=== PATIENT | female | born 1940 | race Caucasian/White ===

== ENCOUNTER 2017-07-01 14:18 | Inpatient (IN) | payer OTHER ==
--- OUTSIDE RECORDS SUMMARY | 2017-07-01 14:20 | XMS REPORT | Clinical Summary ---
:1940 Author Organization [facility] Address [address] [place] [address] Care Team Providers Name Role Phone Asked, No Pcp Primary Care Provider Unavailable Allergies Active Allergy Reactions Severity Noted Date Comments No Known Drug Allergies 09/16/2015 Current Medications Prescription Sig. Disp. Refills Start Date End Date Status levothyroxine TK 1 T PO QD 3 12/29/2016 Active (SYNTHROID, LEVOXYL) 125 mcg tablet amLODIPine (NORVASC) 5 Take 5 mg by Active mg tablet mouth daily. clopidogrel (PLAVIX) 75 Take 75 mg by Active mg tablet mouth daily. cholecalciferol, Take 1,000 Active vitamin D3, (VITAMIN Units by D3) 1,000 unit tablet mouth daily. hydroxychloroquine Take by mouth Active (PLAQUENIL) 200 mg daily. tablet escitalopram (LEXAPRO) Take 10 mg by Active 10 MG tablet mouth daily. tolterodine LA (DETROL Take 4 mg by Active LA) 4 MG 24 hr capsule mouth daily. atorvastatin (LIPITOR) Take 40 mg by Active 40 MG tablet mouth daily. aspirin (ECOTRIN) 81 MG Take 81 mg by Active enteric coated tablet mouth daily. pregabalin (LYRICA) 50 Take 50 mg by Active MG capsule mouth 3 (three) times a day. fluticasone (FLONASE) 2 sprays (100 15.8 mL 0 01/25/2017 Active 50 mcg/actuation nasal mcg total) by spray Each Nare route daily. fexofenadine-pseudoepHE Take 1 tablet 30 tablet 1 01/25/2017 01/26/20 Active Drine (JEREMY-D 24 by mouth 18 HOUR) 180-240 mg per 24 daily. hr tablet budesonide-formoterol Inhale 2 1 Inhaler 2 02/19/2017 Active (SYMBICORT) 160-4.5 puffs 2 (two) mcg/actuation inhaler times a day. levoFLOXacin (LEVAQUIN) Take 500 mg Active 500 MG tablet by mouth daily. budesonide-formoterol Inhale 2 02/20/20 Discontinued (SYMBICORT) 160-4.5 puffs 2 (two) 17 mcg/actuation inhaler times a day. budesonide-formoterol Inhale 2 1 Inhaler 3 02/12/2017 03/14/20 (SYMBICORT) 160-4.5 puffs 2 (two) 17 mcg/actuation inhaler times a day for 30 days. albuterol (PROAIR Inhale 2 18 g 2 05/28/2017 06/28/19 HFA,PROVENTIL puffs every 6 18 HFA,VENTOLIN HFA) 90 (six) hours mcg/actuation inhaler as needed for wheezing for up to 30 days. Active Problems Problem Noted Date Uncomplicated asthma 02/12/2017 Exacerbation of intermittent asthma 02/12/2017 Reactive airway disease that is not asthma 01/10/2017 Cough with congestion of paranasal sinus 01/10/2017 Allergic rhinitis due to pollen 01/10/2017 Post-nasal drip 01/10/2017 Mild intermittent asthma without complication 01/10/2017 Encounters Date Type Specialty Care Team Description 05/28/2017 Office Visit Pulmonology Angel Clark, Reactive airway disease that is not asthma (Primary Dx); Cough with congestion of paranasal sinus; Allergic rhinitis due to pollen, unspecified chronicity, unspecified seasonality; Intermittent asthma without complication, unspecified asthma severity 02/19/2017 Orders Only Pulmonology Frances Solo MA 02/12/2017 Clinical Support Pulmonology Isaias Azul Asthma, unspecified asthma severity, unspecified whether complicated, unspecified whether persistent ; Reactive airway disease that is not asthma 02/12/2017 Office Visit Pulmonology Angel Clark, Uncomplicated asthma , unspecified asthma severity, unspecified whether persistent (Primary Dx); Exacerbation of intermittent asthma, unspecified asthma severity; Allergic rhinitis due to pollen, unspecified chronicity, unspecified seasonality; Cough with congestion of paranasal sinus 01/25/2017 Orders Only Pulmonology Frances Solo MA 01/10/2017 Office Visit Pulmonology Angel Clark, Reactive airway disease that is not asthma (Primary Dx); Cough with congestion of paranasal sinus; Allergic rhinitis due to pollen, unspecified rhinitis seasonality; Post-nasal drip; Mild intermittent asthma without complication after 06/30/2016 Social History Tobacco Use Types Packs/Day Years Used Date Never Smoker Smokeless Tobacco: Never Used Sex Assigned at Date Recorded Not on file Last Filed Vital Signs Vital Sign Reading Time Taken Blood Pressure 140/70 05/28/2017 9:33 AM [employer] Pulse 49 05/28/2017 9:33 AM [employer] Temperature 36.7 C (98.1 F) 05/28/2017 9:33 AM [employer] Respiratory Rate 14 05/28/2017 9:33 AM [employer] Oxygen Saturation 98% 05/28/2017 9:33 AM [employer] Inhaled Oxygen Concentration - - Weight 85.3 kg (188 lb) 05/28/2017 9:33 AM [employer] Height 152.4 cm (5') 02/12/2017 9:45 AM CDT Body Mass Index 36.72 05/28/2017 9:33 AM [employer] Plan of Treatment Date Type Specialty Care Team Description 08/27/2017 Office Visit Pulmonology Angel Clark MD [address] [address] Health Maintenance Due Date Last Done Comments ZOSTER VACCINE 1999 PNEUMOCOCCAL POLYSACCHARIDE VACCINE AGE 65 AND OVER 06/23/2004 PNEUMOCOCCAL-13 06/23/2004 INFLUENZA VACCINE 11/14/2016 Results Not on fileafter 06/30/2016 Insurance Payer Benefit Plan / Group Subscriber ID Type Phone Address AETNA MEDICARE AETNA MEDICARE HMO/PPO [facility] xxxxxxxx HMO Home: [address] [place] [phone] [place], [place] [id number]
[2017-07-01 15:18] LABS: Absolute Lymphocytes (CBC) 2.3 K/uL (0.7-4.9); Absolute Monocytes 0.6 K/uL (0.1-1.3); Absolute Neutrophil 5.3 K/uL (1.8-8.0); Basophils % 0.7 % (0-1.3); Eosinophils % 3.4 % (0-4.4); Hematocrit 40.5 % (36.0-45.0); Lymphocytes % 27.2 % (15.3-44.8); MCH 28.6 pg (27.0-35.0); MCV 87.3 fL (80-100); MPV 9.8 fL (7.6-11.3); Monocytes % 6.7 % (3.3-12.3); RBC Red Blood Cell Count 4.65 M/uL (3.86-4.86)
[2017-07-01 15:20] LABS: Protime INR 0.91
[2017-07-01 15:25] LABS: Bicarbonate 26 mEq/L (21-31); Glucose Level 210 mg/dL (65-120); Potassium 3.8 mEq/L (3.6-5.0); Sodium Level 140 mEq/L (135-145)
[2017-07-01 15:31] LABS: ALT/SGPT 16 IU/L (10-60); AST/SGOT 21 IU/L (10-42); Albumin 3.6 g/dL (3.2-5.5); Alkaline Phosphatase 59 IU/L (42-121); BUN Blood Urea Nitrogen 15 mg/dL (6-20); Bilirubin Direct < 0.1 mg/dL (0-0.2); Bilirubin Total 0.5 mg/dL (0.3-1.2); Creatine Phosphokinase 103 IU/L (22-269); Glomerular Filtration Rate 85 mL/min (=/>90); Magnesium 1.9 mg/dL (1.8-2.5); Protein, Total 6.9 g/dL (6.0-8.3)
[2017-07-01 15:34] LABS: CKMB Creatine Kinase MB 5.9 ng/ml (0.3-4.0)
--- NOTE | 2017-07-01 15:41 | RAD REPORT ---
EXAM DESCRIPTION: RAD - Chest Single View - 07/01/2017 3:26 pm CLINICAL HISTORY: Chest pain. COMPARISON: None. FINDINGS: Portable technique limits examination quality. The lungs are grossly clear. The heart is normal in size. No displaced fractures. IMPRESSION: No acute intrathoracic process suspected.
--- NOTE | 2017-07-01 15:55 | EDPHYS ---
Physician Documentation [facility] Name: Ashley Goins Age: 77 yrs Sex: Female : 1940 Arrival Date: 07/01/2017 Time: 14:35 Bed 17 Private MD: ED Physician Samir Barroso HPI: 07/01 15:05 This 77 yrs old Female presents to ER via EMS with complaints of chest pain. snw 15:05 The patient or guardian reports chest pain that is located primarily in the substernal snw area. Onset: suddenly. The pain does not radiate. Associated signs and symptoms: Pertinent positives: diaphoresis, lightheadedness, palpitations. The chest pain is described as "crushing". Duration: The patient or guardian reports a single episode, that is now resolved. Modifying factors: The symptoms are alleviated by ASA, X4. NTG, X2. application of supplemental oxygen. EMS care prior to arrival includes: aspirin, nitroglycerin, saline lock, supplemental oxygen. The patient has not experienced similar symptoms in the past. Saw Dr. Zapata in Apr 01. Gets meds filled at [facility]. Historical: - Allergies: 17:03 Sulfa (Sulfonamide Antibiotics); aj1 17:03 Codeine; aj1 17:03 Latex, Natural Rubber; aj1 17:03 PENICILLINS; aj1 - Home Meds: 14:44 zolpidem 5 mg Oral tab 1 tab once daily [Active]; Lyrica 50 mg Oral 2 times per day aj1 [Active]; levothyroxine oral 15 mcg once daily [Active]; Januvia 100 mg oral tab 1 tab once daily [Active]; aspirin 81 mg Oral chew 1 tab once daily [Active]; montelukast 10 mg oral tab 1 tab once daily [Active]; nabumetone 500 mg oral tab 1 tab 2 times per day [Active]; hydroxychloroquine 200 mg oral tab 1 tab once daily [Active]; Detrol LA 4 mg Oral cp24 1 cap once daily [Active]; clopidogrel 75 mg oral tab 1 tab once daily [Active]; Lantus 100 unit/mL Sub-Q soln [Active]; Advair Diskus 100-50 mcg/dose Inhl dsdv 1 puff 2 times per day [Active]; Lexapro 10 mg Oral tab 1 tab once daily [Active]; veramest 29.5 mg [Active]; palanose 66.5 mg [Active]; - PMHx: 14:44 carotid stenosis; Hypertension; Hypothyroidism; Diabetes - NIDDM; Rheumatoid Arthritis; aj1 Asthma; - Immunization history:: Adult Immunizations up to date. - Social history:: Smoking status: Patient/guardian denies using tobacco. ROS: 15:02 Constitutional: Negative for fever, chills, and weight loss, Eyes: Negative for injury, snw pain, redness, and discharge, ENT: Negative for injury, pain, and discharge, Neck: Negative for injury, pain, and swelling. 15:02 Abdomen/GI: Negative for abdominal pain, nausea, vomiting, diarrhea, and constipation, Back: Negative for injury and pain, : Negative for injury, bleeding, discharge, and swelling, MS/Extremity: Negative for injury and deformity. 15:02 Cardiovascular: Positive for chest pain. 15:02 Respiratory: Positive for shortness of breath. 15:02 Skin: Positive for diaphoresis. 15:02 Neuro: Positive for dizziness. Exam: 15:02 Constitutional: This is a well developed, well nourished patient who is awake, alert, snw and in no acute distress. Head/Face: Normocephalic, atraumatic. Eyes: Pupils equal round and reactive to light, extra-ocular motions intact. Lids and lashes normal. Conjunctiva and sclera are non-icteric and not injected. Cornea within normal limits. Periorbital areas with no swelling, redness, or edema. ENT: Nares patent. No nasal discharge, no septal abnormalities noted. Tympanic membranes are normal and external auditory canals are clear. Oropharynx with no redness, swelling, or masses, exudates, or evidence of obstruction, uvula midline. Mucous membranes moist. Neck: Trachea midline, no thyromegaly or masses palpated, and no cervical lymphadenopathy. Supple, full range of motion without nuchal rigidity, or vertebral point tenderness. No Meningismus. Chest/axilla: Normal chest wall appearance and motion. Nontender with no deformity. No lesions are appreciated. Respiratory: Lungs have equal breath sounds bilaterally, clear to auscultation and percussion. No rales, rhonchi or wheezes noted. No increased work of breathing, no retractions or nasal flaring. Abdomen/GI: Soft, non-tender, with normal bowel sounds. No distension or tympany. No guarding or rebound. No evidence of tenderness throughout. Back: No spinal tenderness. No costovertebral tenderness. Full range of motion. Skin: Warm, dry with normal turgor. Normal color with no rashes, no lesions, and no evidence of cellulitis. MS/ Extremity: Pulses equal, no cyanosis. Neurovascular intact. Full, normal range of motion. Neuro: Awake and alert, GCS 15, oriented to person, place, time, and situation. Cranial nerves II-XII grossly intact. Motor strength 5/5 in all extremities. Sensory grossly intact. Cerebellar exam normal. Normal gait. Psych: Awake, alert, with orientation to person, place and time. Behavior, mood, and affect are within normal limits. 15:02 Cardiovascular: Rate: normal, Rhythm: irregular, Pulses: no pulse deficits are appreciated, Heart sounds: normal, Edema: is not appreciated. Vital Signs: 14:45 BP 205 / 79; Pulse 92; Resp 18; Temp 98.2; Pulse Ox 97% ; Weight 84.37 kg; Height 5 ft. aj1 0 in. (152.40 cm); Pain 0/10; 15:35 BP 179 / 79; Pulse 84; Resp 20; Pulse Ox 98% on R/A; mh5 16:01 Weight 84.91 kg; mh5 16:39 BP 184 / 50; Pulse 56; Resp 20; Pulse Ox 97% on R/A; aj1 17:20 BP 182 / 53; Pulse 58; Resp 18; Pulse Ox 99% ; aj1 16:01 Body Mass Index 36.56 (84.91 kg, 152.40 cm) [facility] MDM: 14:48 Patient medically screened. snw 15:13 Data reviewed: vital signs, nurses notes. Data interpreted: Pulse oximetry: on 2L(s) snw per nasal canula, is 97 %. Interpretation: acceptable. Counseling: I had a detailed discussion with the patient and/or guardian regarding: the historical points, exam findings, and any diagnostic results supporting the discharge/admit diagnosis, the presence of at least one elevated blood pressure reading (>120/80) during this emergency department visit, lab results, radiology results, the need for further work-up and treatment in the hospital. Physician consultation: Raghav Leonardo DO was called at 15:13, was contacted at 15:13, regarding admission, to the ICU. 16:19 Physician consultation: would like consultation with Dr. Dr. Hernandez contacted for snw consult in ICU. 07/01 14:45 Order name: Basic Metabolic Panel w 07/01 14:45 Order name: BNP [facility] 07/01 14:45 Order name: CBC with Diff w 07/01 14:45 Order name: Ckmb [facility] 07/01 14:45 Order name: CPK [facility] 07/01 14:45 Order name: LFT's [facility] 07/01 14:45 Order name: Magnesium [facility] 07/01 14:45 Order name: PT-INR [facility] 07/01 14:45 Order name: Ptt, Activated [facility] 07/01 14:45 Order name: Troponin (emerg Dept Use Only) [facility] 07/01 15:24 Order name: CBC with Automated Diff; Complete Time: 15:25 EDMS 07/01 15:26 Order name: Basic Metabolic Panel; Complete Time: 15:40 EDMS 07/01 15:27 Order name: Protime (+INR); Complete Time: 15:28 EDMS 07/01 15:27 Order name: PTT, Activated Partial Thromb; Complete Time: 15:28 EDMS 07/01 14:45 Order name: XRAY Chest (1 view) [facility] 07/01 14:45 Order name: EKG; Complete Time: 14:46 snw 07/01 14:45 Order name: Cardiac monitoring; Complete Time: 14:50 w 07/01 14:45 Order name: EKG - Nurse/Tech; Complete Time: 15:26 snw 07/01 14:45 Order name: IV Saline Lock; Complete Time: 14:50 snw 07/01 15:32 Order name: Liver (Hepatic) Function; Complete Time: 15:40 EDMS 07/01 15:32 Order name: Creatine Phosphokinase; Complete Time: 15:40 EDMS 07/01 15:32 Order name: Magnesium; Complete Time: 15:40 EDMS 07/01 15:32 Order name: Troponin (Emerg Dept Use Only); Complete Time: 15:40 EDMS 07/01 15:35 Order name: CKMB Creatine Kinase MB; Complete Time: 15:40 EDMS 07/01 15:35 Order name: BNP B-Type Natriuretic Peptide; Complete Time: 15:40 EDMS 07/01 15:43 Order name: RAD; Complete Time: 15:44 EDMS 07/01 15:56 Order name: Urine Dipstick--Ancillary (enter results) ag 07/01 17:14 Order name: Urine Dipstick-Ancillary; Complete Time: 17:20 EDMS 07/01 14:45 Order name: Labs collected and sent; Complete Time: 14:50 snw 07/01 14:45 Order name: O2 Per Protocol; Complete Time: 14:50 snw 07/01 14:45 Order name: O2 Sat Monitoring; Complete Time: 14:50 snw Administered Medications: 16:27 Drug: Heparin (SD Drip) 12 units/kg/hr - (HEParin 70743 units, D5W 500 ml) aj1 {Co-Signature: papito (Aileen Pritchard RN).} {Note: Started at 1000 units/ hours.} Route: IV; Rate: calculated rate; Site: left hand; 18:06 Follow up: IV Status: Infusion continued upon admission aj1 16:36 Drug: PlaVIX 300 mg Route: PO; aj1 17:20 Follow up: Response: No adverse reaction aj1 Disposition: 07/02 10:49 Co-signature as Attending Physician, Samir Barroso MD I agree with the assessment and nicola plan of care. Disposition: 07/01/17 15:54 Hospitalization ordered by Raghav Leonardo for Inpatient Admission. Preliminary diagnosis is Acute coronary syndrome. - Bed requested for Intensive Care Unit. - Status is Inpatient Admission. mh5 - Condition is Stable. - Problem is an acute exacerbation. - Symptoms have worsened. UTI on Admission? No Signatures: Dispatcher [employer] [facility] Kimber Cardona, RN RN aj1 Kristy Pereyra, RN Samir Malagon MD MD cha Therrien, Shelly, FNP-C ARCHEOLOGIST-Shirley Forde [facility] Aileen [email or web address] Corrections: (The following items were deleted from the chart) 07/01 15:41 15:13 Physician consultation: Raghav Jorden LOWE was called at 15:13, was contacted at snw 15:13, regarding admission, to the telemetry unit. snw 17:03 14:44 Allergies: No Known Allergies; aj1 aj1
--- NOTE | 2017-07-01 15:55 | ER ---
Nurse's Notes [facility] Name: Ashley Goins Age: 77 yrs Sex: Female : 1940 Arrival Date: 07/01/2017 Time: 14:35 Bed 17 Private MD: Diagnosis: Acute coronary syndrome Presentation: 07/01 14:36 Presenting complaint: EMS states: She was walking to her car when she suddenly started aj1 sweating, having severe substernal chest pain, shortness of breath. Patient states her pain was 10/10, but after EMS administering Nitro x2 she no longer has chest pain. Patient also reports dizziness and palpitations that have now subsided. Transition of care: patient was not received from another setting of care. Onset of symptoms was July 01, 2017. Care prior to arrival: Medication(s) given: ASA, 81 mg, x 4, Nitroglycerin, x 2. 14:36 Method Of Arrival: EMS: [facility] aj1 14:36 Acuity: AUBRIE 3 aj1 Triage Assessment: 14:44 General: Appears in no apparent distress. comfortable, Behavior is calm, cooperative. aj1 Pain: Pain currently is 0 out of 10 on a pain scale. at worst was 10 out of 10 on a pain scale. Historical: - Allergies: 17:03 Sulfa (Sulfonamide Antibiotics); aj1 17:03 Codeine; aj1 17:03 Latex, Natural Rubber; aj1 17:03 PENICILLINS; aj1 - Home Meds: 14:44 zolpidem 5 mg Oral tab 1 tab once daily [Active]; Lyrica 50 mg Oral 2 times per day aj1 [Active]; levothyroxine oral 15 mcg once daily [Active]; Januvia 100 mg oral tab 1 tab once daily [Active]; aspirin 81 mg Oral chew 1 tab once daily [Active]; montelukast 10 mg oral tab 1 tab once daily [Active]; nabumetone 500 mg oral tab 1 tab 2 times per day [Active]; hydroxychloroquine 200 mg oral tab 1 tab once daily [Active]; Detrol LA 4 mg Oral cp24 1 cap once daily [Active]; clopidogrel 75 mg oral tab 1 tab once daily [Active]; Lantus 100 unit/mL Sub-Q soln [Active]; Advair Diskus 100-50 mcg/dose Inhl dsdv 1 puff 2 times per day [Active]; Lexapro 10 mg Oral tab 1 tab once daily [Active]; veramest 29.5 mg [Active]; palanose 66.5 mg [Active]; - PMHx: 14:44 carotid stenosis; Hypertension; Hypothyroidism; Diabetes - NIDDM; Rheumatoid Arthritis; aj1 Asthma; - Immunization history:: Adult Immunizations up to date. - Social history:: Smoking status: Patient/guardian denies using tobacco. Screenin:46 Abuse screen: Denies threats or abuse. Denies injuries from another. Nutritional aj1 screening: No deficits noted. Tuberculosis screening: No symptoms or risk factors identified. 17:20 Fall Risk No fall in past 12 months (0 pts). No secondary diagnosis (0 pts). IV access aj1 (20 points). Ambulatory Aid- None/Bed Rest/Nurse Assist (0 pts). Gait- Normal/Bed Rest/Wheelchair (0 pts) Mental Status- Oriented to own ability (0 pts). Total Rodríguez Fall Scale indicates No Risk (0-24 pts). Assessment: 14:46 General: Appears in no apparent distress. comfortable, Behavior is calm, cooperative, aj1 appropriate for age. Pain: Complains of pain in mid-sternal area Pain does not radiate. Pain currently is 0 out of 10 on a pain scale. at worst was 10 out of 10 on a pain scale. Quality of pain is described as pressure. Neuro: Level of Consciousness is awake, alert, obeys commands, Oriented to person, place, time, situation, Speech is normal, Facial symmetry appears normal. Cardiovascular: Reports chest pain, palpitations, shortness of breath, Denies nausea, syncope, vomiting, Heart tones S1 S2 present Patient's skin is warm and dry. Rhythm is regular Chest pain is described as Pain is 0 out of 10 on a pain scale. quality is pressure, is located in substernal area Patient had chest pain that was relieved by Nitro administration LAUNDRY AID. Respiratory: Reports shortness of breath that has now resolved Airway is patent Respiratory effort is even, unlabored, Respiratory pattern is regular, symmetrical, Breath sounds are clear bilaterally. GI: No signs and/or symptoms were reported involving the gastrointestinal system. : No signs and/or symptoms were reported regarding the genitourinary system. EENT: No signs and/or symptoms were reported regarding the EENT system. Derm: No signs and/or symptoms reported regarding the dermatologic system. Skin is pink, warm \T\ dry. normal. Musculoskeletal: No signs and/or symptoms reported regarding the musculoskeletal system. Circulation, motion, and sensation intact. 15:45 Reassessment: Patient appears in no apparent distress at this time. No changes from aj1 previously documented assessment. Patient and/or family updated on plan of care and expected duration. Pain level reassessed. Patient is alert, oriented x 3, equal unlabored respirations, skin warm/dry/pink. 16:40 Reassessment: Patient and/or family updated on plan of care and expected duration. Pain aj1 level reassessed. General: Appears in no apparent distress. comfortable, Behavior is calm, cooperative, appropriate for age. Pain: Denies pain. Neuro: Level of Consciousness is awake, alert, obeys commands, Oriented to person, place, time, situation, Speech is normal, Facial symmetry appears normal. Cardiovascular: Heart tones S1 S2 present Patient's skin is warm and dry. Pulses are all present. Rhythm is regular Chest pain is denied. Respiratory: Airway is patent Respiratory effort is even, unlabored, Respiratory pattern is regular, symmetrical. GI: No signs and/or symptoms were reported involving the gastrointestinal system. : No signs and/or symptoms were reported regarding the genitourinary system. EENT: No signs and/or symptoms were reported regarding the EENT system. Derm: No signs and/or symptoms reported regarding the dermatologic system. Skin is pink, warm \T\ dry. normal. Musculoskeletal: No signs and/or symptoms reported regarding the musculoskeletal system. Circulation, motion, and sensation intact. 17:20 Reassessment: Patient appears in no apparent distress at this time. No changes from aj1 previously documented assessment. Patient and/or family updated on plan of care and expected duration. Pain level reassessed. Patient is alert, oriented x 3, equal unlabored respirations, skin warm/dry/pink. Vital Signs: 14:45 BP 205 / 79; Pulse 92; Resp 18; Temp 98.2; Pulse Ox 97% ; Weight 84.37 kg; Height 5 ft. aj1 0 in. (152.40 cm); Pain 0/10; 15:35 BP 179 / 79; Pulse 84; Resp 20; Pulse Ox 98% on R/A; mh5 16:01 Weight 84.91 kg; 5 16:39 BP 184 / 50; Pulse 56; Resp 20; Pulse Ox 97% on R/A; aj1 17:20 BP 182 / 53; Pulse 58; Resp 18; Pulse Ox 99% ; aj1 16:01 Body Mass Index 36.56 (84.91 kg, 152.40 cm) [facility] ED Course: 14:35 Patient arrived in ED. jl7 14:36 Kimber Cardona RN is Primary Nurse. aj1 14:38 Triage completed. aj1 14:43 Aurora Marie FNP-C is PHCP. snw 14:43 Samir Barroso MD is Attending Physician. snw 14:45 Arm band placed on. aj1 14:46 Patient has correct armband on for positive identification. Placed in gown. Bed in low aj1 position. Call light in reach. quality assurance monitor chassis on. Pulse ox on. NIBP on. 14:46 No provider procedures requiring assistance completed. Maintain EMS IV. Dressing aj1 intact. Good blood return noted. Site clean \T\ dry. Gauge \T\ site: 22 left AC. 15:53 Raghav Leonardo DO is Hospitalizing Provider. snw 16:03 Urine Dipstick--Ancillary (enter results) Sent. [facility] 16:15 Inserted saline lock: 22 gauge in left hand, using aseptic technique. aj1 17:20 Report given to TREY Saldaña in ICU. aj1 17:20 Patient admitted, IV remains in place. aj1 Administered Medications: 16:27 Drug: Heparin ([place] Drip) 12 units/kg/hr - (HEParin 38441 units, D5W 500 ml) aj1 {Co-Signature: papito (Aileen Pritchard RN).} {Note: Started at 1000 units/ hours.} Route: IV; Rate: calculated rate; Site: left hand; 18:06 Follow up: IV Status: Infusion continued upon admission aj1 16:36 Drug: PlaVIX 300 mg Route: PO; aj1 17:20 Follow up: Response: No adverse reaction aj1 Outcome: 15:54 Decision to Hospitalize by Provider. snw 18:04 Admitted to ICU accompanied by nurse, via stretcher, room ICU-1, on monitor, with chart.aj1 18:04 Condition: unchanged 18:04 Discharge instructions given to patient, family, Instructed on the need for admit, Demonstrated understanding of instructions. 18:05 Patient left the ED. [facility] Signatures: Kimber Cardona RN RN aj1 Aurora Marie, FORK LIFT TRUCK OPERATOR-C FORK LIFT TRUCK OPERATOR-Lizethw Shirley Plasencia [facility] Aileen Pritchard RN RN jl7 Aileen Pritchard RN jl7 Corrections: (The following items were deleted from the chart) 16:42 14:46 Respiratory: Reports shortness of breath that has now resolved Airway is patent aj1 Respiratory effort is even, unlabored, Respiratory pattern is regular, agonal Breath sounds are clear bilaterally. aj1 17:03 14:44 Allergies: No Known Allergies; aj1 aj1
[2017-07-01] MEDS ORDERED: CLOPIDOGREL 75 MG TABLET ONE (16:00)
[2017-07-01] MEDS ORDERED: HEPARIN/D5W 25,000 UNIT/500 ML BAG IV ONE (16:01)
--- NOTE | 2017-07-01 16:25 | P.HP ---
Certification for Inpatient Patient admitted to: Inpatient With expected LOS: >2 Midnights Patient will require the following post-hospital care: None Practitioner: I am a practitioner with admitting privileges, knowledge of patient current condition, hospital course, and medical plan of care. Services: Services provided to patient in accordance with Admission requirements found in Title 42 Section 412.3 of the Code of Federal Regulations Patient History Date of Service: 07/01/17 Primary Care Provider: Dr. Reynoso; Cardiology-Dr. Zapata; Endocrinology Reason for admission: Chest pain History of Present Illness: 77-year-old female presented emergency room with chest pain. The patient reports that she start have chest pain about 2:00 p.m. this afternoon. She was getting items from her car after going to the grocery store. She start to have pain to the center of her chest. She rates the pain about a 10/10. It was a crushing like sensation. The patient also reported some diaphoresis with this. She has not had this type of chest pain before. She immediately came to the emergency room for further evaluation. In the ER the patient was evaluated. CBC unremarkable. Blood pressures were elevated. She was given medication for this. Blood pressure improved. Chest pain resolved. Sodium 140, potassium 3.8. CK MB was elevated at 5.9 along with troponin at 0.15. Chest x-ray unremarkable. EKG showed some ST changes indicating ischemia. The patient was started on a heparin drip in the emergency room. She was also given aspirin, loading dose of Plavix. The patient has remained stable. Due to the nature of her findings the patient was admitted for further evaluation and treatment. I was asked to admit the patient. When I saw the patient the ER, she was without any significant chest pain. She did not appear in any distress. Patient with history of diabetes, hypertension , hypothyroidism, rheumatoid arthritis, coronary artery disease with previous stents, carotid arterial disease, hyperlipidemia, GERD, asthma and diabetic neuropathy. It is been over 3 years since her last heart catheterization. She has recently been evaluated by cardiology for her carotid disease. Allergies latex Allergy (Intermediate, Verified 03/25/15 14:07) Hives Penicillins Allergy (Verified 03/25/15 14:07) Rash Sulfa (Sulfonamide Antibiotics) Allergy (Verified 03/25/15 14:07) Rash codeine Adverse Reaction (Unverified 03/25/15 14:07) Itching Home Medications: Aspirin [Adult Low Dose Aspirin EC] 81 mg PO DAILY 03/25/15 Beclomethasone Dipropionate [Beconase Aq] 66 mg NS PRN PRN 03/25/15 Clopidogrel Bisulfate [Plavix] 75 mg PO DAILY 03/25/15 Escitalopram [Lexapro] 10 mg PO DAILY 03/25/15 Fluticasone Furoate [Veramyst] 10 gm NS PRN PRN 03/25/15 Fluticasone/Salmeterol [Advair 250/50 Diskus] 1 puff IH BID PRN 03/25/15 Hydroxychloroquine [Plaquenil] 200 mg PO DAILY 03/25/15 Insulin Detemir [Levemir] 115 unit SQ BEDTIME 03/25/15 Levothyroxine Sodium 150 mcg PO DAILY 03/25/15 Montelukast [Singulair] 10 mg PO DAILY 03/25/15 Nabumetone [Relafen] 500 mg PO BID 03/25/15 Pregabalin [Lyrica] 50 mg PO BID PRN 03/25/15 Sitagliptin Phosphate [Januvia] 100 mg PO DAILY 03/25/15 Tiotropium [Spiriva Handihaler] 18 mcg IH PRN PRN 03/25/15 Tolterodine Tartrate [Detrol LA] 4 mg PO DAILY 03/25/15 Zolpidem Tartrate 5 mg PO BEDTIME 03/25/15 - Past Medical/Surgical History Diabetic: Yes -: Diabetes mellitus type 2 -: Hypertension -: CAD, previous stents -: Hyperlipidemia -: Rheumatoid arthritis -: Asthma -: Diabetic neuropathy -: Carotid arterial disease -: Obesity -: Allergic rhinitis -: Insomnia -: Stents x2 -: Hysterectomy -: Cholecystectomy -: Bladder suspension -: Shoulder manipulation Psychosocial/ Personal History: The patient is a . She lives by herself. She has 3 children. - Family History Mother -: Cancer - Social History Smoking Status: Never smoker Alcohol use: No CD- Drugs: No Caffeine use: Yes Place of Residence: Home Review of Systems General: Weakness, As per HPI Eyes: Unremarkable ENT: Unremarkable Respiratory: Shortness of Breath, As per HPI Cardiovascular: Chest Pain, Light Headedness, As per HPI Gastrointestinal: Nausea, As per HPI Genitourinary: Unremarkable Musculoskeletal: Unremarkable Integumentary: Unremarkable Neurological: Unremarkable Lymphatics: Unremarkable Physical Examination - Physical Exam General: Alert, In no apparent distress, Oriented x3, Cooperative HEENT: Atraumatic, Normocephalic, PERRLA, Mucous membr. moist/pink Neck: Supple, No Thyromegaly Respiratory: Clear to auscultation bilaterally, Normal air movement Cardiovascular: Normal pulses, Regular rate/rhythm Gastrointestinal: Normal bowel sounds, Soft and benign, Non-distended, No ascites, No tenderness, No masses, No rebound, No guarding Musculoskeletal: No erythema, No tenderness, No warmth Integumentary: No tenderness/swelling, No erythema, No warmth, No cyanosis Neurological: Normal speech, Normal strength at 5/5 x4 extr, Normal tone, Normal affect Lymphatics: No axilla or inguinal lymphadenopathy - Studies Laboratory Data (last 24 hrs) 07/01/17 14:50: PT 10.7, INR 0.91, APTT 24.3 07/01/17 14:50: WBC 8.5, Hgb 13.3, Hct 40.5, Plt Count 251 07/01/17 14:50: B-Natriuretic Peptide 68 07/01/17 14:50: Sodium 140, Potassium 3.8, BUN 15, Creatinine 0.67, Glucose 210 H, Magnesium 1.9, Total Bilirubin 0.5, AST 21, ALT 16, Alkaline Phosphatase 59 Assessment and Plan - Problems (Diagnosis) (1) Chest pain Current Visit: Yes Status: Acute Plan: Patient has been started on aspirin, Plavix and heparin drip. Will continue with this. Will continue monitor cardiac enzymes. Cardiology has been informed. Patient will go to ICU. Patient with history of CAD with previous stent, diabetes, hypertension, hyperlipidemia, rheumatoid arthritis and and hypothyroidism. Patient will likely need cardiac intervention to further assess. Await further recommendations from cardiology. Will keep the patient NPO after midnight. Qualifiers: Chest pain type: chest pain due to myocardial ischemia Ischemic chest pain type: stable angina pectoris Qualified Code(s): I20.8 - Other forms of angina pectoris (2) Acute coronary syndrome Current Visit: Yes Status: Acute Plan: Continue with above plan of care. Patient will go to ICU. Heparin drip to be started. Cardiology has been consulted. (3) Hypertension Current Visit: Yes Status: Chronic Plan: Blood pressure elevated. Will continue with her medications including Norvasc and lisinopril. Will add metoprolol. Qualifiers: Hypertension type: essential hypertension Qualified Code(s): I10 - Essential (primary) hypertension (4) Diabetes mellitus Current Visit: Yes Status: Chronic Plan: Will check A1c. Will continue with sliding scale. Qualifiers: Diabetes mellitus type: type 2 Diabetes mellitus mcc insulin use: with mcc use Diabetes mellitus complication status: with other specified complication Qualified Code(s): E11.69 - Type 2 diabetes mellitus with other specified complication; Z79.4 - intermediate card tender (current) use of insulin; Z79.4 - intermediate card tender (current) use of insulin; Z79.4 - intermediate card tender (current) use of insulin; Z79.4 - intermediate card tender (current) use of insulin (5) Carotid arterial disease Current Visit: Yes Status: Chronic Plan: Patient with left-sided carotid arterial disease. This has been evaluated by Cardiology Qualifiers: Laterality: left Qualified Code(s): I77.9 - Disorder of arteries and arterioles, unspecified (6) Hypothyroidism Current Visit: Yes Status: Chronic Plan: Will continue with her medication. Will check TSH. Qualifiers: Hypothyroidism type: unspecified Qualified Code(s): E03.9 - Hypothyroidism , unspecified (7) Rheumatoid arthritis Current Visit: Yes Status: Chronic Plan: Will continue with medication. Qualifiers: Rheumatoid arthritis location: multiple sites Rheumatoid factor presence: unspecified presence Qualified Code(s): M06.9 - Rheumatoid arthritis, unspecified (8) Hyperlipidemia Current Visit: Yes Status: Chronic Plan: Will add statin medication. Will check fasting lipid panel. Qualifiers: Hyperlipidemia type: unspecified Qualified Code(s): E78.5 - Hyperlipidemia , unspecified (9) Obesity Current Visit: Yes Status: Chronic Plan: Will check BMI. Will address lifestyle modification education. Discharge Plan: Home Plan to discharge in: Greater than 2 days - Advance Directives Does patient have a Living Will: No Does patient have a Durable POA for Healthcare: No - Code Status/Comfort Care Code Status Assessed: Yes Time Spent Managing Pts Care (In Minutes): 55
[2017-07-01 17:13] LABS: Urine Blood 1+ (NEG); Urine Glucose TRACE (NEG); Urine Protein 2+ (NEG)
[2017-07-01] MEDS ORDERED: NITROGLYCERIN 0.4 MG/TAB SL PRN (17:47)
[2017-07-01] MEDS ORDERED: HEPARIN/D5W 25,000 UNIT/500 ML BAG IV SCH (17:47)
[2017-07-01] MEDS ORDERED: ACETAMINOPHEN 500 MG TAB PO PRN (17:47)
[2017-07-01] MEDS: INSULIN -REGULAR HUMAN 50 UNIT/0.5 ML ML SQ SCH ×2 (17:47→21:00)
[2017-07-01] MEDS ORDERED: ONDANSETRON 4 MG/2 ML VIAL IV PRN (17:47)
[2017-07-01] MEDS: AMLODIPINE 5 MG TAB PO SCH (18:07)
[2017-07-01] MEDS: LISINOPRIL 20 MG TAB PO SCH (18:08)
[2017-07-01 20:12] LABS: CKMB Creatine Kinase MB 11.8 ng/ml (0.3-4.0)
--- NOTE | 2017-07-01 20:27 | CON ---
Chief Complaint: Chest pain. History Of Present Illness: Ms. Goins has a history of coronary cerebral vascular peripheral arteria l disease. She has had aortic and iliac stents, a coronary stent. She has a carotid stenosis, but h as never required intervention. She has underlying diabetes, hypertension, dyslipidemia, obesity. S he takes medicines for all of those and normally sees Dr. Zapata as an outpatient. She has been candelario e of chest pain for the last several years. Her last intracoronary stent was in about 2011. When anay xie started to have chest pain today, it was while she was walking. It got better with nitroglycerin a nd rest. She is free of chest pain now. The total amount of time she had pain was somewhere in the vicinity of half an hour. Her troponin is elevated at 0.15. Her EKG shows nonspecific repolarizatio n abnormality, sinus bradycardia. Allergies: THE PATIENT IS ALLERGIC TO LATEX, PENICILLIN, SULFA, AND CODEINE. SHE IS NOT ALLERGIC TO X-RAY CONTRAST MATERIAL. Social History: She uses no tobacco. Rare alcohol. No illegal drugs. Physical Examination: General: She is obese, short in stature. Alert, oriented, pleasant, not in distress. Lungs: Clear. Heart: S4 gallop, otherwise normal. No significant murmur. Abdomen: Soft. Extremities: Reveal normal distal pulses. No cyanosis, clubbing, or edema. Laboratory Data: Her creatinine is 0.67, blood sugar 210, white blood cell count 8.5. Hemoglobin 13 .5, platelet count 251,000. Impression: The patient has non-ST elevation myocardial infarction. Unstable angina. She did under go a cardiac cath. We can attempt a radial approach on her and try and do it tomorrow since the gato ent is stable. I have a strong suspicion she will end up having severe 3 vessel disease, in which ca se, if she needs bypass surgery, we will have to wait for Plavix to wear off. She was given half a l oading dose of Plavix in the emergency room and her home medications include Plavix, so if she needs a bypass surgery it will be quite a long waiting time. Outpatient Medications: Veramyst, Lexapro, Spiriva, Advair, insulin, Plavix, Detrol LA, Plaquenil, n abumetone, Singulair, sitagliptin, aspirin, levothyroxine, zolpidem, pregabalin, and Beconase nasal s pray. We are suspicious that this list is incomplete or inaccurate in other ways as well. We are waiting f or a well-confirmed list. It is surprising to me, she is not on a statin drug. She does not list st atins as a medicine she is intolerant to. We are giving her atorvastatin now. ANAY/LEN Voice ID: [id number] Report ID: [id number]
[2017-07-01] MEDS: ATORVASTATIN 20 MG TAB PO SCH (20:42)
[2017-07-01] MEDS: METOPROLOL TAR 25 MG TAB PO SCH (20:42)
[2017-07-01] MEDS: PREGABALIN 50 MG CAP PO SCH (20:43)
[2017-07-01] MEDS: HYDROXYCHLOROQUINE 200MG TAB PO SCH (20:43)
[2017-07-01] MEDS: FLUTICASONE 50MCG NASAL SPRAY NAS SCH (20:43)
[2017-07-01] MEDS ORDERED: AMLODIPINE 5 MG TAB PO ONE (21:47)
[2017-07-01] MEDS: ZOLPIDEM TARTRATE 5 MG TABLET PO SCH (23:52)
[2017-07-02] MEDS ORDERED: ZOLPIDEM TARTRATE 5 MG TABLET ONE (00:10)
[2017-07-02 02:02] LABS: CKMB Creatine Kinase MB 12.4 ng/ml (0.3-4.0)
[2017-07-02 03:38] LABS: Absolute Lymphocytes (CBC) 3.6 K/uL (0.7-4.9); Absolute Monocytes 0.9 K/uL (0.1-1.3); Basophils % 0.6 % (0-1.3); Eosinophils % 2.8 % (0-4.4); Hematocrit 41.2 % (36.0-45.0); Lymphocytes % 27.6 % (15.3-44.8); MCH 28.7 pg (27.0-35.0); MCV 86.9 fL (80-100); MPV 9.7 fL (7.6-11.3); Monocytes % 7.1 % (3.3-12.3); RBC Red Blood Cell Count 4.74 M/uL (3.86-4.86)
[2017-07-02 03:51] LABS: Bicarbonate 26 mEq/L (21-31); Potassium 3.7 mEq/L (3.6-5.0); Sodium Level 140 mEq/L (135-145)
[2017-07-02 03:53] LABS: BUN Blood Urea Nitrogen 12 mg/dL (6-20); Glomerular Filtration Rate > 90 mL/min (=/>90); Glucose Level 187 mg/dL (65-120); HDL Cholesterol 47 mg/dL (29-89); LDL Cholesterol, Calculated 126 (<130); Magnesium 1.9 mg/dL (1.8-2.5)
[2017-07-02] MEDS ORDERED: KCL 20 MEQ/100 mL IVPB 20 MEQ/100 ML BAG IV SCH (05:00)
[2017-07-02] MEDS ORDERED: NA CHLORIDE 0.9% 1,000 ML IV SCH (05:00)
[2017-07-02] MEDS: ASPIRIN EC 81 MG TAB PO SCH (05:34)
[2017-07-02] MEDS: AMLODIPINE 5 MG TAB PO SCH (05:34)
[2017-07-02] MEDS: LEVOTHYROXINE SOD 0.125 MG TAB PO SCH (05:34)
[2017-07-02] MEDS: METOPROLOL TAR 25 MG TAB PO SCH ×2 (05:34→21:01)
[2017-07-02] MEDS: LISINOPRIL 20 MG TAB PO SCH (05:35)
[2017-07-02] MEDS: PANTOPRAZOLE 40MG TABLET PO SCH (05:35)
[2017-07-02] MEDS ORDERED: HEPA 1000U/500MLS 2,000 UNIT/1,000 ML BAG IV ONE (07:12)
[2017-07-02] MEDS ORDERED: LIDOCAINE 1% 20 ML MDV ONE ×2 (07:12→08:16)
[2017-07-02] MEDS ORDERED: NITROGLYCERIN/D5W 25 MG/250 ML BTL IV ONE (07:13)
[2017-07-02] MEDS ORDERED: NICARDIPINE HCL 25 MG/10 ML IV ONE (07:13)
[2017-07-02] MEDS ORDERED: HEPARIN 5000 UNIT/ML 1 ML VIAL ONE (07:13)
[2017-07-02] MEDS: INSULIN -REGULAR HUMAN 50 UNIT/0.5 ML ML SQ SCH ×5 (07:30→22:34)
[2017-07-02] MEDS ORDERED: MIDAZOLAM HCL 2 MG/2 ML INJ ONE (07:55)
[2017-07-02] MEDS ORDERED: FENTANYL CITR 100 MCG/2 ML ONE (07:55)
[2017-07-02] MEDS ORDERED: NA CHLORIDE 0.9% 0 ML ONE (07:56)
[2017-07-02] MEDS ORDERED: ATROPINE SULF 1 MG/10 ML SYR IV ONE (07:56)
[2017-07-02] MEDS: AMLODIPINE 10 MG TAB PO SCH (09:00)
[2017-07-02] MEDS ORDERED: CLOPIDOGREL 75 MG TABLET PO SCH (09:00)
[2017-07-02 09:23] LABS: A1c Component 0.79 mg/dL; Hemoglobin A1c 7.5 % (4-6.0)
[2017-07-02] MEDS: PREGABALIN 50 MG CAP PO SCH ×2 (09:32→21:01)
[2017-07-02] MEDS: HYDROXYCHLOROQUINE 200MG TAB PO SCH ×2 (09:32→21:04)
[2017-07-02] MEDS: FLUTICASONE 50MCG NASAL SPRAY NAS SCH ×2 (09:32→21:00)
--- NOTE | 2017-07-02 10:05 | EKG ---
Test Date: 2017-07-01 Test Time: 15:13:06 Email Production Consultant: BONNY MEASUREMENT RESULTS: Intervals: Rate: 49 IN: 152 QRSD: 76 QT: 414 QTc: 373 [place]: P: 38 IN: 152 QRS: -21 T: 227 INTERPRETIVE STATEMENTS: Sinus bradycardia Left ventricular hypertrophy with repolarization abnormality Abnormal ECG Compared to ECG 05/14/2000 10:01:00 Left ventricular hypertrophy now present Early repolarization now present Electronically Signed On 07-02-17 10:04:17 CDT by Yandel Hernandez
--- NOTE | 2017-07-02 10:26 | P.PN ---
Subjective Date of Service: 07/02/17 Primary Care Provider: Dr. Reynoso; Cardiology-Dr. Zapata; Endocrinology Chief Complaint: Chest pain Subjective: Doing well Physical Examination - Vital Signs Temperature: 98.3 F Blood Pressure: 129/47 Pulse: 50 Respirations: 11 Pulse Ox (%): 97 - Physical Exam General: Alert, In no apparent distress, Oriented x3, Cooperative HEENT: Atraumatic, Mucous membr. moist/pink Neck: Supple Respiratory: Clear to auscultation bilaterally, Normal air movement Cardiovascular: Normal pulses, Regular rate/rhythm Gastrointestinal: Normal bowel sounds, Soft and benign, Non-distended Musculoskeletal: No erythema, No tenderness, No warmth Integumentary: No tenderness/swelling, No erythema, No warmth, No cyanosis Neurological: Normal speech, Normal strength at 5/5 x4 extr, Normal tone, Normal affect - Studies Laboratory Data (last 24 hrs) 07/01/17 14:50: PT 10.7, INR 0.91, APTT 24.3 07/01/17 14:50: WBC 8.5, Hgb 13.3, Hct 40.5, Plt Count 251 07/01/17 14:50: B-Natriuretic Peptide 68 07/01/17 14:50: Sodium 140, Potassium 3.8, BUN 15, Creatinine 0.67, Glucose 210 H, Magnesium 1.9, Total Bilirubin 0.5, AST 21, ALT 16, Alkaline Phosphatase 59 Medications List Reviewed: Yes Assessment & Plan - Problems (Diagnosis) (1) Chest pain Current Visit: Yes Status: Acute Plan: Case discussed at length with cardiology. Patient had heart catheterization showing multi-vessel disease. Cardiology recommends transfer to cardiovascular surgery for CABG. Arrangements will be made. Patient understands this and agrees with the plan of care. Qualifiers: Chest pain type: chest pain due to myocardial ischemia Ischemic chest pain type: stable angina pectoris Qualified Code(s): I20.8 - Other forms of angina pectoris (2) Acute coronary syndrome Current Visit: Yes Status: Acute Plan: Continue with above plan of care. Patient be transferred to cardiovascular surgeon for CABG. (3) Hypertension Current Visit: Yes Status: Chronic Plan: Blood pressure improved. Will continue with medication. Qualifiers: Hypertension type: essential hypertension Qualified Code(s): I10 - Essential (primary) hypertension (4) Diabetes mellitus Current Visit: Yes Status: Chronic Plan: Will continue with sliding scale. Qualifiers: Diabetes mellitus type: type 2 Diabetes mellitus residential insulin use: with residential use Diabetes mellitus complication status: with other specified complication Qualified Code(s): E11.69 - Type 2 diabetes mellitus with other specified complication; Z79.4 - supervisor intermediates (current) use of insulin; Z79.4 - penitentiary (current) use of insulin; Z79.4 - supervisor intermediates (current) use of insulin; Z79.4 - penitentiary (current) use of insulin (5) Carotid arterial disease Current Visit: Yes Status: Chronic Plan: Patient with left-sided carotid arterial disease. This has been evaluated by Cardiology Qualifiers: Laterality: left Qualified Code(s): I77.9 - Disorder of arteries and arterioles, unspecified (6) Hypothyroidism Current Visit: Yes Status: Chronic Plan: Will continue with her medication. Qualifiers: Hypothyroidism type: unspecified Qualified Code(s): E03.9 - Hypothyroidism , unspecified (7) Rheumatoid arthritis Current Visit: Yes Status: Chronic Plan: Will continue with medication. Qualifiers: Rheumatoid arthritis location: multiple sites Rheumatoid factor presence: unspecified presence Qualified Code(s): M06.9 - Rheumatoid arthritis, unspecified (8) Hyperlipidemia Current Visit: Yes Status: Chronic Plan: Statin medication added. Qualifiers: Hyperlipidemia type: unspecified Qualified Code(s): E78.5 - Hyperlipidemia , unspecified (9) Obesity Current Visit: Yes Status: Chronic Plan: Will address lifestyle modification education. Qualifiers: Obesity type: due to excess calories Obesity classification: adult class 2 (BMI 35 - 39.9) Serious obesity comorbidity presence: with serious comorbidity Body mass index: BMI 36.0-36.9 Qualified Code(s): E66.01 - Morbid (severe) obesity due to excess calories; Z68.36 - Body mass index (BMI) 36.0-36.9, adult; Z68.36 - Body mass index (BMI) 36.0-36.9, adult Discharge Plan: Transfer Plan to discharge in: 24 Hours Time Spent Managing Pts Care (In Minutes): 55
--- NOTE | 2017-07-02 10:43 | OP ---
Surgeon: Yandel Hernandez MD Procedures: Left heart catheterization, coronary, and left ventricular angiography. Findings: The patient's ejection fraction is normal. Left ventricular end-diastolic pressure is 13, within normal limits. Her coronary arteries are diffusely diseased. There are stents in her obtuse marginal. There is a 50% lesion after that. There is a stent in the LAD. Following the LAD, there was a long 50% stenosis in a branch and then a 99% stenosis after an acute angle. In the right minal nary, the proximal 1/2 of the artery has a diffuse long lesion with sequential lesions up to 99%. Th e distal vessels are about 2.5-3 mm in diameter. There was LIZZ-3 flow through all of the stenosis a nd the recommendation is for her to go through bypass surgery. The left main also has a 40-50% long narrowing. Procedure In Detail: The patient had unstable angina abnormal enzymes. 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 Right radial approach was used. The skin over the right radial artery was anesthetiz ed with 1% lidocaine. The artery was entered using a 21-gauge needle. We used a [employer] radial sheat h. A 0.021 inch diameter wire Seldinger technique. We successfully placed a radial sheath, flushed it, and gave the radial cocktail consisting of heparin, nicardipine, and nitroglycerin. A TIG cathet er was advanced to the ascending aorta using fluoroscopic guidance and a Glidewire with a short radiu s J-tip. We used the same catheter to angiogram right coronary, left ventricle, left coronary. No c omplications from the procedure. As soon as we decided on a course of action that would not involve intervention, all catheters and wires were removed. Sheath was flushed and removed and the arterioto my closed with a TR band. Estimated Blood Loss: 5 cc. Complications: None. Printer Maintainer: Mare Bear. EUGENIA/LEN Voice ID: [id number] Report ID: [id number]
[2017-07-02 10:51] LABS: CKMB Creatine Kinase MB 9.6 ng/ml (0.3-4.0)
[2017-07-02] MEDS: CETIRIZINE HCL 5 MG TABLET PO SCH (17:47)
[2017-07-02] MEDS: ZOLPIDEM TARTRATE 5 MG TABLET PO SCH (21:00)
[2017-07-02] MEDS: ATORVASTATIN 20 MG TAB PO SCH (21:01)
[2017-07-03 04:37] LABS: Absolute Lymphocytes (CBC) 3.1 K/uL (0.7-4.9); Absolute Monocytes 0.9 K/uL (0.1-1.3); Absolute Neutrophil 5.7 K/uL (1.8-8.0); Basophils % 0.7 % (0-1.3); Eosinophils % 4.1 % (0-4.4); Hematocrit 37.7 % (36.0-45.0); MCV 87.7 fL (80-100); MPV 9.7 fL (7.6-11.3); Monocytes % 8.4 % (3.3-12.3)
[2017-07-03 04:43] LABS: Potassium 3.6 mEq/L (3.6-5.0)
[2017-07-03 04:56] LABS: Magnesium 1.8 mg/dL (1.8-2.5)
[2017-07-03] MEDS: LEVOTHYROXINE SOD 0.125 MG TAB PO SCH (05:53)
[2017-07-03] MEDS: PANTOPRAZOLE 40MG TABLET PO SCH (05:54)
[2017-07-03] MEDS ORDERED: MAGNESIUM SULFATE 1 gm IVPB 1 GM/100 ML BAG IV ONE (07:00)
[2017-07-03] MEDS ORDERED: POTASSIUM CL SA 10 MEQ TAB PO ONE (07:00)
[2017-07-03] MEDS ORDERED: FLUTICASONE IH PRN (07:06)
[2017-07-03] MEDS ORDERED: SALMETEROL IH PRN (07:06)
[2017-07-03] MEDS ORDERED: TIOTROPIUM 5 SPRAYS/INHALER IH PRN (07:06)
[2017-07-03] MEDS: METOPROLOL TAR 25 MG TAB PO SCH ×2 (08:35→21:09)
[2017-07-03] MEDS: LISINOPRIL 20 MG TAB PO SCH (08:36)
[2017-07-03] MEDS: AMLODIPINE 10 MG TAB PO SCH (08:36)
[2017-07-03] MEDS: INSULIN -REGULAR HUMAN 50 UNIT/0.5 ML ML SQ SCH ×4 (08:38→21:00)
[2017-07-03] MEDS: VITAMIN D 1000 UNIT TAB PO SCH (08:39)
[2017-07-03] MEDS: ASPIRIN EC 81 MG TAB PO SCH (08:39)
[2017-07-03] MEDS: CETIRIZINE HCL 5 MG TABLET PO SCH (08:39)
[2017-07-03] MEDS: PREGABALIN 50 MG CAP PO SCH ×2 (08:39→21:09)
[2017-07-03] MEDS: FLUTICASONE 50MCG NASAL SPRAY NAS SCH ×2 (08:40→21:10)
[2017-07-03] MEDS: ENOXAPARIN 80 MG/0.8 ML SQ SCH ×2 (09:00→21:00)
[2017-07-03] MEDS: TOLTERODINE LA 4 MG CAP PO SCH (10:06)
[2017-07-03] MEDS: MONTELUKAST 10 MG TAB PO SCH (10:06)
[2017-07-03] MEDS: HYDROXYCHLOROQUINE 200MG TAB PO SCH ×2 (10:44→21:09)
--- NOTE | 2017-07-03 16:35 | P.PN ---
Subjective Date of Service: 07/03/17 Primary Care Provider: Dr. Reynoso; Cardiology-Dr. Zapata; Endocrinology Chief Complaint: Chest pain Subjective: Doing well Physical Examination - Vital Signs Temperature: 97 F Blood Pressure: 119/57 Pulse: 65 Respirations: 18 Pulse Ox (%): 95 - Physical Exam General: Alert, In no apparent distress, Cooperative HEENT: Atraumatic, Mucous membr. moist/pink Neck: Supple Respiratory: Clear to auscultation bilaterally, Normal air movement Cardiovascular: Normal pulses, Regular rate/rhythm Gastrointestinal: Normal bowel sounds, Soft and benign, Non-distended, No tenderness, No masses, No rebound, No guarding Musculoskeletal: No erythema, No tenderness, No warmth Integumentary: No tenderness/swelling, No erythema, No warmth, No cyanosis Neurological: Normal speech, Normal strength at 5/5 x4 extr, Normal tone, Normal affect - Studies Medications List Reviewed: Yes Assessment & Plan - Problems (Diagnosis) (1) Chest pain Onset Date: 07/02/17 Current Visit: Yes Status: Acute Plan: Case discussed at length with cardiology. Patient had heart catheterization showing multi-vessel disease. Cardiology recommends transfer to cardiovascular surgery for CABG. Arrangements will be made. Plan to transferred to [facility] tomorrow or the next day. Cardiology plans to confirm transfer Qualifiers: Chest pain type: chest pain due to myocardial ischemia Ischemic chest pain type: stable angina pectoris Qualified Code(s): I20.8 - Other forms of angina pectoris (2) Acute coronary syndrome Onset Date: 07/02/17 Current Visit: Yes Status: Acute Plan: Continue with above plan of care. Patient be transferred to cardiovascular surgeon for CABG. (3) Hypertension Onset Date: 07/02/17 Current Visit: Yes Status: Chronic Plan: Blood pressure improved. Will continue with medication. Qualifiers: Hypertension type: essential hypertension Qualified Code(s): I10 - Essential (primary) hypertension (4) Diabetes mellitus Onset Date: 07/02/17 Current Visit: Yes Status: Chronic Plan: Will continue with sliding scale. 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 This has been evaluated by Cardiology Qualifiers: Laterality: left Qualified Code(s): I77.9 - Disorder of arteries and arterioles, unspecified (6) Hypothyroidism Onset Date: 07/02/17 Current Visit: Yes Status: Chronic Plan: Will continue with her medication. Qualifiers: Hypothyroidism type: unspecified Qualified Code(s): E03.9 - Hypothyroidism , unspecified (7) Rheumatoid arthritis Onset Date: 07/02/17 Current Visit: Yes Status: Chronic Plan: Will continue with medication. Qualifiers: Rheumatoid arthritis location: multiple sites Rheumatoid factor presence: unspecified presence Qualified Code(s): M06.9 - Rheumatoid arthritis, unspecified (8) Hyperlipidemia Onset Date: 07/02/17 Current Visit: Yes Status: Chronic Plan: Statin medication added. Qualifiers: Hyperlipidemia type: unspecified Qualified Code(s): E78.5 - Hyperlipidemia , unspecified (9) Obesity Onset Date: 07/02/17 Current Visit: Yes Status: Chronic Plan: Will continue to address lifestyle modification education. Qualifiers: Obesity type: due to excess calories Obesity classification: adult class 2 (BMI 35 - 39.9) Serious obesity comorbidity presence: with serious comorbidity Body mass index: BMI 36.0-36.9 Qualified Code(s): E66.01 - Morbid (severe) obesity due to excess calories; Z68.36 - Body mass index (BMI) 36.0-36.9, adult; Z68.36 - Body mass index (BMI) 36.0-36.9, adult Discharge Plan: Transfer Time Spent Managing Pts Care (In Minutes): 55
[2017-07-03] MEDS: ATORVASTATIN 20 MG TAB PO SCH (21:08)
[2017-07-03] MEDS: ZOLPIDEM TARTRATE 5 MG TABLET PO SCH (21:09)
--- NOTE | 2017-07-03 22:17 | PN ---
The patient was admitted to Dr. Leonardo, was seen and actually had a heart catheterization by Dr. Ganga mancuso yesterday. She is requiring a coronary artery bypass surgery. She is awaiting transfer to [facility] to Dr. Chava Hernandez's Service for a coronary artery bypass surgery. She has received Plav ix at this time. She pain free. Her right wrist is intact where the access for the scott terization was obtained. She has a normal rhythm. We will continue to follow her. LAURE/LEN Voice ID: [id number] Report ID: [id number]
[2017-07-04 04:18] LABS: Absolute Monocytes 0.9 K/uL (0.1-1.3); Absolute Neutrophil 6.2 K/uL (1.8-8.0); Basophils % 0.6 % (0-1.3); Eosinophils % 3.8 % (0-4.4); Hematocrit 37.1 % (36.0-45.0); Lymphocytes % 28.4 % (15.3-44.8); MCH 29.4 pg (27.0-35.0); MCV 86.9 fL (80-100); MPV 9.4 fL (7.6-11.3); Monocytes % 8.3 % (3.3-12.3); RBC Red Blood Cell Count 4.27 M/uL (3.86-4.86)
[2017-07-04 04:23] LABS: Magnesium 1.9 mg/dL (1.8-2.5); Potassium 4.2 mEq/L (3.6-5.0)
[2017-07-04] MEDS: LEVOTHYROXINE SOD 0.125 MG TAB PO SCH (05:53)
[2017-07-04] MEDS: PANTOPRAZOLE 40MG TABLET PO SCH (05:53)
[2017-07-04] MEDS: INSULIN -REGULAR HUMAN 50 UNIT/0.5 ML ML SQ SCH (07:30)
--- NOTE | 2017-07-04 08:18 | PN ---
Ms. Goins is not having angina. Her cardiac cath site looks good. She is not on Plavix, so it is po ssible she can have heart surgery a couple of days from now. I believe it will be today or possibly tomorrow, depending on bed availability when she is transferred to [facility] in [place]. EUGENIA/LEN Voice ID: [id number] Report ID: [id number]
[2017-07-04] MEDS: ENOXAPARIN 80 MG/0.8 ML SQ SCH (09:00)
[2017-07-04] MEDS: VITAMIN D 1000 UNIT TAB PO SCH (09:35)
[2017-07-04] MEDS: TOLTERODINE LA 4 MG CAP PO SCH (09:35)
[2017-07-04] MEDS: ASPIRIN EC 81 MG TAB PO SCH (09:35)
[2017-07-04] MEDS: HYDROXYCHLOROQUINE 200MG TAB PO SCH (09:35)
[2017-07-04] MEDS: METOPROLOL TAR 25 MG TAB PO SCH (09:36)
[2017-07-04] MEDS: AMLODIPINE 10 MG TAB PO SCH (09:36)
[2017-07-04] MEDS: MONTELUKAST 10 MG TAB PO SCH (09:36)
[2017-07-04] MEDS: PREGABALIN 50 MG CAP PO SCH (09:37)
[2017-07-04] MEDS: LISINOPRIL 20 MG TAB PO SCH (09:37)
[2017-07-04] MEDS: CETIRIZINE HCL 5 MG TABLET PO SCH (09:37)
[2017-07-04] MEDS: FLUTICASONE 50MCG NASAL SPRAY NAS SCH (09:43)
[2017-07-04] MEDS ORDERED: LOPERAMIDE HCL 2 MG CAPSULE PO PRN (09:57)
--- NOTE | 2017-07-04 15:56 | P.DS ---
Admission Date: 07/01/17 Discharge Date: 07/04/17 Primary Care Provider: Dr. Reynoso; Cardiology-Dr. Zapata; Endocrinology Disposition: TRANSFER TO [facility] Discharge Condition: GOOD Reason for Admission: Chest pain Consultations: Cardiology: Dr. Hernandez/Benny Procedures: Heart Cath: Surgeon: Yandel Hernandez MD Procedures: Left heart catheterization, coronary, and left ventricular angiography. Findings: The patient's ejection fraction is normal. Her coronary arteries are diffusely diseased. There are stents in her obtuse marginal. There is a 50% lesion after that. There is a stent in the LAD. Following the LAD, there was a long 50% stenosis in a branch and then a 99% stenosis after an acute angle. In the right coronary, the proximal 1/2 of the artery has a diffuse long lesion with sequential lesions up to 99%. The distal vessels are about 2.5-3 mm in diameter. There was LIZZ-3 flow through all of the stenosis and the recommendation is for her to go through bypass surgery. The left main also has a 40-50% long narrowing. Estimated Blood Loss: 5 cc. Complications: None. - Problems (1) Chest pain Onset Date: 07/02/17 Status: Acute Qualifiers: Chest pain type: chest pain due to myocardial ischemia Ischemic chest pain type: unstable angina pectoris Qualified Code(s): I20.0 - Unstable angina (2) Acute coronary syndrome Onset Date: 07/02/17 Status: Acute (3) Hypertension Onset Date: 07/02/17 Status: Chronic Qualifiers: Hypertension type: essential hypertension Qualified Code(s): I10 - Essential (primary) hypertension (4) Diabetes mellitus Onset Date: 07/02/17 Status: Chronic Qualifiers: Diabetes mellitus type: type 2 Diabetes mellitus long term acute care registered nurse insulin use: with long term acute care registered nurse use Diabetes mellitus complication status: with other specified complication Qualified Code(s): E11.69 - Type 2 diabetes mellitus with other specified complication; Z79.4 - assisted (current) use of insulin; Z79.4 - long term care administrator (current) use of insulin; Z79.4 - long term care administrator (current) use of insulin; Z79.4 - long term care administrator (current) use of insulin (5) Carotid arterial disease Onset Date: 07/02/17 Status: Chronic Qualifiers: Laterality: left Qualified Code(s): I77.9 - Disorder of arteries and arterioles, unspecified (6) Hypothyroidism Onset Date: 07/02/17 Status: Chronic Qualifiers: Hypothyroidism type: unspecified Qualified Code(s): E03.9 - Hypothyroidism , unspecified (7) Rheumatoid arthritis Onset Date: 07/02/17 Status: Chronic Qualifiers: Rheumatoid arthritis location: multiple sites Rheumatoid factor presence: unspecified presence Qualified Code(s): M06.9 - Rheumatoid arthritis, unspecified (8) Hyperlipidemia Onset Date: 07/02/17 Status: Chronic Qualifiers: Hyperlipidemia type: unspecified Qualified Code(s): E78.5 - Hyperlipidemia , unspecified (9) Obesity Onset Date: 07/02/17 Status: Chronic Qualifiers: Obesity type: due to excess calories Obesity classification: adult class 2 (BMI 35 - 39.9) Serious obesity comorbidity presence: with serious comorbidity Body mass index: BMI 36.0-36.9 Qualified Code(s): E66.01 - Morbid (severe) obesity due to excess calories; Z68.36 - Body mass index (BMI) 36.0-36.9, adult; Z68.36 - Body mass index (BMI) 36.0-36.9, adult (10) Coronary artery disease Status: Chronic Qualifiers: Coronary Disease-Associated Artery/Lesion type: unspecified vessel or lesion type [place] vs. transplanted heart: unspecified whether [place] or transplanted heart Associated angina: with unstable angina Qualified Code(s) : I25.110 - Atherosclerotic heart disease of [place] coronary artery with unstable angina pectoris Brief History of Present Illness: 77-year-old female presented emergency room with chest pain. The patient reports that she start have chest pain about 2:00 p.m. this afternoon. She was getting items from her car after going to the grocery store. She start to have pain to the center of her chest. She rates the pain about a 10/10. It was a crushing like sensation. The patient also reported some diaphoresis with this. She has not had this type of chest pain before. She immediately came to the emergency room for further evaluation. In the ER the patient was evaluated. CBC unremarkable. Blood pressures were elevated. She was given medication for this. Blood pressure improved. Chest pain resolved. Sodium 140, potassium 3.8. CK MB was elevated at 5.9 along with troponin at 0.15. Chest x-ray unremarkable. EKG showed some ST changes indicating ischemia. The patient was started on a heparin drip in the emergency room. She was also given aspirin, loading dose of Plavix. The patient has remained stable. Due to the nature of her findings the patient was admitted for further evaluation and treatment. I was asked to admit the patient. When I saw the patient the ER, she was without any significant chest pain. She did not appear in any distress. Patient with history of diabetes, hypertension , hypothyroidism, rheumatoid arthritis, coronary artery disease with previous stents, carotid arterial disease, hyperlipidemia, GERD, asthma and diabetic neuropathy. It is been over 3 years since her last heart catheterization. She has recently been evaluated by cardiology for her carotid disease. Hospital Course: The patient was found to have acute coronary syndrome with unstable angina. Patient was seen and evaluated by Cardiology. Heart catheterization was recommended. Findings showed diffuse disease. There are stents in her obtuse marginal. There is about 50% stenosis after that. There is a stent in the LAD. Following the LAD there is a long 50% stenosis in a branch and in a 99% stenosis after no acute ankle. In the right coronaries the proximal half of the artery has a diffuse long lesion with subsequent lesion up to 99%. The distal vessels are about 2.5-3 mm in diameter. Left main was also about 40-50% stenosis with long narrowing. Cardiology recommended the patient be evaluated by cardiovascular surgery for CABG. This was arranged. Patient transferred to [facility] for CABG. Patient has other medical problems include hypertension, diabetes, hypothyroidism, rheumatoid arthritis, hyperlipidemia. She will continue with these medications. Medications have been adjusted. Further adjustment can be done by cardiovascular surgery after her CABG. Vital Signs/Physical Exam: Temp Pulse Resp BP Pulse Ox 97.3 F 60 20 160/83 H 97 07/04/17 04:00 07/04/17 09:37 07/04/17 04:00 07/04/17 09:37 07/04/17 04:00 General: Alert, In no apparent distress, Oriented x3, Cooperative HEENT: Atraumatic, Mucous membr. moist/pink Neck: Supple, No Thyromegaly Respiratory: Clear to auscultation bilaterally, Normal air movement Cardiovascular: Normal pulses, Regular rate/rhythm Gastrointestinal: Normal bowel sounds, Soft and benign, Non-distended, No tenderness, No masses, No rebound, No guarding Musculoskeletal: No erythema, No tenderness, No warmth Integumentary: No tenderness/swelling, No erythema, No warmth, No cyanosis Neurological: Normal speech, Normal strength at 5/5 x4 extr, Normal tone, Normal affect Lymphatics: No axilla or inguinal lymphadenopathy Laboratory Data at Discharge: WBC 10.6 K/uL (4.3-10.9) 07/04/17 03:36 Hgb 12.6 g/dL (12.0-15.0) 07/04/17 03:36 Hct 37.1 % (36.0-45.0) 07/04/17 03:36 Plt Count 230 K/uL (152-406) 07/04/17 03:36 PT 10.7 SECONDS (9.5-12.5) 07/01/17 14:50 INR 0.91 07/01/17 14:50 APTT 84.7 SECONDS (24.3-36.9) H 07/02/17 02:50 Sodium 138 mEq/L (135-145) 07/04/17 03:36 Potassium 4.2 mEq/L (3.6-5.0) 07/04/17 03:36 BUN 22 mg/dL (6-20) H 07/04/17 03:36 Creatinine 0.79 mg/dL (0.44-1.00) 07/04/17 03:36 Glucose 336 mg/dL (65-120) H 07/04/17 03:36 Magnesium 1.9 mg/dL (1.8-2.5) 07/04/17 03:36 Total Bilirubin 0.5 mg/dL (0.3-1.2) 07/01/17 14:50 AST 21 IU/L (10-42) 07/01/17 14:50 ALT 16 IU/L (10-60) 07/01/17 14:50 Alkaline Phosphatase 59 IU/L (42-121) 07/01/17 14:50 Troponin I 0.70 ng/mL (<0.03) H* 07/02/17 09:53 B-Natriuretic Peptide 68 pg/ml (<=100) 07/01/17 14:50 Triglycerides 193 mg/dL (35-160) H 07/02/17 02:50 Cholesterol 212 mg/dL (<200) H 07/02/17 02:50 HDL Cholesterol 47 mg/dL (29-89) 07/02/17 02:50 Cholesterol/HDL Ratio 4.51 07/02/17 02:50 Home Medications: Aspirin [Adult Low Dose Aspirin EC] 81 mg PO DAILY 03/25/15 Clopidogrel Bisulfate [Plavix*] 75 mg PO DAILY 03/25/15 Fluticasone Furoate [Veramyst] 10 gm NS PRN PRN 03/25/15 Fluticasone/Salmeterol [Advair 250/50 Diskus*] 1 puff IH BID PRN 03/25/15 Hydroxychloroquine [Plaquenil*] 200 mg PO DAILY 03/25/15 Levothyroxine Sodium 125 mcg PO DAILY 03/25/15 Montelukast [Singulair*] 10 mg PO DAILY 03/25/15 Pregabalin [Lyrica*] 50 mg PO BID PRN 03/25/15 Tiotropium [Spiriva Handihaler*] 18 mcg IH PRN PRN 03/25/15 Tolterodine Tartrate [Detrol LA*] 4 mg PO DAILY 03/25/15 Zolpidem Tartrate 5 mg PO BEDTIME 03/25/15 Canagliflozin [Invokana] 100 mg PO DAILY 07/01/17 Cholecalciferol (Vitamin D3) [Vitamin D3] 1,000 unit PO DAILY 07/01/17 Insulin Aspart [Novolog Flexpen] See Protocol SQ TID 07/01/17 Insulin Degludec [Tresiba Flextouch U-200] 80 unit SQ BEDTIME 07/01/17 Liraglutide [Victoza 2-Augie] 0.6 mg SQ DAILY 07/01/17 Amlodipine [Norvasc*] 10 mg PO DAILY #30 tab 07/04/17 Atorvastatin Calcium [Lipitor] 80 mg PO BEDTIME #30 tab 07/04/17 Lisinopril [Prinivil*] 20 mg PO DAILY #30 tab 07/04/17 Metoprolol Tartrate [Lopressor*] 12.5 mg PO BID #60 tab 07/04/17 Pantoprazole [Protonix Tab*] 40 mg PO DAILYAC #30 tab 07/04/17 New Medications: Amlodipine [Norvasc*] 10 mg PO DAILY #30 tab Atorvastatin Calcium [Lipitor] 80 mg PO BEDTIME #30 tab Lisinopril [Prinivil*] 20 mg PO DAILY #30 tab Metoprolol Tartrate [Lopressor*] 12.5 mg PO BID #60 tab Pantoprazole [Protonix Tab*] 40 mg PO DAILYAC #30 tab Patient Discharge Instructions: 1. Patient be transferred to [facility] Diet: AHA Activity: Fall precautions Time spent managing pt's care (in minutes): 55
== END 2017-07-04 11:27 | disposition short-term general hospital (02) | DRG 282 ==
LOC: ER 14:18 → ERHOLD 15:43 → 3RD-ICU 17:21 → 4TH 07-02 21:42
PROVIDERS: ADMIT Family Medicine; ATTEND Family Medicine
PROC: 4A023N7 Measurement of Cardiac Sampling and Pressure, Left Heart, Percutaneous Approach (ICD-10-PCS; principal; 2017-07-02)
PROC: B201YZZ Plain Radiography of Multiple Coronary Arteries using Other Contrast (ICD-10-PCS; 2017-07-02)
PROC: B205YZZ Plain Radiography of Left Heart using Other Contrast (ICD-10-PCS; 2017-07-02)
DX: I21.4 Non-ST elevation (NSTEMI) myocardial infarction (principal); R07.9 Chest pain, unspecified; E11.9 Type 2 diabetes mellitus without complications; I10 Essential (primary) hypertension; I25.10 Atherosclerotic heart disease of native coronary artery without angina pectoris; E78.5 Hyperlipidemia, unspecified; M06.9 Rheumatoid arthritis, unspecified; E66.9 Obesity, unspecified
CPT/HCPCS: 36415; 71045; 80048; 80061; 80076; 81003; 82550; 82553; 82962; 83036; 83735; 83880; 84484; 85025; 85610; 85730; 87493; 93005; 93458; 96365; 96366; 99285; C1893; J0583; J1644; J1650; J2250; J3010; J3475; J7030

== ENCOUNTER 2018-09-30 07:38 | Day surgery (SDC) | payer OTHER ==
--- OUTSIDE RECORDS SUMMARY | 2018-09-30 07:48 | XMS REPORT | Clinical Summary ---
:1940 Author Organization [facility] Address [address] [place] [address] Care Team Providers Name Role Phone Asked, No Pcp Primary Care Provider Unavailable Allergies Active Allergy Reactions Severity Noted Date Comments No Known Drug Allergies 09/16/2015 Medications Medication Sig Dispensed Refills Start Date End Date Status levothyroxine (SYNTHROID, TK 1 T PO QD 3 12/29/2016 Active LEVOXYL) 125 mcg tablet amLODIPine (NORVASC) 5 mg Take 5 mg by 0 Active tablet mouth daily. clopidogrel (PLAVIX) 75 Take 75 mg by 0 Active mg tablet mouth daily. cholecalciferol, vitamin Take 1,000 0 Active D3, (VITAMIN D3) 1,000 Units by unit tablet mouth daily. hydroxychloroquine Take by mouth 0 Active (PLAQUENIL) 200 mg tablet daily. escitalopram (LEXAPRO) 10 Take 10 mg by 0 Active MG tablet mouth daily. tolterodine LA (DETROL Take 4 mg by 0 Active LA) 4 MG 24 hr capsule mouth daily. atorvastatin (LIPITOR) 40 Take 40 mg by 0 Active MG tablet mouth daily. aspirin (ECOTRIN) 81 MG Take 81 mg by 0 Active enteric coated tablet mouth daily. pregabalin (LYRICA) 50 MG Take 50 mg by 0 Active capsule mouth 3 (three) times a day. fluticasone (FLONASE) 50 2 sprays (100 15.8 mL 0 01/25/2017 Active mcg/actuation nasal spray mcg total) by Each Nare route daily. budesonide-formoterol Inhale 2 1 Inhaler 2 02/19/2017 Active (SYMBICORT) 160-4.5 puffs 2 (two) mcg/actuation inhaler times a day. levoFLOXacin (LEVAQUIN) Take 500 mg 0 Active 500 MG tablet by mouth daily. fexofenadine-pseudoepHEDr Take 1 tablet 30 tablet 1 01/25/2017 01/25/2018 ine (JEREMY-D 24 HOUR) by mouth 180-240 mg per 24 hr daily. tablet Active Problems Problem Noted Date Uncomplicated asthma 02/12/2017 Exacerbation of intermittent asthma 02/12/2017 Reactive airway disease that is not asthma 01/10/2017 Cough with congestion of paranasal sinus 01/10/2017 Allergic rhinitis due to pollen 01/10/2017 Post-nasal drip 01/10/2017 Mild intermittent asthma without complication 01/10/2017 Social History Tobacco Use Types Packs/Day Years Used Date Never Smoker Smokeless Tobacco: Never Used Sex Assigned at Date Recorded Not on file Job Start Date Occupation Industry Not on file Not on file Not on file Travel History Travel Start Travel End No recent travel history available. Last Filed Vital Signs Not on file Plan of Treatment Health Maintenance Due Date Last Done Comments SHINGLES VACCINES (#1) 06/23/1989 65+ PNEUMOCOCCAL VACCINE (1 of 2 - PCV13) 06/23/2004 INFLUENZA VACCINE 11/14/2018 Results Not on fileafter 09/29/2017 Advance Directives Patient has advance care planning documents on file. For more information, please contact:Sergio Shen[address] [address]
--- OUTSIDE RECORDS SUMMARY | 2018-09-30 07:48 | XMS REPORT | Clinical Summary ---
:1940 Author Organization [facility] Address [address] [place] [address] Care Team Providers Name Role Phone Robles Faith Unavailable Pcp, No Primary Care Provider Unavailable Allergies Active Allergy Reactions Severity Noted Date Comments Codeine Other (See Comments) 07/04/2017 insomnia Latex 12/11/2017 Penicillins Hives 07/04/2017 Sulfa (Sulfonamide Hives, Other (See Comments) 07/04/2017 Antibiotics) Medications Medication Sig Dispensed Refills Start End Status Date Date aspirin 81 MG chewable Take 81 mg by 0 Active tablet mouth daily. fluticasone-salmeterol Inhale 1 puff by 0 Active (ADVAIR) 250-50 mouth via inhaler mcg/dose diskus 2 (two) times inhalerIndications: daily as needed. Maintenance Therapy for Asthma tolterodine (DETROL Take 4 mg by 0 Active LA) 4 MG 24 hr mouth daily. capsuleIndications: Urinary Urge Incontinence levothyroxine Take 125 mcg by 0 Active (SYNTHROID, mouth Every LEVOTHROID) 125 MCG morning on an tabletIndications: empty stomach. hypothyroidism atorvastatin (LIPITOR) Take 40 mg by 0 Active 40 MG mouth daily. tabletIndications: hypercholesterolemia, hyperlipidemia insulin aspart Inject 0 Active (NOVOLOG) 100 unit/mL subcutaneously as InPn needed . pregabalin (LYRICA) 50 Take 50 mg by 0 Active MG capsuleIndications: mouth 2 (two) Diabetic Peripheral times daily. Neuropathy hydroxychloroquine Take 200 mg by 0 Active (PLAQUENIL) 200 mg mouth daily. tabletIndications: rheumatoid arthritis tiotropium (SPIRIVA) Inhale 18 mcg by 0 Active 18 mcg inhalation mouth via inhaler capsuleIndications: 2 (two) times Maintenance Therapy daily as needed. for Asthma INSULIN DEGLUDEC Inject 80 Units 0 Active (TRESIBA FLEXTOUCH subcutaneously U-200 SUBQ) once at bedtime. fluticasone (VERAMYST) 2 sprays by Nasal 0 Active 27.5 mcg/actuation route as needed . nasal spray cholecalciferol, Take 1,000 Units 0 Active vitamin D3, 1,000 unit by mouth daily. capsuleIndications: osteoporosis zolpidem (AMBIEN) 5 MG Take 5 mg by 0 Active tablet mouth every night as needed for Insomnia. budesonide-formoterol Inhale 2 puffs by 0 02/20/20 Active (SYMBICORT) 160-4.5 mouth via inhaler 17 mcg/actuation inhaler as needed . cetirizine (ZYRTEC) 10 Take 10 mg by 0 Active MG tablet mouth daily. omeprazole (PRILOSEC) Take 20 mg by 0 Active 20 MG capsule mouth as needed . clopidogrel (PLAVIX) Take 75 mg by 0 Active 75 mg tablet mouth daily. canagliflozin Take 100 mg by 0 Discontinued (INVOKANA) 100 mg mouth daily. 018 tabletIndications: type 2 diabetes mellitus montelukast Take 10 mg by 0 Discontinued (SINGULAIR) 10 mg mouth nightly. 018 tabletIndications: Maintenance Therapy for Asthma valACYclovir (VALTREX) Take 1,000 mg by 0 Discontinued 1000 MG tablet mouth 2 (two) 018 times daily. liraglutide 0.6 mg/0.1 Inject 0.6 mg 0 Discontinued mL (18 mg/3 mL) PnIj subcutaneously 018 daily. amLODIPine (NORVASC) 5 Take 1 tablet (5 30 tablet 1 07/21/19 Discontinued MG tablet mg total) by 18 018 mouth daily. clindamycin (CLEOCIN) Take 300 mg by 0 Discontinued 300 MG capsule mouth 2 (two) 018 times daily. metoprolol (TOPROL-XL) Take 25 mg by 0 Discontinued 25 MG 24 hr tablet mouth daily. 018 Active Problems Problem Noted Date Carotid stenosis 11/14/2017 Bradycardia 07/18/2017 HTN (hypertension) 07/11/2017 HLD (hyperlipidemia) 07/11/2017 Type 2 diabetes mellitus 07/11/2017 Hypothyroidism 07/11/2017 Coronary artery disease 07/04/2017 Acute respiratory insufficiency Hyperglycemia Encounters Date Type Specialty Care Team Description 12/18/2017 Surgery Marcos Mcknight STENT / CAROTID MONICA Garcia MD - IP PROC ONLY 12/18/2017 - Hospital Encounter Cardiology Manpreet Merirtt 12/19/2017 MD Juan Luis Gabriel Neil Edward, MD 12/11/2017 Surgery Marcos Mcknight STENT / CAROTID MONICA Garcia MD - IP PROC ONLY 12/11/2017 Hospital Encounter Cardiology Marcos Mcknight MD 11/14/2017 Surgery Manpreet Merritt CAROTID ANGIOGRAMS PMD Saranya 11/14/2017 Hospital Encounter Manpreet Merritt MD after 09/29/2017 Social History Tobacco Use Types Packs/Day Years Used Date Never Smoker Smokeless Tobacco: Never Used Alcohol Use Drinks/Week oz/Week Comments No Sex Assigned at Date Recorded Not on file Job Start Date Occupation Industry Not on file Not on file Not on file Travel History Travel Start Travel End No recent travel history available. Last Filed Vital Signs Vital Sign Reading Time Taken Blood Pressure 132/59 12/19/2017 7:18 AM CDT Pulse 53 12/19/2017 7:18 AM CDT Temperature 36.5 C (97.7 F) 12/19/2017 7:18 AM CDT Respiratory Rate 18 12/19/2017 7:18 AM CDT Oxygen Saturation 99% 12/19/2017 7:18 AM CDT Inhaled Oxygen Concentration 21% 12/11/2017 12:32 PM CDT Weight 81.7 kg (180 lb 3.2 oz) 12/19/2017 7:18 AM CDT Height 149.9 cm (4' 11") 12/18/2017 5:22 AM CDT Body Mass Index 36.4 12/19/2017 7:18 AM CDT Plan of Treatment Not on file Implants Implanted Type Area Principal Research Economist Device Shelf Model / Identifier Expiration Serial / Date Lot Closure Sys Perclose Progl 6fr 90319-82 - [id number] Cardiovascular Groin HALEY [id number] 07/15/2019 [id number] / Implanted: Qty: 1 on 11/14/2017 by Manpreet Merritt MD [facility] DEV / [id number] Carotid Wallstent Cardiovascular Left: [place] 03/13/2021 [id number] / Implanted: Qty: 1 on 12/18/2017 by Marcos Mcknight MD Carotid SCIENTIFIC / Artery [id number] Mynxgrip Cardiovascular Left: CARDINAL [id number] 11/14/2019 [id number] / Implanted: Qty: 1 on 12/18/2017 by [facility] ZEE [id number] Procedures Procedure Name Priority Date/Time Associated Diagnosis Comments VASCULAR DIAGRAM 07/26/2018 5:00 AM -SCAN CDT RHYTHM STRIP - SCAN 07/18/2018 6:00 AM CDT RHYTHM STRIP - SCAN 12/21/2017 2:50 PM CDT REPORT OF PROCEDURE 12/20/2017 1:50 PM - ENDOSCOPY SCAN CDT CARDIAC CATH REPORT 12/20/2017 1:50 PM - SCAN CDT VASCULAR DIAGRAM 12/20/2017 1:50 PM -SCAN CDT RHYTHM STRIP - SCAN 12/20/2017 1:50 PM CDT POCT-GLUCOSE METER Routine 12/19/2017 7:06 AM Results for this CDT procedure are in the results section. CBC (HEMOGRAM ONLY) Routine 12/19/2017 3:27 AM Results for this CDT procedure are in the results section. BASIC METABOLIC Routine 12/19/2017 3:27 AM Results for this PANEL (7) CDT procedure are in the results section. POCT-GLUCOSE METER Routine 12/18/2017 9:16 PM Results for this CDT procedure are in the results section. POCT-GLUCOSE METER Routine 12/18/2017 10:27 AM Results for this CDT procedure are in the results section. POCT-ACT Routine 12/18/2017 7:59 AM Results for this CDT procedure are in the results section. STENT / CAROTID 12/18/2017 7:30 AM Stenosis of left MCR - IP PROC CDT carotid artery ONLY Case Notes (1) CASE POP6 none. 458mGy TRANSFUSION SERVICE 12/12/2017 6:02 PM REPORT - SCAN CDT CARDIAC CATH REPORT - 12/12/2017 11:50 AM SCAN CDT CBC (HEMOGRAM ONLY) Routine 12/11/2017 2:07 PM Results for this CDT procedure are in the results section. POCT-GLUCOSE METER Routine 12/11/2017 1:47 PM Results for this CDT procedure are in the results section. POCT-GLUCOSE METER Routine 12/11/2017 10:16 AM Results for this CDT procedure are in the results section. TYPE AND SCREEN, Routine 12/11/2017 9:26 AM Results for this AUTOMATED CDT procedure are in the results section. STENT / CAROTID MCR 12/11/2017 7:30 AM Stenosis of left - IP PROC ONLY CDT carotid artery Case Notes (1) Case, 6T OP, auth [id number] jemma LIPID PANEL STAT 12/11/2017 5:48 AM Results for this CDT procedure are in the results section. PLATELET STAT 12/11/2017 5:48 AM Results for this AGGREGATION: CDT procedure are in FUNCTION SCREEN the results section. REPORT OF PROCEDURE 11/15/2017 12:21 PM - ENDOSCOPY SCAN CDT CARDIAC CATH REPORT 11/15/2017 12:21 PM - SCAN CDT POCT-GLUCOSE METER Routine 11/14/2017 11:02 AM Results for this CDT procedure are in the results section. CAROTID ANGIOGRAMS 11/14/2017 9:19 AM Internal carotid CDT artery stenosis, left Case Notes (2) Case, 6T OP, CAROTID ANGIO NO POSS HEMOGLOBIN AND HEMATOCRIT Routine 11/14/2017 9:00 AM CDT after 09/29/2017 Results VASCULAR DIAGRAM -SCAN (07/26/2018 5:00 AM CDT)Only the most recent of2 resultswithin the time period is included. Narrative Performed At RHYTHM STRIP - SCAN (07/18/2018 6:00 AM CDT)Only the most recent of3 resultswithin the time period is included. Narrative Performed At EKG-SCANNED (12/20/2017 1:50 PM CDT)Only the most recent of2 resultswithin the time period is included. Narrative Performed At CARDIAC CATH REPORT - SCAN (12/20/2017 1:50 PM CDT) Narrative Performed At POC-Glucose meter (12/19/2017 7:06 AM CDT)Only the most recent of6 resultswithin the time period is included. POC-Glucose Meter 66 (L)Comment: TESTED AT 70 - 110 mg/dL [facility] [address] [facility] [id number] Specimen Blood Performing Organization Address City/[facility]/Zipcode Phone Number [address] [address] [place] CBC (Hemogram only) (12/19/2017 3:27 AM CDT)Only the most recent of2 resultswithin the time period is included. WBC 8.3 3.5 - 10.5 K/L [facility] RBC 3.50 (L) 3.93 - 5.22 M/L [facility] Hemoglobin 9.6 (L) 11.2 - 15.7 GM/DL [facility] Hematocrit 31.4 (L) 34.1 - 44.9 % [facility] MCV 89.7 79.4 - 94.8 fL [facility] MCH 27.4 25.6 - 32.2 pg [facility] MCHC 30.6 (L) 32.2 - 35.5 GM/DL [facility] RDW 15.3 (H) 11.7 - 14.4 % [facility] Platelets 187 150 - 450 K/CU MM [facility] MPV 11.5 9.4 - 12.3 fL [facility] nRBC 0 0 - 0 /100 WBC [facility] Specimen Blood Performing Organization Address City/State/Zipcode Phone Number [address] [address] [place] Basic Metabolic Panel (12/19/2017 3:27 AM CDT) Sodium 141 136 - 145 meq/L [facility] Potassium 3.9 3.5 - 5.1 meq/L [facility] Chloride 112 (H) 98 - 107 meq/L [facility] CO2 20 (L) 22 - 29 meq/L [facility] BUN 16 7 - 21 mg/dL [facility] Creatinine 0.69 0.57 - 1.25 mg/dL [facility] Glucose 90 70 - 105 mg/dL [facility] Calcium 9.2 8.4 - 10.2 mg/dL [facility] EGFR 82Comment: ESTIMATED GFR IS mL/min/1.73 sq m [facility] NOT ACCURATE CREATININE [facility] CLEARANCE IN PREDICTING GLOMERULAR FILTRATION RATE. ESTIMATED GFR IS NOT APPLICABLE FOR DIALYSIS PATIENTS. Specimen Blood Performing Organization Address City/[facility] Phone Number [address] [address] CENTER POC ACTIVATED CLOTTING TIME (12/18/2017 7:59 AM CDT) Activated Clotting Time 290Comment: TESTED AT sec [address] [address] Specimen Blood Performing Organization Address [facility] Phone Number [address] [address] [phone] [place] TRANSFUSION SERVICE REPORT - SCAN (12/12/2017 6:02 PM CDT) Narrative Performed At CARDIAC CATH REPORT - SCAN (12/12/2017 11:50 AM CDT) Narrative Performed At Type and screen, automated ([facility]) (12/11/2017 9:26 AM CDT) ABO/RH AUTOMATED (BEAKER) A POSITIVE [facility] Ab Scrn NEGATIVE [facility] Specimen Blood Performing Organization Address City/[facility] Phone Number [address] [address] [phone] Platelet aggregation: function screen (12/11/2017 5:48 AM CDT) Weak ADP 14 (L) 60 - 91 % [facility] Plt. Function Screen 0-39% indicates marked [facility] Interpretation platelet dysfunction [facility] Pathologist: Idania Donovan MD [facility] (electronic signature) [facility] Platelets 230 150 - 450 K/CU [facility] Specimen Blood Performing Organization Address City/[facility] Phone Number [address] [address] [phone] [place] Lipid panel (12/11/2017 5:48 AM CDT) Triglycerides 87 mg/dL [facility] Cholesterol 133 mg/dL [facility] HDL 47 mg/dL [facility] LDL Calculated 69 mg/dL [facility] Specimen Blood Narrative Performed At [facility] Triglyceride Reference Range: Low Risk <150 [id number] High Risk 200-499 Very High Risk>=500 Cholesterol Reference Range: Low Risk <200 [id number] High Risk>240 HDL Cholesterol Reference Range: Low Risk >=60 High Risk <40 LDL Cholesterol Reference Range: Optimal<100 Near [id number] Thmtlzondq032-951 Zkvx211-122 Very High >=190 Performing Organization Address [facility] Phone Number [address] [address] [place] CARDIAC CATH REPORT - SCAN (11/15/2017 12:21 PM CDT) Narrative Performed At Hemoglobin and hematocrit (11/14/2017 9:00 AM CDT) Hemoglobin 11.5 11.2 - 15.7 GM/DL [facility] Hematocrit 37.2 34.1 - 44.9 % [facility] Specimen Blood Performing Organization Address City/[facility] Phone Number [address] [address] CENTER after 09/29/2017 Insurance Payer Benefit Plan / Subscriber ID Type Phone Address Group [employer] - MEDICARE AETNA MEDICARE HMO xxxxxxxx [phone] [address] [employer] POS PPO ANNALEE WADDELL [id number] Advance Directives For more information, please contact:[facility] [place], [place] [phone] Code Status Date Activated Date Inactivated Comments Full Code 12/18/2017 5:39 AM 12/19/2017 11:04 AM This code status was determined by: Patient Full Code 12/11/2017 5:47 AM 12/11/2017 7:22 PM This code status was determined by: Patient Full Code 11/14/2017 6:32 AM 11/14/2017 3:11 PM This code status was determined by: Patient Full Code 07/09/2017 12:51 PM 07/19/2017 5:14 PM This code status was determined by: Patient Full Code 07/04/2017 7:21 PM 07/09/2017 12:51 PM This code status was determined by: Patient
--- OUTSIDE RECORDS SUMMARY | 2018-09-30 07:52 | XMS REPORT ---
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 Problem HTN (hypertension) I10 Active Problem Carotid artery occlusion I65.29 Active Problem Hypothyroidism E03.9 Active Problem Situational insomnia F51.09 Active Problem Rheumatoid arthritis M06.9 Active Problem Dysuria R30.0 Active Problem Obesity E66.9 Active Problem Hospital discharge follow-up Z09 Active Problem PAD (peripheral artery disease) I73.9 Active Problem Allergic rhinitis, seasonal J30.2 Active Problem Gastroesophageal reflux disease K21.9 Active without esophagitis Problem 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 Active Problem Asthma without acute exacerbation J45.909 Active Problem Acute cystitis without hematuria N30.00 Active Problem Boil L02.92 Active Problem Type 2 diabetes mellitus with E11.65 Active hyperglycemia Problem 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 Problem Diabetes mellitus type 2, E11.9 Active uncontrolled, without complications Problem 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 Problem Colon, diverticulosis K57.30 Active Problem Mixed hyperlipidemia E78.2 Active Problem Gastroesophageal reflux disease K21.9 Active Problem CAD (coronary artery disease) I25.10 Active Problem Shingles B02.9 Active Problem Urine incontinence R32 Active Medications Medication Code Code Instructions Start End Status Dosage System Date Date Synthroid [facility] 75114730122 125 MCG Active 1 EACH ONCE A DAY ORALLY Plavix [facility] 63627440010 75 MG Orally Active 1 tablet Once a day Detrol LA [facility] 43779873104 4 MG Orally Active 1 capsule Once a day Aspir-81 [facility] 00740105423 81 MG Orally Active 1 tablet Once a day Estrace [facility] 19160107939 0.1 MG/GM September Active as directed Vaginal twice 18, weekly 2017 NovoLog Flexpen ND 94698390075 100 UNIT/ML Active not defined Subcutaneous [facility] Omeprazole ND 32648379290 20 MG Orally May 14, Active 1 tablet Once a day 2017 Remeron ND 95870825245 15 MG Orally Active 1 tablet at Once a day bedtime Victoza [facility] 43809686188 18 MG/3ML Active inject 1.8 Subcutaneous once daily Plaquenil ND 76850258949 200 MG Orally Active 1 tablet with Once a day food or milk Tobramycin [facility] 49320158752 0.3 % Active 1 drop into Ophthalmic affected eye every 4 hrs Valtrex [facility] 96878908736 1 GM Orally Active 1 tablet Once a day Losartan ND 00680539359 50 MG Orally Active 1 tablet Potassium Once a day Lyrica ND 73952726192 50 MG Orally Active 1 capsule Twice a day Mupirocin [facility] 06946341099 2 % Externally Active 1 application Three times a to affected day area Nitrofurantoin [facility] 86808474398 100 MG Orally Active 1 capsule Macrocrystal twice a day with food or milk Norvasc [facility] 97113445184 5 MG Orally Active 1 tablet Once a day Singulair [facility] 49227724531 10 MG Orally Active 1 tablet in Once a day the evening ProAir HFA [facility] 73636693420 108 (90 Base) Active 2 puffs as MCG/ACT needed Inhalation every 6 hrs Levothyroxine [facility] 46430908698 125 MCG Orally Active 1 tablet on Sodium Once a day an empty stomach in the morning Methotrexate ND 40321005855 2.5 MG Orally Active not defined Lipitor [facility] 09517492776 40 MG Orally Active 1 tablet Once a day Vimovo [facility] 93783369596 500-20 MG Active 1 tablet Orally Twice a before meals day Flonase [facility] 77786324235 50 MCG/ACT Active 1 spray in Nasally Once a each nostril day Results Name Result Date Reference Range Unit Abnormality Flag URINALYSIS AUTO W/O SCOPE (90272) ----GONZALO neg 20171001 ----NIT neg 20171001 ----PROTEIN neg 20171001 ----pH 6.5 20171001 ----GLUCOSE neg 20171001 ----KETONES neg 20171001 ----SPECIFIC GRAVITY 1.020 20171001 ----BLO trace 20171001 PVR ----PVR 0 20171001 Summary Purpose [employer]ClinicalWorks Submission
--- OUTSIDE RECORDS SUMMARY | 2018-09-30 07:52 | XMS REPORT ---
:1940 [facility] Organization [facility] Address [address] [place], [place] [address]mira Staley [address] [place] [address] Care Team Providers Name Role Phone ANNETTE RECIO Unavailable Unavailable ADILSON CARRANZA Unavailable Unavailable JUAQUIN MCKEON Unavailable Unavailable Problems This patient has no known problems. Allergies, Adverse Reactions, Alerts This patient has no known allergies or adverse reactions. Medications This patient has no known medications. Results Test Description Test Time Test Comments Text Results Atomic Results Result Comments POCT-GLUCOSE METER 2017-12-19 10:02:00 Test Item Value Reference Range Comments POC-GLUCOSE METER (BEAKER) (test 66 mg/dL 70-[address] [facility] [address] [facility] rgyk=6720) [facility] [address] BASIC METABOLIC [id number] 04:00:00 Test Item Value Reference Range Comments SODIUM (BEAKER) (test 141 meq/L 136-145 oxas=263) POTASSIUM (BEAKER) (test 3.9 meq/L 3.5-5.1 jfve=191) CHLORIDE (BEAKER) (test 112 meq/L 98-107 ufpn=420) CO2 (BEAKER) (test 20 meq/L 22-29 bmwk=973) BLOOD UREA NITROGEN 16 mg/dL 7-21 (BEAKER) (test dobu=067) CREATININE (BEAKER) (test 0.69 mg/dL 0.57-1.25 rwbp=612) GLUCOSE RANDOM (BEAKER) 90 mg/dL 70-105 (test pikf=162) CALCIUM (BEAKER) (test 9.2 mg/dL 8.4-10.2 uhbv=341) EGFR (BEAKER) (test 82 mL/min/1.73 sq m ESTIMATED GFR IS NOT uhxl=1570) ACCURATE CREATININE CLEARANCE IN PREDICTING GLOMERULAR FILTRATION RATE. ESTIMATED GFR IS NOT APPLICABLE FOR DIALYSIS PATIENTS. CBC (HEMOGRAM ONLY)2017-12-19 03:43:00 Test Item Value Reference Range Comments WHITE BLOOD CELL COUNT (BEAKER) (test sjax=696) 8.3 K/ L 3.5-10.5 RED BLOOD CELL COUNT (BEAKER) (test vdhx=472) 3.50 M/ L 3.93-5.22 HEMOGLOBIN (BEAKER) (test remj=504) 9.6 GM/DL 11.2-15.7 HEMATOCRIT (BEAKER) (test lark=157) 31.4 % 34.1-44.9 MEAN CORPUSCULAR VOLUME (BEAKER) (test auml=595) 89.7 fL 79.4-94.8 MEAN CORPUSCULAR HEMOGLOBIN (BEAKER) (test 27.4 pg 25.6-32.2 yedv=083) MEAN CORPUSCULAR HEMOGLOBIN CONC (BEAKER) (test 30.6 GM/DL 32.2-35.5 azui=764) RED CELL DISTRIBUTION WIDTH (BEAKER) (test 15.3 % 11.7-14.4 tdwr=689) PLATELET COUNT (BEAKER) (test bnbb=907) 187 K/CU MM 150-450 MEAN PLATELET VOLUME (BEAKER) (test zrlp=948) 11.5 fL 9.4-12.3 NUCLEATED RED BLOOD CELLS (BEAKER) (test 0 /100 WBC 0-0 lugo=767) POCT-GLUCOSE [id number] 21:29:00 Test Item Value Reference Range Comments POC-GLUCOSE METER (BEAKER) 232 mg/dL 70-110 TESTED AT [address] (test dyhz=1137) [place] [id number] POCT-GLUCOSE [id number] 10:45:00 Test Item Value Reference Range Comments POC-GLUCOSE METER (BEAKER) 110 mg/dL 70-110 TESTED AT [address] (test zvve=4585) [facility] [address] [id number] 08:06:00 Test Item Value Reference Range Comments ACTIVATED CLOTTING TIME 290 sec TESTED AT [address] (BEAKER) (test kfpv=999) [facility] [address] CBC (HEMOGRAM ONLY)2017-12-11 14:17:00 Test Item Value Reference Range Comments WHITE BLOOD CELL COUNT (BEAKER) (test batu=271) 11.4 K/ L 3.5-10.5 RED BLOOD CELL COUNT (BEAKER) (test cxew=894) 3.93 M/ L 3.93-5.22 HEMOGLOBIN (BEAKER) (test esri=465) 10.9 GM/DL 11.2-15.7 HEMATOCRIT (BEAKER) (test pdtk=620) 34.8 % 34.1-44.9 MEAN CORPUSCULAR VOLUME (BEAKER) (test yunx=173) 88.5 fL 79.4-94.8 MEAN CORPUSCULAR HEMOGLOBIN (BEAKER) (test 27.7 pg 25.6-32.2 gyyq=069) MEAN CORPUSCULAR HEMOGLOBIN CONC (BEAKER) (test 31.3 GM/DL 32.2-35.5 bisf=713) RED CELL DISTRIBUTION WIDTH (BEAKER) (test 15.4 % 11.7-14.4 vfib=131) PLATELET COUNT (BEAKER) (test cqnv=960) 204 K/CU MM 150-450 MEAN PLATELET VOLUME (BEAKER) (test ucbh=943) 11.1 fL 9.4-12.3 NUCLEATED RED BLOOD CELLS (BEAKER) (test 0 /100 WBC 0-0 tubu=880) POCT-GLUCOSE [id number] 14:11:00 Test Item Value Reference Range Comments POC-GLUCOSE METER (BEAKER) 191 mg/dL 70-110 TESTED AT [address] (test yfrk=5728) [place] [address] PLATELET AGGREGATION: FUNCTION [id number] 11:37:00 Test Item Value Reference Range Comments WEAK ADP RESULT(BEAKER) (test 14 % 60-91 nqoh=0954) PLATELET FUNCTION SCREEN 0-39% indicates marked platelet INTERP (BEAKER) (test dysfunction mtob=3742) [id number] Idania Donovan MD (electronic (BEAKER) (test crtm=9348) signature) PLATELET COUNT AGG (BEAKER) 230 K/CU MM 150-450 (test sopy=8318) POCT-GLUCOSE [id number] 10:23:00 Test Item Value Reference Range Comments POC-GLUCOSE METER (BEAKER) 100 mg/dL 70-110 TESTED AT [address] (test vxck=9885) [place] [address] LIPID [id number] 06:28:00 Test Item Value Reference Range Comments TRIGLYCERIDES (BEAKER) (test xans=112) 87 mg/dL CHOLESTEROL (BEAKER) (test zlkr=158) 133 mg/dL HDL CHOLESTEROL (BEAKER) (test zkcg=414) 47 mg/dL LDL CHOLESTEROL CALCULATED (BEAKER) (test 69 mg/dL pcyl=293) Triglyceride Reference Range: Low Risk <150 Borderline 150- 199 High Risk 200-499 Very High Risk >=500Cholesterol Reference Range: Low Risk <200 Borderline 200-239 High Risk > 240HDL Cholesterol Reference Range: Low Risk >=60 High Risk <40LDL Cholesterol Reference Range: Optimal <100 Near Optimal 100-129 Borderline 130-159 High 160-189 Very High >=190POCT-GLUCOSE [id number] 11:03:00 Test Item Value Reference Range Comments POC-GLUCOSE METER (BEAKER) 103 mg/dL 70-[address] [facility] [address] [facility] (test qkxd=1196) [facility] [address] HEMOGLOBIN AND [id number] 10:07:00 Test Item Value Reference Range Comments HEMOGLOBIN (BEAKER) (test dagi=375) 11.5 GM/DL 11.2-15.7 HEMATOCRIT (BEAKER) (test bxyq=314) 37.2 % 34.1-44.9 FUNGUS CULTURE + [id number] 08:13:00 Test Item Value Reference Range Comments CULTURE (BEAKER) (test phgc=4797) 1+ Colleen albicans FUNGUS SMEAR (BEAKER) (test No fungi seen pwyp=2458) ANAEROBIC [id number] 05:42:00 Test Item Value Reference Range Comments CULTURE (BEAKER) (test sfab=4568) No anaerobes isolated WOUND CULTURE + GRAM [id number] 08:07:00 Test Item Value Reference Range Comments CULTURE (BEAKER) COAGULASE NEGATIVE 1+ Coagulase negative (test csis=8457) STAPHYLOCOCCUS Staphylococcus Minocycline (test Susceptible >=19 , code=35) Resistant <19 CULTURE (BEAKER) <1+ Colleen albicans (test lavw=3621) GRAM STAIN RESULT 1+ WBCs (BEAKER) (test zexj=9504) GRAM STAIN RESULT <1+ gram positive cocci (BEAKER) (test in pairs hfgu=235295) WOUND CULTURE + GRAM [id number] 20:05:00 Test Item Value Reference Range Comments CULTURE (BEAKER) COAGULASE NEGATIVE 3+ Coagulase negative (test qsde=4060) STAPHYLOCOCCUS Staphylococcus Minocycline (test Susceptible >=19 , code=35) Resistant <19 CULTURE (BEAKER) 1+ Colleen albicans (test rhct=6904) GRAM STAIN RESULT 1+ WBCs (BEAKER) (test vjpq=5515) GRAM STAIN RESULT No organisms seen (BEAKER) (test baby=659204) POCT-GLUCOSE [id number] 12:00:00 Test Item Value Reference Range Comments POC-GLUCOSE METER (BEAKER) 238 mg/dL 70-110 TESTED AT [address] (test iglq=6844) [facility] [address] POCT-GLUCOSE [id number] 08:03:00 Test Item Value Reference Range Comments POC-GLUCOSE METER (BEAKER) 308 mg/dL 70-110 Will Repeat Test/TESTED AT (test uvnw=0407) [place] [id number] [facility] [address] [id number] 04:31:00 Test Item Value Reference Range Comments MAGNESIUM (BEAKER) (test phxc=838) 1.9 mg/dL 1.6-2.6 BASIC METABOLIC [id number] 04:31:00 Test Item Value Reference Range Comments SODIUM (BEAKER) (test 134 meq/L 136-145 julk=467) POTASSIUM (BEAKER) (test 4.3 meq/L 3.5-5.1 vapq=076) CHLORIDE (BEAKER) (test 100 meq/L 98-107 ltju=384) CO2 (BEAKER) (test 24 meq/L 22-29 oczl=306) BLOOD UREA NITROGEN 12 mg/dL 7-21 (BEAKER) (test uylv=899) CREATININE (BEAKER) (test 0.77 mg/dL 0.57-1.25 wnpn=175) GLUCOSE RANDOM (BEAKER) 272 mg/dL 70-105 (test ebvq=595) CALCIUM (BEAKER) (test 8.6 mg/dL 8.4-10.2 nthd=860) EGFR (BEAKER) (test 72 mL/min/1.73 sq m ESTIMATED GFR IS NOT biup=6429) ACCURATE CREATININE CLEARANCE IN PREDICTING GLOMERULAR FILTRATION RATE. ESTIMATED GFR IS NOT APPLICABLE FOR DIALYSIS PATIENTS. POCT-GLUCOSE [id number] 21:16:00 Test Item Value Reference Range Comments POC-GLUCOSE METER (BEAKER) 207 mg/dL 70-[address] [facility] [address] [facility] (test dvpd=6761) [facility] [address] POCT-GLUCOSE [id number] 20:45:00 Test Item Value Reference Range Comments POC-GLUCOSE METER (BEAKER) 266 mg/dL 70-110 TESTED AT [address] (test kjgi=3630) [place] [address] [id number] 05:25:00 Test Item Value Reference Range Comments MAGNESIUM (BEAKER) (test hqil=073) 1.9 mg/dL 1.6-2.6 BASIC METABOLIC [id number] 05:25:00 Test Item Value Reference Range Comments SODIUM (BEAKER) (test 136 meq/L 136-145 roon=670) POTASSIUM (BEAKER) (test 3.7 meq/L 3.5-5.1 bmxs=637) CHLORIDE (BEAKER) (test 102 meq/L 98-107 eyft=918) CO2 (BEAKER) (test 24 meq/L 22-29 dttk=787) BLOOD UREA NITROGEN 14 mg/dL 7-21 (BEAKER) (test gvys=055) CREATININE (BEAKER) (test 0.73 mg/dL 0.57-1.25 lqmt=556) GLUCOSE RANDOM (BEAKER) 136 mg/dL 70-105 (test fxyp=358) CALCIUM (BEAKER) (test 8.8 mg/dL 8.4-10.2 dqpk=701) EGFR (BEAKER) (test 77 mL/min/1.73 sq m ESTIMATED GFR IS NOT ujhr=1728) ACCURATE CREATININE CLEARANCE IN PREDICTING GLOMERULAR FILTRATION RATE. ESTIMATED GFR IS NOT APPLICABLE FOR DIALYSIS PATIENTS. CBC (HEMOGRAM ONLY)2017-07-18 05:07:00 Test Item Value Reference Range Comments WHITE BLOOD CELL COUNT (BEAKER) (test qfut=737) 9.1 K/ L 3.5-10.5 RED BLOOD CELL COUNT (BEAKER) (test byhe=713) 2.92 M/ L 3.93-5.22 HEMOGLOBIN (BEAKER) (test eqeu=001) 8.3 GM/DL 11.2-15.7 HEMATOCRIT (BEAKER) (test fljz=626) 26.4 % 34.1-44.9 MEAN CORPUSCULAR VOLUME (BEAKER) (test zgkb=860) 90.4 fL 79.4-94.8 MEAN CORPUSCULAR HEMOGLOBIN (BEAKER) (test 28.4 pg 25.6-32.2 tmgo=933) MEAN CORPUSCULAR HEMOGLOBIN CONC (BEAKER) (test 31.4 GM/DL 32.2-35.5 pjlg=076) RED CELL DISTRIBUTION WIDTH (BEAKER) (test 14.1 % 11.7-14.4 pury=769) PLATELET COUNT (BEAKER) (test xyzn=024) 369 K/CU MM 150-450 MEAN PLATELET VOLUME (BEAKER) (test alhd=839) 10.7 fL 9.4-12.3 NUCLEATED RED BLOOD CELLS (BEAKER) (test 0 /100 WBC 0-0 gifs=269) POCT-GLUCOSE [id number] 21:22:00 Test Item Value Reference Range Comments POC-GLUCOSE METER (BEAKER) 241 mg/dL 70-110 TESTED AT [address] (test zjmp=8836) [place] [id number] POCT-GLUCOSE [id number] 15:18:00 Test Item Value Reference Range Comments POC-GLUCOSE METER (BEAKER) 123 mg/dL 70-110 TESTED AT [address] (test kgqv=2591) [place] [id number] URINE [id number] 09:25:00 Test Item Value Reference Range Comments CULTURE (AKER) (test CITROBACTER SPECIES >100,000 col/mL leww=6116) Citrobacter species Amikacin (test code=1) Aztreonam (test code=32) Cefepime (test code=51) Cefoxitin (test code=68) Ceftazidime (test code=27) Ceftriaxone (test code=52) Ertapenem (test code=38) Gentamicin (test code=18) Levofloxacin (test code=22) Meropenem (test code=34) Nitrofurantoin (test code=23) Piperacillin + Tazobactam (test code=29) Tetracycline (test code=2) Tobramycin (test code=25) Trimethoprim + Sulfamethoxazole (test code=47) POCT-GLUCOSE [id number] 08:17:00 Test Item Value Reference Range Comments POC-GLUCOSE METER (BEAKER) 94 mg/dL 70-[address] [facility] [address] [facility] (test tmso=5778) [facility] [address] [id number] 04:56:00 Test Item Value Reference Range Comments MAGNESIUM (BEAKER) (test lobk=949) 1.9 mg/dL 1.6-2.6 BASIC METABOLIC [id number] 04:56:00 Test Item Value Reference Range Comments SODIUM (BEAKER) (test 134 meq/L 136-145 wqxt=094) POTASSIUM (BEAKER) (test 4.0 meq/L 3.5-5.1 sknq=518) CHLORIDE (BEAKER) (test 99 meq/L 98-107 nvls=624) CO2 (BEAKER) (test 25 meq/L 22-29 fznq=081) BLOOD UREA NITROGEN 18 mg/dL 7-21 (BEAKER) (test wijx=550) CREATININE (BEAKER) (test 0.82 mg/dL 0.57-1.25 zaii=248) GLUCOSE RANDOM (BEAKER) 111 mg/dL 70-105 (test itut=948) CALCIUM (BEAKER) (test 8.5 mg/dL 8.4-10.2 bjfs=407) EGFR (BEAKER) (test 67 mL/min/1.73 sq m ESTIMATED GFR IS NOT hxez=0560) ACCURATE CREATININE CLEARANCE IN PREDICTING GLOMERULAR FILTRATION RATE. ESTIMATED GFR IS NOT APPLICABLE FOR DIALYSIS PATIENTS. CBC (HEMOGRAM ONLY)2017-07-17 04:34:00 Test Item Value Reference Range Comments WHITE BLOOD CELL COUNT (BEAKER) (test jwjr=703) 10.6 K/ L 3.5-10.5 RED BLOOD CELL COUNT (BEAKER) (test puwi=071) 2.88 M/ L 3.93-5.22 HEMOGLOBIN (BEAKER) (test amkq=672) 8.3 GM/DL 11.2-15.7 HEMATOCRIT (BEAKER) (test stsd=430) 26.0 % 34.1-44.9 MEAN CORPUSCULAR VOLUME (BEAKER) (test tzet=857) 90.3 fL 79.4-94.8 MEAN CORPUSCULAR HEMOGLOBIN (BEAKER) (test 28.8 pg 25.6-32.2 vdae=099) MEAN CORPUSCULAR HEMOGLOBIN CONC (BEAKER) (test 31.9 GM/DL 32.2-35.5 cvtr=153) RED CELL DISTRIBUTION WIDTH (BEAKER) (test 14.1 % 11.7-14.4 crjz=370) PLATELET COUNT (BEAKER) (test yabn=663) 335 K/CU MM 150-450 MEAN PLATELET VOLUME (BEAKER) (test hbsv=921) 10.5 fL 9.4-12.3 NUCLEATED RED BLOOD CELLS (BEAKER) (test 0 /100 WBC 0-0 zngq=977) POCT-GLUCOSE [id number] 20:24:00 Test Item Value Reference Range Comments POC-GLUCOSE METER (BEAKER) 205 mg/dL 70-110 TESTED AT [address] (test gjwr=8328) [place] [id number] POCT-GLUCOSE [id number] 17:11:00 Test Item Value Reference Range Comments POC-GLUCOSE METER (BEAKER) 162 mg/dL 70-110 TESTED AT [address] (test qhlt=1202) [place] [id number] POCT-GLUCOSE [id number] 12:21:00 Test Item Value Reference Range Comments POC-GLUCOSE METER (BEAKER) 188 mg/dL 70-110 TESTED AT [address] (test lwiq=5254) [place] [id number] POCT-GLUCOSE [id number] 08:23:00 Test Item Value Reference Range Comments POC-GLUCOSE METER (BEAKER) 97 mg/dL 70-110 TESTED AT [address] (test cbjy=2195) [place] [address] [id number] 05:54:00 Test Item Value Reference Range Comments MAGNESIUM (BEAKER) (test ljkg=835) 1.7 mg/dL 1.6-2.6 BASIC METABOLIC [id number] 05:54:00 Test Item Value Reference Range Comments SODIUM (BEAKER) (test 133 meq/L 136-145 vgwd=248) POTASSIUM (BEAKER) (test 3.4 meq/L 3.5-5.1 qzhq=815) CHLORIDE (BEAKER) (test 97 meq/L 98-107 eaun=915) CO2 (BEAKER) (test 26 meq/L 22-29 xdvr=427) BLOOD UREA NITROGEN 16 mg/dL 7-21 (BEAKER) (test wzbr=790) CREATININE (BEAKER) (test 0.72 mg/dL 0.57-1.25 nchp=674) GLUCOSE RANDOM (BEAKER) 97 mg/dL 70-105 (test cbfm=746) CALCIUM (BEAKER) (test 8.6 mg/dL 8.4-10.2 pphs=798) EGFR (BEAKER) (test 78 mL/min/1.73 sq m ESTIMATED GFR IS NOT ntfx=8023) ACCURATE CREATININE CLEARANCE IN PREDICTING GLOMERULAR FILTRATION RATE. ESTIMATED GFR IS NOT APPLICABLE FOR DIALYSIS PATIENTS. CBC (HEMOGRAM ONLY)2017-07-16 05:31:00 Test Item Value Reference Range Comments WHITE BLOOD CELL COUNT (BEAKER) (test wqry=559) 12.5 K/ L 3.5-10.5 RED BLOOD CELL COUNT (BEAKER) (test qhko=624) 3.14 M/ L 3.93-5.22 HEMOGLOBIN (BEAKER) (test ycqa=137) 8.9 GM/DL 11.2-15.7 HEMATOCRIT (BEAKER) (test rrct=468) 28.7 % 34.1-44.9 MEAN CORPUSCULAR VOLUME (BEAKER) (test kqjm=709) 91.4 fL 79.4-94.8 MEAN CORPUSCULAR HEMOGLOBIN (BEAKER) (test 28.3 pg 25.6-32.2 xtqp=377) MEAN CORPUSCULAR HEMOGLOBIN CONC (BEAKER) (test 31.0 GM/DL 32.2-35.5 mwmy=142) RED CELL DISTRIBUTION WIDTH (BEAKER) (test 14.2 % 11.7-14.4 firg=476) PLATELET COUNT (BEAKER) (test uqgc=577) 331 K/CU MM 150-450 MEAN PLATELET VOLUME (BEAKER) (test fbbn=619) 10.8 fL 9.4-12.3 NUCLEATED RED BLOOD CELLS (BEAKER) (test 0 /100 WBC 0-0 hhdg=498) POCT-GLUCOSE [id number] 21:04:00 Test Item Value Reference Range Comments POC-GLUCOSE METER (BEAKER) 198 mg/dL 70-[address] [facility] [address] [facility] (test nioo=3345) [facility] [address] POCT-GLUCOSE [id number] 17:40:00 Test Item Value Reference Range Comments POC-GLUCOSE METER (BEAKER) 189 mg/dL 70-110 TESTED AT [address] (test bziy=9687) [place] [address] URINALYSIS W/ [id number] 15:48:00 Test Item Value Reference Range Comments COLOR (BEAKER) (test upfe=265) Yellow CLARITY (BEAKER) (test xfum=482) Hazy SPECIFIC GRAVITY UA (BEAKER) (test 1.011 1.001-1.035 fhco=567) PH UA (BEAKER) (test noay=546) 5.5 5.0-8.0 PROTEIN UA (BEAKER) (test emak=860) Negative Negative GLUCOSE UA (BEAKER) (test gwfs=771) Negative Negative KETONES UA (BEAKER) (test rpjp=786) Negative Negative BILIRUBIN UA (BEAKER) (test nwsq=494) Negative Negative BLOOD UA (BEAKER) (test ydgb=342) Small Negative NITRITE UA (BEAKER) (test miyr=699) Negative Negative LEUKOCYTE ESTERASE UA (BEAKER) (test Large Negative oyew=084) UROBILINOGEN UA (BEAKER) (test bsvo=396) 0.2 mg/dL 0.2-1.0 RBC UA (BEAKER) (test teja=688) 11 /HPF WBC UA (BEAKER) (test gfwe=273) 219 /HPF BACTERIA (BEAKER) (test asjp=538) Many MUCUS (BEAKER) (test qiha=5764) Rare SQUAMOUS EPITHELIAL (BEAKER) (test 4 /HPF bjyr=879) HYALINE CASTS (BEAKER) (test eksr=705) 10 /LPF SOURCE(BEAKER) (test hxjj=5997) Urine, Clean Catch POCT-GLUCOSE [id number] 13:23:00 Test Item Value Reference Range Comments POC-GLUCOSE METER (BEAKER) 224 mg/dL 70-110 TESTED AT [address] (test vwyv=4555) [place] [address] RAD, CHEST, 1 VIEW, NON [id number] 12:49:00Reason for exam:->feverShould this be performed at the bedside?->YesFINAL REPORT Chest One view: Reason for exam: Fever Comparison Study: Chest x-ray, 07/11/2017 Discussion: Some subsegmental atelectasis is identified in the left lung base, improved. The right lung is clear. There is no pleural effusion or pneumothorax. The heart size and pulmonary vascularity are within normal limits. The bones are unremarkable. Sternal wires are present. Surgical clips are also identified in the left hilum. Impression: Left lung base atelectasis, improved Signed: Gary Snell MDReport Verified Date/Time: 07/15/2017 12:49: 51 [place] Location: [facility] B1 [id number] Ortho Consult Reading Room POCT- GLUCOSE [id number] 08:38:00 Test Item Value Reference Range Comments POC-GLUCOSE METER (BEAKER) 118 mg/dL 70-[address] [facility] [address] [facility] (test mvnu=8242) [facility] [address] [id number] 06:02:00 Test Item Value Reference Range Comments MAGNESIUM (BEAKER) (test vaih=512) 1.9 mg/dL 1.6-2.6 BASIC METABOLIC [id number] 06:02:00 Test Item Value Reference Range Comments SODIUM (BEAKER) (test 137 meq/L 136-145 yoir=070) POTASSIUM (BEAKER) (test 3.8 meq/L 3.5-5.1 tmiy=866) CHLORIDE (BEAKER) (test 102 meq/L 98-107 lsdu=818) CO2 (BEAKER) (test 24 meq/L 22-29 snfx=789) BLOOD UREA NITROGEN 14 mg/dL 7-21 (BEAKER) (test cogk=450) CREATININE (BEAKER) (test 0.69 mg/dL 0.57-1.25 ekge=414) GLUCOSE RANDOM (BEAKER) 114 mg/dL 70-105 (test vlwb=852) CALCIUM (BEAKER) (test 9.1 mg/dL 8.4-10.2 kubv=131) EGFR (BEAKER) (test 82 mL/min/1.73 sq m ESTIMATED GFR IS NOT oziw=5402) ACCURATE CREATININE CLEARANCE IN PREDICTING GLOMERULAR FILTRATION RATE. ESTIMATED GFR IS NOT APPLICABLE FOR DIALYSIS PATIENTS. CBC (HEMOGRAM ONLY)2017-07-15 05:40:00 Test Item Value Reference Range Comments WHITE BLOOD CELL COUNT (BEAKER) (test vmdh=233) 14.4 K/ L 3.5-10.5 RED BLOOD CELL COUNT (BEAKER) (test hwnm=480) 3.51 M/ L 3.93-5.22 HEMOGLOBIN (BEAKER) (test ospr=062) 10.2 GM/DL 11.2-15.7 HEMATOCRIT (BEAKER) (test cpbx=824) 31.3 % 34.1-44.9 MEAN CORPUSCULAR VOLUME (BEAKER) (test ykmk=920) 89.2 fL 79.4-94.8 MEAN CORPUSCULAR HEMOGLOBIN (BEAKER) (test 29.1 pg 25.6-32.2 rfqu=763) MEAN CORPUSCULAR HEMOGLOBIN CONC (BEAKER) (test 32.6 GM/DL 32.2-35.5 seqm=623) RED CELL DISTRIBUTION WIDTH (BEAKER) (test 13.8 % 11.7-14.4 blth=157) PLATELET COUNT (BEAKER) (test rhwb=394) 338 K/CU MM 150-450 MEAN PLATELET VOLUME (BEAKER) (test qyfa=473) 11.2 fL 9.4-12.3 NUCLEATED RED BLOOD CELLS (BEAKER) (test 0 /100 WBC 0-0 ulan=686) POCT-GLUCOSE [id number] 21:20:00 Test Item Value Reference Range Comments POC-GLUCOSE METER (BEAKER) 178 mg/dL 70-110 TESTED AT [address] (test mbnh=5100) [facility] [address] POCT-GLUCOSE [id number] 17:17:00 Test Item Value Reference Range Comments POC-GLUCOSE METER (BEAKER) 259 mg/dL 70-110 TESTED AT [address] (test pjoi=5918) [place] [id number] POCT-GLUCOSE [id number] 13:07:00 Test Item Value Reference Range Comments POC-GLUCOSE METER (BEAKER) 195 mg/dL 70-110 TESTED AT [address] (test gxfu=8243) [facility] [address] POCT-GLUCOSE [id number] 08:07:00 Test Item Value Reference Range Comments POC-GLUCOSE METER (BEAKER) 152 mg/dL 70-[address] [facility] [address] (test vsog=8820) [place] [address] [id number] 05:23:00 Test Item Value Reference Range Comments MAGNESIUM (BEAKER) (test xtvv=297) 1.9 mg/dL 1.6-2.6 BASIC METABOLIC [id number] 05:23:00 Test Item Value Reference Range Comments SODIUM (BEAKER) (test 135 meq/L 136-145 thjz=350) POTASSIUM (BEAKER) (test 3.8 meq/L 3.5-5.1 hjrh=891) CHLORIDE (BEAKER) (test 104 meq/L 98-107 dyqs=245) CO2 (BEAKER) (test 23 meq/L 22-29 jsbd=924) BLOOD UREA NITROGEN 17 mg/dL 7-21 (BEAKER) (test orgi=018) CREATININE (BEAKER) (test 0.68 mg/dL 0.57-1.25 ydzv=551) GLUCOSE RANDOM (BEAKER) 158 mg/dL 70-105 (test kxis=341) CALCIUM (BEAKER) (test 8.4 mg/dL 8.4-10.2 ucci=605) EGFR (BEAKER) (test 84 mL/min/1.73 sq m ESTIMATED GFR IS NOT dzcu=5243) ACCURATE CREATININE CLEARANCE IN PREDICTING GLOMERULAR FILTRATION RATE. ESTIMATED GFR IS NOT APPLICABLE FOR DIALYSIS PATIENTS. CBC (HEMOGRAM ONLY)2017-07-14 04:55:00 Test Item Value Reference Range Comments WHITE BLOOD CELL COUNT (BEAKER) (test lfdq=773) 11.1 K/ L 3.5-10.5 RED BLOOD CELL COUNT (BEAKER) (test eqpi=625) 2.77 M/ L 3.93-5.22 HEMOGLOBIN (BEAKER) (test soxs=860) 8.1 GM/DL 11.2-15.7 HEMATOCRIT (BEAKER) (test cdts=986) 25.3 % 34.1-44.9 MEAN CORPUSCULAR VOLUME (BEAKER) (test vkhv=373) 91.3 fL 79.4-94.8 MEAN CORPUSCULAR HEMOGLOBIN (BEAKER) (test 29.2 pg 25.6-32.2 tfwq=958) MEAN CORPUSCULAR HEMOGLOBIN CONC (BEAKER) (test 32.0 GM/DL 32.2-35.5 bdsd=477) RED CELL DISTRIBUTION WIDTH (BEAKER) (test 13.9 % 11.7-14.4 pcnb=637) PLATELET COUNT (BEAKER) (test wlal=610) 262 K/CU MM 150-450 MEAN PLATELET VOLUME (BEAKER) (test pivr=477) 11.1 fL 9.4-12.3 NUCLEATED RED BLOOD CELLS (BEAKER) (test 0 /100 WBC 0-0 stye=102) POCT-GLUCOSE [id number] 21:13:00 Test Item Value Reference Range Comments POC-GLUCOSE METER (BEAKER) 244 mg/dL 70-110 TESTED AT [address] (test utze=4134) [place] [id number] POCT-GLUCOSE [id number] 17:17:00 Test Item Value Reference Range Comments POC-GLUCOSE METER (BEAKER) 214 mg/dL 70-110 TESTED AT [address] (test ccdw=8796) [place] [id number] POCT-GLUCOSE [id number] 11:53:00 Test Item Value Reference Range Comments POC-GLUCOSE METER (BEAKER) 252 mg/dL 70-110 TESTED AT [address] (test tchk=1940) [place] [id number] POCT-GLUCOSE [id number] 08:27:00 Test Item Value Reference Range Comments POC-GLUCOSE METER (BEAKER) 241 mg/dL 70-110 TESTED AT [address] (test gesw=0409) [place] [id number] 06:49:00 Test Item Value Reference Range Comments MAGNESIUM (BEAKER) (test 2.0 mg/dL 1.6-2.6 Specimen slightly hemolyzed txnb=927) BASIC METABOLIC [id number] 06:49:00 Test Item Value Reference Range Comments SODIUM (BEAKER) (test 134 meq/L 136-145 uaus=237) POTASSIUM (BEAKER) (test 4.3 meq/L 3.5-5.1 Specimen slightly anyq=665) hemolyzed CHLORIDE (BEAKER) (test 106 meq/L 98-107 urpd=619) CO2 (BEAKER) (test 18 meq/L 22-29 wjtu=068) BLOOD UREA NITROGEN 15 mg/dL 7-21 (BEAKER) (test svmt=848) CREATININE (BEAKER) (test 0.68 mg/dL 0.57-1.25 Specimen slightly ionn=047) hemolyzed GLUCOSE RANDOM (BEAKER) 234 mg/dL 70-105 (test hghh=733) CALCIUM (BEAKER) (test 8.3 mg/dL 8.4-10.2 hrzo=429) EGFR (BEAKER) (test 84 mL/min/1.73 sq m ESTIMATED GFR IS NOT fkge=7291) ACCURATE CREATININE CLEARANCE IN PREDICTING GLOMERULAR FILTRATION RATE. ESTIMATED GFR IS NOT APPLICABLE FOR DIALYSIS PATIENTS. CBC (HEMOGRAM ONLY)2017-07-13 06:19:00 Test Item Value Reference Range Comments WHITE BLOOD CELL COUNT 10.4 K/ L 3.5-10.5 (BEAKER) (test qvhv=724) RED BLOOD CELL COUNT (BEAKER) 2.94 M/ L 3.93-5.22 (test evmf=505) HEMOGLOBIN (BEAKER) (test 8.6 GM/DL 11.2-15.7 qoac=335) HEMATOCRIT (BEAKER) (test 28.8 % 34.1-44.9 guvj=298) MEAN CORPUSCULAR VOLUME 98.0 fL 79.4-94.8 Discordant MCV results (BEAKER) (test vqne=652) compared to previous results; clinical correlation required. MEAN CORPUSCULAR HEMOGLOBIN 29.3 pg 25.6-32.2 (BEAKER) (test tsqv=494) MEAN CORPUSCULAR HEMOGLOBIN 29.9 GM/DL 32.2-35.5 CONC (BEAKER) (test hrjr=161) RED CELL DISTRIBUTION WIDTH 14.0 % 11.7-14.4 (BEAKER) (test cpyt=821) PLATELET COUNT (BEAKER) (test 202 K/CU MM 150-450 nrzc=302) MEAN PLATELET VOLUME (BEAKER) 11.8 fL 9.4-12.3 (test uxhl=846) NUCLEATED RED BLOOD CELLS 0 /100 WBC 0-0 (BEAKER) (test umyy=930) POCT-GLUCOSE [id number] 21:02:00 Test Item Value Reference Range Comments POC-GLUCOSE METER (BEAKER) 316 mg/dL 70-110 Will Repeat Test/TESTED AT (test hwkr=1837) [facility] [address] [facility] [address] POCT-GLUCOSE [id number] 17:36:00 Test Item Value Reference Range Comments POC-GLUCOSE METER (BEAKER) 227 mg/dL 70-110 TESTED AT [address] (test kbso=4483) [facility] [address] POCT-GLUCOSE [id number] 17:02:00 Test Item Value Reference Range Comments POC-GLUCOSE METER (BEAKER) 204 mg/dL 70-110 TESTED AT [address] (test rtoh=6286) [facility] [address] POCT-GLUCOSE [id number] 11:50:00 Test Item Value Reference Range Comments POC-GLUCOSE METER (BEAKER) 247 mg/dL 70-110 TESTED AT [address] (test jiir=2775) [facility] [address] POCT-GLUCOSE [id number] 10:36:00 Test Item Value Reference Range Comments POC-GLUCOSE METER (BEAKER) 277 mg/dL 70-110 TESTED AT [address] (test eonb=4048) [facility] [address] POCT-GLUCOSE [id number] 08:27:00 Test Item Value Reference Range Comments POC-GLUCOSE METER (BEAKER) 132 mg/dL 70-110 TESTED AT [address] (test qhdq=9054) [facility] [address] CBC W/PLT COUNT & AUTO [id number] 06:46:00 Test Item Value Reference Range Comments WHITE BLOOD CELL COUNT (BEAKER) (test kzfc=993) 12.5 K/ L 3.5-10.5 RED BLOOD CELL COUNT (BEAKER) (test koaa=389) 2.99 M/ L 3.93-5.22 HEMOGLOBIN (BEAKER) (test krwm=153) 8.6 GM/DL 11.2-15.7 HEMATOCRIT (BEAKER) (test xnpf=852) 27.2 % 34.1-44.9 MEAN CORPUSCULAR VOLUME (BEAKER) (test msli=872) 91.0 fL 79.4-94.8 MEAN CORPUSCULAR HEMOGLOBIN (BEAKER) (test 28.8 pg 25.6-32.2 hjmn=972) MEAN CORPUSCULAR HEMOGLOBIN CONC (BEAKER) (test 31.6 GM/DL 32.2-35.5 erme=849) RED CELL DISTRIBUTION WIDTH (BEAKER) (test 14.0 % 11.7-14.4 rnua=033) PLATELET COUNT (BEAKER) (test fzpy=981) 198 K/CU MM 150-450 MEAN PLATELET VOLUME (BEAKER) (test aadx=409) 12.0 fL 9.4-12.3 NUCLEATED RED BLOOD CELLS (BEAKER) (test 0 /100 WBC 0-0 ijvq=023) NEUTROPHILS RELATIVE PERCENT (BEAKER) (test 68 % tdnt=252) LYMPHOCYTES RELATIVE PERCENT (BEAKER) (test 21 % xkfw=081) MONOCYTES RELATIVE PERCENT (BEAKER) (test 7 % zrxu=146) EOSINOPHILS RELATIVE PERCENT (BEAKER) (test 4 % cpdo=014) BASOPHILS RELATIVE PERCENT (BEAKER) (test 1 % iagy=580) NEUTROPHILS ABSOLUTE COUNT (BEAKER) (test 8.49 K/ L 1.56-6.13 haoc=589) LYMPHOCYTES ABSOLUTE COUNT (BEAKER) (test 2.60 K/ L 1.18-3.74 fwqq=851) MONOCYTES ABSOLUTE COUNT (BEAKER) (test 0.88 K/ L 0.24-0.36 elrm=196) EOSINOPHILS ABSOLUTE COUNT (BEAKER) (test 0.45 K/ L 0.04-0.36 jozh=941) BASOPHILS ABSOLUTE COUNT (BEAKER) (test 0.07 K/ L 0.01-0.08 uyag=711) IMMATURE GRANULOCYTES-RELATIVE PERCENT (BEAKER) 0 % 0-1 (test ooxn=5398) [id number] 06:35:00 Test Item Value Reference Range Comments MAGNESIUM (BEAKER) (test aehj=616) 1.9 mg/dL 1.6-2.6 BASIC METABOLIC [id number] 06:35:00 Test Item Value Reference Range Comments SODIUM (BEAKER) (test 139 meq/L 136-145 fjbt=907) POTASSIUM (BEAKER) (test 3.5 meq/L 3.5-5.1 bbyu=110) CHLORIDE (BEAKER) (test 107 meq/L 98-107 uqaf=646) CO2 (BEAKER) (test 23 meq/L 22-29 lkfl=182) BLOOD UREA NITROGEN 10 mg/dL 7-21 (BEAKER) (test vkec=689) CREATININE (BEAKER) (test 0.60 mg/dL 0.57-1.25 iifk=826) GLUCOSE RANDOM (BEAKER) 109 mg/dL 70-105 (test ybvw=423) CALCIUM (BEAKER) (test 8.4 mg/dL 8.4-10.2 bnss=888) EGFR (BEAKER) (test 97 mL/min/1.73 sq m ESTIMATED GFR IS NOT eivg=0016) ACCURATE CREATININE CLEARANCE IN PREDICTING GLOMERULAR FILTRATION RATE. ESTIMATED GFR IS NOT APPLICABLE FOR DIALYSIS PATIENTS. POCT-GLUCOSE [id number] 21:22:00 Test Item Value Reference Range Comments POC-GLUCOSE METER (BEAKER) 139 mg/dL 70-110 TESTED AT [address] (test zosy=1910) [place] [address] POCT-GLUCOSE [id number] 17:15:00 Test Item Value Reference Range Comments POC-GLUCOSE METER (BEAKER) 232 mg/dL 70-110 TESTED AT [address] (test phca=0398) [place] [address] PLATELET AGGREGATION: FUNCTION [id number] 16:33:00 Test Item Value Reference Range Comments WEAK ADP RESULT(BEAKER) (test 21 % 60-91 cnct=5875) PLATELET FUNCTION SCREEN 0-39% indicates marked platelet INTERP (BEAKER) (test dysfunction ltqp=4701) [id number]-[id number] Magen Willingham MD (electronic (BEAKER) (test fdpg=4835) signature) PLATELET COUNT AGG (BEAKER) 238 K/CU MM 150-450 (test cntl=3948) POCT-GLUCOSE [id number] 13:59:00 Test Item Value Reference Range Comments POC-GLUCOSE METER (BEAKER) 227 mg/dL 70-110 TESTED AT [address] (test kitj=7773) [place] [address] [id number] 05:56:00 Test Item Value Reference Range Comments MAGNESIUM (BEAKER) (test snxs=516) 2.0 mg/dL 1.6-2.6 BASIC METABOLIC [id number] 05:56:00 Test Item Value Reference Range Comments SODIUM (BEAKER) (test 138 meq/L 136-145 xkyx=241) POTASSIUM (BEAKER) (test 3.7 meq/L 3.5-5.1 zmvy=850) CHLORIDE (BEAKER) (test 107 meq/L 98-107 kafv=770) CO2 (BEAKER) (test 23 meq/L 22-29 eped=983) BLOOD UREA NITROGEN 11 mg/dL 7-21 (BEAKER) (test igat=542) CREATININE (BEAKER) (test 0.61 mg/dL 0.57-1.25 pkit=539) GLUCOSE RANDOM (BEAKER) 211 mg/dL 70-105 (test shim=004) CALCIUM (BEAKER) (test 8.5 mg/dL 8.4-10.2 wbjg=206) EGFR (BEAKER) (test 95 mL/min/1.73 sq m ESTIMATED GFR IS NOT oxsp=0435) ACCURATE CREATININE CLEARANCE IN PREDICTING GLOMERULAR FILTRATION RATE. ESTIMATED GFR IS NOT APPLICABLE FOR DIALYSIS PATIENTS. RAD, CHEST, 1 VIEW, NON [id number] 04:54:00Reason for exam:->pl effusionShould this be performed at the bedside?->YesFINAL REPORT RAD, CHEST, 1 VIEW, NON DEPT INDICATION: pl effusion COMPARISON: Prior day's exam FINDINGS: Portable frontal view of the chest. IMPRESSION: Support Lines: Thoracostomy tubes have been removed. Right IJ central venous catheter is stable.Lungs and pleura: Underinflated with basilar subsegmental atelectasis on the left. Trace bilateral effusions. No pneumothorax.Heart and mediastinum: Stable contours. Stable surgical changes.Additional findings: None. Signed: JR Jerez Robert MDReport Verified Date/Time: 07/11/2017 04:54:28 Reading Location: [address] Body Reading Room CBC W/PLT COUNT & AUTO [id number] 04:48:00 Test Item Value Reference Range Comments WHITE BLOOD CELL COUNT (BEAKER) (test kyny=577) 13.6 K/ L 3.5-10.5 RED BLOOD CELL COUNT (BEAKER) (test aqpx=144) 3.02 M/ L 3.93-5.22 HEMOGLOBIN (BEAKER) (test nhtl=710) 8.7 GM/DL 11.2-15.7 HEMATOCRIT (BEAKER) (test iyoo=563) 27.1 % 34.1-44.9 MEAN CORPUSCULAR VOLUME (BEAKER) (test kilc=826) 89.7 fL 79.4-94.8 MEAN CORPUSCULAR HEMOGLOBIN (BEAKER) (test 28.8 pg 25.6-32.2 aqnq=499) MEAN CORPUSCULAR HEMOGLOBIN CONC (BEAKER) (test 32.1 GM/DL 32.2-35.5 byiy=039) RED CELL DISTRIBUTION WIDTH (BEAKER) (test 13.9 % 11.7-14.4 yxuj=746) PLATELET COUNT (BEAKER) (test lvmb=027) 162 K/CU MM 150-450 MEAN PLATELET VOLUME (BEAKER) (test tagr=444) 12.2 fL 9.4-12.3 NUCLEATED RED BLOOD CELLS (BEAKER) (test 0 /100 WBC 0-0 lpmg=752) NEUTROPHILS RELATIVE PERCENT (BEAKER) (test 79 % pgsv=292) LYMPHOCYTES RELATIVE PERCENT (BEAKER) (test 11 % woah=253) MONOCYTES RELATIVE PERCENT (BEAKER) (test 8 % xpls=862) EOSINOPHILS RELATIVE PERCENT (BEAKER) (test 1 % ahot=593) BASOPHILS RELATIVE PERCENT (BEAKER) (test 1 % gffg=178) NEUTROPHILS ABSOLUTE COUNT (BEAKER) (test 10.71 K/ L 1.56-6.13 ialn=134) LYMPHOCYTES ABSOLUTE COUNT (BEAKER) (test 1.52 K/ L 1.18-3.74 rzjs=456) MONOCYTES ABSOLUTE COUNT (BEAKER) (test 1.08 K/ L 0.24-0.36 qyaa=541) EOSINOPHILS ABSOLUTE COUNT (BEAKER) (test 0.14 K/ L 0.04-0.36 dbip=632) BASOPHILS ABSOLUTE COUNT (BEAKER) (test 0.08 K/ L 0.01-0.08 kiar=931) IMMATURE GRANULOCYTES-RELATIVE PERCENT (BEAKER) 1 % 0-1 (test zjvk=1544) POCT-GLUCOSE [id number] 02:47:00 Test Item Value Reference Range Comments POC-GLUCOSE METER (BEAKER) 192 mg/dL 70-110 TESTED AT [place] [address] [address] (test vcfd=2874) [facility] [address] POCT-GLUCOSE [id number] 02:47:00 Test Item Value Reference Range Comments POC-GLUCOSE METER (BEAKER) 190 mg/dL 70-110 TESTED AT [address] (test ymcz=5012) [place] [address] [id number] 17:47:00 Test Item Value Reference Range Comments POTASSIUM (BEAKER) (test wrjp=368) 3.9 meq/L 3.5-5.1 PRN - repeat glucose levels every 1 hour or as specified by insulin titration orders until glucose level is less than 450 mg/dLCheck Serum Potassium level 2 hours after oral potassium replacement completed or 30 min after intravenous potassium replacement.[id number] 17:47:00 Test Item Value Reference Range Comments GLUCOSE RANDOM (BEAKER) (test cvwu=891) 183 mg/dL 70-105 PRN - repeat glucose levels every 1 hour or as specified by insulin titration orders until glucose level is less than 450 mg/dLCheck Serum Potassium level 2 hours after oral potassium replacement completed or 30 min after intravenous potassium replacement.POCT-GLUCOSE [id number] 14:28:00 Test Item Value Reference Range Comments POC-GLUCOSE METER (BEAKER) 211 mg/dL 70-110 TESTED AT [address] (test qegl=6398) [place] [address] POCT-GLUCOSE [id number] 14:28:00 Test Item Value Reference Range Comments POC-GLUCOSE METER (BEAKER) 136 mg/dL 70-110 TESTED AT [address] (test miqy=0351) [place] [address] POCT-GLUCOSE [id number] 06:21:00 Test Item Value Reference Range Comments POC-GLUCOSE METER (BEAKER) 194 mg/dL 70-110 TESTED AT [address] (test oxyq=2732) [place] [address] CBC W/PLT COUNT & AUTO [id number] 05:11:00 Test Item Value Reference Range Comments WHITE BLOOD CELL COUNT (BEAKER) (test ezdf=121) 14.6 K/ L 3.5-10.5 RED BLOOD CELL COUNT (BEAKER) (test xfqq=883) 3.17 M/ L 3.93-5.22 HEMOGLOBIN (BEAKER) (test clmp=079) 9.3 GM/DL 11.2-15.7 HEMATOCRIT (BEAKER) (test xuuc=726) 28.3 % 34.1-44.9 MEAN CORPUSCULAR VOLUME (BEAKER) (test ipic=338) 89.3 fL 79.4-94.8 MEAN CORPUSCULAR HEMOGLOBIN (BEAKER) (test 29.3 pg 25.6-32.2 jquz=337) MEAN CORPUSCULAR HEMOGLOBIN CONC (BEAKER) (test 32.9 GM/DL 32.2-35.5 wrlf=979) RED CELL DISTRIBUTION WIDTH (BEAKER) (test 13.4 % 11.7-14.4 imyb=392) PLATELET COUNT (BEAKER) (test xjad=476) 179 K/CU MM 150-450 MEAN PLATELET VOLUME (BEAKER) (test rbmb=037) 11.2 fL 9.4-12.3 NUCLEATED RED BLOOD CELLS (BEAKER) (test 0 /100 WBC 0-0 aqso=964) NEUTROPHILS RELATIVE PERCENT (BEAKER) (test 81 % izbo=443) LYMPHOCYTES RELATIVE PERCENT (BEAKER) (test 11 % nlmo=799) MONOCYTES RELATIVE PERCENT (BEAKER) (test 8 % ihnk=287) EOSINOPHILS RELATIVE PERCENT (BEAKER) (test 0 % birm=371) BASOPHILS RELATIVE PERCENT (BEAKER) (test 0 % yolt=619) NEUTROPHILS ABSOLUTE COUNT (BEAKER) (test 11.76 K/ L 1.56-6.13 fsyf=304) LYMPHOCYTES ABSOLUTE COUNT (BEAKER) (test 1.56 K/ L 1.18-3.74 xpnd=868) MONOCYTES ABSOLUTE COUNT (BEAKER) (test 1.17 K/ L 0.24-0.36 izwt=638) EOSINOPHILS ABSOLUTE COUNT (BEAKER) (test 0.00 K/ L 0.04-0.36 doby=702) BASOPHILS ABSOLUTE COUNT (BEAKER) (test 0.04 K/ L 0.01-0.08 cohp=056) IMMATURE GRANULOCYTES-RELATIVE PERCENT (BEAKER) 1 % 0-1 (test erza=2701) [id number] 04:27:00 Test Item Value Reference Range Comments PHOSPHORUS (BEAKER) (test vhga=858) 2.8 mg/dL 2.3-4.7 [id number] 04:27:00 Test Item Value Reference Range Comments MAGNESIUM (BEAKER) (test eyzs=892) 2.2 mg/dL 1.6-2.6 BASIC METABOLIC [id number] 04:27:00 Test Item Value Reference Range Comments SODIUM (BEAKER) (test 140 meq/L 136-145 cidc=318) POTASSIUM (BEAKER) (test 4.1 meq/L 3.5-5.1 yaml=950) CHLORIDE (BEAKER) (test 110 meq/L 98-107 ghti=062) CO2 (BEAKER) (test 22 meq/L 22-29 kyyn=550) BLOOD UREA NITROGEN 11 mg/dL 7-21 (BEAKER) (test ylvi=087) CREATININE (BEAKER) (test 0.62 mg/dL 0.57-1.25 moqq=123) GLUCOSE RANDOM (BEAKER) 144 mg/dL 70-105 (test lvzf=053) CALCIUM (BEAKER) (test 8.5 mg/dL 8.4-10.2 viyb=222) EGFR (BEAKER) (test 93 mL/min/1.73 sq m ESTIMATED GFR IS NOT nfpm=4942) ACCURATE CREATININE CLEARANCE IN PREDICTING GLOMERULAR FILTRATION RATE. ESTIMATED GFR IS NOT APPLICABLE FOR DIALYSIS PATIENTS. RAD, CHEST, 1 VIEW, NON [id number] 04:18:00while patient is intubated or has chest tubes.Reason for exam:->S/p OHSShould this be performed at the bedside?->YesFINAL REPORT RAD, CHEST, 1 VIEW, NON DEPT INDICATION: S/p OHS COMPARISON: Prior day's exam FINDINGS: Portable frontal view of the chest. IMPRESSION: Support Lines: Endotracheal and enteric tubes have been removed. Remaining support hardware is stable. Lungs and pleura: Low lung volumes without focal consolidation or effusion. Mild central congestive changes. No pneumothorax.Heart and mediastinum: Stable contours. Stable surgical changes.Additional findings: None. Signed: JR Meri, Rudolph Bowles Verified Date/Time: 07/10/2017 04:18:51 Reading Location: [facility] C013Y CT Body Reading Room [id number] 00:26:00 Test Item Value Reference Range Comments POTASSIUM (BEAKER) (test khaq=569) 4.3 meq/L 3.5-5.1 [id number] 00:26:00 Test Item Value Reference Range Comments MAGNESIUM (BEAKER) (test ijiw=591) 2.4 mg/dL 1.6-2.6 POCT-GLUCOSE [id number] 23:30:00 Test Item Value Reference Range Comments POC-GLUCOSE METER (BEAKER) 189 mg/dL 70-110 TESTED AT [address] (test kfis=6908) [place] [address] POCT-GLUCOSE [id number] 23:30:00 Test Item Value Reference Range Comments POC-GLUCOSE METER (BEAKER) 196 mg/dL 70-110 TESTED AT [address] (test rdef=4006) [place] [address] POCT-GLUCOSE [id number] 20:47:00 Test Item Value Reference Range Comments POC-GLUCOSE METER (BEAKER) 207 mg/dL 70-110 TESTED AT [address] (test irol=5552) [place] [address] BLOOD GAS, [id number] 17:33:00 Test Item Value Reference Range Comments PH ARTERIAL (BEAKER) (test emgs=601) 7.47 7.35-7.45 PCO2 ARTERIAL (BEAKER) (test hgiu=155) 31 mmHg 35-45 PO2 ARTERIAL (BEAKER) (test vjdl=791) 102 mmHg 80-90 O2 SATURATION ARTERIAL (BEAKER) (test zykt=658) 98.1 % 96.0-97.0 HCO3 ARTERIAL (BEAKER) (test tcik=367) 22 mmol/L 21-29 BASE EXCESS ARTERIAL (BEAKER) (test ctoj=165) -0.8 mmol/L -2.0-3.0 PATIENT TEMPERATURE (BEAKER) (test ctyb=0319) 36.7 C FIO2 (BEAKER) (test vwuk=8155) 40.0 % POCT-GLUCOSE [id number] 15:34:00 Test Item Value Reference Range Comments POC-GLUCOSE METER (BEAKER) 251 mg/dL 70-110 TESTED AT [address] (test dzdy=7381) [place] [id number] BLOOD GAS, [id number] 13:40:00 Test Item Value Reference Range Comments PH ARTERIAL (BEAKER) (test oqfk=494) 7.42 7.35-7.45 PCO2 ARTERIAL (BEAKER) (test qktb=933) 32 mmHg 35-45 PO2 ARTERIAL (BEAKER) (test fajl=072) 178 mmHg 80-90 O2 SATURATION ARTERIAL (BEAKER) (test xgqq=779) 99.3 % 96.0-97.0 HCO3 ARTERIAL (BEAKER) (test fbrj=213) 21 mmol/L 21-29 BASE EXCESS ARTERIAL (BEAKER) (test cfdg=452) -3.7 mmol/L -2.0-3.0 PATIENT TEMPERATURE (BEAKER) (test dozd=5480) 36.1 C FIO2 (BEAKER) (test xrgh=0119) 60.0 % CBC W/PLT COUNT & AUTO [id number] 13:35:00 Test Item Value Reference Range Comments WHITE BLOOD CELL COUNT (BEAKER) (test rtiq=624) 24.5 K/ L 3.5-10.5 RED BLOOD CELL COUNT (BEAKER) (test eprp=485) 3.22 M/ L 3.93-5.22 HEMOGLOBIN (BEAKER) (test wxiw=824) 9.4 GM/DL 11.2-15.7 HEMATOCRIT (BEAKER) (test whkx=672) 29.2 % 34.1-44.9 MEAN CORPUSCULAR VOLUME (BEAKER) (test evxa=192) 90.7 fL 79.4-94.8 MEAN CORPUSCULAR HEMOGLOBIN (BEAKER) (test 29.2 pg 25.6-32.2 mitk=962) MEAN CORPUSCULAR HEMOGLOBIN CONC (BEAKER) (test 32.2 GM/DL 32.2-35.5 pbdi=329) RED CELL DISTRIBUTION WIDTH (BEAKER) (test 13.3 % 11.7-14.4 dkfi=854) PLATELET COUNT (BEAKER) (test epbr=767) 200 K/CU MM 150-450 MEAN PLATELET VOLUME (BEAKER) (test dxbj=673) 11.6 fL 9.4-12.3 NUCLEATED RED BLOOD CELLS (BEAKER) (test 0 /100 WBC 0-0 swoe=566) NEUTROPHILS RELATIVE PERCENT (BEAKER) (test 70 % wdqd=660) LYMPHOCYTES RELATIVE PERCENT (BEAKER) (test 24 % wznf=107) MONOCYTES RELATIVE PERCENT (BEAKER) (test 5 % juaz=813) EOSINOPHILS RELATIVE PERCENT (BEAKER) (test 1 % ggha=530) BASOPHILS RELATIVE PERCENT (BEAKER) (test 0 % zvvv=529) NEUTROPHILS ABSOLUTE COUNT (BEAKER) (test 17.12 K/ L 1.56-6.13 cplv=813) LYMPHOCYTES ABSOLUTE COUNT (BEAKER) (test 5.80 K/ L 1.18-3.74 qqif=285) MONOCYTES ABSOLUTE COUNT (BEAKER) (test 1.15 K/ L 0.24-0.36 tddc=415) EOSINOPHILS ABSOLUTE COUNT (BEAKER) (test 0.22 K/ L 0.04-0.36 avgp=984) BASOPHILS ABSOLUTE COUNT (BEAKER) (test 0.08 K/ L 0.01-0.08 lefv=647) IMMATURE GRANULOCYTES-RELATIVE PERCENT (BEAKER) 1 % 0-1 (test eyde=6483) (MANUAL DIFFERENTIAL)2017-07-09 13:35:00 Test Item Value Reference Range Comments TOTAL COUNTED (BEAKER) (test rbxj=1827) WBC MORPHOLOGY (BEAKER) (test ysed=775) Normal PLT MORPHOLOGY (BEAKER) (test eoeb=328) Normal RBC MORPHOLOGY (BEAKER) (test izrk=523) Normal [id number] 12:47:00 Test Item Value Reference Range Comments MAGNESIUM (BEAKER) (test 3.1 mg/dL 1.6-2.6 Specimen slightly hemolyzed ftcf=460) BASIC METABOLIC [id number] 12:47:00 Test Item Value Reference Range Comments SODIUM (BEAKER) (test 139 meq/L 136-145 whdg=674) POTASSIUM (BEAKER) (test 3.6 meq/L 3.5-5.1 Specimen slightly sfpa=609) hemolyzed CHLORIDE (BEAKER) (test 109 meq/L 98-107 hydg=223) CO2 (BEAKER) (test 18 meq/L 22-29 hgkj=694) BLOOD UREA NITROGEN 17 mg/dL 7-21 (BEAKER) (test fooq=997) CREATININE (BEAKER) (test 0.75 mg/dL 0.57-1.25 Specimen slightly zqre=893) hemolyzed GLUCOSE RANDOM (BEAKER) 280 mg/dL 70-105 (test yqxx=381) CALCIUM (BEAKER) (test 8.7 mg/dL 8.4-10.2 ecej=548) EGFR (BEAKER) (test 75 mL/min/1.73 sq m ESTIMATED GFR IS NOT mhmr=7638) ACCURATE CREATININE CLEARANCE IN PREDICTING GLOMERULAR FILTRATION RATE. ESTIMATED GFR IS NOT APPLICABLE FOR DIALYSIS PATIENTS. LACTIC ACID, ARTERIAL, WHOLE [id number] 12:38:00 Test Item Value Reference Range Comments LACTATE BLOOD ARTERIAL (2) 4.5 mmol/L 0.5-2.2 Specimen slightly hemolyzed (BEAKER) (test dbqw=4948) Effective 08/18/2015: Units/Reference Range ChangeNew: 0.5-2.2 mmol/L Previous: 5 -20 mg/dLRAD, CHEST, 1 VIEW, NON [id number] 12:30:00Post-intubationReason for exam:->intubationShould this be performed at the bedside?->YesFINAL REPORT Chest one view INDICATION: Intubation COMPARISON: 07/04/2017 IMPRESSION: Status post median sternotomy with mediastinal and left chest tubes in place. ET tube terminates 1.5 cm above the caesar. NG tube extends below the diaphragm with tip off image. Right jugular line extends to the upper right atrium. Advise retraction 1-2 cm. Cardiac silhouette size and mediastinal prominence are exaggerated by obliquity and hypoinflation. There are low lung volumes with pulmonary vascular congestion and perihilar and basilar opacities suggesting atelectasis and mild edema. No pneumothorax is seen. Signed: Sidney Ortiz MDReport Verified Date/Time: 07/09/2017 12: 30:43 Reading Location: [facility] Radiology Reading Room PT/[id number] 12: 24:00 Test Item Value Reference Range Comments PROTIME (BEAKER) (test znpi=826) 17.7 seconds 11.7-14.7 INR (BEAKER) (test mpbg=116) 1.5 <=5.9 PARTIAL THROMBOPLASTIN TIME (BEAKER) (test 28.1 seconds 22.5-36.0 kibl=530) RECOMMENDED COUMADIN/WARFARIN INR THERAPY RANGESSTANDARD DOSE: 2.0 - 3.0 Includes: PROPHYLAXIS forvenous thrombosis, systemic embolization; TREATMENT for venous thrombosis and/or pulmonary embolus.HIGH RISK: Target INR is 2.5-3.5 for patients with mechanical heart valves.BLOOD GAS, [id number] 12:10:00 Test Item Value Reference Range Comments PH ARTERIAL (BEAKER) (test xvuk=671) 7.35 7.35-7.45 PCO2 ARTERIAL (BEAKER) (test ypgo=586) 36 mmHg 35-45 PO2 ARTERIAL (BEAKER) (test fhlx=058) 91 mmHg 80-90 O2 SATURATION ARTERIAL (BEAKER) (test mxpp=085) 96.9 % 96.0-97.0 HCO3 ARTERIAL (BEAKER) (test qbyl=405) 20 mmol/L 21-29 BASE EXCESS ARTERIAL (BEAKER) (test utfy=701) -5.6 mmol/L -2.0-3.0 PATIENT TEMPERATURE (BEAKER) (test bqsn=9092) 36.1 C FIO2 (BEAKER) (test whrv=6706) 60.0 % GLUCOSE-STAT [id number] 12:10:00 Test Item Value Reference Range Comments GLUCOSE RANDOM (BEAKER) (test ooej=240) 264 mg/dL 70-110 HGB/HCT (H&H) - STAT [id number] 12:10:00 Test Item Value Reference Range Comments HEMOGLOBIN (BEAKER) (test epyl=670) 13.6 g/dL 12.0-15.0 HEMATOCRIT (BEAKER) (test eaxc=804) 40.0 % 36.0-45.0 SODIUM NA-STAT [id number] 12:09:00 Test Item Value Reference Range Comments SODIUM (BEAKER) (test bucq=616) 138 meq/L 135-148 POTASSIUM-STAT [id number] 12:09:00 Test Item Value Reference Range Comments POTASSIUM (BEAKER) (test fhhh=033) 3.6 meq/L 3.6-5.5 CALCIUM, [id number] 12:09:00 Test Item Value Reference Range Comments CALCIUM IONIZED (BEAKER) (test lqkr=984) 1.22 mmol/L 1.12-1.27 PH, BLOOD (BEAKER) (test khyx=4442) 7.33 OXYGEN SATURATION, [id number] 12:09:00 Test Item Value Reference Range Comments O2 SATURATION (MEASURED) (BEAKER) (test nbsl=6118) 78.2 % [id number] 11:26:00 Test Item Value Reference Range Comments ACTIVATED CLOTTING TIME (BEAKER) 97 sec TESTED AT [address] (test mihy=685) [place] [id number] 11:26:00 Test Item Value Reference Range Comments ACTIVATED CLOTTING TIME 549 sec TESTED AT [address] (BEAKER) (test husi=225) [place] [address] [id number] 11:26:00 Test Item Value Reference Range Comments ACTIVATED CLOTTING TIME 659 sec TESTED AT [address] (BEAKER) (test bhob=974) [place] [address] [id number] 11:26:00 Test Item Value Reference Range Comments ACTIVATED CLOTTING TIME 703 sec TESTED AT [address] (BEAKER) (test jtqv=706) [place] [address] [id number] 10:43:00 Test Item Value Reference Range Comments FIBRINOGEN LEVEL ([facility]) (test bqyo=812) 276 mg/dl 225-434 [id number] 10:43:00 Test Item Value Reference Range Comments PARTIAL THROMBOPLASTIN TIME (BEAKER) (test 30.5 seconds 22.5-36.0 asas=636) PROTHROMBIN [id number] 10:42:00 Test Item Value Reference Range Comments PROTIME (BEAKER) (test izoc=247) 18.4 seconds 11.7-14.7 [facility] (test sbju=200) 1.5 <=5.9 RECOMMENDED COUMADIN/WARFARIN INR THERAPY RANGESSTANDARD DOSE: 2.0 - 3.0 Includes: PROPHYLAXIS forvenous thrombosis, systemic embolization; TREATMENT for venous thrombosis and/or pulmonary embolus.HIGH RISK: Target INR is 2.5-3.5 for patients with mechanical heart valves.PLATELET [id number] 10:38:00 Test Item Value Reference Range Comments PLATELET COUNT (BEAKER) (test zdwk=974) 191 K/CU MM 150-450 POTASSIUM-STAT [id number] 10:29:00 Test Item Value Reference Range Comments POTASSIUM (BEAKER) (test spyk=447) 4.2 meq/L 3.6-5.5 CALCIUM, [id number] 10:29:00 Test Item Value Reference Range Comments CALCIUM IONIZED (BEAKER) (test tgur=572) 1.27 mmol/L 1.12-1.27 PH, BLOOD (BEAKER) (test fjdw=9591) 7.37 BLOOD GAS, [id number] 10:29:00 Test Item Value Reference Range Comments PH ARTERIAL (BEAKER) (test jwrb=469) 7.38 7.35-7.45 PCO2 ARTERIAL (BEAKER) (test lwno=933) 39 mmHg 35-45 PO2 ARTERIAL (BEAKER) (test uebn=687) 324 mmHg 80-90 O2 SATURATION ARTERIAL (BEAKER) (test cpfj=650) 99.7 % 96.0-97.0 HCO3 ARTERIAL (BEAKER) (test fhnc=824) 23 mmol/L 21-29 BASE EXCESS ARTERIAL (BEAKER) (test kosg=308) -2.3 mmol/L -2.0-3.0 PATIENT TEMPERATURE (BEAKER) (test pmxn=7600) 36.0 C FIO2 (BEAKER) (test tkxo=1542) 92.1 % GLUCOSE-STAT [id number] 10:29:00 Test Item Value Reference Range Comments GLUCOSE RANDOM (BEAKER) (test hffy=317) 230 mg/dL 70-110 SODIUM NA-STAT [id number] 10:29:00 Test Item Value Reference Range Comments SODIUM (BEAKER) (test ndtb=173) 134 meq/L 135-148 HGB/HCT (H&H) - STAT [id number] 10:29:00 Test Item Value Reference Range Comments HEMOGLOBIN (BEAKER) (test njkn=386) 9.3 g/dL 12.0-15.0 HEMATOCRIT (BEAKER) (test zybo=382) 27.0 % 36.0-45.0 POTASSIUM-STAT [id number] 09:55:00 Test Item Value Reference Range Comments POTASSIUM (BEAKER) (test ddtw=907) 5.1 meq/L 3.6-5.5 BLOOD GAS, [id number] 09:55:00 Test Item Value Reference Range Comments PH ARTERIAL (BEAKER) (test zfnu=079) 7.41 7.35-7.45 PCO2 ARTERIAL (BEAKER) (test copj=449) 38 mmHg 35-45 PO2 ARTERIAL (BEAKER) (test rgto=736) 176 mmHg 80-90 O2 SATURATION ARTERIAL (BEAKER) (test ospm=965) 99.3 % 96.0-97.0 HCO3 ARTERIAL (BEAKER) (test eqab=056) 24 mmol/L 21-29 BASE EXCESS ARTERIAL (BEAKER) (test mxjf=623) -1.1 mmol/L -2.0-3.0 PATIENT TEMPERATURE (BEAKER) (test lxyu=2251) 35.0 C FIO2 (BEAKER) (test ummt=0230) 70.0 % SODIUM NA-STAT [id number] 09:55:00 Test Item Value Reference Range Comments SODIUM (BEAKER) (test txki=577) 132 meq/L 135-148 GLUCOSE-STAT [id number] 09:55:00 Test Item Value Reference Range Comments GLUCOSE RANDOM (BEAKER) (test tojj=116) 215 mg/dL 70-110 HGB/HCT (H&H) - STAT [id number] 09:55:00 Test Item Value Reference Range Comments HEMOGLOBIN (BEAKER) (test fbre=027) 8.2 g/dL 12.0-15.0 HEMATOCRIT (BEAKER) (test edls=941) 24.0 % 36.0-45.0 BLOOD GAS, [id number] 09:44:00 Test Item Value Reference Range Comments PH ARTERIAL (BEAKER) (test nunq=694) 7.37 7.35-7.45 PCO2 ARTERIAL (BEAKER) (test rzdl=391) 41 mmHg 35-45 PO2 ARTERIAL (BEAKER) (test vzug=631) 252 mmHg 80-90 O2 SATURATION ARTERIAL (BEAKER) (test rauj=504) 99.6 % 96.0-97.0 HCO3 ARTERIAL (BEAKER) (test yuqh=235) 24 mmol/L 21-29 BASE EXCESS ARTERIAL (BEAKER) (test henl=662) -2.1 mmol/L -2.0-3.0 PATIENT TEMPERATURE (BEAKER) (test zlpa=5593) 33.9 C FIO2 (BEAKER) (test viqf=2737) 60.0 % SODIUM NA-STAT [id number] 09:44:00 Test Item Value Reference Range Comments SODIUM (BEAKER) (test cguv=811) 132 meq/L 135-148 GLUCOSE-STAT [id number] 09:44:00 Test Item Value Reference Range Comments GLUCOSE RANDOM (BEAKER) (test tlsv=109) 224 mg/dL 70-110 HGB/HCT (H&H) - STAT [id number] 09:44:00 Test Item Value Reference Range Comments HEMOGLOBIN (BEAKER) (test arbm=197) 8.2 g/dL 12.0-15.0 HEMATOCRIT (BEAKER) (test lcab=128) 24.0 % 36.0-45.0 POTASSIUM-STAT [id number] 09:39:00 Test Item Value Reference Range Comments POTASSIUM (BEAKER) (test dyro=093) 5.2 meq/L 3.6-5.5 POTASSIUM-STAT [id number] 08:23:00 Test Item Value Reference Range Comments POTASSIUM (BEAKER) (test zlyc=682) 4.4 meq/L 3.6-5.5 BLOOD GAS, [id number] 08:23:00 Test Item Value Reference Range Comments PH ARTERIAL (BEAKER) (test hbkt=869) 7.47 7.35-7.45 PCO2 ARTERIAL (BEAKER) (test hrsd=531) 34 mmHg 35-45 PO2 ARTERIAL (BEAKER) (test blhd=889) 341 mmHg 80-90 O2 SATURATION ARTERIAL (BEAKER) (test gqfb=991) 99.8 % 96.0-97.0 HCO3 ARTERIAL (BEAKER) (test jgoi=660) 24 mmol/L 21-29 BASE EXCESS ARTERIAL (BEAKER) (test coaa=177) 0.7 mmol/L -2.0-3.0 PATIENT TEMPERATURE (BEAKER) (test krez=3750) 36.0 C FIO2 (BEAKER) (test ierd=0083) 100.0 % GLUCOSE-STAT [id number] 08:23:00 Test Item Value Reference Range Comments GLUCOSE RANDOM (BEAKER) (test ynjs=914) 251 mg/dL 70-110 HGB/HCT (H&H) - STAT [id number] 08:23:00 Test Item Value Reference Range Comments HEMOGLOBIN (BEAKER) (test rpzi=691) 12.0 g/dL 12.0-15.0 HEMATOCRIT (BEAKER) (test jtjb=963) 35.0 % 36.0-45.0 SODIUM NA-STAT [id number] 08:23:00 Test Item Value Reference Range Comments SODIUM (BEAKER) (test zhlx=833) 134 meq/L 135-148 BASIC METABOLIC [id number] 06:33:00 Test Item Value Reference Range Comments SODIUM (BEAKER) (test 138 meq/L 136-145 apyc=757) POTASSIUM (BEAKER) (test 4.5 meq/L 3.5-5.1 iyox=929) CHLORIDE (BEAKER) (test 104 meq/L 98-107 fypy=571) CO2 (BEAKER) (test 22 meq/L 22-29 bddf=004) BLOOD UREA NITROGEN 22 mg/dL 7-21 (BEAKER) (test jgkd=100) CREATININE (BEAKER) (test 0.79 mg/dL 0.57-1.25 bjdr=342) GLUCOSE RANDOM (BEAKER) 196 mg/dL 70-105 (test qksp=354) CALCIUM (BEAKER) (test 9.6 mg/dL 8.4-10.2 oqgl=021) EGFR (BEAKER) (test 70 mL/min/1.73 sq m ESTIMATED GFR IS NOT cmge=6060) ACCURATE CREATININE CLEARANCE IN PREDICTING GLOMERULAR FILTRATION RATE. ESTIMATED GFR IS NOT APPLICABLE FOR DIALYSIS PATIENTS. [id number] 05:41:00 Test Item Value Reference Range Comments COL/EPI CLOSURE TIME (BEAKER) (test tdxy=9867) > Seconds 78-191 COL/ADP CLOSURE TIME (BEAKER) (test xugz=8042) 99 Seconds 43-122 PLATELET COUNT AGG (BEAKER) (test ffft=0743) 245 K/CU MM 150-450 CBC W/PLT COUNT & AUTO [id number] 05:06:00 Test Item Value Reference Range Comments WHITE BLOOD CELL COUNT (BEAKER) (test drvx=404) 10.6 K/ L 3.5-10.5 RED BLOOD CELL COUNT (BEAKER) (test ytuu=795) 4.35 M/ L 3.93-5.22 HEMOGLOBIN (BEAKER) (test yqgg=246) 12.7 GM/DL 11.2-15.7 HEMATOCRIT (BEAKER) (test ebcq=828) 39.0 % 34.1-44.9 MEAN CORPUSCULAR VOLUME (BEAKER) (test pnef=294) 89.7 fL 79.4-94.8 MEAN CORPUSCULAR HEMOGLOBIN (BEAKER) (test 29.2 pg 25.6-32.2 ludq=675) MEAN CORPUSCULAR HEMOGLOBIN CONC (BEAKER) (test 32.6 GM/DL 32.2-35.5 alnj=865) RED CELL DISTRIBUTION WIDTH (BEAKER) (test 13.3 % 11.7-14.4 rknv=479) PLATELET COUNT (BEAKER) (test ftjr=710) 233 K/CU MM 150-450 MEAN PLATELET VOLUME (BEAKER) (test otfq=638) 11.7 fL 9.4-12.3 NUCLEATED RED BLOOD CELLS (BEAKER) (test 0 /100 WBC 0-0 ggbg=267) NEUTROPHILS RELATIVE PERCENT (BEAKER) (test 57 % ckxx=578) LYMPHOCYTES RELATIVE PERCENT (BEAKER) (test 33 % jskh=852) MONOCYTES RELATIVE PERCENT (BEAKER) (test 6 % bubn=749) EOSINOPHILS RELATIVE PERCENT (BEAKER) (test 4 % wrug=995) BASOPHILS RELATIVE PERCENT (BEAKER) (test 1 % flvl=672) NEUTROPHILS ABSOLUTE COUNT (BEAKER) (test 6.00 K/ L 1.56-6.13 eaex=481) LYMPHOCYTES ABSOLUTE COUNT (BEAKER) (test 3.44 K/ L 1.18-3.74 mred=750) MONOCYTES ABSOLUTE COUNT (BEAKER) (test 0.66 K/ L 0.24-0.36 chls=194) EOSINOPHILS ABSOLUTE COUNT (BEAKER) (test 0.38 K/ L 0.04-0.36 dqpf=960) BASOPHILS ABSOLUTE COUNT (BEAKER) (test 0.07 K/ L 0.01-0.08 sevw=886) IMMATURE GRANULOCYTES-RELATIVE PERCENT (BEAKER) 0 % 0-1 (test yfhd=4112) POCT-GLUCOSE [id number] 22:04:00 Test Item Value Reference Range Comments POC-GLUCOSE METER (BEAKER) 124 mg/dL 70-110 TESTED AT [place] [address] (test pltu=1882) [facility] [address] POCT-GLUCOSE [id number] 21:09:00 Test Item Value Reference Range Comments POC-GLUCOSE METER (BEAKER) 58 mg/dL 70-110 Notified TREY HENDRIX/TESTED AT [facility] (test docl=6451) [address] [place] [address] POCT-GLUCOSE [id number] 16:36:00 Test Item Value Reference Range Comments POC-GLUCOSE METER (BEAKER) 187 mg/dL 70-110 TESTED AT [address] (test vjwi=1140) [place] [address] POCT-GLUCOSE [id number] 11:53:00 Test Item Value Reference Range Comments POC-GLUCOSE METER (BEAKER) 192 mg/dL 70-110 TESTED AT [address] (test xxvz=0324) [place] [address] BASIC METABOLIC [id number] 10:44:00 Test Item Value Reference Range Comments SODIUM (BEAKER) (test 138 meq/L 136-145 dxds=840) POTASSIUM (BEAKER) (test 4.5 meq/L 3.5-5.1 svzt=361) CHLORIDE (BEAKER) (test 105 meq/L 98-107 pgen=168) CO2 (BEAKER) (test 22 meq/L 22-29 sawg=691) BLOOD UREA NITROGEN 23 mg/dL 7-21 (BEAKER) (test rfbj=820) CREATININE (BEAKER) (test 0.81 mg/dL 0.57-1.25 joax=971) GLUCOSE RANDOM (BEAKER) 237 mg/dL 70-105 (test lmuk=876) CALCIUM (BEAKER) (test 9.5 mg/dL 8.4-10.2 gobf=591) EGFR (BEAKER) (test 68 mL/min/1.73 sq m ESTIMATED GFR IS NOT jmxb=2229) ACCURATE CREATININE CLEARANCE IN PREDICTING GLOMERULAR FILTRATION RATE. ESTIMATED GFR IS NOT APPLICABLE FOR DIALYSIS PATIENTS. POCT-GLUCOSE [id number] 07:46:00 Test Item Value Reference Range Comments POC-GLUCOSE METER (BEAKER) 283 mg/dL 70-110 TESTED AT [address] (test lowh=8981) [place] [address] CBC (HEMOGRAM ONLY)2017-07-08 06:55:00 Test Item Value Reference Range Comments WHITE BLOOD CELL COUNT (BEAKER) (test sbtd=572) 9.1 K/ L 3.5-10.5 RED BLOOD CELL COUNT (BEAKER) (test wqok=764) 4.37 M/ L 3.93-5.22 HEMOGLOBIN (BEAKER) (test svot=191) 12.6 GM/DL 11.2-15.7 HEMATOCRIT (BEAKER) (test jujc=384) 39.3 % 34.1-44.9 MEAN CORPUSCULAR VOLUME (BEAKER) (test hghi=478) 89.9 fL 79.4-94.8 MEAN CORPUSCULAR HEMOGLOBIN (BEAKER) (test 28.8 pg 25.6-32.2 bjyn=509) MEAN CORPUSCULAR HEMOGLOBIN CONC (BEAKER) (test 32.1 GM/DL 32.2-35.5 nvej=224) RED CELL DISTRIBUTION WIDTH (BEAKER) (test 13.6 % 11.7-14.4 qhfl=703) PLATELET COUNT (BEAKER) (test rmzj=572) 223 K/CU MM 150-450 MEAN PLATELET VOLUME (BEAKER) (test rmym=721) 11.6 fL 9.4-12.3 NUCLEATED RED BLOOD CELLS (BEAKER) (test 0 /100 WBC 0-0 wqod=399) POCT-GLUCOSE [id number] 21:35:00 Test Item Value Reference Range Comments POC-GLUCOSE METER (BEAKER) 261 mg/dL 70-110 TESTED AT [address] (test wpab=5612) [place] [address] POCT-GLUCOSE [id number] 17:05:00 Test Item Value Reference Range Comments POC-GLUCOSE METER (BEAKER) 127 mg/dL 70-110 TESTED AT [address] (test rzlq=8888) [place] [address] POCT-GLUCOSE [id number] 11:34:00 Test Item Value Reference Range Comments POC-GLUCOSE METER (BEAKER) 268 mg/dL 70-110 TESTED AT [address] (test fofz=2996) [place] [address] POCT-GLUCOSE [id number] 07:35:00 Test Item Value Reference Range Comments POC-GLUCOSE METER (BEAKER) 211 mg/dL 70-110 TESTED AT [address] (test mvgo=5770) [place] [address] BASIC METABOLIC [id number] 07:05:00 Test Item Value Reference Range Comments SODIUM (BEAKER) (test 139 meq/L 136-145 rcqq=632) POTASSIUM (BEAKER) (test 4.3 meq/L 3.5-5.1 kfol=910) CHLORIDE (BEAKER) (test 105 meq/L 98-107 alph=253) CO2 (BEAKER) (test 21 meq/L 22-29 ysve=285) BLOOD UREA NITROGEN 23 mg/dL 7-21 (BEAKER) (test mqza=094) CREATININE (BEAKER) (test 0.79 mg/dL 0.57-1.25 uctv=682) GLUCOSE RANDOM (BEAKER) 187 mg/dL 70-105 (test kgwa=016) CALCIUM (BEAKER) (test 9.8 mg/dL 8.4-10.2 rcqs=083) EGFR (BEAKER) (test 70 mL/min/1.73 sq m ESTIMATED GFR IS NOT oaie=7398) ACCURATE CREATININE CLEARANCE IN PREDICTING GLOMERULAR FILTRATION RATE. ESTIMATED GFR IS NOT APPLICABLE FOR DIALYSIS PATIENTS. CBC (HEMOGRAM ONLY)2017-07-07 05:44:00 Test Item Value Reference Range Comments WHITE BLOOD CELL COUNT (BEAKER) (test adgt=160) 11.3 K/ L 3.5-10.5 RED BLOOD CELL COUNT (BEAKER) (test dkjk=526) 4.54 M/ L 3.93-5.22 HEMOGLOBIN (BEAKER) (test pjqd=270) 13.1 GM/DL 11.2-15.7 HEMATOCRIT (BEAKER) (test wbll=085) 40.8 % 34.1-44.9 MEAN CORPUSCULAR VOLUME (BEAKER) (test yrxu=511) 89.9 fL 79.4-94.8 MEAN CORPUSCULAR HEMOGLOBIN (BEAKER) (test 28.9 pg 25.6-32.2 xxag=581) MEAN CORPUSCULAR HEMOGLOBIN CONC (BEAKER) (test 32.1 GM/DL 32.2-35.5 rpzd=008) RED CELL DISTRIBUTION WIDTH (BEAKER) (test 13.6 % 11.7-14.4 ffjo=056) PLATELET COUNT (BEAKER) (test xrvo=725) 234 K/CU MM 150-450 MEAN PLATELET VOLUME (BEAKER) (test sdjt=968) 12.0 fL 9.4-12.3 NUCLEATED RED BLOOD CELLS (BEAKER) (test 0 /100 WBC 0-0 btgd=627) POCT-GLUCOSE [id number] 21:36:00 Test Item Value Reference Range Comments POC-GLUCOSE METER (BEAKER) 108 mg/dL 70-110 TESTED AT [address] (test mnst=7492) [place] [address] POCT-GLUCOSE [id number] 17:11:00 Test Item Value Reference Range Comments POC-GLUCOSE METER (BEAKER) 103 mg/dL 70-110 TESTED AT [address] (test wnsm=1277) [place] [address] POCT-GLUCOSE [id number] 12:17:00 Test Item Value Reference Range Comments POC-GLUCOSE METER (BEAKER) 145 mg/dL 70-110 TESTED AT [address] (test yycp=9478) [place] [address] HEMOGLOBIN [id number] 10:07:00 Test Item Value Reference Range Comments HEMOGLOBIN A1C (BEAKER) (test dgvb=936) 7.7 % 4.3-6.1 POCT-GLUCOSE [id number] 08:28:00 Test Item Value Reference Range Comments POC-GLUCOSE METER (BEAKER) 224 mg/dL 70-110 TESTED AT [address] (test zowd=8492) [place] [address] TSH/FREE T4 IF [id number] 07:06:00 Test Item Value Reference Range Comments THYROID STIMULATING HORMONE (BEAKER) (test 1.00 uIU/mL 0.35-4.94 fbph=589) POCT-GLUCOSE [id number] 20:40:00 Test Item Value Reference Range Comments POC-GLUCOSE METER (BEAKER) 332 mg/dL 70-110 TESTED AT [address] (test geaq=4329) [place] [address] POCT-GLUCOSE [id number] 16:26:00 Test Item Value Reference Range Comments POC-GLUCOSE METER (BEAKER) 265 mg/dL 70-110 TESTED AT [address] (test oxec=3854) [place] [address] POCT-GLUCOSE [id number] 16:22:00 Test Item Value Reference Range Comments POC-GLUCOSE METER (BEAKER) 290 mg/dL 70-110 TESTED AT [address] (test qaeb=8774) [place] [address] PLATELET AGGREGATION: FUNCTION [id number] 09:31:00 Test Item Value Reference Range Comments WEAK ADP RESULT(BEAKER) (test 65 % 60-91 sagg=5747) PLATELET FUNCTION SCREEN 60-100% indicates normal INTERP (BEAKER) (test platelet function sapd=7840) [id number] (BEAKER) Haley Macdonald MD (test jwva=7655) (electronic signature) PLATELET COUNT AGG (BEAKER) 225 K/CU MM 150-450 (test zuzt=0272) for patients on clopidogrel in past two weeksPOCT-GLUCOSE [id number] 08:35: 00 Test Item Value Reference Range Comments POC-GLUCOSE METER (BEAKER) 378 mg/dL 70-110 Notified TREY HENDRIX/TESTED AT [facility] (test koar=6188) [address] [facility] [address] BASIC METABOLIC [id number] 07:33:00 Test Item Value Reference Range Comments SODIUM (BEAKER) (test 137 meq/L 136-145 taia=153) POTASSIUM (BEAKER) (test 4.3 meq/L 3.5-5.1 jaes=606) CHLORIDE (BEAKER) (test 105 meq/L 98-107 ukok=026) CO2 (BEAKER) (test 22 meq/L 22-29 hpyj=143) BLOOD UREA NITROGEN 27 mg/dL 7-21 (BEAKER) (test wroo=336) CREATININE (BEAKER) (test 0.99 mg/dL 0.57-1.25 vwup=696) GLUCOSE RANDOM (BEAKER) 338 mg/dL 70-105 (test lbcm=289) CALCIUM (BEAKER) (test 9.0 mg/dL 8.4-10.2 rwzv=961) EGFR (BEAKER) (test 54 mL/min/1.73 sq m ESTIMATED GFR IS NOT ddtz=9291) ACCURATE CREATININE CLEARANCE IN PREDICTING GLOMERULAR FILTRATION RATE. ESTIMATED GFR IS NOT APPLICABLE FOR DIALYSIS PATIENTS. [id number] 06:32:00 Test Item Value Reference Range Comments PARTIAL THROMBOPLASTIN TIME (BEAKER) (test 27.4 seconds 22.5-36.0 rysj=649) PROTHROMBIN [id number] 06:31:00 Test Item Value Reference Range Comments PROTIME (BEAKER) (test ruix=123) 14.1 seconds 11.7-14.7 INR (BEAKER) (test jzzn=292) 1.1 <=5.9 RECOMMENDED COUMADIN/WARFARIN INR THERAPY RANGESSTANDARD DOSE: 2.0 - 3.0 Includes: PROPHYLAXIS forvenous thrombosis, systemic embolization; TREATMENT for venous thrombosis and/or pulmonary embolus.HIGH RISK: Target INR is 2.5-3.5 for patients with mechanical heart valves.CBC W/PLT COUNT & AUTO [id number] 06:22:00 Test Item Value Reference Range Comments WHITE BLOOD CELL COUNT (BEAKER) (test fczp=387) 9.5 K/ L 3.5-10.5 RED BLOOD CELL COUNT (BEAKER) (test kpwl=270) 4.05 M/ L 3.93-5.22 HEMOGLOBIN (BEAKER) (test tgxc=942) 11.8 GM/DL 11.2-15.7 HEMATOCRIT (BEAKER) (test qgzp=290) 36.6 % 34.1-44.9 MEAN CORPUSCULAR VOLUME (BEAKER) (test xgau=730) 90.4 fL 79.4-94.8 MEAN CORPUSCULAR HEMOGLOBIN (BEAKER) (test 29.1 pg 25.6-32.2 zwrd=066) MEAN CORPUSCULAR HEMOGLOBIN CONC (BEAKER) (test 32.2 GM/DL 32.2-35.5 vuvy=824) RED CELL DISTRIBUTION WIDTH (BEAKER) (test 13.8 % 11.7-14.4 fcrs=056) PLATELET COUNT (BEAKER) (test uplx=760) 227 K/CU MM 150-450 MEAN PLATELET VOLUME (BEAKER) (test kvfb=105) 11.6 fL 9.4-12.3 NUCLEATED RED BLOOD CELLS (BEAKER) (test 0 /100 WBC 0-0 rqbk=183) NEUTROPHILS RELATIVE PERCENT (BEAKER) (test 58 % ssfh=988) LYMPHOCYTES RELATIVE PERCENT (BEAKER) (test 30 % ugxg=825) MONOCYTES RELATIVE PERCENT (BEAKER) (test 7 % fvjz=391) EOSINOPHILS RELATIVE PERCENT (BEAKER) (test 5 % izhe=497) BASOPHILS RELATIVE PERCENT (BEAKER) (test 1 % toni=424) NEUTROPHILS ABSOLUTE COUNT (BEAKER) (test 5.46 K/ L 1.56-6.13 rvkz=408) LYMPHOCYTES ABSOLUTE COUNT (BEAKER) (test 2.82 K/ L 1.18-3.74 uztx=877) MONOCYTES ABSOLUTE COUNT (BEAKER) (test 0.66 K/ L 0.24-0.36 mvqt=917) EOSINOPHILS ABSOLUTE COUNT (BEAKER) (test 0.44 K/ L 0.04-0.36 pupg=208) BASOPHILS ABSOLUTE COUNT (BEAKER) (test 0.07 K/ L 0.01-0.08 cvkp=040) IMMATURE GRANULOCYTES-RELATIVE PERCENT (BEAKER) 0 % 0-1 (test krvp=2815) RAD, CHEST, 1 VIEW, NON [id number] 22:37:00Reason for exam:->preopShould this be performed at the bedside?->YesFINAL REPORT INDICATION: preop COMPARISON: None TECHNIQUE: Single frontal view of the chest. FINDINGS: Lungs and pleura: Clear lungs. No effusion.Heart and mediastinum: Normal heart size. Unremarkable mediastinal contours.Osseous structures: No acute abnormality.Other: None. IMPRESSION: No acute intrathoracic abnormality. Signed: JR Jerez Robert MDReport Verified Date/Time: 07/04/2017 22:37: 39 Reading Location: [facility] C013Y CT Body Reading Room POCT-GLUCOSE [id number] 21 :24:00 Test Item Value Reference Range Comments POC-GLUCOSE METER (BEAKER) 274 mg/dL 70-110 TESTED AT [address] (test ytbs=0547) [place] [address] POCT-GLUCOSE [id number] 16:41:00 Test Item Value Reference Range Comments POC-GLUCOSE METER (BEAKER) 145 mg/dL 70-110 TESTED AT [address] (test zijc=6598) [place] [address]
--- OUTSIDE RECORDS SUMMARY | 2018-09-30 07:52 | XMS REPORT ---
:1940 Author Organization [employer] Care Team Providers Name Role Phone [facility] Provider Role Unavailable Allergies, Adverse Reactions, Alerts Substance Reaction Event Type Amoxicillin Info Not Available Drug Allergy Problems Problem Type Condition Code Onset Dates Condition Status Assessment Urine incontinence R32 Active Assessment Recurrent UTI N39.0 Active Problem Diabetes mellitus type 2, E11.9 Active uncontrolled, without complications Problem Allergic rhinitis, seasonal J30.2 Active Problem Colon, diverticulosis K57.30 Active Problem Mixed hyperlipidemia E78.2 Active Problem Gastroesophageal reflux disease K21.9 Active without esophagitis Problem Shingles B02.9 Active Problem Boil L02.92 Active Problem Urine incontinence R32 Active Problem Acute cystitis without hematuria N30.00 Active 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 Problem Dysuria R30.0 Active Problem Microscopic hematuria R31.29 Active Problem Pelvic pressure in female R10.2 Active Problem HTN (hypertension) I10 Active Problem CAD (coronary artery disease) I25.10 Active Problem Hypoglycemia E16.2 Active Problem Gastroesophageal reflux disease K21.9 Active Problem Hospital discharge follow-up Z09 Active Problem PAD (peripheral artery disease) I73.9 Active Problem Type 2 diabetes mellitus with E11.65 Active hyperglycemia Problem 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 Problem Obesity E66.9 Active Problem 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 Problem Hypothyroidism E03.9 Active Problem Rheumatoid arthritis M06.9 Active Problem Asthma without acute exacerbation J45.909 Active Problem 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 Problem Carotid artery occlusion I65.29 Active Problem Situational insomnia F51.09 Active Medications Medication Code Code Instructions Start End Status Dosage System Date Date ProAir HFA [facility] [id number] 108 (90 Base) Active 2 puffs as MCG/ACT needed Inhalation every 6 hrs Remeron [facility] 98864824029 15 MG Orally Active 1 tablet at Once a day bedtime Vimovo [facility] 64618431674 500-20 MG Active 1 tablet Orally Twice a before meals day Norvasc [facility] 23444981873 5 MG Orally Active 1 tablet Once a day Aspir-81 [facility] 73051392599 81 MG Orally Active 1 tablet Once a day [place] ND 93584927338 200 MG Orally Active 1 tablet with Once a day food or milk Synthroid [facility] 37847265298 125 MCG Active 1 EACH ONCE A DAY ORALLY Nitrofurantoin [facility] 11399914341 100 MG Orally Active 1 capsule Macrocrystal twice a day with food or milk NovoLog Flexpen [facility] 46057184153 100 UNIT/ML Active not defined Subcutaneous Levothyroxine ND 49356606034 125 MCG Orally Active 1 tablet on Sodium Once a day an empty stomach in the morning Estrace [facility] 07808421646 0.1 MG/GM Active as directed Vaginal twice weekly Plavix [facility] 72082893453 75 MG Orally Active 1 tablet Once a day Lyrica [facility] 01566572021 50 MG Orally Active 1 capsule Twice a day [facility] Omeprazole [facility] 98502043649 20 MG Orally May 14, Active 1 tablet Once a day 2017 Flonase [facility] 30892405841 50 MCG/ACT Active 1 spray in Nasally Once a each nostril day Valtrex [facility] 18546801738 1 GM Orally Active 1 tablet Once a day Victoza [facility] 50832223223 18 MG/3ML Active not defined Subcutaneous Singulair [facility] 73869619713 10 MG Orally Active 1 tablet in Once a day the evening Methotrexate ND 91685381674 2.5 MG Orally Active not defined Fluconazole [facility] 43848891075 150 MG Orally Active 1 tablet Lipitor ND 93665309205 40 MG Orally Active 1 tablet Once a day Losartan [facility] 41923220144 50 MG Orally Active 1 tablet Potassium Once a day Nitrofurantoin [facility] 90171255736 100 MG Orally Active 1 capsule Monohyd Macro every 12 hrs with food Nitrofurantoin [facility] 61397666492 100 mg Orally Nov 21May Active 1 capsule Monohyd Macro daily 2017 07, with food 2018 Mupirocin [facility] 15838195502 2 % Externally Active 1 application Three times a to affected day area Tobramycin [facility] 47205132156 0.3 % Active 1 drop into Ophthalmic affected eye every 4 hrs Detrol LA [facility] 82788078349 4 MG Orally Active 1 capsule Once a day Results Name Result Date Reference Range Unit Abnormality Flag URINALYSIS AUTO W/O SCOPE (87433) ----NIT neg [id number] ----URO 0.2 20171121 ----PROTEIN neg [id number] ----pH 5.5 20171121 ----BLO trace [id number] ----GLUCOSE 2+ 20171121 ----GONZALO neg [id number] ----BILIRUBIN neg [id number] ----KETONES neg [id number] ----SPECIFIC GRAVITY 1.020 20171121 Summary Purpose eClinicalWorks Submission
--- OUTSIDE RECORDS SUMMARY | 2018-09-30 07:52 | XMS REPORT ---
:1940 Author Organization eClinicalWorks Care Team Providers Name Role Phone Reynoso, Na Provider Role Unavailable Allergies, Adverse Reactions, Alerts Substance Reaction Event Type Amoxicillin Info Not Available Drug Allergy Problems Problem Type Condition Code Onset Dates Condition Status Assessment PAD (peripheral artery disease) I73.9 Active Assessment Pelvic pressure in female R10.2 Active Assessment Type 2 diabetes mellitus with E11.65 Active hyperglycemia Assessment Hypoglycemia E16.2 Active Problem Diabetes mellitus type 2, E11.9 Active uncontrolled, without complications Problem Allergic rhinitis, seasonal J30.2 Active Problem Colon, diverticulosis K57.30 Active Problem Mixed hyperlipidemia E78.2 Active Problem Gastroesophageal reflux disease K21.9 Active without esophagitis Problem Shingles B02.9 Active Problem Boil L02.92 Active Problem Urine incontinence R32 Active Problem Acute cystitis without hematuria N30.00 Active 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 Problem [...] Z95.1 Active graft Problem Obesity E66.9 Active Assessment Microscopic hematuria R31.29 Active Problem 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 Problem Hypothyroidism E03.9 Active Problem Rheumatoid arthritis M06.9 Active Problem Asthma without acute exacerbation J45.909 Active Problem 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 Problem Carotid artery occlusion I65.29 Active Problem Situational insomnia F51.09 Active Medications Medication Code Code Instructions Start End Status Dosage System Date Date [facility] 62756381851 81 MG Orally Active 1 tablet Once a day Lipitor [facility] 45012119191 40 MG Orally Active 1 tablet Once a day Plaquenil [facility] 21707096479 200 MG Orally Active 1 tablet with Once a day food or milk Singulair ND 36630864664 10 MG Orally Active 1 tablet in Once a day the evening NovoLog Flexpen [facility] 18923458159 100 UNIT/ML Active not defined Subcutaneous Valtrex ND 80576901519 1 GM Orally Active 1 tablet Once a day Levothyroxine ND 25052167952 125 MCG Orally Active 1 tablet on Sodium Once a day an empty stomach in the morning Nitrofurantoin ND 40741392164 100 MG Orally Active 1 capsule Macrocrystal twice a day with food or milk Plavix [facility] 63726802709 75 MG Orally Active 1 tablet Once a day Methotrexate ND 71080015301 2.5 MG Orally Active not defined Losartan ND 01982562257 50 MG Orally Active 1 tablet Potassium Once a day Vimovo [facility] 54813706613 500-20 MG Active 1 tablet Orally Twice a before meals day [facility] Omeprazole [facility] 68477000066 20 MG Orally May 14, Active 1 tablet Once a day 2017 Synthroid [facility] 81445663875 125 MCG Active 1 EACH ONCE A DAY ORALLY Lyrica [facility] 05711766311 50 MG Orally Active 1 capsule Twice a day Tobramycin [facility] 33718191408 0.3 % Active 1 drop into Ophthalmic affected eye every 4 hrs Norvasc [facility] 23286177850 5 MG Orally Active 1 tablet Once a day Victoza [facility] 55726580303 18 MG/3ML Active not defined Subcutaneous Mupirocin [facility] 28372262162 2 % Externally Active 1 application Three times a to affected day area Estrace ND 98013119329 0.1 MG/GM September Active as directed Vaginal twice 18, weekly 2017 Remeron [facility] 97647413224 15 MG Orally Active 1 tablet at Once a day bedtime Detrol LA [facility] 47680189620 4 MG Orally Active 1 capsule Once a day Flonase [facility] 86662607325 50 MCG/ACT Active 1 spray in Nasally Once a each nostril day ProAir HFA [facility] 33873280387 108 (90 Base) Active 2 puffs as MCG/ACT needed Inhalation every 6 hrs Results No Known Results Summary Purpose eClinicalWorks Submission
--- OUTSIDE RECORDS SUMMARY | 2018-09-30 07:53 | XMS REPORT ---
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 Assessment Lumbar radiculopathy, chronic M54.16 Active Problem Diabetes mellitus type 2, E11.9 Active uncontrolled, without complications Problem Allergic rhinitis, seasonal J30.2 Active Problem Colon, diverticulosis K57.30 Active Problem Mixed hyperlipidemia E78.2 Active Problem Gastroesophageal reflux disease K21.9 Active without esophagitis Problem Shingles B02.9 Active Problem Boil L02.92 Active Problem Urine incontinence R32 Active Problem Acute cystitis without hematuria N30.00 Active Problem 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 Active Problem [...] Start End Status Dosage System Date Date Vimovo [facility] 15786311346 500-20 MG Active 1 tablet Orally Twice a before meals day NovoLog Flexpen ND 51608774593 100 UNIT/ML Active not defined Subcutaneous Fluconazole ND 43167521502 150 MG Orally Active 1 tablet Nitrofurantoin ND 84267427313 100 MG Orally Active 1 capsule Monohyd Macro every 12 hrs with food Lyrica [facility] 77673726547 50 MG Orally Active 1 capsule Twice a day Plaquenil ND 95415607684 200 MG Orally Active 1 tablet with Once a day food or milk Singulair [facility] 79182250324 10 MG Orally Active 1 tablet in Once a day the evening Remeron [facility] 94548524156 15 MG Orally Active 1 tablet at Once a day bedtime Norvasc [facility] 33905292024 5 MG Orally Active 1 tablet Once a day ProAir HFA [facility] 83958256992 108 (90 Base) Active 2 puffs as MCG/ACT needed Inhalation every 6 hrs Levothyroxine [facility] 07693199239 125 MCG Orally Active 1 tablet on Sodium Once a day an empty stomach in the morning Estrace [facility] 44516001254 0.1 MG/GM Active as directed Vaginal twice weekly Detrol LA [facility] 03905439204 4 MG Orally Active 1 capsule Once a day Aspir-81 [facility] 62900539733 81 MG Orally Active 1 tablet Once a day Valtrex [facility] 95555753353 1 GM Orally Active 1 tablet Once a day Flonase [facility] 13252327880 50 MCG/ACT Active 1 spray in Nasally Once a each nostril day Synthroid [facility] 53762304183 125 MCG Active 1 EACH ONCE A DAY ORALLY Plavix [facility] 37635338140 75 MG Orally Active 1 tablet Once a day Victoza [facility] 52150285267 18 MG/3ML Active not defined Subcutaneous Methotrexate [facility] 49238638700 2.5 MG Orally Active not defined Tobramycin [facility] 00030729553 0.3 % Active 1 drop into Ophthalmic affected eye every 4 hrs Mupirocin [facility] 64666308941 2 % Externally Active 1 application Three times a to affected day area [facility] Omeprazole [facility] 51694756326 20 MG Orally May 14, Active 1 tablet Once a day 2017 Nitrofurantoin ND 43739950412 100 mg Orally Nov 21May Active 1 capsule Monohyd Macro daily 2017 07, with food 2019 Losartan [facility] 25181471472 50 MG Orally Active 1 tablet Potassium Once a day Nitrofurantoin [facility] 32709899241 100 MG Orally Active 1 capsule Macrocrystal twice a day with food or milk Lipitor [facility] 28495952518 40 MG Orally Active 1 tablet Once a day Results No Known Results Summary Purpose eClinicalWorks Submission
--- OUTSIDE RECORDS SUMMARY | 2018-09-30 07:53 | XMS REPORT ---
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 Problem Carotid artery occlusion I65.29 Active Assessment 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 Active [place] coronary artery without angina pectoris Problem Situational insomnia F51.09 Active Problem Asthma without acute exacerbation J45.909 Active Problem Diabetes mellitus type 2, E11.9 Active uncontrolled, without complications Problem Mixed hyperlipidemia E78.2 Active Problem 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 Problem 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 Active Problem Shingles B02.9 Active Problem PAD (peripheral artery disease) I73.9 Active Problem Hypoglycemia E16.2 Active Problem Hospital discharge follow-up Z09 Active Problem Lumbar radiculopathy, chronic M54.16 Active Problem Other chronic pain G89.29 Active Problem CAD (coronary artery disease) I25.10 Active Problem Gastroesophageal reflux disease K21.9 Active Assessment Lumbar radiculopathy, chronic M54.16 Active Problem Seasonal allergies J30.2 Active Problem Urine incontinence R32 Active Assessment Other chronic pain G89.29 Active Problem Microscopic hematuria R31.29 Active Assessment Pain in right hip M25.551 Active Problem Pelvic pressure in female R10.2 Active Assessment Seasonal allergies J30.2 Active Problem 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 Active [place] coronary artery without angina pectoris Assessment Presence of coronary angioplasty Z95.5 Active implant and graft Problem Presence of coronary angioplasty Z95.5 Active implant and graft Assessment HTN (hypertension) I10 Active Problem Rheumatoid arthritis M06.9 Active Assessment Type 2 diabetes mellitus with E11.65 Active hyperglycemia Problem Obesity E66.9 Active Assessment Hypothyroidism E03.9 Active Problem HTN (hypertension) I10 Active Assessment 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 Problem Hypothyroidism E03.9 Active Assessment PAD (peripheral artery disease) I73.9 Active Problem Acute cystitis without hematuria N30.00 Active Assessment Urine incontinence R32 Active Problem Type 2 diabetes mellitus with E11.65 Active hyperglycemia Problem Dysuria R30.0 Active Problem Boil L02.92 Active Medications Medication Code Code Instructions Start End Status Dosage System Date Date Levothyroxine [facility] 86097237341 125 MCG Orally Active 1 tablet on Sodium Once a day an empty stomach in the morning Synthroid [facility] 61928827875 125 MCG Active 1 each once a day orally Nitrofurantoin [facility] 70341256198 100 MG Orally Active 1 capsule Macrocrystal twice a day with food or milk ProAir HFA [facility] 15592742057 108 (90 Base) Active 2 puffs as MCG/ACT needed Inhalation every 6 hrs Plaquenil [facility] 68480475071 200 MG Orally Active 1 tablet with Once a day food or milk Lyrica [facility] 32178738384 50 MG Orally Active 1 capsule Twice a day Levocetirizine [facility] 95035901322 5 MG Orally Mar 11, Active 1 tablet in Dihydrochloride Once a day 2018 the evening Tobramycin [facility] 66140912935 0.3 % Active 1 drop into Ophthalmic affected eye every 4 hrs Detrol LA [facility] 41415821663 4 MG Orally Active 1 capsule Once a day Plavix [facility] 91664488770 75 MG Orally Active 1 tablet Once a day [facility] Omeprazole [facility] 67689715679 20 MG Orally May 14, Active 1 tablet Once a day 2018 Victoza [facility] 81589891295 18 MG/3ML Active not defined Subcutaneous Norvasc [facility] 34064395747 5 MG Orally Active 1 tablet Once a day Methotrexate ND 61303143337 2.5 MG Orally Active not defined Losartan Potassium ND 55519407824 50 MG Orally Active 1 tablet Once a day Mupirocin [facility] 61160939371 2 % Externally Active 1 application Three times a to affected day area Vimovo [facility] 04089611194 500-20 MG Active 1 tablet Orally Twice a before meals day NovoLog Flexpen [facility] 24026232835 100 UNIT/ML Active not defined Subcutaneous Remeron [facility] 90727273378 15 MG Orally Active 1 tablet at Once a day bedtime Flonase [facility] 77472442000 50 MCG/ACT Active 1 spray in Nasally Once a each nostril day Valtrex [facility] 39678445216 1 GM Orally Active 1 tablet Once a day Lipitor [facility] 08911548717 40 MG Orally Active 1 tablet Once a day Estrace [facility] 20189914935 0.1 MG/GM Active as directed Vaginal twice weekly Singulair [facility] 51261047307 10 MG Orally Active 1 tablet in Once a day the evening Nitrofurantoin [facility] 76935617501 100 MG Orally Active 1 capsule Monohyd Macro every 12 hrs with food Aspir-81 [facility] 25925439042 81 MG Orally Active 1 tablet Once a day Nitrofurantoin [facility] 24868904320 100 mg Orally Active 1 capsule Monohyd Macro daily with food Fluconazole [facility] 98888296524 150 MG Orally Active 1 tablet Results Name Result Date Reference Range Unit Abnormality Flag HEMOGLOBIN A1c ----HEMOGLOBIN A1c 11.5 [id number] <5.7 % of total Hgb H CBC (INCLUDES DIFF/PLT) ----ABSOLUTE 272 73241769 15-500 cells/uL N EOSINOPHILS ----MCV 85.3 69220382 80.0-100.0 fL N ----ABSOLUTE 568 31694082 200-950 cells/uL N MONOCYTES ----HEMATOCRIT 39.6 35338784 35.0-45.0 % N ----MCHC 33.3 92417498 32.0-36.0 g/dL N ----ABSOLUTE 2864 71508300 850-3900 cells/uL N LYMPHOCYTES ----MCH 28.4 27738867 27.0-33.0 pg N ----ABSOLUTE 4208 34550957 4485-6860 cells/uL N NEUTROPHILS ----MONOCYTES 7.1 59122686 % N ----WHITE BLOOD CELL 8.0 42738473 3.8-10.8 Thousand/uL N COUNT ----LYMPHOCYTES 35.8 40779352 % N ----NEUTROPHILS 52.6 95746439 % N ----HEMOGLOBIN 13.2 16575398 11.7-15.5 g/dL N ----ABSOLUTE 88 86426409 0-200 cells/uL N BASOPHILS ----RED BLOOD CELL 4.64 79684230 3.80-5.10 Million/uL N COUNT ----BASOPHILS 1.1 24346021 % N ----MPV 11.7 06737435 7.5-12.5 fL N ----EOSINOPHILS 3.4 93708015 % N ----RDW 13.0 22454523 11.0-15.0 % N ----PLATELET COUNT 262 30468446 140-400 Thousand/uL N LIPID PANEL WITH REFLEX TO DIRECT LDL ----NON HDL 116 82979784 <130 mg/dL (calc) N CHOLESTEROL ----CHOL/HDLC RATIO 3.4 75272032 <5.0 (calc) N ----CHOLESTEROL, 164 32951654 <200 mg/dL N TOTAL ----HDL CHOLESTEROL 48 80136292 >50 mg/dL L ----TRIGLYCERIDES 163 72176383 <150 mg/dL H ----LDL-CHOLESTEROL 89 76406420 mg/dL (calc) N TSH W/REFLEX TO FT4 ----TSH W/REFLEX TO 1.84 82993068 0.40-4.50 mIU/L N FT4 Summary Purpose eClinicalWorks Submission
--- OUTSIDE RECORDS SUMMARY | 2018-09-30 07:53 | XMS REPORT ---
[...] mellitus Problem Carotid artery occlusion I65.29 Active Problem Situational insomnia F51.09 Active Problem Asthma without acute exacerbation J45.909 Active Problem Diabetes mellitus type 2, E11.9 Active uncontrolled, without complications Problem 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 Problem Mixed hyperlipidemia E78.2 Active Problem assisted current use of insulin Z79.4 Active Problem Shingles B02.9 Active Problem PAD (peripheral artery disease) I73.9 Active Problem Hypoglycemia E16.2 Active Problem Hospital discharge follow-up Z09 Active Problem Lumbar radiculopathy, chronic M54.16 Active Problem Other chronic pain G89.29 Active Problem CAD (coronary artery disease) I25.10 Active Problem Gastroesophageal reflux disease K21.9 Active Assessment Other chronic pain G89.29 Active Problem Seasonal allergies J30.2 Active Problem Urine incontinence R32 Active Assessment Pain in right hip M25.551 Active Problem Microscopic hematuria R31.29 Active Assessment Seasonal allergies J30.2 Active Problem Pelvic pressure in female R10.2 Active Assessment Presence of coronary angioplasty Z95.5 Active implant and graft Problem 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 Active [place] coronary artery without angina pectoris Assessment 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 Active [place] coronary artery without angina pectoris Problem Presence of coronary angioplasty Z95.5 Active [...] Acute cystitis without hematuria N30.00 Active Assessment Lumbar radiculopathy, chronic M54.16 Active Problem Type 2 diabetes mellitus with E11.65 Active hyperglycemia Problem Dysuria R30.0 Active Problem Boil L02.92 Active Medications Medication Code Code Instructions Start End Status Dosage System Date Date Detrol LA [facility] 41516136947 4 MG Orally Active 1 capsule Once a day Plaquenil [facility] 31259451942 200 MG Orally Active 1 tablet with Once a day food or milk Levothyroxine [facility] 92183662665 125 MCG Orally Active 1 tablet on Sodium Once a day an empty stomach in the morning Tobramycin [facility] 29757655234 0.3 % Active 1 drop into Ophthalmic affected eye every 4 hrs Nitrofurantoin [facility] 72209268184 100 mg Orally Nov 21May Active 1 capsule Monohyd Macro daily 2017 07, with food 2018 NovoLog Flexpen [facility] 11186898920 100 UNIT/ML Active not defined Subcutaneous Vimovo [facility] 91836760361 500-20 MG Active 1 tablet Orally Twice a before meals day Lipitor ND 12980644982 40 MG Orally Active 1 tablet Once a day Synthroid [facility] 16969989756 125 MCG Active 1 each once a day orally [facility] Omeprazole [facility] 36135455870 20 MG Orally May 14, Active 1 tablet Once a day 2017 Methotrexate ND 48406330229 2.5 MG Orally Active not defined Norvasc [facility] 28903397553 5 MG Orally Active 1 tablet Once a day Valtrex [facility] 15306151160 1 GM Orally Active 1 tablet Once a day Flonase [facility] 83515809364 50 MCG/ACT Active 1 spray in Nasally Once a each nostril day Aspir-81 [facility] 69525748510 81 MG Orally Active 1 tablet Once a day Plavix [facility] 96413469408 75 MG Orally Active 1 tablet Once a day ProAir HFA [facility] 00626398684 108 (90 Base) Active 2 puffs as MCG/ACT needed Inhalation every 6 hrs Remeron [facility] 88883246152 15 MG Orally Active 1 tablet at Once a day bedtime Losartan [facility] 84231658878 50 MG Orally Active 1 tablet Potassium Once a day Mupirocin [facility] 50399553422 2 % Externally Active 1 application Three times a to affected day area Singulair [facility] 60916392610 10 MG Orally Active 1 tablet in Once a day the evening Nitrofurantoin ND 35509111372 100 MG Orally Active 1 capsule Monohyd Macro every 12 hrs with food Nitrofurantoin ND 66910206861 100 MG Orally Active 1 capsule Macrocrystal twice a day with food or milk Victoza [facility] 63196885502 18 MG/3ML Active not defined Subcutaneous Lyrica ND 66509445359 50 MG Orally Active 1 capsule Twice a day Fluconazole ND 23576783253 150 MG Orally Active 1 tablet Estrace ND 05571490889 0.1 MG/GM Active as directed Vaginal twice weekly Results Name Result Date Reference Range Unit Abnormality Flag HEMOGLOBIN A1c ----HEMOGLOBIN A1c 8.5 [id number] <5.7 % of total Hgb H CBC (INCLUDES DIFF/PLT) ----ABSOLUTE 313 14925986 15-500 cells/uL N EOSINOPHILS ----MCV 85.3 11185609 80.0-100.0 fL N ----HEMATOCRIT 37.1 40156122 35.0-45.0 % N ----ABSOLUTE 537 28726462 200-950 cells/uL N MONOCYTES ----MCHC 33.4 98584970 32.0-36.0 g/dL N ----ABSOLUTE 2570 23469559 850-3900 cells/uL N LYMPHOCYTES ----MCH 28.5 52478110 27.0-33.0 pg N ----ABSOLUTE 3291 79713473 6212-7786 cells/uL N NEUTROPHILS ----MONOCYTES 7.9 03792472 % N ----WHITE BLOOD CELL 6.8 32979617 3.8-10.8 Thousand/uL N COUNT ----LYMPHOCYTES 37.8 86540013 % N ----NEUTROPHILS 48.4 37370835 % N ----HEMOGLOBIN 12.4 04104488 11.7-15.5 g/dL N ----ABSOLUTE 88 80253105 0-200 cells/uL N BASOPHILS ----RED BLOOD CELL 4.35 88399256 3.80-5.10 Million/uL N COUNT ----BASOPHILS 1.3 05716039 % N ----MPV 11.5 47593022 7.5-12.5 fL N ----EOSINOPHILS 4.6 98403078 % N ----RDW 14.0 04174773 11.0-15.0 % N ----PLATELET COUNT 247 20180115 140-400 Thousand/uL N LIPID PANEL WITH REFLEX TO DIRECT LDL ----NON HDL 107 65805690 <130 mg/dL (calc) N CHOLESTEROL ----CHOL/HDLC RATIO 3.0 44131688 <5.0 (calc) N ----CHOLESTEROL, 160 28744578 <200 mg/dL N TOTAL ----HDL CHOLESTEROL 53 55455993 >50 mg/dL N ----TRIGLYCERIDES 157 10948160 <150 mg/dL H ----LDL-CHOLESTEROL 81 35399302 mg/dL (calc) N TSH W/REFLEX TO FT4 ----TSH W/REFLEX TO 0.72 [id number] 0.40-4.50 mIU/L N FT4 Summary Purpose eClinicalWorks Submission
--- OUTSIDE RECORDS SUMMARY | 2018-09-30 07:54 | XMS REPORT ---
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.4 Active Problem Shingles B02.9 Active Problem PAD (peripheral artery disease) I73.9 Active Problem Hypoglycemia E16.2 Active Problem Hospital discharge follow-up Z09 Active Problem Lumbar radiculopathy, chronic M54.16 Active Problem Other chronic pain G89.29 Active Problem CAD (coronary artery disease) I25.10 Active Problem Gastroesophageal reflux disease K21.9 Active Problem Seasonal allergies J30.2 Active Problem Urine incontinence R32 Active Problem Microscopic hematuria R31.29 Active Problem Pelvic pressure in female R10.2 Active Problem 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 Active [place] coronary artery without angina pectoris Problem Presence of coronary angioplasty Z95.5 Active implant and graft Problem Rheumatoid arthritis M06.9 Active Problem Obesity E66.9 Active Problem HTN (hypertension) I10 Active Problem Hypothyroidism E03.9 Active Problem Acute cystitis without hematuria N30.00 Active Problem Type 2 diabetes mellitus with E11.65 Active hyperglycemia Problem Dysuria R30.0 Active Problem Boil L02.92 Active Medications Medication Code Code Instructions Start End Status Dosage System Date Date Methotrexate ND 68105414215 2.5 MG Orally Active not defined Norvasc ND 52546875641 5 MG Orally Active 1 tablet Once a day Nitrofurantoin ND 85886158095 100 MG Orally Active 1 capsule Monohyd Macro every 12 hrs with food Plaquenil [facility] 68075418617 200 MG Orally Active 1 tablet with Once a day food or milk Synthroid [facility] 40241409837 125 MCG Active 1 each once a day orally Metoprolol [facility] 13351204089 25 MG Orally Active 1 tablet Succinate ER Once a day Advair Diskus [facility] [address]-59 250-50 Active as directed MCG/DOSE Inhalation NovoLog Flexpen [facility] 72803757649 100 UNIT/ML Active not defined Subcutaneous [facility] Omeprazole [facility] 94555706459 20 MG Orally May 14, Active 1 tablet Once a day 2017 Mupirocin [facility] 30375167770 2 % Externally Active 1 application Three times a to affected day area Tobramycin [facility] 13448132231 0.3 % Active 1 drop into Ophthalmic affected eye every 4 hrs Losartan [facility] 28379388115 50 MG Orally Active 1 tablet Potassium Once a day Lyrica [facility] 44207097928 50 MG Orally Active 1 capsule Twice a day Veramyst [facility] 0 27.5 MCG/SPRAY Active 1 spray in Nasally Once a each nostril day Estrace [facility] 54110355926 0.1 MG/GM Active as directed Vaginal twice weekly Valtrex [facility] 80373921814 1 GM Orally Active 1 tablet Once a day Vimovo [facility] 66463467604 500-20 MG Active 1 tablet Orally Twice a before meals day Levocetirizine [facility] 19754277898 5 MG Orally Active 1 tablet in Dihydrochloride Once a day the evening Lipitor [facility] 64541853575 40 MG Orally Active 1 tablet Once a day Plavix [facility] 51332710286 75 MG Orally Active 1 tablet Once a day Nitrofurantoin [facility] 05890275429 100 mg Orally Active 1 capsule Monohyd Macro daily with food Aspir-81 [facility] 23495319506 81 MG Orally Active 1 tablet Once a day Fluconazole [facility] 00782654842 150 MG Orally Active 1 tablet Singulair [facility] 56475787329 10 MG Orally Active 1 tablet in Once a day the evening Flonase [facility] 09135908100 50 MCG/ACT Active 1 spray in Nasally Once a each nostril day Humalog [facility] 53254636494 100 UNIT/ML Active as directed Subcutaneous Humalog KwikPen [facility] [address]-53 200 UNIT/ML Active 5-10 units as Subcutaneous directed TID QAC Nitrofurantoin [facility] 65583956638 100 MG Orally Active 1 capsule Macrocrystal twice a day with food or milk Tresiba FlexTouch [facility] [address]-63 100 UNIT/ML Active 50-60 units Subcutaneous as directed at bedtime Detrol LA [facility] 13589960811 4 MG Orally Active 1 capsule Once a day Levothyroxine [facility] 75415664499 125 MCG Orally Active 1 tablet on Sodium Once a day an empty stomach in the morning Remeron [facility] 37203170397 15 MG Orally Active 1 tablet at Once a day bedtime ProAir HFA [facility] 00119335543 108 (90 Base) Active 2 puffs as MCG/ACT needed Inhalation every 6 hrs Victoza [facility] 65834237619 18 MG/3ML Active not defined Subcutaneous Results No Known Results Summary Purpose [employer]ClinicalWorks Submission
--- OUTSIDE RECORDS SUMMARY | 2018-09-30 07:54 | XMS REPORT ---
[...] Problem Carotid artery occlusion I65.29 Active Assessment Urine incontinence R32 Active Problem Situational insomnia F51.09 Active Problem Asthma without acute exacerbation J45.909 Active Problem Diabetes mellitus type 2, E11.9 Active uncontrolled, without complications Problem Mixed hyperlipidemia E78.2 Active Problem 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 Problem retirement current use of insulin Z79.4 Active Problem [...] Problem 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 Active [place] coronary artery without angina pectoris Assessment 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 Active [place] coronary artery without angina pectoris Problem Presence [...] Acute cystitis without hematuria N30.00 Active Assessment Vaginal yeast infection B37.3 Active Problem Type 2 diabetes mellitus with E11.65 Active hyperglycemia Problem Dysuria R30.0 Active Problem Boil L02.92 Active Medications Medication Code Code Instructions Start End Status Dosage System Date Date Valtrex [facility] 26364151788 1 GM Orally Active 1 tablet Once a day Flonase [facility] 85219915868 50 MCG/ACT Active 1 spray in Nasally Once a each nostril day NovoLog Flexpen [facility] 61825382147 100 UNIT/ML Active not defined Subcutaneous Methotrexate ND 82275683353 2.5 MG Orally Active not defined Advair Diskus [facility] [address]-07 250-50 Active as directed MCG/DOSE Inhalation Plavix [facility] 43336657972 75 MG Orally Active 1 tablet Once a day Levocetirizine [facility] 34521323733 5 MG Orally Active 1 tablet in Dihydrochloride Once a day the evening ProAir HFA [facility] 25112898074 108 (90 Base) Active 2 puffs as MCG/ACT needed Inhalation every 6 hrs Vimovo [facility] 00711914565 500-20 MG Active 1 tablet Orally Twice a before meals day Tobramycin [facility] 97773243191 0.3 % Active 1 drop into Ophthalmic affected eye every 4 hrs Synthroid [facility] 64794052294 125 MCG Active 1 each once a day orally Detrol LA [facility] 28836572736 4 MG Orally Active 1 capsule Once a day Nitrofurantoin [facility] 79614244492 100 mg Orally Active 1 capsule Monohyd Macro daily with food Estrace [facility] 73035311358 0.1 MG/GM Active as directed Vaginal twice weekly Lipitor ND 44396776264 40 MG Orally Active 1 tablet Once a day Remeron [facility] 62061815593 15 MG Orally Active 1 tablet at Once a day bedtime Nitrofurantoin [facility] 34634302259 100 MG Orally Active 1 capsule Macrocrystal twice a day with food or milk Nitrofurantoin ND 42984982512 100 MG Orally Active 1 capsule Monohyd Macro every 12 hrs with food -81 [facility] 08756885002 81 MG Orally Active 1 tablet Once a day Veramyst [facility] 0 27.5 MCG/SPRAY Active 1 spray in Nasally Once a each nostril day Norvasc [facility] 26931301793 5 MG Orally Active 1 tablet Once a day Humalog [facility] 02446822061 100 UNIT/ML Active as directed Subcutaneous Plaquenil [facility] 46475180894 200 MG Orally Active 1 tablet with Once a day food or milk Tresiba FlexTouch ND 50845121531 100 UNIT/ML Active as directed Subcutaneous Victoza [facility] 78336255065 18 MG/3ML Active not defined Subcutaneous Lyrica [facility] 48849906189 50 MG Orally Active 1 capsule Twice a day Losartan ND 29671781660 50 MG Orally Active 1 tablet Potassium Once a day Singulair [facility] 20127318158 10 MG Orally Active 1 tablet in Once a day the evening [facility] Omeprazole [facility] 75171619605 20 MG Orally May 14, Active 1 tablet Once a day 2017 Metoprolol ND 49542945848 25 MG Orally Active 1 tablet Succinate ER Once a day Levothyroxine [facility] 23405932877 125 MCG Orally Active 1 tablet on Sodium Once a day an empty stomach in the morning Mupirocin [facility] 38068487912 2 % Externally Active 1 application Three times a to affected day area Fluconazole [facility] 60243943440 150 MG Orally Active 1 tablet Results No Known Results Summary Purpose eClinicalWorks Submission
--- OUTSIDE RECORDS SUMMARY | 2018-09-30 07:54 | XMS REPORT ---
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 Problem [...] Problem 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 Active [place] coronary artery without angina pectoris Problem Presence of coronary angioplasty Z95.5 Active implant and graft Assessment Urine incontinence R32 Active Problem Rheumatoid arthritis M06.9 Active Assessment Recurrent UTI N39.0 Active Problem Obesity E66.9 Active Problem HTN (hypertension) I10 Active Problem Hypothyroidism E03.9 Active Problem Acute cystitis without hematuria N30.00 Active Problem Type 2 diabetes mellitus with E11.65 Active hyperglycemia Problem Dysuria R30.0 Active Problem Boil L02.92 Active Medications Medication Code Code Instructions Start End Status Dosage System Date Date Fluconazole [facility] 61117481884 150 MG Orally Active 1 tablet Norvasc [facility] 86013804336 5 MG Orally Active 1 tablet Once a day Tresiba FlexTouch ND 84672342364 100 UNIT/ML Active as directed Subcutaneous Aspir-81 ND 20403655108 81 MG Orally Active 1 tablet Once a day Mupirocin [facility] 56144545588 2 % Externally Active 1 application Three times a to affected day area Victoza ND 88545061158 18 MG/3ML Active not defined Subcutaneous Nitrofurantoin ND 58214968321 100 mg Orally Active 1 capsule Monohyd Macro daily with food Methotrexate ND 59543179175 2.5 MG Orally Active not defined Lipitor ND 08409792421 40 MG Orally Active 1 tablet Once a day Vimovo [facility] 86001550667 500-20 MG Active 1 tablet Orally Twice a before meals day ProAir HFA [facility] 80555807767 108 (90 Base) Active 2 puffs as MCG/ACT needed Inhalation every 6 hrs Nitrofurantoin ND 24017965223 100 MG Orally Active 1 capsule Macrocrystal twice a day with food or milk Lyrica [facility] 49304509474 50 MG Orally Active 1 capsule Twice a day Estrace ND 69062373603 0.1 MG/GM Active as directed Vaginal twice weekly Nitrofurantoin ND 76572827319 100 MG Orally Active 1 capsule Monohyd Macro every 12 hrs with food [facility] Omeprazole ND 78784243140 20 MG Orally May 14, Active 1 tablet Once a day 2017 Levocetirizine ND 19333140141 5 MG Orally Mar 11, Active 1 tablet in Dihydrochloride Once a day 2018 the evening Levothyroxine [facility] 05004246955 125 MCG Orally Active 1 tablet on Sodium Once a day an empty stomach in the morning Plavix ND 08750294046 75 MG Orally Active 1 tablet Once a day Plaquenil ND 71510442170 200 MG Orally Active 1 tablet with Once a day food or milk Singulair ND 92517417967 10 MG Orally Active 1 tablet in Once a day the evening NovoLog Flexpen ND 75011087073 100 UNIT/ML Active not defined Subcutaneous Synthroid ND 87033420228 125 MCG Active 1 each once a day orally Valtrex [facility] 67264437725 1 GM Orally Active 1 tablet Once a day Detrol LA [facility] 46259966096 4 MG Orally Active 1 capsule Once a day Tobramycin [facility] 49772701832 0.3 % Active 1 drop into Ophthalmic affected eye every 4 hrs Remeron [facility] 18859808264 15 MG Orally Active 1 tablet at Once a day bedtime Flonase [facility] 84350392115 50 MCG/ACT Active 1 spray in Nasally Once a each nostril day Losartan Potassium [facility] 80573244487 50 MG Orally Active 1 tablet Once a day Results No Known Results Summary Purpose eClinicalWorks Submission
--- OUTSIDE RECORDS SUMMARY | 2018-09-30 07:54 | XMS REPORT ---
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 Problem [...] Problem 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 Active [place] coronary artery without angina pectoris Problem Presence of coronary angioplasty Z95.5 Active implant and graft Problem Rheumatoid arthritis M06.9 Active Assessment Acute sinusitis, recurrence not J01.90 Active specified, unspecified location Problem Obesity E66.9 Active Problem HTN (hypertension) I10 Active Problem Hypothyroidism E03.9 Active Problem Acute cystitis without hematuria N30.00 Active Problem Type 2 diabetes mellitus with E11.65 Active hyperglycemia Problem Dysuria R30.0 Active Problem Boil L02.92 Active Medications Medication Code Code Instructions Start End Status Dosage System Date Date Plavix [facility] 37628710849 75 MG Orally Active 1 tablet Once a day Lipitor ND 23891072478 40 MG Orally Active 1 tablet Once a day Detrol LA [facility] 69410449511 4 MG Orally Active 1 capsule Once a day Tresiba FlexTouch ND 60131143384 100 UNIT/ML Active as directed Subcutaneous Flonase ND 99248787719 50 MCG/ACT Active 1 spray in Nasally Once a each nostril day Levothyroxine ND 39722865285 125 MCG Orally Active 1 tablet on Sodium Once a day an empty stomach in the morning Losartan Potassium ND 01693943901 50 MG Orally Active 1 tablet Once a day Aspir-81 [facility] 47324360871 81 MG Orally Active 1 tablet Once a day Singulair ND 91117196014 10 MG Orally Active 1 tablet in Once a day the evening NovoLog Flexpen ND 07450034520 100 UNIT/ML Active not defined Subcutaneous Vimovo ND 79402181741 500-20 MG Active 1 tablet Orally Twice a before meals day Valtrex ND 00310637717 1 GM Orally Active 1 tablet Once a day Mupirocin [facility] 74193692558 2 % Externally Active 1 application Three times a to affected day area Tobramycin [facility] 99653960101 0.3 % Active 1 drop into Ophthalmic affected eye every 4 hrs Levaquin [facility] 16002806085 500 MG Orally Apr 24Apr Active 1 tablet Once a day 2018 Plaquenil [facility] 83723723328 200 MG Orally Active 1 tablet with Once a day food or milk [facility] Omeprazole ND 55962795973 20 MG Orally May 14, Active 1 tablet Once a day 2017 Nitrofurantoin ND 23719033054 100 mg Orally Active 1 capsule Monohyd Macro daily with food Nitrofurantoin [facility] 80625616148 100 MG Orally Active 1 capsule Macrocrystal twice a day with food or milk Levocetirizine ND 14620267419 5 MG Orally Mar 11, Active 1 tablet in Dihydrochloride Once a day 2018 the evening Synthroid ND 18754853066 125 MCG Active 1 each once a day orally Lyrica ND 54500216331 50 MG Orally Active 1 capsule Twice a day Nitrofurantoin ND 00412645644 100 MG Orally Active 1 capsule Monohyd Macro every 12 hrs with food Victoza [facility] 87273183483 18 MG/3ML Active not defined Subcutaneous Methotrexate [facility] 68657651932 2.5 MG Orally Active not defined Estrace [facility] 36930180536 0.1 MG/GM Active as directed Vaginal twice weekly ProAir HFA [facility] 08960069876 108 (90 Base) Active 2 puffs as MCG/ACT needed Inhalation every 6 hrs Fluconazole [facility] 52121567058 150 MG Orally Active 1 tablet Norvasc [facility] 55777472049 5 MG Orally Active 1 tablet Once a day Remeron [facility] 45655073231 15 MG Orally Active 1 tablet at Once a day bedtime Results No Known Results Summary Purpose eClinicalWorks Submission
--- OUTSIDE RECORDS SUMMARY | 2018-09-30 07:54 | XMS REPORT ---
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 Z79.4 Active Problem [...] Problem 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 Active [place] coronary artery without angina pectoris Problem Presence of coronary angioplasty Z95.5 Active implant and graft Problem Rheumatoid arthritis M06.9 Active Problem Obesity E66.9 Active Problem HTN (hypertension) I10 Active Problem Hypothyroidism E03.9 Active Problem Acute cystitis without hematuria N30.00 Active Problem Type 2 diabetes mellitus with E11.65 Active hyperglycemia Problem Dysuria R30.0 Active Problem Boil L02.92 Active Medications No Known Medications Results No Known Results Summary Purpose eClinicalWorks Submission
--- OUTSIDE RECORDS SUMMARY | 2018-09-30 07:54 | XMS REPORT ---
[...] coronary artery bypass Z95.1 Active graft Problem assisted current use of insulin Z79.4 [...] Problem 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 Active [place] coronary artery without angina pectoris Problem Presence of coronary angioplasty Z95.5 Active implant and graft Problem Rheumatoid arthritis M06.9 Active Problem Obesity E66.9 Active Problem HTN (hypertension) I10 Active Problem Hypothyroidism E03.9 Active Problem Acute cystitis without hematuria N30.00 Active Problem Type 2 diabetes mellitus with E11.65 Active hyperglycemia Problem Dysuria R30.0 Active Problem Boil L02.92 Active Medications Medication Code System Code Instructions Start End Date Status Dosage Date Lomotil [facility] 71189692127 2.5-0.025 MG June 17June 27, Active 1 tablet Orally twice a 2018 2018 as needed day PRN Results No Known Results Summary Purpose eClinicalWorks Submission
--- OUTSIDE RECORDS SUMMARY | 2018-09-30 07:55 | XMS REPORT ---
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 [...] Problem 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 Active [place] coronary artery without angina pectoris Problem Presence [...] Start End Status Dosage System Date Date Veramyst NDC 0 27.5 MCG/SPRAY Active 1 spray in Nasally Once a each nostril day Advair Diskus [facility] [address]-69 250-50 Active as directed MCG/DOSE Inhalation Nitrofurantoin ND 05597421646 100 MG Orally Active 1 capsule Macrocrystal twice a day with food or milk Losartan ND 42204231082 50 MG Orally Active 1 tablet Potassium Once a day Synthroid ND 30254422064 125 MCG Active 1 each once a day orally Estrace ND 76010610253 0.1 MG/GM Active as directed Vaginal twice weekly Aspir-81 [facility] 95214896421 81 MG Orally Active 1 tablet Once a day Victoza [facility] 04921843468 18 MG/3ML Active not defined Subcutaneous Mupirocin [facility] 79627380199 2 % Externally Active 1 application Three times a to affected day area Plavix [facility] 49856914877 75 MG Orally Active 1 tablet Once a day Lipitor ND 90603211198 40 MG Orally Active 1 tablet Once a day Diflucan ND 72675741571 150 MG Orally [place] Active 1 tablet now as directed 11, and repeat in 2018 5 days Nitrofurantoin [facility] 52059023085 100 MG Orally Active 1 capsule Monohyd Macro every 12 hrs with food [facility] Omeprazole [facility] 35832481119 20 MG Orally May 14, Active 1 tablet Once a day 2018 Vimovo [facility] 61451857676 500-20 MG Active 1 tablet Orally Twice a before meals day Metoprolol ND 67509533512 25 MG Orally Active 1 tablet Succinate ER Once a day Lyrica ND 09088580945 50 MG Orally Active 1 capsule Twice a day Remeron [facility] 36218868995 15 MG Orally Active 1 tablet at Once a day bedtime Norvasc [facility] 56025987512 5 MG Orally Active 1 tablet Once a day Plaquenil [facility] 11896021070 200 MG Orally Active 1 tablet with Once a day food or milk Tobramycin [facility] 15286222788 0.3 % Active 1 drop into Ophthalmic affected eye every 4 hrs ProAir HFA [facility] 78532778126 108 (90 Base) Active 2 puffs as MCG/ACT needed Inhalation every 6 hrs Methotrexate ND 74533244679 2.5 MG Orally Active not defined Flonase [facility] 84723988118 50 MCG/ACT Active 1 spray in Nasally Once a each nostril day Tresiba FlexTouch [facility] 11634227037 100 UNIT/ML Active 50-60 units Subcutaneous as directed at bedtime Valtrex [facility] 92565077466 1 GM Orally Active 1 tablet Once a day Detrol LA [facility] 68168539149 4 MG Orally Active 1 capsule Once a day Nitrofurantoin [facility] 03590679675 100 mg Orally Active 1 capsule Monohyd Macro daily with food Humalog KwikPen [facility] 94486577818 200 UNIT/ML Active 5-10 units as Subcutaneous directed TID QAC Levocetirizine [facility] 02061394895 5 MG Orally Active 1 tablet in Dihydrochloride Once a day the evening Fluconazole [facility] 18529093890 150 MG Orally Active 1 tablet Singulair [facility] 65155554608 10 MG Orally Active 1 tablet in Once a day the evening Results Name Result Date Reference Range Unit Abnormality Flag URINALYSIS AUTO W/O SCOPE (26619) ----NIT neg [id number] ----URO 0.2 [id number] ----PROTEIN neg [id number] ----pH 5.5 [id number] ----BLO tr [id number] ----GLUCOSE tr [id number] ----GONZALO neg [id number] ----BILIRUBIN neg [id number] ----KETONES neg [id number] ----SPECIFIC GRAVITY 1.015 [id number] Summary Purpose eClinicalWorks Submission
--- OUTSIDE RECORDS SUMMARY | 2018-09-30 07:55 | XMS REPORT ---
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 Problem [...] Problem 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 Active [place] coronary artery without angina pectoris Problem Presence of coronary angioplasty Z95.5 Active implant and graft Problem Rheumatoid arthritis M06.9 Active Assessment Acute vaginitis N76.0 Active Problem Obesity E66.9 Active Problem HTN (hypertension) I10 Active Problem Hypothyroidism E03.9 Active Problem Acute cystitis without hematuria N30.00 Active Problem Type 2 diabetes mellitus with E11.65 Active hyperglycemia Problem Dysuria R30.0 Active Problem Boil L02.92 Active Medications Medication Code Code Instructions Start End Status Dosage System Date Date Plavix [facility] 25999404751 75 MG Orally Active 1 tablet Once a day Lyrica [facility] 97865568323 50 MG Orally Active 1 capsule Twice a day Victoza [facility] 47155122131 18 MG/3ML Active not defined Subcutaneous Tobramycin [facility] 31614215085 0.3 % Active 1 drop into Ophthalmic affected eye every 4 hrs Singulair [facility] 98409347246 10 MG Orally Active 1 tablet in Once a day the evening Nitrofurantoin [place] 99998182722 100 MG Orally Active 1 capsule Monohyd Macro every 12 hrs with food Norvasc [facility] 90564803376 5 MG Orally Active 1 tablet Once a day Advair Diskus [facility] [address]-28 250-50 Active as directed MCG/DOSE Inhalation Mupirocin [facility] 83883303149 2 % Externally Active 1 application Three times a to affected day area Diflucan [facility] 83393396524 150 MG Orally Marilyn Active 1 tablet now as directed 11, and repeat in 2018 5 days Levocetirizine [facility] 15454841016 5 MG Orally Active 1 tablet in Dihydrochloride Once a day the evening Humalog KwikPen [facility] [address]-55 200 UNIT/ML Active 5-10 units as Subcutaneous directed TID QAC [facility] Omeprazole [facility] 61491849558 20 MG Orally May 14, Active 1 tablet Once a day 2018 Plaquenil [facility] 88361247207 200 MG Orally Active 1 tablet with Once a day food or milk Flonase [facility] 80978638573 50 MCG/ACT Active 1 spray in Nasally Once a each nostril day Veramyst ND 0 27.5 MCG/SPRAY Active 1 spray in Nasally Once a each nostril day Metoprolol [facility] 64864869056 25 MG Orally Active 1 tablet Succinate ER Once a day ProAir HFA [facility] 67936858678 108 (90 Base) Active 2 puffs as MCG/ACT needed Inhalation every 6 hrs Methotrexate ND 94209751205 2.5 MG Orally Active not defined Aspir-81 [facility] 35838648442 81 MG Orally Active 1 tablet Once a day Synthroid [facility] 79976651894 125 MCG Active 1 each once a day orally Losartan ND 20247732672 50 MG Orally Active 1 tablet Potassium Once a day Vimovo [facility] 13381792009 500-20 MG Active 1 tablet Orally Twice a before meals day Nitrofurantoin ND 69992753996 100 MG Orally Active 1 capsule Macrocrystal twice a day with food or milk Detrol LA [facility] 91651065782 4 MG Orally Active 1 capsule Once a day Valtrex [facility] 93906074069 1 GM Orally Active 1 tablet Once a day Tresiba FlexTouch [facility] [address]-88 100 UNIT/ML Active 50-60 units Subcutaneous as directed at bedtime Remeron [facility] 42249233556 15 MG Orally Active 1 tablet at Once a day bedtime Nitrofurantoin [facility] 08728301966 100 mg Orally Active 1 capsule Monohyd Macro daily with food Fluconazole [facility] 59475156293 150 MG Orally Active 1 tablet Lipitor [facility] 21464083489 40 MG Orally Active 1 tablet Once a day Estrace [facility] 31063804591 0.1 MG/GM Active as directed Vaginal twice weekly Results Name Result Date Reference Range Unit Abnormality Flag URINALYSIS AUTO W/O SCOPE (95830) ----GONZALO NEG 20180725 ----NIT NEG 20180725 ----PROTEIN TRACE [id number] ----pH 5.5 20180725 ----GLUCOSE TRACE 20180725 ----KETONES NEG 20180725 ----SPECIFIC GRAVITY 1.020 20180725 ----BLO TRACE [id number] Summary Purpose eClinicalWorks Submission
--- OUTSIDE RECORDS SUMMARY | 2018-09-30 07:55 | XMS REPORT ---
:1940 Author Organization eClinicalWorks Care Team Providers Name Role Phone Reynoso, Na Provider Role Unavailable Allergies, Adverse Reactions, Alerts Substance Reaction Event Type Amoxicillin Info Not Available Drug Allergy Problems Problem Type Condition Code Onset Dates Condition Status Problem Mixed hyperlipidemia E78.2 Active Problem Diabetes mellitus type 2, E11.9 Active uncontrolled, without complications Problem Urine incontinence R32 Active Problem Shingles B02.9 Active Problem Gastroesophageal reflux disease K21.9 Active Problem CAD (coronary artery disease) I25.10 Active Assessment Urine incontinence R32 Active Problem HTN (hypertension) I10 Active Problem Hypothyroidism E03.9 Active Problem Rheumatoid arthritis M06.9 Active Problem Obesity E66.9 Active Problem Hospital discharge follow-up Z09 Active Problem Type 2 diabetes mellitus with E11.65 Active hyperglycemia Problem Colon, diverticulosis K57.30 Active Problem 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 Problem Microscopic hematuria R31.29 Active Problem Pelvic pressure in female R10.2 Active Problem Other chronic pain G89.29 Active Problem 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 Active [place] coronary artery without angina pectoris Problem 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 Problem Gastroesophageal reflux disease K21.9 Active without esophagitis Assessment Rheumatoid arthritis, involving M06.9 Active unspecified site, unspecified rheumatoid factor presence Problem Rheumatoid arthritis, involving M06.9 Active unspecified site, unspecified rheumatoid factor presence Problem 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 Assessment Lumbar radiculopathy, chronic M54.16 Active Problem Lumbar radiculopathy, chronic M54.16 Active Assessment Other chronic pain G89.29 Active Problem Hypoglycemia E16.2 Active Assessment Presence of coronary angioplasty Z95.5 Active implant and graft Problem Presence of coronary angioplasty Z95.5 Active implant and graft Assessment 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 Active [place] coronary artery without angina pectoris Problem Seasonal allergies J30.2 Active Assessment Type 2 diabetes mellitus with E11.65 Active hyperglycemia Problem Asthma without acute exacerbation J45.909 Active Problem Boil L02.92 Active Assessment 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 [address]-09 250-50 Active as directed MCG/DOSE Inhalation Synthroid [facility] 91474551105 125 MCG Active 1 each once a day orally Lyrica [facility] 06420087749 50 MG Orally Active 1 capsule Twice a day Nitrofurantoin [facility] 82352688973 100 MG Orally Active 1 capsule Monohyd Macro every 12 hrs with food Estrace [facility] 02850855465 0.1 MG/GM Active as directed Vaginal twice weekly ProAir HFA [facility] 99176994303 108 (90 Base) Active 2 puffs as MCG/ACT needed Inhalation every 6 hrs Detrol LA [facility] 45978806306 4 MG Orally Active 1 capsule Once a day Lisinopril [facility] 70306009167 10 MG Orally Madalyn Active 1 tablet Once a day [address] [facility] 38920102872 18 MG/3ML Active not defined Subcutaneous Plaquenil [facility] 80578730435 200 MG Orally Active 1 tablet with Once a day food or milk Fluconazole [facility] 30449875508 150 MG Orally Active 1 tablet Vimovo [facility] 12148872347 500-20 MG Active 1 tablet Orally Twice a before meals day Tresiba FlexTouch [facility] 88559779575 100 UNIT/ML Active as directed Subcutaneous Humalog [facility] 64517487806 100 UNIT/ML Active as directed Subcutaneous Tobramycin [facility] 53569638120 0.3 % Active 1 drop into Ophthalmic affected eye every [address] [facility] 52504772533 2 % Externally Active 1 application Three times a to affected day area Singulair [facility] 93061804114 10 MG Orally Active 1 tablet in Once a day the evening Norvasc [facility] 41629149762 5 MG Orally Active 1 tablet Once a day Methotrexate [facility] 64764996679 2.5 MG Orally Active not defined Synthroid ND 12641658318 125 MCG Active 1 each once a day orally Trimethoprim ND 09774245407 100 MG Orally Active 1 tablet Once a day Humalog KwikPen [facility] 12630885925 200 UNIT/ML Active 5-10 units as Subcutaneous directed TID QAC Losartan ND 17946806683 50 MG Orally Active 1 tablet Potassium Once a day - [facility] 26085657236 81 MG Orally Active 1 tablet Once a day [facility] Omeprazole [place] 62888110844 20 MG Orally May 14, Active 1 tablet Once a day 2017 Nitrofurantoin ND 31356188881 100 mg Orally Active 1 capsule Monohyd Macro daily with food Detrol LA [facility] 01453404940 4 MG Orally Active 1 capsule Once a day Flonase [facility] 81319621035 50 MCG/ACT Active 1 spray in Nasally Once a each nostril day Lipitor [facility] 30269239041 40 MG Orally Active 1 tablet Once a day Levocetirizine [facility] 14356482351 5 MG Orally Active 1 tablet in Dihydrochloride Once a day the evening Lipitor [facility] 64791594039 40 MG Orally Active 1 tablet Once a day Veramyst ND 0 27.5 MCG/SPRAY Active 1 spray in Nasally Once a each nostril day Diflucan [facility] 03331786979 150 MG Orally Marilyn Active 1 tablet now as directed 11, and repeat in 2018 5 days Metoprolol [facility] 00485106838 25 MG Orally Active 1 tablet Succinate ER Once a day Remeron [facility] 47976719631 15 MG Orally Active 1 tablet at Once a day bedtime Valtrex [facility] 65964156764 1 GM Orally Active 1 tablet Once a day Plavix [facility] 86144351609 75 MG Orally Active 1 tablet Once a day Nitrofurantoin ND 62269316894 100 MG Orally Active 1 capsule Macrocrystal twice a day with food or milk Results No Known Results Summary Purpose eClinicalWorks Submission
[2018-09-30] MEDS ORDERED: LIDOCAINE 2% MPF 5 ML VIAL ONE (08:05)
[2018-09-30] MEDS ORDERED: BUPIVACAINE 0.25% PF 10 ML VIAL ONE (08:05)
[2018-09-30] MEDS ORDERED: CYCLOPENTOLATE 1% OPTH 2 ML ONE (08:05)
[2018-09-30] MEDS ORDERED: NA CHLORIDE 0.9% 500 ML ONE ×2 (08:06→09:47)
[2018-09-30] MEDS ORDERED: TETRACAINE HCL 0.5% 4ML OPTH ONE (08:06)
[2018-09-30] MEDS ORDERED: PHENYLEPHRINE 10% OPTH 5ML ONE (08:06)
[2018-09-30] MEDS ORDERED: LIDOCAINE HCL/PF 3.5% OPTH GEL ONE (08:06)
[2018-09-30] MEDS ORDERED: BALANCED SALT IRRIG PLAIN 500 ML BTL IRR ONE (08:07)
[2018-09-30] MEDS ORDERED: EPINEPHRINE/PF 1 MG/ML AMP ONE (08:07)
[2018-09-30] MEDS ORDERED: NS 0.9% VIAL 10 ML ONE (08:07)
[2018-09-30] MEDS ORDERED: DUOVISC 1 KIT OPTH ONE (08:07)
[2018-09-30] MEDS ORDERED: CYCLOPENTOLATE 1% OPTH 2 ML OPTH ONE ×3 (08:10→08:20)
[2018-09-30] MEDS ORDERED: PHENYLEPHRINE 10% OPTH 5ML OPTH ONE ×2 (08:10→08:15)
[2018-09-30] MEDS: PHENYLEPHRINE 10% OPTH 5ML OPTH ONE ×3 (08:20→10:05)
[2018-09-30] MEDS ORDERED: LIDOCAINE HCL/PF 3.5% OPTH GEL OPTH ONE (08:25)
[2018-09-30] MEDS ORDERED: MOXIFLOXACIN HCL 10 DROPS/ML **OR USE OPTH ONE (08:55)
[2018-09-30] MEDS ORDERED: LIDOCAINE 1% MPF 2 ML AMPULE ONE (08:56)
[2018-09-30] MEDS ORDERED: FENTANYL CITR 100 MCG/2 ML ONE (09:47)
[2018-09-30] MEDS ORDERED: MIDAZOLAM HCL 2 MG/2 ML INJ ONE (09:47)
--- NOTE | 2018-09-30 10:43 | P.BOP ---
Preoperative diagnosis: Nuclear sclerotic cataract OS Postoperative diagnosis: Same Primary procedure: Phacoemulsification with IOL OS Estimated blood loss: None Anesthesia: Local (Topical with anesthesia for cataract surgery) Complications: None Implants: [id number] +23.0 Transferred to: Other (Day surgery) Condition: Good
--- NOTE | 2018-09-30 21:10 | OP ---
Date of Procedure: 09/30/2018 Surgeon: Nai Garcia MD Anesthesiologist: Zach Greco CRNA and Ken White MD. Preoperative Diagnosis: Nuclear sclerotic cataract, left eye. Operation Performed: Phacoemulsification with intraocular lens implant, left eye. Anesthesia: Per cataract surgery. Complications: None. Description Of Procedure: In the operating room the patient was prepped and draped in the usual sterile fashion for ophthalmic surgery. A lid speculum was placed in the left eye. Two paracentesis sites were made superiorly and inferiorly in the limbal cornea. Viscoat was placed in the anterior chamber and a crescent blade was used to make a corneal groove and tunnel, and a keratome was used to enter the anterior chamber. Provisc was placed in the anterior chamber and a 360 degree capsulotomy was performed with a cystitome. The lens was hydrodissected with BSS and rotated freely. The lens was removed with a stop and chop technique. 21.65 phaco CDE was used to remove the lens. Residual cortex was removed with the irrigation and aspiration. Provisc was placed in the capsular bag. An SN60WF +23.0 lens was placed in the capsular bag without complications. Irrigation and aspiration were used to remove residual viscoelastic. The paracentesis sites were hydrated with BSS. The wound and paracentesis sites were inspected and found to be watertight. Vigamox 0.07 cc was placed intracamerally at the end of the procedure. The eye was irrigated with balanced salt solution. The eye was patched with a soft cotton patch and Person metal shield. The patient was returned to day surgery in good condition. Comments: Akten was placed in the eye in day surgery and irrigated out of the eye in the OR. Preservative free 1% lidocaine was placed in the anterior chamber prior to Viscoat. Discharge Instructions: Ms. Goins is discharged to home in good condition and is to follow up with Dr. Garcia in the morning. AMALIA/LEN Voice ID: [id number] Report ID: [id number] ADAMA
== END 2018-09-30 11:25 | disposition home or self-care (01) ==
LOC: OR 07:38
PROVIDERS: ATTEND Ophthalmology Retina Specialist
PROC: 08RK3JZ Replacement of Left Lens with Synthetic Substitute, Percutaneous Approach (ICD-10-PCS; principal; 2018-09-30 09:30)
DX: H25.12 Age-related nuclear cataract, left eye (principal); E11.9 Type 2 diabetes mellitus without complications; E78.00 Pure hypercholesterolemia, unspecified; E03.9 Hypothyroidism, unspecified; I10 Essential (primary) hypertension; J45.909 Unspecified asthma, uncomplicated; M06.9 Rheumatoid arthritis, unspecified; M19.90 Unspecified osteoarthritis, unspecified site; Z79.4 Long term (current) use of insulin; Z79.82 Long term (current) use of aspirin; Z79.899 Other long term (current) drug therapy; Z95.5 Presence of coronary angioplasty implant and graft; Z95.1 Presence of aortocoronary bypass graft
CPT/HCPCS: 66984; 36415; 84132; 82962; J0171; J2250; J3010; J2001

== ENCOUNTER → 2019-05-01 | Day surgery (SDC) | payer OTHER ==
[2019-04-28 15:59] LABS: Absolute Lymphocytes (CBC) 2.9 K/uL (0.7-4.9); Basophils % 0.7 % (0-1.3); Hematocrit 40.4 % (36.0-45.0); Lymphocytes % 34.6 % (15.3-44.8); MPV 10.2 fL (7.6-11.3); RBC Red Blood Cell Count 4.61 M/uL (3.86-4.86)
[2019-04-28 16:13] LABS: Potassium 3.7 mmol/L (3.5-5.1)
[2019-04-28 16:20] LABS: Protime INR 0.93
--- NOTE | 2019-04-28 16:22 | RAD REPORT ---
EXAM DESCRIPTION: RAD - Chest Pa And Lat (2 Views) - 04/28/2019 3:44 pm CLINICAL HISTORY: preop, pending heart catheterization COMPARISON: Chest Single View dated 07/01/2017 TECHNIQUE: Frontal and lateral views of the chest were obtained. FINDINGS: The lungs are clear. Interstitial pattern matches comparison. Sternotomy wires are in vahe ce. CABG surgical changes noted. Heart size is normal and central vasculature is within normal limits . No pleural effusion or pneumothorax seen. No acute bony finding noted. No aortic abnormality. IMPRESSION: No acute cardiopulmonary process.
--- NOTE | 2019-04-29 20:59 | EKG ---
Test Date: 2019-04-28 Test Time: 15:03:28 Wood Mechanist: DOROTEO MEASUREMENT RESULTS: Intervals: Rate: 68 [place]: 164 QRSD: 76 QT: 408 QTc: 433 [place]: P: 63 NJ: 164 QRS: -4 T: 110 INTERPRETIVE STATEMENTS: Normal sinus rhythm Minimal voltage criteria for LVH, may be normal variant Anterior infarct, age undetermined Abnormal ECG Compared to ECG 07/01/2017 15:13:06 Myocardial infarct finding now present Sinus bradycardia no longer present Early repolarization no longer present Electronically Signed On 04-29-19 20:55:33 CENTRAL SUPPLY CLERK by Alexander Zapata
[~2019-05-01] MED LIST: ATROPINE SULF 1 MG/10 ML SYR IV ONE; FENTANYL CITR 100 MCG/2 ML ONE; FLUMAZENIL 0.1 MG/ML (5 mL VIAL) IV ONE; HEPA 1000U/500MLS 1,000 UNIT/500 ML BAG IV ONE; LIDOCAINE 1% MPF 30 ML VIAL ONE; MIDAZOLAM HCL 2 MG/2 ML INJ ONE; MIDAZOLAM HCL 5 MG/5 ML INJ ONE; NA CHLORIDE 0.9% 0 ML ONE; NA CHLORIDE 0.9% 500 ML ONE
--- OUTSIDE RECORDS SUMMARY | 2019-05-01 06:35 | XMS REPORT ---
:1940 [facility] Address [address] [place], [place] [address]mira Staley [address] [place] [address] Care Team Providers Name Role Phone ANNETTE [...] (BEAKER) (test 66 mg/dL 70-110 TESTED AT [facility] [address] [facility] rfns=[id number]) [facility] [address] BASIC METABOLIC [id number] 04:00:00 Test Item Value Reference Range Comments SODIUM (BEAKER) (test 141 meq/L 136-145 silk=588) POTASSIUM (BEAKER) (test 3.9 meq/L 3.5-5.1 fvlo=565) CHLORIDE (BEAKER) (test 112 meq/L 98-107 ppyi=927) CO2 (BEAKER) (test 20 meq/L 22-29 winq=616) BLOOD UREA NITROGEN 16 mg/dL 7-21 (BEAKER) (test cuhj=196) CREATININE (BEAKER) (test 0.69 mg/dL 0.57-1.25 zxuc=982) GLUCOSE RANDOM (BEAKER) 90 mg/dL 70-105 (test dgqe=449) CALCIUM (BEAKER) (test 9.2 mg/dL 8.4-10.2 chdl=727) EGFR (BEAKER) (test 82 mL/min/1.73 sq m ESTIMATED GFR IS NOT drmy=7182) ACCURATE CREATININE CLEARANCE IN PREDICTING GLOMERULAR FILTRATION RATE. ESTIMATED GFR IS NOT APPLICABLE FOR DIALYSIS PATIENTS. CBC (HEMOGRAM ONLY)2017-12-19 03:43:00 Test Item Value Reference Range Comments WHITE BLOOD CELL COUNT (BEAKER) (test jbqr=803) 8.3 K/ L 3.5-10.5 RED BLOOD CELL COUNT (BEAKER) (test qsag=350) 3.50 M/ L 3.93-5.22 HEMOGLOBIN (BEAKER) (test spkt=402) 9.6 GM/DL 11.2-15.7 HEMATOCRIT (BEAKER) (test ddnc=701) 31.4 % 34.1-44.9 MEAN CORPUSCULAR VOLUME (BEAKER) (test fbzk=728) 89.7 fL 79.4-94.8 MEAN CORPUSCULAR HEMOGLOBIN (BEAKER) (test 27.4 pg 25.6-32.2 pmik=046) MEAN CORPUSCULAR HEMOGLOBIN CONC (BEAKER) (test 30.6 GM/DL 32.2-35.5 jcub=879) RED CELL DISTRIBUTION WIDTH (BEAKER) (test 15.3 % 11.7-14.4 zlet=141) PLATELET COUNT (BEAKER) (test yjfw=337) 187 K/CU MM 150-450 MEAN PLATELET VOLUME (BEAKER) (test hyrq=470) 11.5 fL 9.4-12.3 NUCLEATED RED BLOOD CELLS (BEAKER) (test 0 /100 WBC 0-0 pjja=885) POCT-GLUCOSE [id number] 21:29:00 Test Item Value Reference Range Comments POC-GLUCOSE METER (BEAKER) 232 mg/dL 70-110 TESTED AT [address] (test ogyq=5908) [place] [id number] POCT-GLUCOSE [id number] 10:45:00 Test Item Value Reference Range Comments POC-GLUCOSE METER (BEAKER) 110 mg/dL 70-110 TESTED AT [address] (test vgqm=8874) [facility] [address] [id number] 08:06:00 Test Item Value Reference Range Comments ACTIVATED CLOTTING TIME 290 sec TESTED AT [address] (BEAKER) (test szox=420) [facility] [address] CBC (HEMOGRAM ONLY)2017-12-11 14:17:00 Test Item Value Reference Range Comments WHITE BLOOD CELL COUNT (BEAKER) (test chrm=404) 11.4 K/ L 3.5-10.5 RED BLOOD CELL COUNT (BEAKER) (test zuxq=574) 3.93 M/ L 3.93-5.22 HEMOGLOBIN (BEAKER) (test nyub=340) 10.9 GM/DL 11.2-15.7 HEMATOCRIT (BEAKER) (test jnwf=797) 34.8 % 34.1-44.9 MEAN CORPUSCULAR VOLUME (BEAKER) (test eycp=922) 88.5 fL 79.4-94.8 MEAN CORPUSCULAR HEMOGLOBIN (BEAKER) (test 27.7 pg 25.6-32.2 juoz=556) MEAN CORPUSCULAR HEMOGLOBIN CONC (BEAKER) (test 31.3 GM/DL 32.2-35.5 joha=609) RED CELL DISTRIBUTION WIDTH (BEAKER) (test 15.4 % 11.7-14.4 gjng=029) PLATELET COUNT (BEAKER) (test yjew=317) 204 K/CU MM 150-450 MEAN PLATELET VOLUME (BEAKER) (test pqhx=231) 11.1 fL 9.4-12.3 NUCLEATED RED BLOOD CELLS (BEAKER) (test 0 /100 WBC 0-0 sjsy=582) POCT-GLUCOSE [id number] 14:11:00 Test Item Value Reference Range Comments POC-GLUCOSE METER (BEAKER) 191 mg/dL 70-110 TESTED AT [address] (test umwd=0951) [place] [address] PLATELET AGGREGATION: FUNCTION [id number] 11:37:00 Test Item Value Reference Range Comments WEAK ADP RESULT(BEAKER) (test 14 % 60-91 lcet=5968) PLATELET FUNCTION SCREEN 0-39% indicates marked platelet INTERP (BEAKER) (test dysfunction uutl=4484) [id number] Idania Donovan MD (electronic (BEAKER) (test lbub=2591) signature) PLATELET COUNT AGG (BEAKER) 230 K/CU MM 150-450 (test wftu=6424) POCT-GLUCOSE [id number] 10:23:00 Test Item Value Reference Range Comments POC-GLUCOSE METER (BEAKER) 100 mg/dL 70-110 TESTED AT [address] (test ckas=0444) [place] [address] LIPID [id number] 06:28:00 Test Item Value Reference Range Comments TRIGLYCERIDES (BEAKER) (test zhzn=846) 87 mg/dL CHOLESTEROL (BEAKER) (test fika=942) 133 mg/dL HDL CHOLESTEROL (BEAKER) (test xpbr=137) 47 mg/dL LDL CHOLESTEROL CALCULATED (BEAKER) (test 69 mg/dL duxb=701) Triglyceride Reference Range: Low Risk <150 Borderline 150- 199 High Risk 200-499 Very High Risk >=500Cholesterol Reference Range: Low Risk <200 Borderline 200-239 High Risk > 240HDL Cholesterol Reference Range: Low Risk >=60 High Risk <40LDL Cholesterol Reference Range: Optimal <100 Near Optimal 100-129 Borderline 130-159 High 160-189 Very High >=190POCT-GLUCOSE [id number] 11:03:00 Test Item Value Reference Range Comments POC-GLUCOSE METER (BEAKER) 103 mg/dL 70-110 TESTED AT [facility] [address] [facility] (test nrvw=3071) [facility] [address] HEMOGLOBIN AND [id number] 10:07:00 Test Item Value Reference Range Comments HEMOGLOBIN (BEAKER) (test bcyl=737) 11.5 GM/DL 11.2-15.7 HEMATOCRIT (BEAKER) (test snre=023) 37.2 % 34.1-44.9 FUNGUS CULTURE + [id number] 08:13:00 Test Item Value Reference Range Comments CULTURE (BEAKER) (test thfs=9192) 1+ Colleen albicans FUNGUS SMEAR (BEAKER) (test No fungi seen clss=3497) ANAEROBIC [id number] 05:42:00 Test Item Value Reference Range Comments CULTURE (BEAKER) (test vhwj=8704) No anaerobes isolated WOUND CULTURE + GRAM [id number] 08:07:00 Test Item Value Reference Range Comments CULTURE (BEAKER) COAGULASE NEGATIVE 1+ Coagulase negative (test iebu=0224) STAPHYLOCOCCUS Staphylococcus Minocycline (test Susceptible >=19 , code=35) Resistant <19 CULTURE (BEAKER) <1+ Colleen albicans (test gsiv=1066) GRAM STAIN RESULT 1+ WBCs (BEAKER) (test okrx=5775) GRAM STAIN RESULT <1+ gram positive cocci (BEAKER) (test in pairs ewlv=261581) WOUND CULTURE + GRAM [id number] 20:05:00 Test Item Value Reference Range Comments CULTURE (BEAKER) COAGULASE NEGATIVE 3+ Coagulase negative (test hkll=6571) STAPHYLOCOCCUS Staphylococcus Minocycline (test Susceptible >=19 , code=35) Resistant <19 CULTURE (BEAKER) 1+ Colleen albicans (test dehq=9949) GRAM STAIN RESULT 1+ WBCs (BEAKER) (test pqtk=9206) GRAM STAIN RESULT No organisms seen (BEAKER) (test dnch=688542) POCT-GLUCOSE [id number] 12:00:00 Test Item Value Reference Range Comments POC-GLUCOSE METER (BEAKER) 238 mg/dL 70-110 TESTED AT [address] (test qfte=1117) [facility] [address] POCT-GLUCOSE [id number] 08:03:00 Test Item Value Reference Range Comments POC-GLUCOSE METER (BEAKER) 308 mg/dL 70-110 Will Repeat Test/TESTED AT (test yugg=3989) [place] [id number] [facility] [address] [id number] 04:31:00 Test Item Value Reference Range Comments MAGNESIUM (BEAKER) (test hdut=449) 1.9 mg/dL 1.6-2.6 BASIC METABOLIC [id number] 04:31:00 Test Item Value Reference Range Comments SODIUM (BEAKER) (test 134 meq/L 136-145 rojr=252) POTASSIUM (BEAKER) (test 4.3 meq/L 3.5-5.1 sdbu=564) CHLORIDE (BEAKER) (test 100 meq/L 98-107 nthi=667) CO2 (BEAKER) (test 24 meq/L 22-29 ujft=280) BLOOD UREA NITROGEN 12 mg/dL 7-21 (BEAKER) (test axxt=504) CREATININE (BEAKER) (test 0.77 mg/dL 0.57-1.25 djex=340) GLUCOSE RANDOM (BEAKER) 272 mg/dL 70-105 (test zbxw=558) CALCIUM (BEAKER) (test 8.6 mg/dL 8.4-10.2 evfp=969) EGFR (BEAKER) (test 72 mL/min/1.73 sq m ESTIMATED GFR IS NOT wvfo=8878) ACCURATE CREATININE CLEARANCE IN PREDICTING GLOMERULAR FILTRATION RATE. ESTIMATED GFR IS NOT APPLICABLE FOR DIALYSIS PATIENTS. POCT-GLUCOSE [id number] 21:16:00 Test Item Value Reference Range Comments POC-GLUCOSE METER (BEAKER) 207 mg/dL 70-110 TESTED AT [facility] [address] [facility] (test ybjp=6449) [facility] [address] POCT-GLUCOSE [id number] 20:45:00 Test Item Value Reference Range Comments POC-GLUCOSE METER (BEAKER) 266 mg/dL 70-110 TESTED AT [address] (test znis=9851) [place] [address] [id number] 05:25:00 Test Item Value Reference Range Comments MAGNESIUM (BEAKER) (test iwdt=787) 1.9 mg/dL 1.6-2.6 BASIC METABOLIC [id number] 05:25:00 Test Item Value Reference Range Comments SODIUM (BEAKER) (test 136 meq/L 136-145 fxeh=314) POTASSIUM (BEAKER) (test 3.7 meq/L 3.5-5.1 vblm=812) CHLORIDE (BEAKER) (test 102 meq/L 98-107 djbv=902) CO2 (BEAKER) (test 24 meq/L 22-29 ypso=517) BLOOD UREA NITROGEN 14 mg/dL 7-21 (BEAKER) (test mhmd=025) CREATININE (BEAKER) (test 0.73 mg/dL 0.57-1.25 wfez=584) GLUCOSE RANDOM (BEAKER) 136 mg/dL 70-105 (test euta=276) CALCIUM (BEAKER) (test 8.8 mg/dL 8.4-10.2 pier=502) EGFR (BEAKER) (test 77 mL/min/1.73 sq m ESTIMATED GFR IS NOT stpo=3970) ACCURATE CREATININE CLEARANCE IN PREDICTING GLOMERULAR FILTRATION RATE. ESTIMATED GFR IS NOT APPLICABLE FOR DIALYSIS PATIENTS. CBC (HEMOGRAM ONLY)2017-07-18 05:07:00 Test Item Value Reference Range Comments WHITE BLOOD CELL COUNT (BEAKER) (test gvti=247) 9.1 K/ L 3.5-10.5 RED BLOOD CELL COUNT (BEAKER) (test awfg=128) 2.92 M/ L 3.93-5.22 HEMOGLOBIN (BEAKER) (test trph=837) 8.3 GM/DL 11.2-15.7 HEMATOCRIT (BEAKER) (test fsat=921) 26.4 % 34.1-44.9 MEAN CORPUSCULAR VOLUME (BEAKER) (test iwil=388) 90.4 fL 79.4-94.8 MEAN CORPUSCULAR HEMOGLOBIN (BEAKER) (test 28.4 pg 25.6-32.2 vxci=243) MEAN CORPUSCULAR HEMOGLOBIN CONC (BEAKER) (test 31.4 GM/DL 32.2-35.5 dtbu=957) RED CELL DISTRIBUTION WIDTH (BEAKER) (test 14.1 % 11.7-14.4 uvvw=721) PLATELET COUNT (BEAKER) (test puns=701) 369 K/CU MM 150-450 MEAN PLATELET VOLUME (BEAKER) (test rwni=211) 10.7 fL 9.4-12.3 NUCLEATED RED BLOOD CELLS (BEAKER) (test 0 /100 WBC 0-0 xsgq=115) POCT-GLUCOSE [id number] 21:22:00 Test Item Value Reference Range Comments POC-GLUCOSE METER (BEAKER) 241 mg/dL 70-110 TESTED AT [address] (test ervu=9773) [place] [id number] POCT-GLUCOSE [id number] 15:18:00 Test Item Value Reference Range Comments POC-GLUCOSE METER (BEAKER) 123 mg/dL 70-110 TESTED AT [address] (test osna=6127) [place] [address] URINE [id number] 09:25:00 Test Item Value Reference Range Comments CULTURE (AKER) (test CITROBACTER SPECIES >100,000 col/mL uasy=9206) Citrobacter species Amikacin (test code=1) Aztreonam (test code=32) Cefepime (test code=51) Cefoxitin (test code=68) Ceftazidime (test code=27) Ceftriaxone (test code=52) Ertapenem (test code=38) Gentamicin (test code=18) Levofloxacin (test code=22) Meropenem (test code=34) Nitrofurantoin (test code=23) Piperacillin + Tazobactam (test code=29) Tetracycline (test code=2) Tobramycin (test code=25) Trimethoprim + Sulfamethoxazole (test code=47) POCT-GLUCOSE [id number] 08:17:00 Test Item Value Reference Range Comments POC-GLUCOSE METER (BEAKER) 94 mg/dL 70-110 TESTED AT [facility] [address] [facility] (test auhu=7602) [facility] [address] [id number] 04:56:00 Test Item Value Reference Range Comments MAGNESIUM (BEAKER) (test zhdj=802) 1.9 mg/dL 1.6-2.6 BASIC METABOLIC [id number] 04:56:00 Test Item Value Reference Range Comments SODIUM (BEAKER) (test 134 meq/L 136-145 fjtp=209) POTASSIUM (BEAKER) (test 4.0 meq/L 3.5-5.1 snzv=818) CHLORIDE (BEAKER) (test 99 meq/L 98-107 npqz=316) CO2 (BEAKER) (test 25 meq/L 22-29 zuvk=376) BLOOD UREA NITROGEN 18 mg/dL 7-21 (BEAKER) (test chpa=244) CREATININE (BEAKER) (test 0.82 mg/dL 0.57-1.25 xfyd=209) GLUCOSE RANDOM (BEAKER) 111 mg/dL 70-105 (test jklu=836) CALCIUM (BEAKER) (test 8.5 mg/dL 8.4-10.2 kmrj=095) EGFR (BEAKER) (test 67 mL/min/1.73 sq m ESTIMATED GFR IS NOT wqda=1886) ACCURATE CREATININE CLEARANCE IN PREDICTING GLOMERULAR FILTRATION RATE. ESTIMATED GFR IS NOT APPLICABLE FOR DIALYSIS PATIENTS. CBC (HEMOGRAM ONLY)2017-07-17 04:34:00 Test Item Value Reference Range Comments WHITE BLOOD CELL COUNT (BEAKER) (test kwuh=945) 10.6 K/ L 3.5-10.5 RED BLOOD CELL COUNT (BEAKER) (test asiv=895) 2.88 M/ L 3.93-5.22 HEMOGLOBIN (BEAKER) (test kqte=711) 8.3 GM/DL 11.2-15.7 HEMATOCRIT (BEAKER) (test ngci=500) 26.0 % 34.1-44.9 MEAN CORPUSCULAR VOLUME (BEAKER) (test cevr=485) 90.3 fL 79.4-94.8 MEAN CORPUSCULAR HEMOGLOBIN (BEAKER) (test 28.8 pg 25.6-32.2 sfdq=851) MEAN CORPUSCULAR HEMOGLOBIN CONC (BEAKER) (test 31.9 GM/DL 32.2-35.5 njjh=585) RED CELL DISTRIBUTION WIDTH (BEAKER) (test 14.1 % 11.7-14.4 qcfc=349) PLATELET COUNT (BEAKER) (test ezsa=995) 335 K/CU MM 150-450 MEAN PLATELET VOLUME (BEAKER) (test sdel=396) 10.5 fL 9.4-12.3 NUCLEATED RED BLOOD CELLS (BEAKER) (test 0 /100 WBC 0-0 jkfl=434) POCT-GLUCOSE [id number] 20:24:00 Test Item Value Reference Range Comments POC-GLUCOSE METER (BEAKER) 205 mg/dL 70-110 TESTED AT [address] (test jgnd=8506) [place] [id number] POCT-GLUCOSE [id number] 17:11:00 Test Item Value Reference Range Comments POC-GLUCOSE METER (BEAKER) 162 mg/dL 70-110 TESTED AT [address] (test wdyz=1352) [place] [address] POCT-GLUCOSE [id number] 12:21:00 Test Item Value Reference Range Comments POC-GLUCOSE METER (BEAKER) 188 mg/dL 70-110 TESTED AT [address] (test nqgg=2911) [place] [address] POCT-GLUCOSE [id number] 08:23:00 Test Item Value Reference Range Comments POC-GLUCOSE METER (BEAKER) 97 mg/dL 70-110 TESTED AT [address] (test jpcv=3314) [place] [address] [id number] 05:54:00 Test Item Value Reference Range Comments MAGNESIUM (BEAKER) (test rvqb=800) 1.7 mg/dL 1.6-2.6 BASIC METABOLIC [id number] 05:54:00 Test Item Value Reference Range Comments SODIUM (BEAKER) (test 133 meq/L 136-145 sghe=786) POTASSIUM (BEAKER) (test 3.4 meq/L 3.5-5.1 pggy=584) CHLORIDE (BEAKER) (test 97 meq/L 98-107 irgu=945) CO2 (BEAKER) (test 26 meq/L 22-29 yoro=782) BLOOD UREA NITROGEN 16 mg/dL 7-21 (BEAKER) (test gpkw=090) CREATININE (BEAKER) (test 0.72 mg/dL 0.57-1.25 fsfh=454) GLUCOSE RANDOM (BEAKER) 97 mg/dL 70-105 (test diox=673) CALCIUM (BEAKER) (test 8.6 mg/dL 8.4-10.2 qjyz=009) EGFR (BEAKER) (test 78 mL/min/1.73 sq m ESTIMATED GFR IS NOT jmjq=6013) ACCURATE CREATININE CLEARANCE IN PREDICTING GLOMERULAR FILTRATION RATE. ESTIMATED GFR IS NOT APPLICABLE FOR DIALYSIS PATIENTS. CBC (HEMOGRAM ONLY)2017-07-16 05:31:00 Test Item Value Reference Range Comments WHITE BLOOD CELL COUNT (BEAKER) (test zqoo=769) 12.5 K/ L 3.5-10.5 RED BLOOD CELL COUNT (BEAKER) (test wabw=938) 3.14 M/ L 3.93-5.22 HEMOGLOBIN (BEAKER) (test gzla=950) 8.9 GM/DL 11.2-15.7 HEMATOCRIT (BEAKER) (test hzsi=009) 28.7 % 34.1-44.9 MEAN CORPUSCULAR VOLUME (BEAKER) (test yyig=450) 91.4 fL 79.4-94.8 MEAN CORPUSCULAR HEMOGLOBIN (BEAKER) (test 28.3 pg 25.6-32.2 stzb=811) MEAN CORPUSCULAR HEMOGLOBIN CONC (BEAKER) (test 31.0 GM/DL 32.2-35.5 vkku=359) RED CELL DISTRIBUTION WIDTH (BEAKER) (test 14.2 % 11.7-14.4 bhof=855) PLATELET COUNT (BEAKER) (test spcj=501) 331 K/CU MM 150-450 MEAN PLATELET VOLUME (BEAKER) (test kqlz=150) 10.8 fL 9.4-12.3 NUCLEATED RED BLOOD CELLS (BEAKER) (test 0 /100 WBC 0-0 pabt=163) POCT-GLUCOSE [id number] 21:04:00 Test Item Value Reference Range Comments POC-GLUCOSE METER (BEAKER) 198 mg/dL 70-110 TESTED AT [facility] [address] [facility] (test tgyh=8160) [facility] [address] POCT-GLUCOSE [id number] 17:40:00 Test Item Value Reference Range Comments POC-GLUCOSE METER (BEAKER) 189 mg/dL 70-110 TESTED AT [address] (test lgst=9308) [place] [address] URINALYSIS W/ [id number] 15:48:00 Test Item Value Reference Range Comments COLOR (BEAKER) (test ixds=347) Yellow CLARITY (BEAKER) (test xdbw=085) Hazy SPECIFIC GRAVITY UA (BEAKER) (test 1.011 1.001-1.035 odpm=042) PH UA (BEAKER) (test hdis=252) 5.5 5.0-8.0 PROTEIN UA (BEAKER) (test ehwd=076) Negative Negative GLUCOSE UA (BEAKER) (test ptqz=754) Negative Negative KETONES UA (BEAKER) (test kdah=340) Negative Negative BILIRUBIN UA (BEAKER) (test yuna=932) Negative Negative BLOOD UA (BEAKER) (test gvcd=843) Small Negative NITRITE UA (BEAKER) (test hqda=844) Negative Negative LEUKOCYTE ESTERASE UA (BEAKER) (test Large Negative auzq=825) UROBILINOGEN UA (BEAKER) (test xknf=962) 0.2 mg/dL 0.2-1.0 RBC UA (BEAKER) (test uxqx=800) 11 /HPF WBC UA (BEAKER) (test wmgt=512) 219 /HPF BACTERIA (BEAKER) (test aiae=827) Many MUCUS (BEAKER) (test shsi=9035) Rare SQUAMOUS EPITHELIAL (BEAKER) (test 4 /HPF qtyr=119) HYALINE CASTS (BEAKER) (test pfzb=473) 10 /LPF SOURCE(BEAKER) (test poyz=1194) Urine, Clean Catch POCT-GLUCOSE [id number] 13:23:00 Test Item Value Reference Range Comments POC-GLUCOSE METER (BEAKER) 224 mg/dL 70-110 TESTED AT [address] (test fruz=1851) [place] [address] RAD, CHEST, 1 VIEW, NON [id number] 12:49:00Reason for exam:->feverShould this be performed at [...] Verified Date/Time: 07/15/2017 12:49: 51 Reading Location: [facility] B1 [id number] Ortho Consult Reading Room POCT- GLUCOSE [id number] 08:38:00 Test Item Value Reference Range Comments POC-GLUCOSE METER (BEAKER) 118 mg/dL 70-110 TESTED AT [facility] [address] [facility] (test waiy=0543) [facility] [address] [id number] 06:02:00 Test Item Value Reference Range Comments MAGNESIUM (BEAKER) (test zuok=513) 1.9 mg/dL 1.6-2.6 BASIC METABOLIC [id number] 06:02:00 Test Item Value Reference Range Comments SODIUM (BEAKER) (test 137 meq/L 136-145 urvb=445) POTASSIUM (BEAKER) (test 3.8 meq/L 3.5-5.1 utrm=748) CHLORIDE (BEAKER) (test 102 meq/L 98-107 kgon=577) CO2 (BEAKER) (test 24 meq/L 22-29 obnm=218) BLOOD UREA NITROGEN 14 mg/dL 7-21 (BEAKER) (test wrhg=307) CREATININE (BEAKER) (test 0.69 mg/dL 0.57-1.25 rvcp=299) GLUCOSE RANDOM (BEAKER) 114 mg/dL 70-105 (test glog=628) CALCIUM (BEAKER) (test 9.1 mg/dL 8.4-10.2 zuvb=136) EGFR (BEAKER) (test 82 mL/min/1.73 sq m ESTIMATED GFR IS NOT xmpj=1463) ACCURATE CREATININE CLEARANCE IN PREDICTING GLOMERULAR FILTRATION RATE. ESTIMATED GFR IS NOT APPLICABLE FOR DIALYSIS PATIENTS. CBC (HEMOGRAM ONLY)2017-07-15 05:40:00 Test Item Value Reference Range Comments WHITE BLOOD CELL COUNT (BEAKER) (test rrbd=676) 14.4 K/ L 3.5-10.5 RED BLOOD CELL COUNT (BEAKER) (test gvzy=455) 3.51 M/ L 3.93-5.22 HEMOGLOBIN (BEAKER) (test yqww=161) 10.2 GM/DL 11.2-15.7 HEMATOCRIT (BEAKER) (test xoxm=509) 31.3 % 34.1-44.9 MEAN CORPUSCULAR VOLUME (BEAKER) (test dmru=809) 89.2 fL 79.4-94.8 MEAN CORPUSCULAR HEMOGLOBIN (BEAKER) (test 29.1 pg 25.6-32.2 nouo=240) MEAN CORPUSCULAR HEMOGLOBIN CONC (BEAKER) (test 32.6 GM/DL 32.2-35.5 tqrz=605) RED CELL DISTRIBUTION WIDTH (BEAKER) (test 13.8 % 11.7-14.4 yunk=099) PLATELET COUNT (BEAKER) (test epfu=032) 338 K/CU MM 150-450 MEAN PLATELET VOLUME (BEAKER) (test jciu=981) 11.2 fL 9.4-12.3 NUCLEATED RED BLOOD CELLS (BEAKER) (test 0 /100 WBC 0-0 xwqk=305) POCT-GLUCOSE [id number] 21:20:00 Test Item Value Reference Range Comments POC-GLUCOSE METER (BEAKER) 178 mg/dL 70-110 TESTED AT [address] (test nekh=5036) [facility] [address] POCT-GLUCOSE [id number] 17:17:00 Test Item Value Reference Range Comments POC-GLUCOSE METER (BEAKER) 259 mg/dL 70-110 TESTED AT [address] (test mjhd=9734) [place] [id number] POCT-GLUCOSE [id number] 13:07:00 Test Item Value Reference Range Comments POC-GLUCOSE METER (BEAKER) 195 mg/dL 70-110 TESTED AT [address] (test amwc=8024) [facility] [address] POCT-GLUCOSE [id number] 08:07:00 Test Item Value Reference Range Comments POC-GLUCOSE METER (BEAKER) 152 mg/dL 70-110 TESTED AT [facility] [address] (test yzyu=4342) [place] [address] [id number] 05:23:00 Test Item Value Reference Range Comments MAGNESIUM (BEAKER) (test rpnf=960) 1.9 mg/dL 1.6-2.6 BASIC METABOLIC [id number] 05:23:00 Test Item Value Reference Range Comments SODIUM (BEAKER) (test 135 meq/L 136-145 jiys=835) POTASSIUM (BEAKER) (test 3.8 meq/L 3.5-5.1 dyid=291) CHLORIDE (BEAKER) (test 104 meq/L 98-107 vnhd=638) CO2 (BEAKER) (test 23 meq/L 22-29 lyvq=937) BLOOD UREA NITROGEN 17 mg/dL 7-21 (BEAKER) (test buey=846) CREATININE (BEAKER) (test 0.68 mg/dL 0.57-1.25 kkwo=951) GLUCOSE RANDOM (BEAKER) 158 mg/dL 70-105 (test kdai=650) CALCIUM (BEAKER) (test 8.4 mg/dL 8.4-10.2 eyrc=564) EGFR (BEAKER) (test 84 mL/min/1.73 sq m ESTIMATED GFR IS NOT buaw=2652) ACCURATE CREATININE CLEARANCE IN PREDICTING GLOMERULAR FILTRATION RATE. ESTIMATED GFR IS NOT APPLICABLE FOR DIALYSIS PATIENTS. CBC (HEMOGRAM ONLY)2017-07-14 04:55:00 Test Item Value Reference Range Comments WHITE BLOOD CELL COUNT (BEAKER) (test uugt=654) 11.1 K/ L 3.5-10.5 RED BLOOD CELL COUNT (BEAKER) (test szlo=413) 2.77 M/ L 3.93-5.22 HEMOGLOBIN (BEAKER) (test ulrj=473) 8.1 GM/DL 11.2-15.7 HEMATOCRIT (BEAKER) (test hgrc=939) 25.3 % 34.1-44.9 MEAN CORPUSCULAR VOLUME (BEAKER) (test alfc=493) 91.3 fL 79.4-94.8 MEAN CORPUSCULAR HEMOGLOBIN (BEAKER) (test 29.2 pg 25.6-32.2 dlss=623) MEAN CORPUSCULAR HEMOGLOBIN CONC (BEAKER) (test 32.0 GM/DL 32.2-35.5 dtat=763) RED CELL DISTRIBUTION WIDTH (BEAKER) (test 13.9 % 11.7-14.4 lqyq=878) PLATELET COUNT (BEAKER) (test egnq=857) 262 K/CU MM 150-450 MEAN PLATELET VOLUME (BEAKER) (test emya=566) 11.1 fL 9.4-12.3 NUCLEATED RED BLOOD CELLS (BEAKER) (test 0 /100 WBC 0-0 twls=159) POCT-GLUCOSE [id number] 21:13:00 Test Item Value Reference Range Comments POC-GLUCOSE METER (BEAKER) 244 mg/dL 70-110 TESTED AT [address] (test putu=9731) [place] [id number] POCT-GLUCOSE [id number] 17:17:00 Test Item Value Reference Range Comments POC-GLUCOSE METER (BEAKER) 214 mg/dL 70-110 TESTED AT [address] (test pgis=9388) [place] [address] POCT-GLUCOSE [id number] 11:53:00 Test Item Value Reference Range Comments POC-GLUCOSE METER (BEAKER) 252 mg/dL 70-110 TESTED AT [address] (test emwt=3885) [place] [id number] POCT-GLUCOSE [id number] 08:27:00 Test Item Value Reference Range Comments POC-GLUCOSE METER (BEAKER) 241 mg/dL 70-110 TESTED AT [address] (test lwoz=5202) [place] [id number] [id number] 06:49:00 Test Item Value Reference Range Comments MAGNESIUM (BEAKER) (test 2.0 mg/dL 1.6-2.6 Specimen slightly hemolyzed egxg=115) BASIC METABOLIC [id number] 06:49:00 Test Item Value Reference Range Comments SODIUM (BEAKER) (test 134 meq/L 136-145 mvsn=563) POTASSIUM (BEAKER) (test 4.3 meq/L 3.5-5.1 Specimen slightly yqhd=532) hemolyzed CHLORIDE (BEAKER) (test 106 meq/L 98-107 mxco=827) CO2 (BEAKER) (test 18 meq/L 22-29 sxsx=086) BLOOD UREA NITROGEN 15 mg/dL 7-21 (BEAKER) (test gsfm=291) CREATININE (BEAKER) (test 0.68 mg/dL 0.57-1.25 Specimen slightly asrq=272) hemolyzed GLUCOSE RANDOM (BEAKER) 234 mg/dL 70-105 (test gybq=061) CALCIUM (BEAKER) (test 8.3 mg/dL 8.4-10.2 qqtp=250) EGFR (BEAKER) (test 84 mL/min/1.73 sq m ESTIMATED GFR IS NOT qntv=0524) ACCURATE CREATININE CLEARANCE IN PREDICTING GLOMERULAR FILTRATION RATE. ESTIMATED GFR IS NOT APPLICABLE FOR DIALYSIS PATIENTS. CBC (HEMOGRAM ONLY)2017-07-13 06:19:00 Test Item Value Reference Range Comments WHITE BLOOD CELL COUNT 10.4 K/ L 3.5-10.5 (BEAKER) (test uokp=386) RED BLOOD CELL COUNT (BEAKER) 2.94 M/ L 3.93-5.22 (test nack=639) HEMOGLOBIN (BEAKER) (test 8.6 GM/DL 11.2-15.7 ysgx=153) HEMATOCRIT (BEAKER) (test 28.8 % 34.1-44.9 sizj=196) MEAN CORPUSCULAR VOLUME 98.0 fL 79.4-94.8 Discordant MCV results (BEAKER) (test ecdu=151) compared to previous results; clinical correlation required. MEAN CORPUSCULAR HEMOGLOBIN 29.3 pg 25.6-32.2 (BEAKER) (test amoa=243) MEAN CORPUSCULAR HEMOGLOBIN 29.9 GM/DL 32.2-35.5 CONC (BEAKER) (test bqvz=944) RED CELL DISTRIBUTION WIDTH 14.0 % 11.7-14.4 (BEAKER) (test qczh=977) PLATELET COUNT (BEAKER) (test 202 K/CU MM 150-450 sewz=422) MEAN PLATELET VOLUME (BEAKER) 11.8 fL 9.4-12.3 (test umni=912) NUCLEATED RED BLOOD CELLS 0 /100 WBC 0-0 (BEAKER) (test szxa=512) POCT-GLUCOSE [id number] 21:02:00 Test Item Value Reference Range Comments POC-GLUCOSE METER (BEAKER) 316 mg/dL 70-110 Will Repeat Test/TESTED AT (test wkgu=4906) [facility] [address] [facility] [address] POCT-GLUCOSE [id number] 17:36:00 Test Item Value Reference Range Comments POC-GLUCOSE METER (BEAKER) 227 mg/dL 70-110 TESTED AT [address] (test fqmn=1202) [facility] [address] POCT-GLUCOSE [id number] 17:02:00 Test Item Value Reference Range Comments POC-GLUCOSE METER (BEAKER) 204 mg/dL 70-110 TESTED AT [address] (test jtab=8300) [facility] [address] POCT-GLUCOSE [id number] 11:50:00 Test Item Value Reference Range Comments POC-GLUCOSE METER (BEAKER) 247 mg/dL 70-110 TESTED AT [address] (test lrvk=9163) [facility] [address] POCT-GLUCOSE [id number] 10:36:00 Test Item Value Reference Range Comments POC-GLUCOSE METER (BEAKER) 277 mg/dL 70-110 TESTED AT [address] (test aczs=8465) [facility] [address] POCT-GLUCOSE [id number] 08:27:00 Test Item Value Reference Range Comments POC-GLUCOSE METER (BEAKER) 132 mg/dL 70-110 TESTED AT [address] (test dskn=0689) [facility] [address] CBC W/PLT COUNT & AUTO [id number] 06:46:00 Test Item Value Reference Range Comments WHITE BLOOD CELL COUNT (BEAKER) (test aaxc=892) 12.5 K/ L 3.5-10.5 RED BLOOD CELL COUNT (BEAKER) (test iyfe=588) 2.99 M/ L 3.93-5.22 HEMOGLOBIN (BEAKER) (test zlas=704) 8.6 GM/DL 11.2-15.7 HEMATOCRIT (BEAKER) (test ente=344) 27.2 % 34.1-44.9 MEAN CORPUSCULAR VOLUME (BEAKER) (test yucs=768) 91.0 fL 79.4-94.8 MEAN CORPUSCULAR HEMOGLOBIN (BEAKER) (test 28.8 pg 25.6-32.2 rvff=253) MEAN CORPUSCULAR HEMOGLOBIN CONC (BEAKER) (test 31.6 GM/DL 32.2-35.5 ydkb=868) RED CELL DISTRIBUTION WIDTH (BEAKER) (test 14.0 % 11.7-14.4 cdxh=738) PLATELET COUNT (BEAKER) (test vyhs=586) 198 K/CU MM 150-450 MEAN PLATELET VOLUME (BEAKER) (test upov=579) 12.0 fL 9.4-12.3 NUCLEATED RED BLOOD CELLS (BEAKER) (test 0 /100 WBC 0-0 tbpx=951) NEUTROPHILS RELATIVE PERCENT (BEAKER) (test 68 % ysik=029) LYMPHOCYTES RELATIVE PERCENT (BEAKER) (test 21 % wpdj=098) MONOCYTES RELATIVE PERCENT (BEAKER) (test 7 % bqru=881) EOSINOPHILS RELATIVE PERCENT (BEAKER) (test 4 % kphn=464) BASOPHILS RELATIVE PERCENT (BEAKER) (test 1 % drbu=194) NEUTROPHILS ABSOLUTE COUNT (BEAKER) (test 8.49 K/ L 1.56-6.13 qzrf=265) LYMPHOCYTES ABSOLUTE COUNT (BEAKER) (test 2.60 K/ L 1.18-3.74 duaf=465) MONOCYTES ABSOLUTE COUNT (BEAKER) (test 0.88 K/ L 0.24-0.36 skdk=109) EOSINOPHILS ABSOLUTE COUNT (BEAKER) (test 0.45 K/ L 0.04-0.36 zfpj=160) BASOPHILS ABSOLUTE COUNT (BEAKER) (test 0.07 K/ L 0.01-0.08 eqyv=571) IMMATURE GRANULOCYTES-RELATIVE PERCENT (BEAKER) 0 % 0-1 (test eujc=1735) [id number] 06:35:00 Test Item Value Reference Range Comments MAGNESIUM (BEAKER) (test jofn=913) 1.9 mg/dL 1.6-2.6 BASIC METABOLIC [id number] 06:35:00 Test Item Value Reference Range Comments SODIUM (BEAKER) (test 139 meq/L 136-145 snhi=841) POTASSIUM (BEAKER) (test 3.5 meq/L 3.5-5.1 nyky=024) CHLORIDE (BEAKER) (test 107 meq/L 98-107 hgrk=260) CO2 (BEAKER) (test 23 meq/L 22-29 pfii=947) BLOOD UREA NITROGEN 10 mg/dL 7-21 (BEAKER) (test fnqa=888) CREATININE (BEAKER) (test 0.60 mg/dL 0.57-1.25 mhlj=672) GLUCOSE RANDOM (BEAKER) 109 mg/dL 70-105 (test myaa=356) CALCIUM (BEAKER) (test 8.4 mg/dL 8.4-10.2 owff=055) EGFR (BEAKER) (test 97 mL/min/1.73 sq m ESTIMATED GFR IS NOT iuyb=9973) ACCURATE CREATININE CLEARANCE IN PREDICTING GLOMERULAR FILTRATION RATE. ESTIMATED GFR IS NOT APPLICABLE FOR DIALYSIS PATIENTS. POCT-GLUCOSE [id number] 21:22:00 Test Item Value Reference Range Comments POC-GLUCOSE METER (BEAKER) 139 mg/dL 70-110 TESTED AT [address] (test qhls=7285) [place] [address] POCT-GLUCOSE [id number] 17:15:00 Test Item Value Reference Range Comments POC-GLUCOSE METER (BEAKER) 232 mg/dL 70-110 TESTED AT [address] (test dqoq=7786) [place] [address] PLATELET AGGREGATION: FUNCTION [id number] 16:33:00 Test Item Value Reference Range Comments WEAK ADP RESULT(BEAKER) (test 21 % 60-91 hofx=0425) PLATELET FUNCTION SCREEN 0-39% indicates marked platelet INTERP (BEAKER) (test dysfunction uqtn=7611) [id number] Magen Willingham MD (electronic (BEAKER) (test huti=9618) signature) PLATELET COUNT AGG (BEAKER) 238 K/CU MM 150-450 (test pgiu=2104) POCT-GLUCOSE [id number] 13:59:00 Test Item Value Reference Range Comments POC-GLUCOSE METER (BEAKER) 227 mg/dL 70-110 TESTED AT [address] (test nabk=6974) [place] [address] [id number] 05:56:00 Test Item Value Reference Range Comments MAGNESIUM (BEAKER) (test oagq=273) 2.0 mg/dL 1.6-2.6 BASIC METABOLIC [id number] 05:56:00 Test Item Value Reference Range Comments SODIUM (BEAKER) (test 138 meq/L 136-145 eabl=563) POTASSIUM (BEAKER) (test 3.7 meq/L 3.5-5.1 labp=959) CHLORIDE (BEAKER) (test 107 meq/L 98-107 cgye=847) CO2 (BEAKER) (test 23 meq/L 22-29 pdzb=780) BLOOD UREA NITROGEN 11 mg/dL 7-21 (BEAKER) (test hahx=300) CREATININE (BEAKER) (test 0.61 mg/dL 0.57-1.25 culh=345) GLUCOSE RANDOM (BEAKER) 211 mg/dL 70-105 (test sbyt=096) CALCIUM (BEAKER) (test 8.5 mg/dL 8.4-10.2 axzi=395) EGFR (BEAKER) (test 95 mL/min/1.73 sq m ESTIMATED GFR IS NOT umfm=7104) ACCURATE CREATININE CLEARANCE IN PREDICTING GLOMERULAR FILTRATION RATE. ESTIMATED GFR IS NOT APPLICABLE FOR DIALYSIS PATIENTS. RAD, CHEST, 1 VIEW, NON [id number] 04:54:00Reason for exam:->pl effusionShould this be performed [...] MDReport Verified Date/Time: 07/11/2017 04:54:28 Reading Location: [address] Body Reading Room CBC W/PLT COUNT & AUTO [id number] 04:48:00 Test Item Value Reference Range Comments WHITE BLOOD CELL COUNT (BEAKER) (test bozc=811) 13.6 K/ L 3.5-10.5 RED BLOOD CELL COUNT (BEAKER) (test ysza=325) 3.02 M/ L 3.93-5.22 HEMOGLOBIN (BEAKER) (test ylbn=656) 8.7 GM/DL 11.2-15.7 HEMATOCRIT (BEAKER) (test byyc=303) 27.1 % 34.1-44.9 MEAN CORPUSCULAR VOLUME (BEAKER) (test zlsy=145) 89.7 fL 79.4-94.8 MEAN CORPUSCULAR HEMOGLOBIN (BEAKER) (test 28.8 pg 25.6-32.2 jpuq=440) MEAN CORPUSCULAR HEMOGLOBIN CONC (BEAKER) (test 32.1 GM/DL 32.2-35.5 dpuv=345) RED CELL DISTRIBUTION WIDTH (BEAKER) (test 13.9 % 11.7-14.4 pxbs=835) PLATELET COUNT (BEAKER) (test ntqx=307) 162 K/CU MM 150-450 MEAN PLATELET VOLUME (BEAKER) (test mdqk=236) 12.2 fL 9.4-12.3 NUCLEATED RED BLOOD CELLS (BEAKER) (test 0 /100 WBC 0-0 fusl=373) NEUTROPHILS RELATIVE PERCENT (BEAKER) (test 79 % mbfu=941) LYMPHOCYTES RELATIVE PERCENT (BEAKER) (test 11 % wlee=968) MONOCYTES RELATIVE PERCENT (BEAKER) (test 8 % noua=476) EOSINOPHILS RELATIVE PERCENT (BEAKER) (test 1 % wjta=577) BASOPHILS RELATIVE PERCENT (BEAKER) (test 1 % kdkc=478) NEUTROPHILS ABSOLUTE COUNT (BEAKER) (test 10.71 K/ L 1.56-6.13 lvcv=547) LYMPHOCYTES ABSOLUTE COUNT (BEAKER) (test 1.52 K/ L 1.18-3.74 exvb=452) MONOCYTES ABSOLUTE COUNT (BEAKER) (test 1.08 K/ L 0.24-0.36 cabe=090) EOSINOPHILS ABSOLUTE COUNT (BEAKER) (test 0.14 K/ L 0.04-0.36 cusf=544) BASOPHILS ABSOLUTE COUNT (BEAKER) (test 0.08 K/ L 0.01-0.08 clqc=837) IMMATURE GRANULOCYTES-RELATIVE PERCENT (BEAKER) 1 % 0-1 (test pvop=9967) POCT-GLUCOSE [id number] 02:47:00 Test Item Value Reference Range Comments POC-GLUCOSE METER (BEAKER) 192 mg/dL 70-110 TESTED AT [place] [address] [address] (test bylw=0284) [facility] [address] POCT-GLUCOSE [id number] 02:47:00 Test Item Value Reference Range Comments POC-GLUCOSE METER (BEAKER) 190 mg/dL 70-110 TESTED AT [address] (test zyan=5121) [place] [address] [id number] 17:47:00 Test Item Value Reference Range Comments POTASSIUM (BEAKER) (test unqy=506) 3.9 meq/L 3.5-5.1 PRN - repeat glucose levels every 1 hour or as specified by insulin titration orders until glucose level is less than 450 mg/dLCheck Serum Potassium level 2 hours after oral potassium replacement completed or 30 min after intravenous potassium replacement.[id number] 17:47:00 Test Item Value Reference Range Comments GLUCOSE RANDOM (BEAKER) (test kcip=939) 183 mg/dL 70-105 PRN - repeat glucose levels every 1 hour or as specified by insulin titration orders until glucose level is less than 450 mg/dLCheck Serum Potassium level 2 hours after oral potassium replacement completed or 30 min after intravenous potassium replacement.POCT-GLUCOSE [id number] 14:28:00 Test Item Value Reference Range Comments POC-GLUCOSE METER (BEAKER) 211 mg/dL 70-110 TESTED AT [address] (test rxbh=3992) [place] [address] POCT-GLUCOSE [id number] 14:28:00 Test Item Value Reference Range Comments POC-GLUCOSE METER (BEAKER) 136 mg/dL 70-110 TESTED AT [address] (test nyyd=4624) [place] [address] POCT-GLUCOSE [id number] 06:21:00 Test Item Value Reference Range Comments POC-GLUCOSE METER (BEAKER) 194 mg/dL 70-110 TESTED AT [address] (test mxcm=5571) [place] [address] CBC W/PLT COUNT & AUTO [id number] 05:11:00 Test Item Value Reference Range Comments WHITE BLOOD CELL COUNT (BEAKER) (test kvru=190) 14.6 K/ L 3.5-10.5 RED BLOOD CELL COUNT (BEAKER) (test xrbp=222) 3.17 M/ L 3.93-5.22 HEMOGLOBIN (BEAKER) (test uabc=234) 9.3 GM/DL 11.2-15.7 HEMATOCRIT (BEAKER) (test wiuk=654) 28.3 % 34.1-44.9 MEAN CORPUSCULAR VOLUME (BEAKER) (test nyzm=585) 89.3 fL 79.4-94.8 MEAN CORPUSCULAR HEMOGLOBIN (BEAKER) (test 29.3 pg 25.6-32.2 gfgj=067) MEAN CORPUSCULAR HEMOGLOBIN CONC (BEAKER) (test 32.9 GM/DL 32.2-35.5 ijhc=394) RED CELL DISTRIBUTION WIDTH (BEAKER) (test 13.4 % 11.7-14.4 rcsb=978) PLATELET COUNT (BEAKER) (test dpzw=306) 179 K/CU MM 150-450 MEAN PLATELET VOLUME (BEAKER) (test asxn=049) 11.2 fL 9.4-12.3 NUCLEATED RED BLOOD CELLS (BEAKER) (test 0 /100 WBC 0-0 tufk=576) NEUTROPHILS RELATIVE PERCENT (BEAKER) (test 81 % uuux=165) LYMPHOCYTES RELATIVE PERCENT (BEAKER) (test 11 % rfxt=203) MONOCYTES RELATIVE PERCENT (BEAKER) (test 8 % fcwi=620) EOSINOPHILS RELATIVE PERCENT (BEAKER) (test 0 % znfp=981) BASOPHILS RELATIVE PERCENT (BEAKER) (test 0 % oxbp=392) NEUTROPHILS ABSOLUTE COUNT (BEAKER) (test 11.76 K/ L 1.56-6.13 jtsm=094) LYMPHOCYTES ABSOLUTE COUNT (BEAKER) (test 1.56 K/ L 1.18-3.74 iywu=314) MONOCYTES ABSOLUTE COUNT (BEAKER) (test 1.17 K/ L 0.24-0.36 hssq=618) EOSINOPHILS ABSOLUTE COUNT (BEAKER) (test 0.00 K/ L 0.04-0.36 xulu=642) BASOPHILS ABSOLUTE COUNT (BEAKER) (test 0.04 K/ L 0.01-0.08 ngly=633) IMMATURE GRANULOCYTES-RELATIVE PERCENT (BEAKER) 1 % 0-1 (test lmwk=3001) [id number] 04:27:00 Test Item Value Reference Range Comments PHOSPHORUS (BEAKER) (test lbwn=412) 2.8 mg/dL 2.3-4.7 [id number] 04:27:00 Test Item Value Reference Range Comments MAGNESIUM (BEAKER) (test hskn=913) 2.2 mg/dL 1.6-2.6 BASIC METABOLIC [id number] 04:27:00 Test Item Value Reference Range Comments SODIUM (BEAKER) (test 140 meq/L 136-145 kwkv=411) POTASSIUM (BEAKER) (test 4.1 meq/L 3.5-5.1 wzlw=327) CHLORIDE (BEAKER) (test 110 meq/L 98-107 bqbo=459) CO2 (BEAKER) (test 22 meq/L 22-29 rklb=543) BLOOD UREA NITROGEN 11 mg/dL 7-21 (BEAKER) (test nzcf=050) CREATININE (BEAKER) (test 0.62 mg/dL 0.57-1.25 vhjy=449) GLUCOSE RANDOM (BEAKER) 144 mg/dL 70-105 (test lpdz=433) CALCIUM (BEAKER) (test 8.5 mg/dL 8.4-10.2 dqli=404) EGFR (BEAKER) (test 93 mL/min/1.73 sq m ESTIMATED GFR IS NOT snda=6662) ACCURATE CREATININE CLEARANCE IN PREDICTING GLOMERULAR FILTRATION RATE. ESTIMATED GFR IS NOT APPLICABLE FOR DIALYSIS PATIENTS. RAD, CHEST, 1 VIEW, NON [id number] 04:18:00while patient is intubated or has chest [...] Bowles Verified Date/Time: 07/10/2017 04:18:51 Reading Location: [facility] C013Y [facility] Body Reading Room [id number] 00:26:00 Test Item Value Reference Range Comments POTASSIUM (BEAKER) (test vdsu=327) 4.3 meq/L 3.5-5.1 [id number] 00:26:00 Test Item Value Reference Range Comments MAGNESIUM (BEAKER) (test ltxz=227) 2.4 mg/dL 1.6-2.6 POCT-GLUCOSE [id number] 23:30:00 Test Item Value Reference Range Comments POC-GLUCOSE METER (BEAKER) 189 mg/dL 70-110 TESTED AT [address] (test dqil=5373) [place] [address] POCT-GLUCOSE [id number] 23:30:00 Test Item Value Reference Range Comments POC-GLUCOSE METER (BEAKER) 196 mg/dL 70-110 TESTED AT [address] (test plme=1632) [place] [address] POCT-GLUCOSE [id number] 20:47:00 Test Item Value Reference Range Comments POC-GLUCOSE METER (BEAKER) 207 mg/dL 70-110 TESTED AT [address] (test splx=3443) [place] [address] BLOOD GAS, [id number] 17:33:00 Test Item Value Reference Range Comments PH ARTERIAL (BEAKER) (test zakn=612) 7.47 7.35-7.45 PCO2 ARTERIAL (BEAKER) (test nlix=061) 31 mmHg 35-45 PO2 ARTERIAL (BEAKER) (test rrms=702) 102 mmHg 80-90 O2 SATURATION ARTERIAL (BEAKER) (test dsom=605) 98.1 % 96.0-97.0 HCO3 ARTERIAL (BEAKER) (test bpej=363) 22 mmol/L 21-29 BASE EXCESS ARTERIAL (BEAKER) (test icwb=634) -0.8 mmol/L -2.0-3.0 PATIENT TEMPERATURE (BEAKER) (test nrby=8638) 36.7 C FIO2 (BEAKER) (test eppk=0571) 40.0 % POCT-GLUCOSE [id number] 15:34:00 Test Item Value Reference Range Comments POC-GLUCOSE METER (BEAKER) 251 mg/dL 70-110 TESTED AT [address] (test wibr=1077) [place] [id number] BLOOD GAS, [id number] 13:40:00 Test Item Value Reference Range Comments PH ARTERIAL (BEAKER) (test qhav=648) 7.42 7.35-7.45 PCO2 ARTERIAL (BEAKER) (test cnlm=688) 32 mmHg 35-45 PO2 ARTERIAL (BEAKER) (test tczf=455) 178 mmHg 80-90 O2 SATURATION ARTERIAL (BEAKER) (test btzs=284) 99.3 % 96.0-97.0 HCO3 ARTERIAL (BEAKER) (test raxu=015) 21 mmol/L 21-29 BASE EXCESS ARTERIAL (BEAKER) (test fwgg=666) -3.7 mmol/L -2.0-3.0 PATIENT TEMPERATURE (BEAKER) (test qpcs=1986) 36.1 C FIO2 (BEAKER) (test sged=5630) 60.0 % CBC W/PLT COUNT & AUTO [id number] 13:35:00 Test Item Value Reference Range Comments WHITE BLOOD CELL COUNT (BEAKER) (test lxhv=621) 24.5 K/ L 3.5-10.5 RED BLOOD CELL COUNT (BEAKER) (test exnx=039) 3.22 M/ L 3.93-5.22 HEMOGLOBIN (BEAKER) (test grce=089) 9.4 GM/DL 11.2-15.7 HEMATOCRIT (BEAKER) (test vvnr=530) 29.2 % 34.1-44.9 MEAN CORPUSCULAR VOLUME (BEAKER) (test fhsj=556) 90.7 fL 79.4-94.8 MEAN CORPUSCULAR HEMOGLOBIN (BEAKER) (test 29.2 pg 25.6-32.2 ectc=202) MEAN CORPUSCULAR HEMOGLOBIN CONC (BEAKER) (test 32.2 GM/DL 32.2-35.5 nykx=916) RED CELL DISTRIBUTION WIDTH (BEAKER) (test 13.3 % 11.7-14.4 jrao=368) PLATELET COUNT (BEAKER) (test qixe=753) 200 K/CU MM 150-450 MEAN PLATELET VOLUME (BEAKER) (test culv=788) 11.6 fL 9.4-12.3 NUCLEATED RED BLOOD CELLS (BEAKER) (test 0 /100 WBC 0-0 zsrx=079) NEUTROPHILS RELATIVE PERCENT (BEAKER) (test 70 % lvhb=375) LYMPHOCYTES RELATIVE PERCENT (BEAKER) (test 24 % anmh=997) MONOCYTES RELATIVE PERCENT (BEAKER) (test 5 % dquq=335) EOSINOPHILS RELATIVE PERCENT (BEAKER) (test 1 % bymb=588) BASOPHILS RELATIVE PERCENT (BEAKER) (test 0 % ulgc=925) NEUTROPHILS ABSOLUTE COUNT (BEAKER) (test 17.12 K/ L 1.56-6.13 rduc=962) LYMPHOCYTES ABSOLUTE COUNT (BEAKER) (test 5.80 K/ L 1.18-3.74 ajya=927) MONOCYTES ABSOLUTE COUNT (BEAKER) (test 1.15 K/ L 0.24-0.36 xjnj=705) EOSINOPHILS ABSOLUTE COUNT (BEAKER) (test 0.22 K/ L 0.04-0.36 rtlt=445) BASOPHILS ABSOLUTE COUNT (BEAKER) (test 0.08 K/ L 0.01-0.08 yboj=724) IMMATURE GRANULOCYTES-RELATIVE PERCENT (BEAKER) 1 % 0-1 (test exom=1452) (MANUAL DIFFERENTIAL)2017-07-09 13:35:00 Test Item Value Reference Range Comments TOTAL COUNTED (BEAKER) (test rixb=7975) WBC MORPHOLOGY (BEAKER) (test jfyn=603) Normal PLT MORPHOLOGY (BEAKER) (test tual=542) Normal RBC MORPHOLOGY (BEAKER) (test yrwt=624) Normal [id number] 12:47:00 Test Item Value Reference Range Comments MAGNESIUM (BEAKER) (test 3.1 mg/dL 1.6-2.6 Specimen slightly hemolyzed amlm=332) BASIC METABOLIC [id number] 12:47:00 Test Item Value Reference Range Comments SODIUM (BEAKER) (test 139 meq/L 136-145 nutu=302) POTASSIUM (BEAKER) (test 3.6 meq/L 3.5-5.1 Specimen slightly zxaq=440) hemolyzed CHLORIDE (BEAKER) (test 109 meq/L 98-107 qjzp=603) CO2 (BEAKER) (test 18 meq/L 22-29 bfgs=665) BLOOD UREA NITROGEN 17 mg/dL 7-21 (BEAKER) (test hhna=644) CREATININE (BEAKER) (test 0.75 mg/dL 0.57-1.25 Specimen slightly iibd=505) hemolyzed GLUCOSE RANDOM (BEAKER) 280 mg/dL 70-105 (test xyww=142) CALCIUM (BEAKER) (test 8.7 mg/dL 8.4-10.2 kbln=071) EGFR (BEAKER) (test 75 mL/min/1.73 sq m ESTIMATED GFR IS NOT hbdf=7590) ACCURATE CREATININE CLEARANCE IN PREDICTING GLOMERULAR FILTRATION RATE. ESTIMATED GFR IS NOT APPLICABLE FOR DIALYSIS PATIENTS. LACTIC ACID, ARTERIAL, WHOLE [id number] 12:38:00 Test Item Value Reference Range Comments LACTATE BLOOD ARTERIAL (2) 4.5 mmol/L 0.5-2.2 Specimen slightly hemolyzed (BEAKER) (test urwm=0338) Effective 08/18/2015: Units/Reference Range ChangeNew: 0.5-2.2 mmol/L Previous: 5 -20 mg/dLRAD, CHEST, 1 VIEW, NON [id number] 12:30:00Post-intubationReason for exam:->intubationShould this be performed at [...] Verified Date/Time: 07/09/2017 12: 30:43 Reading Location: [facility] Radiology Reading Room [id number] 12: 24:00 Test Item Value Reference Range Comments PROTIME (BEAKER) (test hysb=790) 17.7 seconds 11.7-14.7 INR (BEAKER) (test uhtt=483) 1.5 <=5.9 PARTIAL THROMBOPLASTIN TIME (BEAKER) (test 28.1 seconds 22.5-36.0 fjao=097) RECOMMENDED COUMADIN/WARFARIN INR THERAPY RANGESSTANDARD DOSE: 2.0 - 3.0 Includes: PROPHYLAXIS forvenous thrombosis, systemic embolization; TREATMENT for venous thrombosis and/or pulmonary embolus.HIGH RISK: Target INR is 2.5-3.5 for patients with mechanical heart valves.BLOOD GAS, [id number] 12:10:00 Test Item Value Reference Range Comments PH ARTERIAL (BEAKER) (test aygl=108) 7.35 7.35-7.45 PCO2 ARTERIAL (BEAKER) (test ieza=380) 36 mmHg 35-45 PO2 ARTERIAL (BEAKER) (test jszk=058) 91 mmHg 80-90 O2 SATURATION ARTERIAL (BEAKER) (test pzxh=701) 96.9 % 96.0-97.0 HCO3 ARTERIAL (BEAKER) (test vcnx=833) 20 mmol/L 21-29 BASE EXCESS ARTERIAL (BEAKER) (test jefp=937) -5.6 mmol/L -2.0-3.0 PATIENT TEMPERATURE (BEAKER) (test givh=5167) 36.1 C FIO2 (BEAKER) (test qmgk=3382) 60.0 % GLUCOSE-STAT [id number] 12:10:00 Test Item Value Reference Range Comments GLUCOSE RANDOM (BEAKER) (test dkto=871) 264 mg/dL 70-110 HGB/HCT (H&H) - STAT [id number] 12:10:00 Test Item Value Reference Range Comments HEMOGLOBIN (BEAKER) (test vbwb=718) 13.6 g/dL 12.0-15.0 HEMATOCRIT (BEAKER) (test zqnu=630) 40.0 % 36.0-45.0 SODIUM NA-STAT [id number] 12:09:00 Test Item Value Reference Range Comments SODIUM (BEAKER) (test lkkr=593) 138 meq/L 135-148 POTASSIUM-STAT [id number] 12:09:00 Test Item Value Reference Range Comments POTASSIUM (BEAKER) (test jgjw=880) 3.6 meq/L 3.6-5.5 CALCIUM, [id number] 12:09:00 Test Item Value Reference Range Comments CALCIUM IONIZED (BEAKER) (test yrbo=003) 1.22 mmol/L 1.12-1.27 PH, BLOOD (BEAKER) (test kgos=0013) 7.33 OXYGEN SATURATION, [id number] 12:09:00 Test Item Value Reference Range Comments O2 SATURATION (MEASURED) (BEAKER) (test lvdb=1621) 78.2 % [id number] 11:26:00 Test Item Value Reference Range Comments ACTIVATED CLOTTING TIME (BEAKER) 97 sec TESTED AT [address] (test kofy=253) [place] [id number] 11:26:00 Test Item Value Reference Range Comments ACTIVATED CLOTTING TIME 549 sec TESTED AT [address] (BEAKER) (test hvrp=242) [place] [address] [id number] 11:26:00 Test Item Value Reference Range Comments ACTIVATED CLOTTING TIME 659 sec TESTED AT [address] (BEAKER) (test lzmy=368) [place] [address] [id number] 11:26:00 Test Item Value Reference Range Comments ACTIVATED CLOTTING TIME 703 sec TESTED AT [address] (BEAKER) (test yuhv=547) [place] [address] [id number] 10:43:00 Test Item Value Reference Range Comments FIBRINOGEN LEVEL ([facility]) (test etta=394) 276 mg/dl 225-434 [id number] 10:43:00 Test Item Value Reference Range Comments PARTIAL THROMBOPLASTIN TIME (BEAKER) (test 30.5 seconds 22.5-36.0 ubwq=642) PROTHROMBIN TIME/[id number] 10:42:00 Test Item Value Reference Range Comments PROTIME (BEAKER) (test gmaj=676) 18.4 seconds 11.7-14.7 [facility] (test poae=506) 1.5 <=5.9 RECOMMENDED COUMADIN/WARFARIN INR THERAPY RANGESSTANDARD DOSE: 2.0 - 3.0 Includes: PROPHYLAXIS forvenous thrombosis, systemic embolization; TREATMENT for venous thrombosis and/or pulmonary embolus.HIGH RISK: Target INR is 2.5-3.5 for patients with mechanical heart valves.PLATELET [id number] 10:38:00 Test Item Value Reference Range Comments PLATELET COUNT (BEAKER) (test fpap=341) 191 K/CU MM 150-450 POTASSIUM-STAT [id number] 10:29:00 Test Item Value Reference Range Comments POTASSIUM (BEAKER) (test ycky=731) 4.2 meq/L 3.6-5.5 CALCIUM, [id number] 10:29:00 Test Item Value Reference Range Comments CALCIUM IONIZED (BEAKER) (test oavv=852) 1.27 mmol/L 1.12-1.27 PH, BLOOD (BEAKER) (test bqyl=3976) 7.37 BLOOD GAS, [id number] 10:29:00 Test Item Value Reference Range Comments PH ARTERIAL (BEAKER) (test xpri=748) 7.38 7.35-7.45 PCO2 ARTERIAL (BEAKER) (test zabc=296) 39 mmHg 35-45 PO2 ARTERIAL (BEAKER) (test mlnx=861) 324 mmHg 80-90 O2 SATURATION ARTERIAL (BEAKER) (test pfbn=749) 99.7 % 96.0-97.0 HCO3 ARTERIAL (BEAKER) (test dwxw=294) 23 mmol/L 21-29 BASE EXCESS ARTERIAL (BEAKER) (test iqpy=037) -2.3 mmol/L -2.0-3.0 PATIENT TEMPERATURE (BEAKER) (test dtud=9235) 36.0 C FIO2 (BEAKER) (test fccm=6802) 92.1 % GLUCOSE-STAT [id number] 10:29:00 Test Item Value Reference Range Comments GLUCOSE RANDOM (BEAKER) (test gijv=234) 230 mg/dL 70-110 SODIUM NA-STAT [id number] 10:29:00 Test Item Value Reference Range Comments SODIUM (BEAKER) (test jshr=841) 134 meq/L 135-148 HGB/HCT (H&H) - STAT [id number] 10:29:00 Test Item Value Reference Range Comments HEMOGLOBIN (BEAKER) (test oxvv=529) 9.3 g/dL 12.0-15.0 HEMATOCRIT (BEAKER) (test fown=377) 27.0 % 36.0-45.0 POTASSIUM-STAT [id number] 09:55:00 Test Item Value Reference Range Comments POTASSIUM (BEAKER) (test ntfw=778) 5.1 meq/L 3.6-5.5 BLOOD GAS, [id number] 09:55:00 Test Item Value Reference Range Comments PH ARTERIAL (BEAKER) (test nzmb=536) 7.41 7.35-7.45 PCO2 ARTERIAL (BEAKER) (test isry=569) 38 mmHg 35-45 PO2 ARTERIAL (BEAKER) (test dkjj=897) 176 mmHg 80-90 O2 SATURATION ARTERIAL (BEAKER) (test feil=789) 99.3 % 96.0-97.0 HCO3 ARTERIAL (BEAKER) (test nyql=990) 24 mmol/L 21-29 BASE EXCESS ARTERIAL (BEAKER) (test jukt=744) -1.1 mmol/L -2.0-3.0 PATIENT TEMPERATURE (BEAKER) (test rnij=2403) 35.0 C FIO2 (BEAKER) (test kubt=8633) 70.0 % SODIUM NA-STAT [id number] 09:55:00 Test Item Value Reference Range Comments SODIUM (BEAKER) (test eiuj=849) 132 meq/L 135-148 GLUCOSE-STAT [id number] 09:55:00 Test Item Value Reference Range Comments GLUCOSE RANDOM (BEAKER) (test apby=809) 215 mg/dL 70-110 HGB/HCT (H&H) - STAT [id number] 09:55:00 Test Item Value Reference Range Comments HEMOGLOBIN (BEAKER) (test ocnk=813) 8.2 g/dL 12.0-15.0 HEMATOCRIT (BEAKER) (test ksrf=734) 24.0 % 36.0-45.0 BLOOD GAS, [id number] 09:44:00 Test Item Value Reference Range Comments PH ARTERIAL (BEAKER) (test ouzq=415) 7.37 7.35-7.45 PCO2 ARTERIAL (BEAKER) (test wgay=599) 41 mmHg 35-45 PO2 ARTERIAL (BEAKER) (test yvej=369) 252 mmHg 80-90 O2 SATURATION ARTERIAL (BEAKER) (test dutm=984) 99.6 % 96.0-97.0 HCO3 ARTERIAL (BEAKER) (test uowt=472) 24 mmol/L 21-29 BASE EXCESS ARTERIAL (BEAKER) (test mbuc=999) -2.1 mmol/L -2.0-3.0 PATIENT TEMPERATURE (BEAKER) (test ycad=4061) 33.9 C FIO2 (BEAKER) (test wbpz=8610) 60.0 % SODIUM NA-STAT [id number] 09:44:00 Test Item Value Reference Range Comments SODIUM (BEAKER) (test ghfz=686) 132 meq/L 135-148 GLUCOSE-STAT [id number] 09:44:00 Test Item Value Reference Range Comments GLUCOSE RANDOM (BEAKER) (test anhx=704) 224 mg/dL 70-110 HGB/HCT (H&H) - STAT [id number] 09:44:00 Test Item Value Reference Range Comments HEMOGLOBIN (BEAKER) (test zrxh=073) 8.2 g/dL 12.0-15.0 HEMATOCRIT (BEAKER) (test euuw=405) 24.0 % 36.0-45.0 POTASSIUM-STAT [id number] 09:39:00 Test Item Value Reference Range Comments POTASSIUM (BEAKER) (test qfez=845) 5.2 meq/L 3.6-5.5 POTASSIUM-STAT [id number] 08:23:00 Test Item Value Reference Range Comments POTASSIUM (BEAKER) (test rvus=209) 4.4 meq/L 3.6-5.5 BLOOD GAS, [id number] 08:23:00 Test Item Value Reference Range Comments PH ARTERIAL (BEAKER) (test kdlf=537) 7.47 7.35-7.45 PCO2 ARTERIAL (BEAKER) (test nvrl=790) 34 mmHg 35-45 PO2 ARTERIAL (BEAKER) (test nxlv=108) 341 mmHg 80-90 O2 SATURATION ARTERIAL (BEAKER) (test byiq=040) 99.8 % 96.0-97.0 HCO3 ARTERIAL (BEAKER) (test tdvd=769) 24 mmol/L 21-29 BASE EXCESS ARTERIAL (BEAKER) (test xbja=978) 0.7 mmol/L -2.0-3.0 PATIENT TEMPERATURE (BEAKER) (test vioj=3646) 36.0 C FIO2 (BEAKER) (test vwgi=5614) 100.0 % GLUCOSE-STAT [id number] 08:23:00 Test Item Value Reference Range Comments GLUCOSE RANDOM (BEAKER) (test spxf=232) 251 mg/dL 70-110 HGB/HCT (H&H) - STAT [id number] 08:23:00 Test Item Value Reference Range Comments HEMOGLOBIN (BEAKER) (test ublv=139) 12.0 g/dL 12.0-15.0 HEMATOCRIT (BEAKER) (test pdbj=009) 35.0 % 36.0-45.0 SODIUM NA-STAT [id number] 08:23:00 Test Item Value Reference Range Comments SODIUM (BEAKER) (test gwse=212) 134 meq/L 135-148 BASIC METABOLIC [id number] 06:33:00 Test Item Value Reference Range Comments SODIUM (BEAKER) (test 138 meq/L 136-145 gjfu=175) POTASSIUM (BEAKER) (test 4.5 meq/L 3.5-5.1 iiin=524) CHLORIDE (BEAKER) (test 104 meq/L 98-107 agcu=256) CO2 (BEAKER) (test 22 meq/L 22-29 rsho=283) BLOOD UREA NITROGEN 22 mg/dL 7-21 (BEAKER) (test hnvc=757) CREATININE (BEAKER) (test 0.79 mg/dL 0.57-1.25 fegx=442) GLUCOSE RANDOM (BEAKER) 196 mg/dL 70-105 (test uocw=012) CALCIUM (BEAKER) (test 9.6 mg/dL 8.4-10.2 xhum=831) EGFR (BEAKER) (test 70 mL/min/1.73 sq m ESTIMATED GFR IS NOT yabu=4756) ACCURATE CREATININE CLEARANCE IN PREDICTING GLOMERULAR FILTRATION RATE. ESTIMATED GFR IS NOT APPLICABLE FOR DIALYSIS PATIENTS. [id number] 05:41:00 Test Item Value Reference Range Comments COL/EPI CLOSURE TIME (BEAKER) (test rxce=3397) > Seconds 78-191 COL/ADP CLOSURE TIME (BEAKER) (test toxo=6246) 99 Seconds 43-122 PLATELET COUNT AGG (BEAKER) (test cpdf=9462) 245 K/CU MM 150-450 CBC W/PLT COUNT & AUTO [id number] 05:06:00 Test Item Value Reference Range Comments WHITE BLOOD CELL COUNT (BEAKER) (test vqnt=541) 10.6 K/ L 3.5-10.5 RED BLOOD CELL COUNT (BEAKER) (test lgtf=779) 4.35 M/ L 3.93-5.22 HEMOGLOBIN (BEAKER) (test radv=271) 12.7 GM/DL 11.2-15.7 HEMATOCRIT (BEAKER) (test ucid=614) 39.0 % 34.1-44.9 MEAN CORPUSCULAR VOLUME (BEAKER) (test cglu=019) 89.7 fL 79.4-94.8 MEAN CORPUSCULAR HEMOGLOBIN (BEAKER) (test 29.2 pg 25.6-32.2 lzud=679) MEAN CORPUSCULAR HEMOGLOBIN CONC (BEAKER) (test 32.6 GM/DL 32.2-35.5 odkg=776) RED CELL DISTRIBUTION WIDTH (BEAKER) (test 13.3 % 11.7-14.4 wkis=099) PLATELET COUNT (BEAKER) (test iobx=659) 233 K/CU MM 150-450 MEAN PLATELET VOLUME (BEAKER) (test chsl=020) 11.7 fL 9.4-12.3 NUCLEATED RED BLOOD CELLS (BEAKER) (test 0 /100 WBC 0-0 zlyj=094) NEUTROPHILS RELATIVE PERCENT (BEAKER) (test 57 % ruoe=781) LYMPHOCYTES RELATIVE PERCENT (BEAKER) (test 33 % ryec=152) MONOCYTES RELATIVE PERCENT (BEAKER) (test 6 % lqdv=666) EOSINOPHILS RELATIVE PERCENT (BEAKER) (test 4 % vpvo=019) BASOPHILS RELATIVE PERCENT (BEAKER) (test 1 % piro=994) NEUTROPHILS ABSOLUTE COUNT (BEAKER) (test 6.00 K/ L 1.56-6.13 tbyl=266) LYMPHOCYTES ABSOLUTE COUNT (BEAKER) (test 3.44 K/ L 1.18-3.74 rlvx=907) MONOCYTES ABSOLUTE COUNT (BEAKER) (test 0.66 K/ L 0.24-0.36 xhhk=751) EOSINOPHILS ABSOLUTE COUNT (BEAKER) (test 0.38 K/ L 0.04-0.36 ezoz=214) BASOPHILS ABSOLUTE COUNT (BEAKER) (test 0.07 K/ L 0.01-0.08 uoli=617) IMMATURE GRANULOCYTES-RELATIVE PERCENT (BEAKER) 0 % 0-1 (test rmno=7556) POCT-GLUCOSE [id number] 22:04:00 Test Item Value Reference Range Comments POC-GLUCOSE METER (BEAKER) 124 mg/dL 70-110 TESTED AT [place] [address] (test yeei=2355) [facility] [address] POCT-GLUCOSE [id number] 21:09:00 Test Item Value Reference Range Comments POC-GLUCOSE METER (BEAKER) 58 mg/dL 70-110 Notified TREY HENDRIX/TESTED AT [facility] (test nhrs=0748) [address] [place] [address] POCT-GLUCOSE [id number] 16:36:00 Test Item Value Reference Range Comments POC-GLUCOSE METER (BEAKER) 187 mg/dL 70-110 [address] (test jyox=9979) [place] [address] POCT-GLUCOSE [id number] 11:53:00 Test Item Value Reference Range Comments POC-GLUCOSE METER (BEAKER) 192 mg/dL 70-110 TESTED AT [address] (test xnne=9959) [place] [address] BASIC METABOLIC [id number] 10:44:00 Test Item Value Reference Range Comments SODIUM (BEAKER) (test 138 meq/L 136-145 cpxc=566) POTASSIUM (BEAKER) (test 4.5 meq/L 3.5-5.1 oumv=843) CHLORIDE (BEAKER) (test 105 meq/L 98-107 rbyn=885) CO2 (BEAKER) (test 22 meq/L 22-29 ejfd=059) BLOOD UREA NITROGEN 23 mg/dL 7-21 (BEAKER) (test rgms=888) CREATININE (BEAKER) (test 0.81 mg/dL 0.57-1.25 hvif=375) GLUCOSE RANDOM (BEAKER) 237 mg/dL 70-105 (test crrf=244) CALCIUM (BEAKER) (test 9.5 mg/dL 8.4-10.2 gjkz=718) EGFR (BEAKER) (test 68 mL/min/1.73 sq m ESTIMATED GFR IS NOT cggu=3693) ACCURATE CREATININE CLEARANCE IN PREDICTING GLOMERULAR FILTRATION RATE. ESTIMATED GFR IS NOT APPLICABLE FOR DIALYSIS PATIENTS. POCT-GLUCOSE [id number] 07:46:00 Test Item Value Reference Range Comments POC-GLUCOSE METER (BEAKER) 283 mg/dL 70-110 [address]ED AT [address] (test njrt=3789) [place] [address] CBC (HEMOGRAM ONLY)2017-07-08 06:55:00 Test Item Value Reference Range Comments WHITE BLOOD CELL COUNT (BEAKER) (test wert=044) 9.1 K/ L 3.5-10.5 RED BLOOD CELL COUNT (BEAKER) (test spgr=150) 4.37 M/ L 3.93-5.22 HEMOGLOBIN (BEAKER) (test ymjh=736) 12.6 GM/DL 11.2-15.7 HEMATOCRIT (BEAKER) (test llbk=311) 39.3 % 34.1-44.9 MEAN CORPUSCULAR VOLUME (BEAKER) (test kixf=456) 89.9 fL 79.4-94.8 MEAN CORPUSCULAR HEMOGLOBIN (BEAKER) (test 28.8 pg 25.6-32.2 ndii=086) MEAN CORPUSCULAR HEMOGLOBIN CONC (BEAKER) (test 32.1 GM/DL 32.2-35.5 xfmz=890) RED CELL DISTRIBUTION WIDTH (BEAKER) (test 13.6 % 11.7-14.4 lqwf=990) PLATELET COUNT (BEAKER) (test sdrs=856) 223 K/CU MM 150-450 MEAN PLATELET VOLUME (BEAKER) (test wsbu=596) 11.6 fL 9.4-12.3 NUCLEATED RED BLOOD CELLS (BEAKER) (test 0 /100 WBC 0-0 uqfu=467) POCT-GLUCOSE [id number] 21:35:00 Test Item Value Reference Range Comments POC-GLUCOSE METER (BEAKER) 261 mg/dL 70-110 [address] (test nkgn=6875) [place] [address] POCT-GLUCOSE [id number] 17:05:00 Test Item Value Reference Range Comments POC-GLUCOSE METER (BEAKER) 127 mg/dL 70-110 TESTED AT [address] (test oyux=5396) [place] [address] POCT-GLUCOSE [id number] 11:34:00 Test Item Value Reference Range Comments POC-GLUCOSE METER (BEAKER) 268 mg/dL 70-110 TESTED AT [address] (test oilq=5895) [place] [address] POCT-GLUCOSE [id number] 07:35:00 Test Item Value Reference Range Comments POC-GLUCOSE METER (BEAKER) 211 mg/dL 70-110 TESTED AT [address] (test ynlt=7653) [place] [address] BASIC METABOLIC [id number] 07:05:00 Test Item Value Reference Range Comments SODIUM (BEAKER) (test 139 meq/L 136-145 hdcb=405) POTASSIUM (BEAKER) (test 4.3 meq/L 3.5-5.1 efev=013) CHLORIDE (BEAKER) (test 105 meq/L 98-107 wnae=709) CO2 (BEAKER) (test 21 meq/L 22-29 uhcq=892) BLOOD UREA NITROGEN 23 mg/dL 7-21 (BEAKER) (test itgl=129) CREATININE (BEAKER) (test 0.79 mg/dL 0.57-1.25 dbcn=324) GLUCOSE RANDOM (BEAKER) 187 mg/dL 70-105 (test jizd=646) CALCIUM (BEAKER) (test 9.8 mg/dL 8.4-10.2 pxes=194) EGFR (BEAKER) (test 70 mL/min/1.73 sq m ESTIMATED GFR IS NOT vbaw=4271) ACCURATE CREATININE CLEARANCE IN PREDICTING GLOMERULAR FILTRATION RATE. ESTIMATED GFR IS NOT APPLICABLE FOR DIALYSIS PATIENTS. CBC (HEMOGRAM ONLY)2017-07-07 05:44:00 Test Item Value Reference Range Comments WHITE BLOOD CELL COUNT (BEAKER) (test fyoe=010) 11.3 K/ L 3.5-10.5 RED BLOOD CELL COUNT (BEAKER) (test nqgn=807) 4.54 M/ L 3.93-5.22 HEMOGLOBIN (BEAKER) (test oczc=779) 13.1 GM/DL 11.2-15.7 HEMATOCRIT (BEAKER) (test iihj=342) 40.8 % 34.1-44.9 MEAN CORPUSCULAR VOLUME (BEAKER) (test lryv=248) 89.9 fL 79.4-94.8 MEAN CORPUSCULAR HEMOGLOBIN (BEAKER) (test 28.9 pg 25.6-32.2 ente=152) MEAN CORPUSCULAR HEMOGLOBIN CONC (BEAKER) (test 32.1 GM/DL 32.2-35.5 hjum=495) RED CELL DISTRIBUTION WIDTH (BEAKER) (test 13.6 % 11.7-14.4 nyqw=553) PLATELET COUNT (BEAKER) (test lusm=748) 234 K/CU MM 150-450 MEAN PLATELET VOLUME (BEAKER) (test uzcn=016) 12.0 fL 9.4-12.3 NUCLEATED RED BLOOD CELLS (BEAKER) (test 0 /100 WBC 0-0 nwmp=969) POCT-GLUCOSE [id number] 21:36:00 Test Item Value Reference Range Comments POC-GLUCOSE METER (BEAKER) 108 mg/dL 70-110 [address] (test foqw=0102) [place] [address] POCT-GLUCOSE [id number] 17:11:00 Test Item Value Reference Range Comments POC-GLUCOSE METER (BEAKER) 103 mg/dL 70-110 TESTED AT [address] (test qpfi=9871) [place] [address] POCT-GLUCOSE [id number] 12:17:00 Test Item Value Reference Range Comments POC-GLUCOSE METER (BEAKER) 145 mg/dL 70-110 TESTED AT [address] (test hlne=5250) [place] [address] HEMOGLOBIN [id number] 10:07:00 Test Item Value Reference Range Comments HEMOGLOBIN A1C (BEAKER) (test wxua=774) 7.7 % 4.3-6.1 POCT-GLUCOSE [id number] 08:28:00 Test Item Value Reference Range Comments POC-GLUCOSE METER (BEAKER) 224 mg/dL 70-110 TESTED AT [address] (test dlsf=7200) [place] [address] TSH/FREE T4 IF [id number] 07:06:00 Test Item Value Reference Range Comments THYROID STIMULATING HORMONE (BEAKER) (test 1.00 uIU/mL 0.35-4.94 feln=113) POCT-GLUCOSE [id number] 20:40:00 Test Item Value Reference Range Comments POC-GLUCOSE METER (BEAKER) 332 mg/dL 70-110 [address]ED [address] (test qqse=5333) [place] [address] POCT-GLUCOSE [id number] 16:26:00 Test Item Value Reference Range Comments POC-GLUCOSE METER (BEAKER) 265 mg/dL 70-110 [address]ED AT [address] (test xgue=8722) [place] [address] POCT-GLUCOSE [id number] 16:22:00 Test Item Value Reference Range Comments POC-GLUCOSE METER (BEAKER) 290 mg/dL 70-110 TESTED AT [address] (test chqp=7596) [place] [address] PLATELET AGGREGATION: FUNCTION [id number] 09:31:00 Test Item Value Reference Range Comments WEAK ADP RESULT(BEAKER) (test 65 % 60-91 wrqg=9670) PLATELET FUNCTION SCREEN 60-100% indicates normal INTERP (BEAKER) (test platelet function ykfm=4044) [id number] (BEAKER) Haley Macdonald MD (test gfxm=1393) (electronic signature) PLATELET COUNT AGG (BEAKER) 225 K/CU MM 150-450 (test mxyl=1544) for patients on clopidogrel in past two weeksPOCT-GLUCOSE [id number] 08:35: 00 Test Item Value Reference Range Comments POC-GLUCOSE METER (BEAKER) 378 mg/dL 70-110 Notified TREY HENDRIX/TESTED AT [facility] (test mrvm=8970) [address] [facility] [address] BASIC METABOLIC [id number] 07:33:00 Test Item Value Reference Range Comments SODIUM (BEAKER) (test 137 meq/L 136-145 filo=595) POTASSIUM (BEAKER) (test 4.3 meq/L 3.5-5.1 bcnp=481) CHLORIDE (BEAKER) (test 105 meq/L 98-107 funt=392) CO2 (BEAKER) (test 22 meq/L 22-29 xjrp=666) BLOOD UREA NITROGEN 27 mg/dL 7-21 (BEAKER) (test wyrf=502) CREATININE (BEAKER) (test 0.99 mg/dL 0.57-1.25 aeju=681) GLUCOSE RANDOM (BEAKER) 338 mg/dL 70-105 (test orif=475) CALCIUM (BEAKER) (test 9.0 mg/dL 8.4-10.2 xqrw=074) EGFR (BEAKER) (test 54 mL/min/1.73 sq m ESTIMATED GFR IS NOT siwu=0061) ACCURATE CREATININE CLEARANCE IN PREDICTING GLOMERULAR FILTRATION RATE. ESTIMATED GFR IS NOT APPLICABLE FOR DIALYSIS PATIENTS. [id number] 06:32:00 Test Item Value Reference Range Comments PARTIAL THROMBOPLASTIN TIME (BEAKER) (test 27.4 seconds 22.5-36.0 eylj=658) PROTHROMBIN [id number] 06:31:00 Test Item Value Reference Range Comments PROTIME (BEAKER) (test nbjx=626) 14.1 seconds 11.7-14.7 INR (BEAKER) (test haax=532) 1.1 <=5.9 RECOMMENDED COUMADIN/WARFARIN INR THERAPY RANGESSTANDARD DOSE: 2.0 - 3.0 Includes: PROPHYLAXIS forvenous thrombosis, systemic embolization; TREATMENT for venous thrombosis and/or pulmonary embolus.HIGH RISK: Target INR is 2.5-3.5 for patients with mechanical heart valves.CBC W/PLT COUNT & AUTO [id number] 06:22:00 Test Item Value Reference Range Comments WHITE BLOOD CELL COUNT (BEAKER) (test zuje=860) 9.5 K/ L 3.5-10.5 RED BLOOD CELL COUNT (BEAKER) (test dcrl=062) 4.05 M/ L 3.93-5.22 HEMOGLOBIN (BEAKER) (test kizt=772) 11.8 GM/DL 11.2-15.7 HEMATOCRIT (BEAKER) (test tseu=021) 36.6 % 34.1-44.9 MEAN CORPUSCULAR VOLUME (BEAKER) (test dobx=620) 90.4 fL 79.4-94.8 MEAN CORPUSCULAR HEMOGLOBIN (BEAKER) (test 29.1 pg 25.6-32.2 wjna=236) MEAN CORPUSCULAR HEMOGLOBIN CONC (BEAKER) (test 32.2 GM/DL 32.2-35.5 pweu=672) RED CELL DISTRIBUTION WIDTH (BEAKER) (test 13.8 % 11.7-14.4 dxlw=435) PLATELET COUNT (BEAKER) (test trsv=488) 227 K/CU MM 150-450 MEAN PLATELET VOLUME (BEAKER) (test neal=086) 11.6 fL 9.4-12.3 NUCLEATED RED BLOOD CELLS (BEAKER) (test 0 /100 WBC 0-0 wqmt=369) NEUTROPHILS RELATIVE PERCENT (BEAKER) (test 58 % kvxe=865) LYMPHOCYTES RELATIVE PERCENT (BEAKER) (test 30 % kjul=345) MONOCYTES RELATIVE PERCENT (BEAKER) (test 7 % yfmx=450) EOSINOPHILS RELATIVE PERCENT (BEAKER) (test 5 % trkw=370) BASOPHILS RELATIVE PERCENT (BEAKER) (test 1 % bbpj=433) NEUTROPHILS ABSOLUTE COUNT (BEAKER) (test 5.46 K/ L 1.56-6.13 firy=735) LYMPHOCYTES ABSOLUTE COUNT (BEAKER) (test 2.82 K/ L 1.18-3.74 dfng=639) MONOCYTES ABSOLUTE COUNT (BEAKER) (test 0.66 K/ L 0.24-0.36 mzqg=847) EOSINOPHILS ABSOLUTE COUNT (BEAKER) (test 0.44 K/ L 0.04-0.36 gtgh=542) BASOPHILS ABSOLUTE COUNT (BEAKER) (test 0.07 K/ L 0.01-0.08 dtew=949) IMMATURE GRANULOCYTES-RELATIVE PERCENT (BEAKER) 0 % 0-1 (test tscw=5903) RAD, CHEST, 1 VIEW, NON [id number] 22:37:00Reason for exam:->preopShould this be performed at the bedside?->YesFINAL REPORT INDICATION: preop COMPARISON: None TECHNIQUE: Single frontal view of the chest. FINDINGS: Lungs and pleura: Clear lungs. No effusion.Heart and mediastinum: Normal heart size. Unremarkable mediastinal contours.Osseous structures: No acute abnormality.Other: None. IMPRESSION: No acute intrathoracic abnormality. Signed: JR Jerez Robert MDReport Verified Date/Time: 07/04/2017 22:37: 39 Reading Location: [facility] C013Y CT Body Reading Room POCT-GLUCOSE [id number] 21 :24:00 Test Item Value Reference Range Comments POC-GLUCOSE METER (BEAKER) 274 mg/dL 70-110 [address] AT [address] (test pjwx=0780) [place] [address] POCT-GLUCOSE [id number] 16:41:00 Test Item Value Reference Range Comments POC-GLUCOSE METER (BEAKER) 145 mg/dL 70-110 TESTED AT [address] (test cfce=3095) [place] [address]
--- OUTSIDE RECORDS SUMMARY | 2019-05-01 06:36 | XMS REPORT ---
:1940 Author Organization [employer] Care Team Providers Name Role Phone Reynoso, Na Provider Role Unavailable Allergies, Adverse Reactions, Alerts Substance Reaction Event Type Bactrim DS rash Drug Allergy codeine Hyperactive Drug Allergy PCN rash Drug Allergy Problems Problem Type Condition Code Onset Dates Condition Status Problem Shingles B02.9 Active Problem Mixed hyperlipidemia E78.2 Active Problem Gastroesophageal reflux disease K21.9 Active Problem Urine incontinence R32 Active Problem CAD (coronary artery disease) I25.10 Active Problem HTN (hypertension) I10 Active Problem Hypothyroidism E03.9 Active Problem Rheumatoid arthritis M06.9 Active Problem Obesity E66.9 Active Problem Colon, diverticulosis K57.30 Active Problem Type 2 diabetes mellitus with E11.65 Active hyperglycemia Problem 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 Problem 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 Problem Pelvic pressure in female R10.2 Active Problem Hypoglycemia E16.2 Active Problem Microscopic hematuria R31.29 Active Problem Rheumatoid arthritis, involving M06.9 Active unspecified site, unspecified rheumatoid factor presence Problem Other chronic pain G89.29 Active Problem Carotid artery occlusion I65.29 Active Problem 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 Assessment Nonadherence to medication Z91.14 Active Problem Uncontrolled type 2 diabetes E11.649 Active mellitus with hypoglycemia without coma Problem Gastroesophageal reflux disease K21.9 Active without esophagitis Problem Seasonal allergies J30.2 Active Problem Lumbar radiculopathy, chronic M54.16 Active Problem 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 Active [place] coronary artery without angina pectoris Problem Presence of coronary angioplasty Z95.5 Active implant and graft Problem Boil L02.92 Active Problem Diabetes mellitus type 2, E11.9 Active uncontrolled, without complications Problem Acute cystitis without hematuria N30.00 Active Assessment Diverticulitis K57.92 Active Problem Situational insomnia F51.09 Active Assessment HTN (hypertension) I10 Active Problem Asthma without acute exacerbation J45.909 Active Assessment Diarrhea, unspecified type R19.7 Active Problem PAD (peripheral artery disease) I73.9 Active Assessment Left lower quadrant abdominal pain R10.32 Active Problem Hospital discharge follow-up Z09 Active Problem Dysuria R30.0 Active Problem senior care current use of insulin Z79.4 Active Medications Medication Code Code Instructions Start End Status Dosage System Date Date Victoza [facility] 80606851174 18 MG/3ML Active not Subcutaneous defined Tresiba FlexTouch [facility] 03631175669 100 UNIT/ML Active as Subcutaneous directed Plavix [facility] 66876930955 75 MG Orally Active 1 tablet Once a day Ambien [facility] [address]-52 Active not defined Nitrofurantoin [facility] 00089179572 100 mg Orally Active 1 capsule Monohyd Macro daily with food Losartan Potassium [facility] 37202382724 100 MG Orally Active 1 tablet Once a day Advair Diskus [facility] [address]-83 250-50 Active as MCG/DOSE directed Inhalation Estrace [facility] 59634521105 0.1 MG/GM Active as Vaginal twice directed weekly Vitamin D-3 [facility] [address]-34 Active not defined Singulair [facility] 07029707065 10 MG Orally Active 1 tablet Once a day in the evening Atorvastatin [facility] 18030268952 20 MG Orally Jan 20, Active 1 tablet Calcium Once a day 2018 Plaquenil [facility] 60859971221 200 MG Orally Active 1 tablet Once a day with food or milk ProAir HFA [facility] 95775147392 108 (90 Base) Active 2 puffs as MCG/ACT needed Inhalation every 6 hrs Methotrexate [facility] 34563662182 2.5 MG Orally Active not defined Detrol LA [facility] 55943365653 4 MG Orally Active 1 capsule Once a day Aspir-81 [facility] 79126787497 81 MG Orally Active 1 tablet Once a day Diphenoxylate-Atro [facility] [address]-80 Active not pine defined Lipitor [facility] 87201634602 40 MG Orally Active 1 tablet Once a day Veramyst ND 0 27.5 MCG/SPRAY Active 1 spray in Nasally Once a each day nostril Cipro [facility] 04252093791 500 MG Orally Nov Inactive 1 tablet every 12 hrs 2018 ZyrTEC [facility] 99716023756 Active not defined Prilosec [facility] [address]-05 Active not defined Humalog KwikPen [facility] 70188556741 200 UNIT/ML Active 5-10 units Subcutaneous as TID QAC directed Humalog [facility] 92259187207 100 UNIT/ML Active as Subcutaneous directed Singulair [facility] 84304436145 10 MG Orally Active 1 tablet Once a day in the evening Levocetirizine [facility] 80158293796 5 MG Orally Active 1 tablet Dihydrochloride Once a day in the evening Synthroid [facility] 58838808001 125 MCG Active 1 each once a day orally Metronidazole [facility] 29681148634 500 MG Orally Nov Inactive 1 tablet Twice a day 2018 Lyrica [facility] 10206767078 50 MG Orally Active 1 capsule Twice a day Detrol LA [facility] 49446206247 4 MG Orally Active 1 capsule Once a day Synthroid [facility] 18062236918 125 MCG Active 1 each once a day orally Results No Known Results Summary Purpose eClinicalWorks Submission
--- OUTSIDE RECORDS SUMMARY | 2019-05-01 06:36 | XMS REPORT ---
[...] type 2 diabetes E11.40 Active mellitus Problem Uncontrolled type 2 diabetes E11.649 Active mellitus with hypoglycemia without coma Problem Gastroesophageal reflux disease K21.9 Active without esophagitis Problem Seasonal allergies J30.2 Active Problem Lumbar radiculopathy, chronic M54.16 Active Problem 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 Active [place] coronary artery without angina pectoris Problem Presence of coronary angioplasty Z95.5 Active implant and graft Problem Boil L02.92 Active Problem Diabetes mellitus type 2, E11.9 Active uncontrolled, without complications Problem Acute cystitis without hematuria N30.00 Active Assessment Left lower quadrant abdominal pain R10.32 Active Problem Situational insomnia F51.09 Active Assessment Diverticulitis K57.92 Active Problem Asthma without acute exacerbation J45.909 Active Assessment Pain, joint, shoulder, left M25.512 Active Problem PAD (peripheral artery disease) I73.9 Active Assessment Diarrhea, unspecified type R19.7 Active Problem Hospital discharge follow-up Z09 Active Problem Dysuria R30.0 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 Medications Medication Code Code Instructions Start End Status Dosage System Date Date Robbin LA [facility] 43924416763 4 MG Orally Active 1 capsule Once a day Losartan [facility] 53134480057 100 MG Orally Active 1 tablet Potassium Once a day ZyrTEC [facility] 12043301644 Active not defined ProAir HFA [facility] 44594422882 108 (90 Base) Active 2 puffs as MCG/ACT needed Inhalation every 6 hrs Valtrex [facility] 23338848096 1 GM Orally Active 1 tablet Once a day Methotrexate ND 85940674897 2.5 MG Orally Active not defined Metoprolol [facility] 54900562351 25 MG Orally Active 1 tablet Succinate ER Once a day Diphenoxylate-Atr [facility] [address]-15 Active not defined opine Prilosec [facility] [address]-74 Active not defined Humalog KwikPen [facility] 57224333380 200 UNIT/ML Active 5-10 units as Subcutaneous directed TID QAC Trimethoprim [facility] 15094471415 100 MG Orally Active 1 tablet Once a day Losartan [facility] 42745855824 50 MG Orally Active 1 tablet Potassium Once a day Diflucan [facility] 31419984336 150 MG Orally Marilyn Active 1 tablet now as directed 11, and repeat in 2019 5 days Veramyst ND 0 27.5 MCG/SPRAY Active 1 spray in Nasally Once a each nostril day Remeron [facility] 29416849924 15 MG Orally Active 1 tablet at Once a day bedtime Nitrofurantoin [facility] 45712352523 100 MG Orally Active 1 capsule Monohyd Macro every 12 hrs with food Synthroid [facility] 58232205205 125 MCG Active 1 each once a day orally Vimovo [facility] 06931512285 500-20 MG Active 1 tablet Orally Twice a before meals day Lyrica [facility] 95794325063 50 MG Orally Active 1 capsule Twice a day Lisinopril [facility] 62818166215 30 MG Orally Active 1 tablet Once a day Lisinopril [facility] 50146323006 10 MG Orally Active 1 tablet Once a day Singulair [facility] 24276989253 10 MG Orally Active 1 tablet in Once a day the evening Aspir-81 [facility] 04825677098 81 MG Orally Active 1 tablet Once a day Ambien [facility] [address]-15 Active not defined Flonase [facility] 94086793680 50 MCG/ACT Active 1 spray in Nasally Once a each nostril day Detrol LA [facility] 91537171578 4 MG Orally Active 1 capsule Once a day Norvasc [facility] 68462262958 5 MG Orally Active 1 tablet Once a day Lipitor [facility] 53139388347 40 MG Orally Active 1 tablet Once a day Fluconazole [facility] 66630741641 150 MG Orally Active 1 tablet Victoza [facility] 52132305735 18 MG/3ML Active not defined Subcutaneous Synthroid [facility] 41564295015 125 MCG Active 1 each once a day orally Atorvastatin [facility] 32658739911 20 MG Orally Jan 20, Active 1 tablet Calcium Once a day 2018 Levocetirizine [facility] 78878458041 5 MG Orally Active 1 tablet in Dihydrochloride Once a day the evening Singulair [facility] 86901268125 10 MG Orally Active 1 tablet in Once a day the evening Cipro [facility] 11322289973 500 MG Orally Active 1 tablet every 12 hrs Tobramycin [facility] 43791342436 0.3 % Active 1 drop into Ophthalmic affected eye every 4 hrs [facility] Omeprazole [facility] 81715242112 20 MG Orally May 14, Active 1 tablet Once a day 2017 Levocetirizine [facility] 09982836954 5 MG Orally Active 1 tablet in Dihydrochloride Once a day the evening Plavix [facility] 02655577620 75 MG Orally Active 1 tablet Once a day Vitamin D-3 [facility] [address]-68 Active not defined Nitrofurantoin [facility] 87365950397 100 MG Orally Active 1 capsule Macrocrystal twice a day with food or milk Estrace [facility] 40073783030 0.1 MG/GM Active as directed Vaginal twice weekly Metronidazole [facility] 45251654141 500 MG Orally Active 1 tablet Twice a day Tresiba FlexTouch [facility] 37971452434 100 UNIT/ML Active as directed Subcutaneous Advair Diskus [facility] [address]-21 250-50 Active as directed MCG/DOSE Inhalation Mupirocin [facility] 64303177973 2 % Externally Active 1 application Three times a to affected day area Nitrofurantoin [facility] 59461945033 100 mg Orally Active 1 capsule Monohyd Macro daily with food Plaquenil [facility] 64691573688 200 MG Orally Active 1 tablet with Once a day food or milk Humalog [facility] 60816073640 100 UNIT/ML Active as directed Subcutaneous Results No Known Results Summary Purpose eClinicalWorks Submission
--- OUTSIDE RECORDS SUMMARY | 2019-05-01 06:36 | XMS REPORT ---
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 Problem Carotid artery occlusion I65.29 Active Problem 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 Problem Pelvic pressure in female R10.2 Active Problem Situational insomnia F51.09 Active Problem Microscopic hematuria R31.29 Active Problem Lumbar radiculopathy, chronic M54.16 Active Problem Hypoglycemia E16.2 Active Problem Uncontrolled type 2 diabetes E11.649 Active mellitus with hypoglycemia without coma Problem Rheumatoid arthritis, involving M06.9 Active unspecified site, unspecified rheumatoid factor presence Problem 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 Problem Colon, diverticulosis K57.30 Active Problem Non-seasonal allergic rhinitis, J30.89 Active unspecified trigger Problem Asthma without acute exacerbation J45.909 Active Problem Presence of coronary angioplasty Z95.5 Active implant and graft Problem Seasonal allergies J30.2 Active Problem Other chronic pain G89.29 Active Problem 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 Active [place] coronary artery without angina pectoris Problem Diabetes mellitus type 2, E11.9 Active uncontrolled, without complications Problem Acute cystitis without hematuria N30.00 Active Problem Mixed hyperlipidemia E78.2 Active Problem Dysuria R30.0 Active Assessment Non-seasonal allergic rhinitis, J30.89 Active unspecified trigger Problem Gastroesophageal reflux disease K21.9 Active without esophagitis Problem Boil L02.92 Active Assessment Pharyngitis, unspecified etiology J02.9 Active Problem Hospital discharge follow-up Z09 Active Assessment 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 Active Problem Type 2 diabetes mellitus with E11.65 Active hyperglycemia Problem alf current use of insulin Z79.4 Active Problem PAD (peripheral artery disease) I73.9 Active Medications Medication Code Code Instructions Start End Status Dosage System Date Date Diphenoxylate-Atr [facility] [address]-17 Active not defined opine Prilosec [facility] [address]-90 Active not defined Lipitor [facility] 45870659557 40 MG Orally Active 1 tablet Once a day Detrol LA [facility] 10456352083 4 MG Orally Active 1 capsule Once a day Synthroid [facility] 18719367380 125 MCG Active 1 each once a day orally Acyclovir [facility] 86654971057 5 % Externally Mar 04, Active 1 application Six times a 2019 every 3 hours day Nitrofurantoin [facility] 53116305807 100 mg Orally Active 1 capsule Monohyd Macro daily with food ZyrTEC [facility] 09865082815 Active not defined Vitamin D-3 [facility] [address]-31 Active not defined Tresiba FlexTouch [facility] 95625740792 100 UNIT/ML Active as directed Subcutaneous Levocetirizine [facility] 54673812739 5 MG Orally Active 1 tablet in Dihydrochloride Once a day the evening Singulair [facility] 42496612192 10 MG Orally Active 1 tablet in Once a day the evening Methotrexate [facility] 94959754783 2.5 MG Orally Active not defined Plaquenil [facility] 11317474657 200 MG Orally Active 1 tablet with Once a day food or milk Humalog KwikPen [facility] 96561438969 200 UNIT/ML Active 5-10 units as Subcutaneous directed TID QAC Ambien [facility] [address]-29 Active not defined Aspir-81 [facility] 26036286531 81 MG Orally Active 1 tablet Once a day Advair Diskus [facility] [address]-25 250-50 Active as directed MCG/DOSE Inhalation Cetirizine HCl [facility] 30739217516 10 MG Orally Mar 04August Active 1 tablet Once a day 2018 ProAir HFA [facility] 63709464594 108 (90 Base) Active 2 puffs as MCG/ACT needed Inhalation every 6 hrs Plavix [facility] 52203035640 75 MG Orally Active 1 tablet Once a day Singulair [facility] 21250104507 10 MG Orally Active 1 tablet in Once a day the evening Synthroid [facility] 53261944733 125 MCG Active 1 each once a day orally Estrace [facility] 91629965249 0.1 MG/GM Active as directed Vaginal twice weekly Veramyst ND 0 27.5 MCG/SPRAY Active 1 spray in Nasally Once a each nostril day Humalog [facility] 03232211764 100 UNIT/ML Active as directed Subcutaneous Losartan [facility] 67327229851 100 MG Orally Active 1 tablet Potassium Once a day Atorvastatin [facility] 07021429290 20 MG Orally Jan 20, Active 1 tablet Calcium Once a day 2018 Victoza [facility] 54147345299 18 MG/3ML Active not defined Subcutaneous Lyrica [facility] 66425042148 50 MG Orally Active 1 capsule Twice a day Detrol LA [facility] 43519333275 4 MG Orally Active 1 capsule Once a day Results Name Result Date Reference Range Unit Abnormality Flag STREP A RAPID ----Result neg [id number] Summary Purpose eClinicalWorks Submission
--- OUTSIDE RECORDS SUMMARY | 2019-05-01 06:36 | XMS REPORT ---
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
--- OUTSIDE RECORDS SUMMARY | 2019-05-01 06:36 | XMS REPORT ---
[...] Problem 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 Active [place] coronary artery without angina pectoris Problem Presence of coronary angioplasty Z95.5 Active implant and graft Problem Boil L02.92 Active Problem Diabetes mellitus type 2, E11.9 Active uncontrolled, without complications Problem Acute cystitis without hematuria N30.00 Active Assessment Urine incontinence R32 Active Problem Situational insomnia F51.09 Active Assessment Recurrent UTI N39.0 Active Problem Asthma without acute exacerbation J45.909 Active Problem PAD (peripheral artery disease) I73.9 Active Problem Hospital discharge follow-up Z09 Active Problem Dysuria R30.0 Active Problem 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 Active Medications Medication Code Code Instructions Start End Status Dosage System Date Date Levocetirizine [facility] 79328669045 5 MG Orally Active 1 tablet in Dihydrochloride Once a day the evening Vimovo [facility] 53536077370 500-20 MG Active 1 tablet Orally Twice a before meals day Losartan [facility] 86948612571 100 MG Orally Active 1 tablet Potassium Once a day Singulair [facility] 48822951756 10 MG Orally Active 1 tablet in Once a day the evening Detrol LA [facility] 33813381905 4 MG Orally Active 1 capsule Once a day Humalog KwikPen [facility] 02203536735 200 UNIT/ML Active 5-10 units as Subcutaneous directed TID QAC Losartan [facility] 31741245155 50 MG Orally Active 1 tablet Potassium Once a day Fluconazole [facility] 37709821113 150 MG Orally Active 1 tablet Cipro [facility] 54244959653 500 MG Orally Active 1 tablet every 12 hrs Lisinopril [facility] 55738909083 10 MG Orally Active 1 tablet Once a day Tobramycin [facility] 33398290696 0.3 % Active 1 drop into Ophthalmic affected eye every 4 hrs Ambien [facility] [address]-00 Active not defined Nitrofurantoin [facility] 43867256391 100 MG Orally Active 1 capsule Macrocrystal twice a day with food or milk Lisinopril [facility] 72791256475 30 MG Orally Active 1 tablet Once a day Vitamin D-3 [facility] [address]-38 Active not defined Synthroid [facility] 69394945404 125 MCG Active 1 each once a day orally Humalog [facility] 11207882756 100 UNIT/ML Active as directed Subcutaneous Plavix [facility] 10720018414 75 MG Orally Active 1 tablet Once a day Plaquenil [facility] 82565894809 200 MG Orally Active 1 tablet with Once a day food or milk Metoprolol [facility] 20001021758 25 MG Orally Active 1 tablet Succinate ER Once a day Trimethoprim [facility] 24434953375 100 MG Orally Active 1 tablet Once a day Detrol LA [facility] 56698005471 4 MG Orally Active 1 capsule Once a day Atorvastatin ND 48188185733 20 MG Orally Oct 07, Active 1 tablet Calcium Once a day 2019 Metronidazole [facility] 00162021979 500 MG Orally Active 1 tablet Twice a day ZyrTEC [facility] 01823895041 Active not defined Methotrexate [facility] 53343608085 2.5 MG Orally Active not defined Advair Diskus [facility] [address]-11 250-50 Active as directed MCG/DOSE Inhalation Lyrica [facility] 84869392390 50 MG Orally Active 1 capsule Twice a day Valtrex ND 90534507487 1 GM Orally Active 1 tablet Once a day Diflucan [facility] 46797344111 150 MG Orally Marilyn Active 1 tablet now as directed 11, and repeat in 2018 5 days Flonase [facility] 63936828530 50 MCG/ACT Active 1 spray in Nasally Once a each nostril day Remeron [facility] 50052223127 15 MG Orally Active 1 tablet at Once a day bedtime Norvasc [facility] 29792211633 5 MG Orally Active 1 tablet Once a day Nitrofurantoin [facility] 80723318430 100 MG Orally Active 1 capsule Monohyd Macro every 12 hrs with food Tresiba FlexTouch [facility] 47611460415 100 UNIT/ML Active as directed Subcutaneous Estrace [facility] 38249313671 0.1 MG/GM Active as directed Vaginal twice weekly Lipitor [facility] 74264338859 40 MG Orally Active 1 tablet Once a day ProAir HFA [facility] 47196827855 108 (90 Base) Active 2 puffs as MCG/ACT needed Inhalation every 6 hrs Synthroid [facility] 63773804661 125 MCG Active 1 each once a day orally Singulair [facility] 07488424198 10 MG Orally Active 1 tablet in Once a day the evening Prilosec [facility] [address]-14 Active not defined Levocetirizine [facility] 21666630001 5 MG Orally Active 1 tablet in Dihydrochloride Once a day the evening Aspir-81 [facility] 56685869926 81 MG Orally Active 1 tablet Once a day Nitrofurantoin ND 46786687749 100 mg Orally Active 1 capsule Monohyd Macro daily with food Victoza [facility] 38978769037 18 MG/3ML Active not defined Subcutaneous Diphenoxylate-Atr [facility] [address]-52 Active not defined opine Mupirocin [facility] 14896145442 2 % Externally Active 1 application Three times a to affected day area Veramyst ND 0 27.5 MCG/SPRAY Active 1 spray in Nasally Once a each nostril day [facility] Omeprazole [facility] 29803347877 20 MG Orally May 14, Active 1 tablet Once a day 2017 Results No Known Results Summary Purpose eClinicalWorks Submission
--- OUTSIDE RECORDS SUMMARY | 2019-05-01 06:36 | XMS REPORT ---
[...] Problem 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 Active [place] coronary artery without angina pectoris Problem Diabetes mellitus type 2, E11.9 Active uncontrolled, without complications Problem Acute cystitis without hematuria N30.00 Active Problem Mixed hyperlipidemia E78.2 Active Problem Dysuria R30.0 Active Assessment Cough R05 Active Problem Gastroesophageal reflux disease K21.9 Active without esophagitis Problem Boil L02.92 Active Problem Hospital discharge follow-up Z09 Active Assessment Non-seasonal allergic rhinitis, J30.89 Active unspecified trigger Problem Type 2 diabetes mellitus with E11.65 Active hyperglycemia Problem assisted current use of insulin Z79.4 Active Problem PAD (peripheral artery disease) I73.9 Active Medications Medication Code Code Instructions Start End Status Dosage System Date Date Estrace [facility] [place] 22420951249 0.1 MG/GM Active as directed Vaginal twice weekly Aspir-81 [facility] [place] 38135035867 81 MG Orally Active 1 tablet Once a day Singulair [facility] [place] 36510770345 10 MG Orally Active 1 tablet in Once a day the evening Plavix [facility] [place] 69308462785 75 MG Orally Active 1 tablet Once a day Detrol LA [facility] [place] 04166211460 4 MG Orally Active 1 capsule Once a day Nitrofurantoin [facility] [place] 38192508043 100 mg Orally Active 1 capsule Monohyd Macro daily with food Atorvastatin [facility] [place] 73073240579 20 MG Orally Jan 20, Active 1 tablet Calcium Once a day 2018 Prilosec [facility] [place] [address]-78 Active not defined Detrol LA [facility] [place] 40520696871 4 MG Orally Active 1 capsule Once a day Humalog [facility] [place] 02653869855 100 UNIT/ML Active as directed Subcutaneous Acyclovir [facility] [place] 89104182292 5 % Externally Active 1 application Six times a every 3 hours day Levocetirizine [facility] [place] 09428804927 5 MG Orally Active 1 tablet in Dihydrochloride Once a day the evening Plaquenil [facility] [place] 23169721458 200 MG Orally Active 1 tablet with Once a day food or milk ProAir HFA [facility] [place] 45744832174 108 (90 Base) Active 2 puffs as MCG/ACT needed Inhalation every 6 hrs Advair Diskus [facility] [place] [address]-96 250-50 Active as directed MCG/DOSE Inhalation Diphenoxylate-Atr [facility] [place] [address]-63 Active not defined opine Ambien [facility] [place] [address]-77 Active not defined Synthroid [facility] [place] 91729013014 125 MCG Active 1 each once a day orally Losartan [facility] [place] 33201176653 100 MG Orally Active 1 tablet Potassium Once a day Methotrexate [facility] [place] 31611677048 2.5 MG Orally Active not defined Vitamin D-3 [facility] [place] [address]-94 Active not defined ZyrTEC [facility] [place] 95397175872 Active not defined Humalog KwikPen [facility] [place] 20519605148 200 UNIT/ML Active 5-10 units as Subcutaneous directed TID QAC Cetirizine HCl [facility] [place] 94927029480 10 MG Orally May Active 1 tablet Once a day 2019 Veramyst ND 0 27.5 MCG/SPRAY Active 1 spray in Nasally Once a each nostril day Lyrica [facility] [place] 83692827655 50 MG Orally Active 1 capsule Twice a day Lipitor [facility] [place] 50889782338 40 MG Orally Active 1 tablet Once a day Synthroid [facility] [place] 97152524721 125 MCG Active 1 each once a day orally Tresiba FlexTouch [facility] [place] 80106352250 100 UNIT/ML Active as directed Subcutaneous Victoza [facility] [place] 88988960943 18 MG/3ML Active not defined Subcutaneous Singulair [facility] [place] 99675410161 10 MG Orally Active 1 tablet in Once a day the evening Results No Known Results Summary Purpose eClinicalWorks Submission
--- OUTSIDE RECORDS SUMMARY | 2019-05-01 06:37 | XMS REPORT ---
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 Problem Non-seasonal allergic rhinitis, J30.89 Active unspecified trigger Problem Asthma without acute exacerbation J45.909 Active Assessment Hypothyroidism E03.9 Active Problem Presence of coronary angioplasty Z95.5 Active implant and graft Assessment Seasonal allergies J30.2 Active Problem Seasonal allergies J30.2 Active Assessment Urine incontinence R32 Active Problem Other chronic pain G89.29 Active Assessment CAD (coronary artery disease) I25.10 Active Problem 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 Active [place] coronary artery without angina pectoris Problem Diabetes mellitus type 2, E11.9 Active uncontrolled, without complications Problem Acute cystitis without hematuria N30.00 Active Problem Mixed hyperlipidemia E78.2 Active Problem Dysuria R30.0 Active Assessment Uncontrolled type 2 diabetes E11.649 Active mellitus with hypoglycemia without coma Problem Gastroesophageal reflux disease K21.9 Active without esophagitis Problem Boil L02.92 Active Assessment HTN (hypertension) I10 Active Problem Hospital discharge follow-up Z09 Active Assessment Mixed hyperlipidemia E78.2 Active Problem Type 2 diabetes mellitus with E11.65 Active hyperglycemia Problem 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 91687602265 100 UNIT/ML Active as directed Subcutaneous Humalog [facility] 65175999804 100 UNIT/ML Active as directed Subcutaneous Aspir-81 [facility] 48675618963 81 MG Orally Active 1 tablet Once a day ZyrTEC [facility] 50593503002 Active not defined Plaquenil [facility] 36313039240 200 MG Orally Active 1 tablet with Once a day food or milk Levocetirizine [facility] 46604035108 5 MG Orally Active 1 tablet in Dihydrochloride Once a day the evening Singulair [facility] 35849105438 10 MG Orally Active 1 tablet in Once a day the evening Victoza [facility] 32126678294 18 MG/3ML Active not defined Subcutaneous Diphenoxylate-Atr [facility] [address]-07 Active not defined opine Nitrofurantoin [facility] 87745401032 100 mg Orally Active 1 capsule Monohyd Macro daily with food ProAir HFA [facility] 16157121376 108 (90 Base) Active 2 puffs as MCG/ACT needed Inhalation every 6 hrs Methotrexate [facility] 40911015102 2.5 MG Orally Active not defined Benzonatate [facility] 18273474816 100 MG Orally Apr 22, May Active 1 capsule as two times a 2019 09, needed day 2019 Advair Diskus [facility] [address]-61 250-50 Active as directed MCG/DOSE Inhalation Lipitor ND 10506792020 40 MG Orally Active 1 tablet Once a day Lyrica [facility] 73016234924 50 MG Orally Active 1 capsule Twice a day Estrace [facility] 48533705911 0.1 MG/GM Active as directed Vaginal twice weekly Vitamin D-3 [facility] [address]-36 Active not defined Humalog KwikPen [facility] 97893637438 200 UNIT/ML Active 5-10 units as Subcutaneous directed TID QAC Veramyst [facility] 0 27.5 MCG/SPRAY Active 1 spray in Nasally Once a each nostril day Prilosec [facility] [place] [address]-72 Active not defined Ambien [facility] [address]-10 Active not defined Synthroid [facility] 16504713910 125 MCG Active 1 each once a day orally Singulair [facility] 20701444256 10 MG Orally Active 1 tablet in Once a day the evening Detrol LA [facility] 83520012247 4 MG Orally Active 1 capsule Once a day Detrol LA [facility] 90638123303 4 MG Orally Active 1 capsule Once a day Acyclovir [facility] 35886470568 5 % Externally Active 1 application Six times a every 3 hours day Plavix [facility] 11274096903 75 MG Orally Active 1 tablet Once a day Losartan [facility] 98835204576 100 MG Orally Active 1 tablet Potassium Once a day Synthroid [facility] 94754117340 125 MCG Active 1 each once a day orally Cetirizine HCl [facility] 48882906895 10 MG Orally May Active 1 tablet Once a day 2019 Atorvastatin [facility] 18951445321 20 MG Orally Active 1 tablet Calcium Once a day Results No Known Results Summary Purpose eClinicalWorks Submission
[2019-05-01 11:01] VITALS: BP 149/45; TEMP 98.1; O2SAT 99
--- NOTE | 2019-05-01 21:58 | OP ---
Date of Procedure: 05/01/2019 Surgeon: Alexander Zapata MD Senior Advisory: Komal Solo. Procedure: Selective bilateral carotid angiogram. Indication: Carotid artery stenosis and abnormal carotid Doppler. History: Ms. Goins is 78, has had history of CABG in the past. She has had a history of left caroti d stent recently, but followup carotid Doppler shows severe stenosis within the stent on the left giovani e and she was admitted for a carotid Doppler. Description Of Procedure: She was prepped and draped in the routine sterile fashion. She had Versed and fentanyl for sedation. A 6-Bhutanese sheath was introduced in the right common femoral artery succ essfully. Angio-Seal was used to close the case. Angiography there was normal. Bilateral selective carotid angiogram showed about 30% to 40% stenosis in the right internal carotid artery. The right common carotid and the right external carotid were normal. On the left side, the left common carotid artery was normal, but she had about an 80% restenosis within the stent of the left internal carotid artery. 6-Bhutanese Paul catheter JR4 was used to do the procedure. Complications: There were no complications. Blood Loss: 5 mL. Final Diagnosis: Severe cerebrovascular disease. Plan is for another stent or angioplasty of her previous stent by Dr. Mcknight who did the procedure initially. I will make arrangements for that as an outpatient. Anesthesia: Total conscious sedation was 30 minutes. NB/MODL Voice ID: [id number] Report ID: [id number]
== END ==
LOC: CCL 06:30
PROC: B305ZZZ Plain Radiography of Bilateral Common Carotid Arteries (ICD-10-PCS; principal; 2019-05-01)
DX: I67.9 Cerebrovascular disease, unspecified (principal)
CPT/HCPCS: 93005; 85025; 80048; 36415; 85610; 85730; 71046; 36222; C1893; J2250 ×2; J3010; J7040

== ENCOUNTER 2021-07-05 05:54 | Day surgery (SDC) | payer OTHER ==
[2021-06-30 13:47] LABS: Absolute Lymphocytes (CBC) 2.6 K/uL (0.7-4.9); Hematocrit 37.4 % (36.0-45.0); Lymphocytes % 29.5 % (15.3-44.8); MPV 10.2 fL (7.6-11.3); RBC Red Blood Cell Count 4.28 M/uL (3.86-4.86)
--- NOTE | 2021-06-30 13:47 | RAD REPORT ---
EXAM DESCRIPTION: RAD - Chest Pa And Lat (2 Views) - 06/30/2021 1:37 pm CLINICAL HISTORY: PRE OP FOR SUPERVISOR SUNGLASSES COMPARISON: Two view chest 04/28/2019 TECHNIQUE: Frontal and lateral views of the chest were obtained. FINDINGS: The lungs are clear of a focal lung parenchymal process. Patient has chronic interstitial opacification not clearly different from comparison. No acute failure or volume overload. Heart size is upper normal, similar to comparison. CABG surgical changes are noted. Upper lobe vasculature wit hin normal limits. No pleural effusion or pneumothorax seen. No acute bony finding noted. No aortic abnormality. IMPRESSION: No acute cardiopulmonary process. Chronic interstitial lung disease is present similar to comparison.
[2021-06-30 13:51] LABS: Protime INR 0.96
[2021-06-30 14:01] LABS: Potassium 4.3 mmol/L (3.5-5.1)
[2021-07-05] MEDS ORDERED: LIDOCAINE 1% 20 ML MDV ONE (06:41)
[2021-07-05] MEDS ORDERED: HEPA 1000U/500MLS 1,000 UNIT/500 ML BAG IV ONE ×2 (06:41→06:57)
[2021-07-05] MEDS ORDERED: FENTANYL CITR 100 MCG/2 ML ONE (06:42)
[2021-07-05] MEDS ORDERED: MIDAZOLAM HCL 2 MG/2 ML INJ ONE (06:42)
[2021-07-05] MEDS ORDERED: NITROGLYCERIN 100 MCG/ML SYR (for cath lab use only) IV ONE (06:43)
[2021-07-05] MEDS ORDERED: NA CHLORIDE 0.9% 0 ML ONE (06:43)
[2021-07-05] MEDS ORDERED: NITROGLYCERIN/D5W 0 MG/0 ML BTL IV ONE (06:43)
[2021-07-05] MEDS ORDERED: ATROPINE SULF 1 MG/10 ML SYR IV ONE (06:43)
[2021-07-05] MEDS ORDERED: NA CHLORIDE 0.9% 500 ML ONE (06:52)
[2021-07-05] MEDS ORDERED: FLUMAZENIL 0.1 MG/ML (5 mL VIAL) IV ONE (07:55)
[2021-07-05 09:07] VITALS: TEMP 97
[2021-07-05 10:46] VITALS: BP 143/45; O2SAT 100
--- NOTE | 2021-07-05 14:49 | OP ---
Surgeon: Alexander Zapata MD Putty Mixer And Applier: Ermelinda Goff. Admitted to my service as an outpatient on 07/05/2021. Reason For Admission: Selective coronary arteriogram, left heart catheterization, vein graft injecti on, and RUSSELL injection. Indication: Unstable angina and history of coronary artery disease. Ms. Goins is 81. Has had a CAB G before and multiple stents before her CABG. Has hypertension, dyslipidemia. Continues to have [address] pain despite controlled blood pressure. Procedure In Detail: Brought to the photographic laboratory supervisor today as an outpatient, prepped and draped in the [facility] sterile fashion. Given Versed and fentanyl for sedation. A 6-Maltese sheath introduced in the rig common femoral artery successfully using the Seldinger technique and 10 cc of Xylocaine. Angiogra phy there was normal. StarClose was used to close the case. Paul catheter left and right were us ed to do the diagnostic catheterization. The JL4 cannulated the left main, which had a 70% stenosis. The proximal LAD had a stent. Circumflex proximal had a stent. Both of those were open. However, distal to the stent in the LAD that was completely closed. The circumflex gave rise to the first OM , which was completely closed. JR4 cannulated the RCA, which was completely closed as well. The JR4 catheter was then used to cannulate selectively the RCA graft which was patent, OM graft which was p atent, RUSSELL to the LAD which were patent. There were no complications. The patient tolerated the pr ocedure well. Blood Loss: 5 mL. Postoperative Diagnosis: Coronary artery disease. Anesthesia: Total conscious sedation 45 minutes. Plan: Plan is for medical therapy. The patient will be at bedrest for 2 hours after her StarClose a nd she will go home. Continue same present regimen. She will see me in the office in 2 weeks. NB/MODL Voice ID: [id number] Report ID: [id number]
== END 2021-07-05 10:30 | disposition home or self-care (01) ==
LOC: CCL 05:54
DX: I25.110 Atherosclerotic heart disease of native coronary artery with unstable angina pectoris (principal); I25.82 Chronic total occlusion of coronary artery; I65.23 Occlusion and stenosis of bilateral carotid arteries; I10 Essential (primary) hypertension; E78.2 Mixed hyperlipidemia; E11.9 Type 2 diabetes mellitus without complications; J44.1 Chronic obstructive pulmonary disease with (acute) exacerbation; E03.9 Hypothyroidism, unspecified; M06.9 Rheumatoid arthritis, unspecified; Z95.1 Presence of aortocoronary bypass graft; Z95.5 Presence of coronary angioplasty implant and graft; Z79.82 Long term (current) use of aspirin; Z79.4 Long term (current) use of insulin; Z79.899 Other long term (current) drug therapy; Z88.0 Allergy status to penicillin; Z88.2 Allergy status to sulfonamides; Z91.040 Latex allergy status; Z20.822 Contact with and (suspected) exposure to COVID-19; Z82.49 Family history of ischemic heart disease and other diseases of the circulatory system
CPT/HCPCS: 85025; 80048; 36415; 85610; 82947; 85730; 71046; 93455; U0002; C1893; J2250; J3010; J7040; J1644 ×2; J0583

== ENCOUNTER 2022-08-09 08:00 | Emergency (ER) | payer OTHER ==
--- OUTSIDE RECORDS SUMMARY | 2022-08-09 08:14 | XMS REPORT | Continuity of Care Document ---
:1940 Author Organization [facility] Address [address] [facility] [address] [place] [id number] Care Team Providers Name Role Phone Asked, No Pcp Primary Care Physician Unavailable Daisy Carter Attending Clinician Unavailable Jessica De Luna Attending Clinician Unavailable Nicolasa Reynoso Attending Clinician Unavailable JAYME LONGO Attending Clinician Unavailable ADILSON MCKNIGHT Attending Clinician Unavailable Adilson Mcknight MD Attending Clinician ANNETTE RECIO Attending Clinician Unavailable JUAQUIN MCKEON Attending Clinician Unavailable ADILSON MCKNIGHT Admitting Clinician Unavailable ANNETTE RECIO Admitting Clinician Unavailable JUAQUIN MCKEON Admitting Clinician Unavailable Payers Payer Name Policy Type Policy Number Effective Date Expiration Date S magdiel AETNA MEDICARE 53 [id number] Common S pirit - [facility] [place] 5 [id number] 2021 00:00:00 AETNA MEDICARE 53 [id number] 2013 Common Spi rit 00:00:00 - [facility] AETNA MEDICARE 53 [id number] 2017 Common Spi rit 00:00:00 [facility] AETNA MEDICARE [id number] HMO POS PPO 00:00:00 Problems Condition Condition Condition Status Onset Resolution Last Treating Co mments Source Name Details Category Date Date Treatment Clinician Date Symptomati Symptomati Disease Active [facility] c carotid c carotid 2-19 [facility] artery artery 00:00: Medical stenosis stenosis 00 Center without without infarction infarction , left-s/p , left-s/p LICA LICA 12/18/17 12/18/17 LICA stent LICA stent Disease Active B aylor 12/28/17 w 12/28/17 w 8-20 Azar ege ISR ISR 00:00: of 06/02/2019 06/02/2019 00 Medi kiki e Carotid Carotid Disease Active [facility] stenosis stenosis 8 [facility] Bradycardi Bradycardi Disease Active [facility] a a 4-04 [facility] HTN HTN Disease Recurre [facility] (hypertens (hypertens nce 3-28 Priyanka kes ion) ion) 00:00: Medical 00 Center HLD HLD Disease Recurre [facility] (hyperlipi (hyperlipi nce 3-28 Priyanka kes demia) demia) 00:00: Medical 00 Center Type 2 Type [address] [facility] diabetes diabetes nce 3-28 [facility] mellitus mellitus 00:00: Medica l 00 Center Hypothyroi Hypothyroi Disease Recurre [facility] dism dism nce 3-28 [facility] Center Coronary Coronary Disease Active [facility] atheroscle atheroscle 3-26 [facility] rosis rosis 00:00: of 00 Medicin e Coronary Coronary Disease Active [facility] artery artery 3-21 [facility] disease disease 00:00: Medical 00 Center Uncomplica Uncomplica Disease Active 2016-04 M ethodi elizabeth asthma elizabeth asthma 0 st 00:00: Hospita 00 l Exacerbati Exacerbati Disease Active 2016-04 M ethodi on of on of 030 st intermitte intermitte 00:00: Ho spita nt asthma nt asthma 00 l Allergic Allergic Disease Active Metho di rhinitis rhinitis 01-10 st due to due to 00:00: Hospita pollen pollen 00 l Post-nasal Post-nasal Disease Active M ethodi drip drip 01-10 st 00:00: Hospita 00 l Mild Mild Disease Active Methodi intermitte intermitte 01-10 nt asthma nt asthma 00:00: Hosp eugene without without 00 l complicati complicati on on Reactive Reactive Disease Active Metho di airway airway 01-10 disease disease 00:00: Hospita that is that is 00 l not asthma not asthma Cough with Cough with Disease Active M ethodi congestion congestion 01-10 of of 00:00: Hospita paranasal paranasal 00 l sinus sinus [id number] Atheroscle Problem Co mmon rotic Spirit heart - CHI disease of [facility] coronary Medical artery Center without angina pectoris [id number] Other Problem Common chronic [facility] pain [facility] [id number] Presence Problem Comm on of [facility] coronary - [facility] angioplast [facility] [id number] Tinnitus Problem Com mon 102 of both Spirit ears [facility] [id number] Acute Problem Common cystitis [facility] without - CHI hematuria [facility] [id number] Primary Problem Common insomnia [facility] [id number] Boil Problem Common [facility] [id number] Dysuria Problem Common [facility] [id number] Non-season Problem Com mon al Spirit allergic - [facility] Urinary UTI Problem Common tract (urinary Spirit infectious tract - CHI disease infection) [facility] [id number] Seasonal Problem Comm on allergic Spirit rhinitis, - CHI unspecifie [facility] trigger [facility] [id number] Varicose Problem Comm on veins with Spirit swelling [facility] [id number] Recurrent Problem Com mon UTI [facility] [id number] Gastroesop Problem Co mmon hageal Spirit reflux - CHI disease [facility] esophagiti Medica 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 - CHI diabetes mellitus [facility] Asthma Asthma Problem Common without without Spirit status acute - CHI asthmaticu exacerbati [facility] Transient Situationa Problem Co mmon insomnia l insomnia Spir it [facility] Diverticul Colon, Problem Commo n osis of diverticul Spiri t colon osis - [facility] Diabetic Other Problem Common polyneurop specified Spi rit athy diabetes - CHI mellitus [facility] diabetic Medical polyneurop Center athy [id number] Seasonal Problem Comm on allergies [facility] [id number] Lumbar Problem Common radiculopa Spirit thy, - CHI chronic [facility] Obesity Obesity Problem Common [facility] Rheumatoid Rheumatoid Problem C ommon arthritis arthritis Spir it [facility] [id number] PAD Problem Common (periphera Spirit l artery - CHI disease) [facility] [id number] MCFP Problem Com mon current Spirit use of [facility] insulin [facility] Type II Type 2 Problem Common diabetes diabetes Spirit mellitus mellitus - [facility] without with St complicati hyperglyce Priyanka [facility] Mixed Mixed Problem Common hyperlipid hyperlipid Sp ligia emia emia [facility] [id number] Hospital Problem Comm on discharge [facility] follow-up [facility] [id number] Pelvic Problem Common pressure [facility] in female [facility] Urine Urine Problem Common incontinen incontinen Sp ligia ce ce [facility] [id number] History of Problem Co mmon coronary [facility] artery - [facility] bypass [facility] Shingles Shingles Problem Commo n [facility] [id number] Hypoglycem Problem Co mmon ia [facility] [id number] Microscopi Problem Co mmon c [facility] hematuria [facility] Gastroesop Gastroesop Problem C ommon hageal hageal [facility] reflux reflux - [facility] disease disease [facility] Hyperglyce Hyperglyce Disease Active C HI [facility] Allergies, Adverse Reactions, Alerts Allergy Allergy Status Severity Reaction(s) Onset Inactive Treating Comm ents Source Name Type Date Date Clinician Latex Drug Active [facility] Allergy 12-11 [facility] 00:00: Medical 00 Center LATEX Allergy Active [facility] 12-11 00:00: 00 Codeine Propensi Active [facility] ty to [address] [facility] adverse 00:00: of reaction 00 Medicin s to e drug Latex Propensi Active Blister [facility] ty to [address] [facility] adverse 00:00: of reaction 00 Medicin s to e substanc e Penicill Propensi Active Rash [facility] ins ty to 12-03 College adverse 00:00: of reaction 00 Medicin s to e drug Sulfa Propensi Active Rash [facility] Antibiot ty to 12-03 College ics adverse 00:00: of reaction 00 Medicin s to e drug Codeine Drug Active Other (See insomnia [facility] Intolera Comments) 07-04 [facility] 00:[facility]: Medical 00 Center Penicill Drug Active Hives [facility] ins Allergy 07-04 [facility] 00:[facility]: Medical 00 Center Sulfa Drug Active Hives, Other [facility] (Sulfona Allergy (See 07-04 [facility] mide Comments) 00:00: Medical Antibiot 00 Center ics) CODEINE Allergy Active Other [facility] 07-04 00:00: 00 PENICILL Allergy Active Hives [facility] INS 07-04 00:00: 00 SULFA Allergy Active Hives [facility] (SULFONA 07-04 [facility] 00:00: ANTIBIOT 00 ICS) No Known Propensi Active Method i Drug ty to 09-15 Allergie adverse 00:00: Hospita s reaction 00 l s to drug sulfamet sulfamet Active rash Common hoxazole hoxazole Spirit / / - CHI trimetho trimetho [facility] Codeine Codeine Active Hyperactive Com mon [facility] Social History Social Habit Start Date Stop Date Quantity Comments Source History of Tobacco Common Spirit - Use [facility] Alcohol intake 2019-06-04 2019-06-04 Current [facility] es 00:00:00 00:00:00 non-drinker of Medical Ce nter alcohol (finding) Tobacco use and 2017-08-14 2017-08-14 Never used [facility] exposure 00:00:00 00:00:00 [facility] Sex Ass[birth year] At [birth year] [facility] 00:00:00 00:00:00 [facility] Smoking Status Start Date Stop Date Source Never Smoker [facility] Medications Ordered Filled Start Stop Current Ordering Indication Dosage Frequency Signature Comments Components Source Medication Medication Date Date Medication? Clinician (SIG) Name Name Pregabalin Pregabalin 2022-0 No Pregabalin 50 MG 50 MG 9-20 50 MG 00:00: 00 Pregabalin Pregabalin 2022-0 No Pregabalin 50 MG 50 MG 9-20 50 MG 00:00: 00 Pregabalin Pregabalin 2022-0 No Pregabalin 50 MG 50 MG 9-20 50 MG 00:00: 00 Macrobid Macrobid 2022-0 2023- No 1{capsu QD Macrobid 100 MG 100 MG 12-07 le_with 100 MG 00:00: 00:00 _food} 00 :00 Macrobid Macrobid 2-0 2023- No 1{capsu QD Macrobid 100 MG 100 MG 12-07 le_with 100 MG 00:00: 00:00 _food} 00 :00 Macrobid Macrobid 2-0 2023- No 1{capsu QD Macrobid 100 MG 100 MG 12-07 le_with 100 MG 00:00: 00:00 _food} 00 :00 Macrobid Macrobid 2-0 2023- No 1{capsu QD Macrobid 100 MG 100 MG 12-07 le_with 100 MG 00:00: 00:00 _food} 00 :00 Macrobid Macrobid 2-0 3- No 1{capsu QD Macrobid 100 MG 100 MG 12-07 le_with 100 MG 00:00: 00:00 _food} 00 :00 Pregabalin Pregabalin 2-0 No Pregabalin 50 MG 50 MG 8-04 50 MG 00:00: 00 Pregabalin Pregabalin 2-0 No Pregabalin 50 MG 50 MG 8-04 50 MG 00:00: 00 Diphenoxyla Diphenoxyla 2022-0 No 1{table Diphenoxyl te-Atropine te-Atropine 3-07 t_as_ne ate-Atropi 2.5-0.025 2.5-0.025 00:00: eded} ne MG MG 00 2.5-0.025 MG Diphenoxyla Diphenoxyla 2022-0 No 1{table Diphenoxyl te-Atropine te-Atropine 3-07 t_as_ne ate-Atropi 2.5-0.025 2.5-0.025 00:00: eded} ne MG MG 00 2.5-0.025 MG Diphenoxyla Diphenoxyla 2022-0 No 1{table Diphenoxyl te-Atropine te-Atropine 3-07 t_as_ne ate-Atropi 2.5-0.025 2.5-0.025 00:00: eded} ne MG MG 00 2.5-0.025 MG Diphenoxyla Diphenoxyla 2022-0 No 1{table Diphenoxyl te-Atropine te-Atropine 3-07 t_as_ne ate-Atropi 2.5-0.025 2.5-0.025 00:00: eded} ne MG MG 00 2.5-0.025 MG Diphenoxyla Diphenoxyla 2022-0 No 1{table Diphenoxyl te-Atropine te-Atropine 3-07 t_as_ne ate-Atropi 2.5-0.025 2.5-0.025 00:00: eded} ne MG MG 00 2.5-0.025 MG Diphenoxyla Diphenoxyla 2022-0 No 1{table Diphenoxyl te-Atropine te-Atropine 3-07 t_as_ne ate-Atropi 2.5-0.025 2.5-0.025 00:00: eded} ne MG MG 00 2.5-0.025 MG Diphenoxyla Diphenoxyla 2022-0 No 1{table Diphenoxyl te-Atropine te-Atropine 3-07 t_as_ne ate-Atropi 2.5-0.025 2.5-0.025 00:00: eded} ne MG MG 00 2.5-0.025 MG Diphenoxyla Diphenoxyla 2022-0 No 1{table Diphenoxyl te-Atropine te-Atropine 3-07 t_as_ne ate-Atropi 2.5-0.025 2.5-0.025 00:00: eded} ne MG MG 00 2.5-0.025 MG Diphenoxyla Diphenoxyla 2022-0 No 1{table Diphenoxyl te-Atropine te-Atropine 3-07 t_as_ne ate-Atropi 2.5-0.025 2.5-0.025 00:00: eded} ne MG MG 00 2.5-0.025 MG Ipratropium Ipratropium 0 2021- No 2{spray TID Ipratropiu [place] 06-02 s_in_ea m [place] 0.06 % 0.06 % 00:00: 00:00 ch_nost 0.06 % 00 :00 ril} Pregabalin Pregabalin 0 No Pregabalin 50 MG 50 MG 1-04 50 MG 00:00: 00 Pregabalin Pregabalin 0 No Pregabalin 50 MG 50 MG -04 50 MG 00:00: 00 Pregabalin Pregabalin 0 No Pregabalin 50 MG 50 MG -04 50 MG 00:00: 00 Carvedilol Carvedilol 2020-04 No 1{table BID Carvedilol 6.25 MG 6.25 MG 1-15 t_with_ 6.25 MG 00:00: food} Carvedilol Carvedilol 2020-04 No 1{table BID Carvedilol 6.25 MG 6.25 MG 1-15 t_with_ 6.25 MG 00:00: food} Carvedilol Carvedilol 2020-04 No 1{table BID Carvedilol 6.25 MG 6.25 MG 1-15 t_with_ 6.25 MG 00:00: food} Carvedilol Carvedilol 2020-04 No 1{table BID Carvedilol 6.25 MG 6.25 MG 1-15 t_with_ 6.25 MG 00:00: food} Carvedilol Carvedilol 2020-04 No 1{table BID Carvedilol 6.25 MG 6.25 MG 1-15 t_with_ 6.25 MG 00:00: food} Carvedilol Carvedilol 2020-04 No 1{table BID Carvedilol 6.25 MG 6.25 MG 1-15 t_with_ 6.25 MG 00:00: food} 00 Carvedilol Carvedilol 2020-04 No 1{table BID Carvedilol 6.25 MG 6.25 MG 1-15 t_with_ 6.25 MG 00:00: food} 00 Carvedilol Carvedilol 2020-04 No 1{table BID Carvedilol 6.25 MG 6.25 MG 1-15 t_with_ 6.25 MG 00:00: food} 00 Benzonatate Benzonatate 2020-04- No 1{capsu BID Benzonatat 100 MG 100 MG 1-15 12-15 le_as_n e 100 MG 00:00: 00:00 eeded} 00 :00 Benzonatate Benzonatate 2020-04- No 1{capsu BID Benzonatat 100 MG 100 MG 1-15 12-15 le_as_n e 100 MG 00:00: 00:00 eeded} 00 :00 Benzonatate Benzonatate 2020-04- No 1{capsu BID Benzonatat 100 MG 100 MG 1-15 12-15 le_as_n e 100 MG 00:00: 00:00 eeded} 00 :00 Benzonatate Benzonatate 2020-04- No 1{capsu BID Benzonatat 100 MG 100 MG 1-15 12-15 le_as_n e 100 MG 00:00: 00:00 eeded} 00 :00 Benzonatate Benzonatate 2020-04- No 1{capsu BID Benzonatat 100 MG 100 MG 1-15 12-15 le_as_n e 100 MG 00:00: 00:00 eeded} 00 :00 Nitrofurant Nitrofurant 0 2020- No Na Reynoso 1 capsule Common oin Monohyd oin Monohyd 5-11 02-19 with food Spirit Macro Macro 00:00: 00:00 - [facility]I 00 :00 [facility] aspirin 81 2019-0 Yes 81mg QD Take [address] MG chewable 2-19 by mouth Luke s tablet 09:00: daily. [address] fluticasone 2019-0 Yes maintenance 1{puff} Inhale [address] -salmeterol 2-19 therapy for puff by [facility] (ADVAIR) 09:00: asthma mouth via Ga dical 250-50 41 inhaler 2 Center mcg/dose (two) diskus times inhaler daily as needed. tolterodine 2019-0 Yes urinary 4mg QD Take [address] (DETROL LA) 2-19 urge by mouth Luke s 4 MG 24 hr 09:00: incontinenc daily. Medical capsule 41 e Center levothyroxi 2019-0 Yes hypothyroid 125ug Take [address] ne 2-19 ism mcg by [facility] (SYNTHROID, 09:00: mouth Medic al LEVOTHROID) 41 Every Center 125 MCG morning on tablet an empty stomach. atorvastati 2020-0 Yes hyperlipide 40mg QD Take [address] n (LIPITOR) 2-19 karl by mouth Luke s 40 MG 09:00: daily. Medical tablet 41 Center insulin 2019-[address] [facility] aspart 2-19 subcutaneo [facility] (NOVOLOG) 09:00: usly as Medic al 100 unit/mL 41 needed . Cent er InPn pregabalin 2019-0 Yes diabetic 50mg Q.5D Take [address] (LYRICA) 50 2-19 peripheral by mouth 2 [facility] MG capsule 09:00: neuropathy (two) Medical 41 times Center daily. hydroxychlo 2019-0 Yes rheumatoid 200mg QD Take [address] roquine 2-19 arthritis mg by [facility] (PLAQUENIL) 09:00: mouth Medic al 200 mg 41 daily. Center tablet tiotropium 2019-0 Yes maintenance 18ug Inhale [address] (SPIRIVA) 2-19 therapy for mcg by Layla little 18 mcg 09:00: asthma mouth via Medi lambert inhalation 41 inhaler 2 Cent er capsule (two) times daily as needed. INSULIN 2020-0 Yes 80U Inject 80 [facility] DEGLUDEC 2-19 Units [facility] (TRESIBA 09:00: subcutaneo Med ical FLEXTOUCH 41 usly once Cente r U-200 SUBQ) at bedtime. fluticasone 2020-0 Yes 2{spray [address] (VERAMYST) 2-19 } by Nasal [facility] 27.5 09:00: route as Medical mcg/actuati 41 needed . Cent er on nasal spray cholecalcif 2020-0 Yes osteoporosi 1000U QD Take 1,[address] kiera, 2-19 s Units by [facility] vitamin D3, 09:00: mouth Medic al 1,000 unit 41 daily. Center capsule zolpidem 2019-0 Yes 5mg Take [address] (AMBIEN) 5 2-19 by mouth [facility] MG tablet 09:00: every Medical 41 night as Center needed for Insomnia. cetirizine 2019-0 Yes 10mg QD Take [address] (ZYRTEC) 10 2-19 by mouth Luke s MG tablet 09:00: daily. Medica l 41 Center omeprazole 2019-0 Yes 20mg Take [address] (PRILOSEC) 2-19 by mouth [facility] 20 MG 09:00: as needed Medical capsule 41 . Center clopidogrel 2019-0 Yes 75mg QD Take [address] [facility] (PLAVIX) 75 2-19 by mouth Luke s mg tablet 09:00: daily. Medica l 41 Center tolterodine 2019-0 Yes urinary 4mg QD Take [address] (DETROL LA) 2-19 urge by mouth Luke s 4 MG 24 hr 09:00: incontinenc daily. Medical capsule 41 e Center levothyroxi 2019-0 Yes hypothyroid 125ug Take [address] ne 2-19 ism mcg by [facility] (SYNTHROID, 09:00: mouth Medic al LEVOTHROID) 41 Every Center 125 MCG morning on tablet an empty stomach. atorvastati 2019-0 Yes hyperlipide 40mg QD Take [address] n (LIPITOR) 2-19 karl by mouth Luke s 40 MG 09:00: daily. Medical tablet 41 Center insulin [address] [facility] aspart 2-19 subcutaneo [facility] (NOVOLOG) 09:00: usly as Medic al 100 unit/mL 41 needed . Cent er InPn pregabalin 2019-0 Yes diabetic 50mg Q.5D Take [address] (LYRICA) 50 2-19 peripheral by mouth 2 [facility] MG capsule 09:00: neuropathy (two) Medical 41 times Center daily. 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 Center tablet tiotropium 2019-0 Yes maintenance 18ug Inhale [address] (SPIRIVA) 2-19 therapy for mcg by Layla little 18 mcg 09:00: asthma mouth via Medi lambert inhalation 41 inhaler 2 Cent er capsule (two) times daily as needed. INSULIN 2019-0 Yes 80U Inject 80 [facility] DEGLUDEC 2-19 Units [facility] (TRESIBA 09:00: subcutaneo Med ical FLEXTOUCH 41 usly once Cente r U-200 SUBQ) at bedtime. fluticasone 2020-0 Yes 2{spray [address] (VERAMYST) 2-19 } by Nasal [facility] 27.5 09:00: route as Medical mcg/actuati 41 needed . Cent er on nasal spray cholecalcif 2020-0 Yes osteoporosi 1000U QD Take 1,[address] kiera, 2-19 s Units by [facility] vitamin D3, 09:00: mouth Medic al 1,000 unit 41 daily. Center capsule zolpidem 2019-0 Yes 5mg Take [address] (AMBIEN) 5 2-19 by mouth [facility] MG tablet 09:00: every Medical 41 night as Center needed for Insomnia. cetirizine 2019-0 Yes 10mg QD Take [address] (ZYRTEC) 10 2-19 by mouth Luke s MG tablet 09:00: daily. Medica l 41 Center omeprazole 2019-0 Yes 20mg Take [address] (PRILOSEC) 2-19 by mouth [facility] 20 MG 09:00: as needed Medical capsule 41 . Center clopidogrel 2019-0 Yes 75mg QD Take [address] (PLAVIX) 75 2-19 by mouth Luke s mg tablet 09:00: daily. Medica l 41 Center aspirin 81 2020-0 Yes 81mg QD Take [address] MG chewable 2-19 by mouth Luke s tablet 09:00: daily. Medical 41 Center fluticasone 2019-0 Yes maintenance 1{puff} Inhale [address] -salmeterol 2-19 therapy for puff by David (ADVAIR) 09:00: asthma mouth via Me dical 250-50 41 inhaler 2 Center mcg/dose (two) diskus times inhaler daily as needed. tolterodine 2019-0 Yes urinary 4mg QD Take [address] (DETROL LA) 2-19 urge by mouth Luke s 4 MG 24 hr 09:00: incontinenc daily. Medical capsule 41 e Center levothyroxi 2019-0 Yes hypothyroid 125ug Take [address] ne 2-19 ism mcg by David (SYNTHROID, 09:00: mouth Medic al LEVOTHROID) 41 Every Center 125 MCG morning on tablet an empty stomach. atorvastati 2020-0 Yes hyperlipide 40mg QD Take [address] n (LIPITOR) 2-19 karl by mouth Luke s 40 MG 09:00: daily. Medical tablet 41 Center insulin 2020-[address] [facility] aspart 2-19 subcutaneo [facility] (NOVOLOG) 09:00: usly as Medic al 100 unit/mL 41 needed . Cent er InPn pregabalin 2020-0 Yes diabetic 50mg Q.5D Take [address] (LYRICA) 50 2-19 peripheral by mouth 2 [facility] MG capsule 09:00: neuropathy (two) Medical 41 times Center daily. 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 Center tablet tiotropium 2020-0 Yes maintenance 18ug Inhale [address] (SPIRIVA) 2-19 therapy for mcg by Layla little 18 mcg 09:00: asthma mouth via Medi lambert inhalation 41 inhaler 2 Cent er capsule (two) times daily as needed. INSULIN 2020-0 Yes 80U Inject 80 [facility] DEGLUDEC 2-19 Units [facility] (TRESIBA 09:00: subcutaneo Med ical FLEXTOUCH 41 usly once Cente r U-200 SUBQ) at bedtime. fluticasone 2020-0 Yes 2{spray [address] (VERAMYST) 2-19 } by Nasal [facility] 27.5 09:00: route as Medical mcg/actuati 41 needed . Cent er on nasal spray cholecalcif 2020-0 Yes osteoporosi 1000U QD Take 1,[address] kiera, 2-19 s Units by [email or web address] vitamin D3, 09:00: mouth Medic al 1,000 unit 41 daily. Center capsule zolpidem 2020-0 Yes 5mg Take [address] (AMBIEN) 5 2-19 by mouth [facility] MG tablet 09:00: every Medical 41 night as Center needed for Insomnia. cetirizine 2020-0 Yes 10mg QD Take [address] (ZYRTEC) 10 2-19 by mouth Luke s MG tablet 09:00: daily. Medica l 41 Center omeprazole 2020-0 Yes 20mg Take [address] (PRILOSEC) 2-19 by mouth [facility] 20 MG 09:00: as needed Medical capsule 41 . Center clopidogrel 2019-0 Yes 75mg QD Take [address] (PLAVIX) 75 2-19 by mouth Luke s mg tablet 09:00: daily. Medica l 41 Center aspirin 81 2020-0 Yes 81mg QD Take [address] MG chewable 2-19 by mouth Luke s tablet 09:00: daily. Medical 41 Center fluticasone 2019-0 Yes maintenance 1{puff} Inhale [address] -salmeterol 2-19 therapy for puff by [facility] (ADVAIR) 09:00: asthma mouth via Ga dical 250-50 41 inhaler 2 Center mcg/dose (two) diskus times inhaler daily as needed. tolterodine 2019-0 Yes urinary 4mg QD Take [address] (DETROL LA) 2-19 urge by mouth Luke s 4 MG 24 hr 09:00: incontinenc daily. Medical capsule 41 e Center levothyroxi 2019-0 Yes hypothyroid 125ug Take [address] ne 2-19 ism mcg by [facility] (SYNTHROID, 09:00: mouth Medic al LEVOTHROID) 41 Every Center 125 MCG morning on tablet an empty stomach. atorvastati 2019-0 Yes hyperlipide 40mg QD Take [address] [facility] n (LIPITOR) 2-19 karl by mouth Luke s 40 MG 09:00: daily. Medical tablet 41 Center insulin 2019-[address] [facility] aspart 2-19 subcutaneo [facility] (NOVOLOG) 09:00: usly as Medic al 100 unit/mL 41 needed . Cent er InPn pregabalin 2019-0 Yes diabetic 50mg Q.5D Take [address] (LYRICA) 50 2-19 peripheral by mouth 2 [facility] MG capsule 09:00: neuropathy (two) Medical 41 times Center daily. hydroxychlo 2019-0 Yes rheumatoid 200mg QD Take [address] roquine 2-19 arthritis mg by [facility] (PLAQUENIL) 09:00: mouth Medic al 200 mg 41 daily. Center tablet tiotropium 2019-0 Yes maintenance 18ug Inhale [address] (SPIRIVA) 2-19 therapy for mcg by L ukes 18 mcg 09:00: asthma mouth via Medi lambert inhalation 41 inhaler 2 Cent er capsule (two) times daily as needed. INSULIN 2020-0 Yes 80U Inject 80 [facility] DEGLUDEC 2-19 Units [facility] (TRESIBA 09:00: subcutaneo Med ical FLEXTOUCH 41 usly once Cente r U-200 SUBQ) at bedtime. fluticasone 2020-0 Yes 2{spray [address] (VERAMYST) 2-19 } by Nasal [facility] 27.5 09:00: route as Medical mcg/actuati 41 needed . Cent er on nasal spray cholecalcif 2020-0 Yes osteoporosi 1000U QD Take 1,[address] kiera, 2-19 s Units by [facility] vitamin D3, 09:00: mouth Medic al 1,000 unit 41 daily. Center capsule zolpidem 2019-0 Yes 5mg Take [address] [facility] (AMBIEN) 5 2-19 by mouth [facility] MG tablet 09:00: every Medical 41 night as Center needed for Insomnia. cetirizine 2020-0 Yes 10mg QD Take [address] (ZYRTEC) 10 2-19 by mouth Luke s MG tablet 09:00: daily. Medica l 41 Center omeprazole 2019-0 Yes 20mg Take [address] [facility] (PRILOSEC) 2-19 [facility] 20 MG 09:00: as needed Medical capsule 41 . Center clopidogrel 2019-0 Yes 75mg QD Take [address] [facility] (PLAVIX) 75 2-19 by mouth [facility] mg tablet 09:00: daily. [facility]ica [facility] aspirin 81 2020-0 Yes 81mg QD Take [address] MG chewable 2-19 by mouth [facility] tablet 09:00: daily. Medical 41 Center fluticasone 2020-0 Yes maintenance 1{puff} Inhale [address] [facility] -salmeterol 2-19 therapy for puff by [facility] (ADVAIR) 09:00: asthma mouth via Ga dical 250-50 41 inhaler 2 Center mcg/dose (two) diskus times inhaler daily as needed. tolterodine 2020-0 Yes urinary 4mg QD Take [address] [facility] (DETROL LA) 2-19 urge by mouth Luke [facility] 4 MG 24 hr 09:00: incontinenc daily. Medical capsule 41 e Center levothyroxi 2019-0 Yes hypothyroid 125ug Take [address] [facility] ne 2-19 ism mcg by [facility] (SYNTHROID, 09:00: mouth Medic al LEVOTHROID) 41 Every Center 125 MCG morning on tablet an empty stomach. atorvastati 2020-0 Yes hyperlipide 40mg QD Take [address] [facility] n (LIPITOR) 2-19 karl by mouth [facility] 40 MG 09:00: daily. Medical tablet 41 Center insulin 2020-[address] [facility] aspart 2-19 subcutaneo [facility] (NOVOLOG) 09:00: usly as Medic al 100 unit/mL 41 needed . Cent er InPn pregabalin 2020-0 Yes diabetic 50mg Q.5D Take [address] [facility] (LYRICA) 50 2-19 peripheral by mouth 2 [facility] MG capsule 09:00: neuropathy (two) Medical 41 times Center daily. 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 [facility] tablet tiotropium 2020-0 Yes maintenance 18ug Inhale [address] [facility] (SPIRIVA) 2-19 therapy for mcg by Layla little 18 mcg 09:00: asthma mouth via Medi lambert inhalation 41 inhaler 2 Cent er capsule (two) times daily as needed. INSULIN 2020-0 Yes 80U Inject 80 [facility] DEGLUDEC 2-19 Units [facility] (TRESIBA 09:00: subcutaneo Med ical FLEXTOUCH 41 usly once Cente r U-200 SUBQ) at bedtime. fluticasone 2020-0 Yes 2{spray [address] [facility] (VERAMYST) 2-19 } by Nasal [facility] 27.5 09:00: route as Medical mcg/actuati 41 needed . Cent er on nasal spray cholecalcif 2020-0 Yes osteoporosi 1000U QD Take 1,[address] [facility] kiera, 2-19 s Units by [facility] vitamin D3, 09:00: mouth Medic al 1,000 unit 41 daily. [facility] capsule zolpidem 2020-0 Yes 5mg Take [address] [facility] (AMBIEN) 5 2-19 by mouth [facility] MG tablet 09:00: every Medical 41 night as Center needed for Insomnia. cetirizine 2020-0 Yes 10mg QD Take [address] (ZYRTEC) 10 2-19 by mouth [facility] MG tablet 09:00: daily. Medica l 41 Center omeprazole 2020-0 Yes 20mg Take [address] (PRILOSEC) 2-19 [facility] 20 MG 09:00: as needed Medical capsule 41 . Center clopidogrel 2020-0 Yes 75mg QD Take [address] [facility] (PLAVIX) 75 2-19 by mouth [facility] mg tablet 09:00: daily. Medica l 41 [facility] aspirin 81 2020-0 Yes 81mg QD Take [address] MG chewable 2-19 by mouth [facility] tablet 09:00: daily. Medical 41 Center fluticasone 2020-0 Yes maintenance 1{puff} Inhale [address] [facility] -salmeterol 2-19 therapy for puff by [facility] (ADVAIR) 09:00: asthma mouth via Ga dical 250-50 41 inhaler 2 Center mcg/dose (two) diskus times inhaler daily as needed. aspirin 81 2020-0 Yes 81mg Take 81 mg [facility] tablet 2-17 by mouth [facility] e 21:06: daily. of 51 Medicin e amlodipine 2020-0 Yes 5mg Take 5 mg [facility] (NORVASC) 5 2-17 by mouth [facility] MG tablet 21:06: daily. of 51 Medicin e Cholecalcif 2020-0 Yes Take by [place] r[facility] kiera 2-17 mouth. [facility] (VITAMIN 21:06: of D3) 1000 51 Medicin units TABS e levothyroxi 2020-0 Yes 125ug Take 125 [facility] ne 2-17 mcg by [facility] (SYNTHROID) 21:06: mouth of 125 MCG 51 daily. Medicin tablet e pregabalin 2020-0 Yes 50mg Take 50 mg [facility] (LYRICA) 50 2-17 by mouth 3 [facility] MG capsule 21:06: times of 51 daily. Medicin e cetirizine, 2020-0 Yes 10mg Take 10 mg [facility] ZYRTEC, 2-17 by mouth [facility] (ZYRTEC 21:06: once. of ALLERGY) 10 51 Medicin MG tablet e atorvastati 2020-0 Yes 40mg Take 40 mg [facility] n (LIPITOR) 2-17 by mouth [facility] 40 MG 21:06: daily. of tablet 51 Medicin e montelukast 2020-0 Yes 10mg Take 10 mg [facility] (SINGULAIR) 2-17 by mouth [facility] 10 MG 21:06: daily. of tablet 51 Medicin e tolterodine 2020-0 Yes 4mg Take 4 mg [facility] (DETROL LA) 2-17 by mouth [facility] 4 MG ER 21:06: daily. of capsule 51 Medicin e Insulin 2020-0 Yes 80U Inject 80 [facility] Degludec 2-17 Units into [facility] (TRESIBA 21:06: the skin. of FLEXTOUCH 51 Medicin SC) e zolpidem 2020-0 Yes 5mg Take 5 mg [facility] (AMBIEN) 5 2-17 by mouth [facility] ge MG tablet 21:06: nightly as of 51 needed for Medicin Sleep. e fluticasone 2020-0 Yes 1{puff} Inhale 1 [facility] -salmeterol 2-17 Puff by [facility] (ADVAIR 21:06: mouth of DISKUS) 51 every 12 Medicin 250-50 hours. e MCG/DOSE inhaler Fluticasone 2020-0 Yes by Each [place] rashi Furoate 2-17 Nostril [facility] (VERAMYST) 21:06: route. of 27.5 51 Medicin MCG/SPRAY e SUSP Insulin 2020-0 Yes Inject [facility] Lispro 2-17 into the [facility] (HUMALOG 21:06: skin. of SC) 51 Medicin e omeprazole 2020-0 Yes 20mg Take 20 mg [facility] (PRILOSEC) 2-17 by mouth [facility] 20 MG 21:06: daily. of capsule 51 Medicin e nitrofurant 2020-0 Yes 100mg Take 100 [facility] oin 2-17 mg by [facility] (MACRODANTI 21:06: mouth four of N) 100 MG 51 times Medicin capsule daily. e hydroxychlo 2020-0 2020- No 200mg Take 200 [facility] roquine 2-17 02-17 mg by [facility] (PLAQUENIL) 21:06: 00:00 mouth of 200 MG 51 :00 daily. Medicin tablet e Acyclovir Acyclovir 2018-04 Yes Na Reynoso 1 Common -19 applicatio [facility] 00:00: n every 3 - [facility] 00 hours [facility] Diphenoxyla Diphenoxyla 2018- 2019- No Na Reynoso not Common te-Atropine te-Atropine 11-28 defined [facility] 00:00: 00:00 - [facility] 00 :00 [facility] clopidogrel 2019-0 Yes TAKE 1 [facility] (PLAVIX) 75 1-29 TABLET BY Col lege MG tablet 00:00: MOUTH of 00 EVERY DAY Medicin e levoFLOXaci 2018-0 Yes 500mg QD Take 500 M ethodi n 2-[address] (LEVAQUIN) 09:36: mouth Hospit a 500 MG 22 daily. l tablet levoFLOXaci 2018-0 Yes 500mg QD Take 500 M ethodi n 2-[address] (LEVAQUIN) 09:36: mouth Hospit a 500 MG 22 daily. l tablet levoFLOXaci 2018-0 Yes 500mg QD Take 500 M ethodi n 2-[address] (LEVAQUIN) 09:36: mouth Hospit a 500 MG 22 daily. l tablet levoFLOXaci 2018-0 Yes 500mg QD Take 500 M ethodi n 2-[address] (LEVAQUIN) 09:36: mouth Hospit a 500 MG 22 daily. l tablet levoFLOXaci 2018-0 Yes 500mg QD Take 500 M ethodi n 2-[address] (LEVAQUIN) 09:36: mouth Hospit a 500 MG 22 daily. l tablet atorvastati 2017-0 Yes 40mg QD Take 40 mg [facility] (LIPITOR) 2-[address] 40 MG 09:30: daily. Hospita tablet 07 l aspirin 2018-0 Yes 81mg QD Take 81 mg [facility] (ECOTRIN) 2-[address] 81 MG 09:30: daily. Hospita enteric 07 l coated tablet pregabalin 2018-0 Yes 50mg Q.[id number] Take 50 mg [facility] (LYRICA) 50 2-12 [id number] by mouth [facility] MG capsule 09:30: 3D (three) [facility] 07 times a l day. amLODIPine 2018-0 Yes 5mg QD Take 5 mg [facility] (NORVASC) 5 2-[address] mg tablet 09:30: daily. Hospit a 07 l clopidogrel 2018-0 Yes 75mg QD Take 75 mg [facility] (PLAVIX) 75 2-[address] mg tablet 09:30: daily. Hospit a 07 l cholecalcif 2017-0 Yes 1000U QD Take 1,000 [facility] kiera, 2-[address] vitamin D3, 09:30: mouth Hospi ta (VITAMIN 07 daily. l D3) 1,000 unit tablet hydroxychlo 2018-0 Yes QD Take by Met hodi roquine 2-[address] (PLAQUENIL) 09:30: daily. [facility] 200 mg 07 l tablet escitalopra 2018-0 Yes 10mg QD Take 10 mg [facility] (LEXAPRO) 2-[address] 10 MG 09:30: daily. Hospita tablet 07 l tolterodine 2018-0 Yes 4mg QD Take 4 mg [facility] [place] (DETROL 2-[address] [place]) 4 MG 24 09:30: daily. [facility] hr capsule 07 l atorvastati 2018-0 Yes 40mg QD Take 40 mg [facility] n (LIPITOR) 2-[address] 40 MG 09:30: daily. Hospita tablet 07 l aspirin 2018-0 Yes 81mg QD Take 81 mg [facility] (ECOTRIN) 2-[address] 81 MG 09:30: daily. Hospita enteric 07 l coated tablet pregabalin 2018-0 Yes 50mg Q.[id number] Take 50 mg [facility] (LYRICA) 50 2-12 [id number] by mouth [facility] [address] MG capsule 09:30: 3D (three) [facility] 07 times a l day. amLODIPine 2018-0 Yes 5mg QD Take 5 mg [facility] (NORVASC) 5 2-[address] mg tablet 09:30: daily. Hospit a 07 l clopidogrel 2018-0 Yes 75mg QD Take 75 mg [facility] (PLAVIX) 75 2-[address] mg tablet 09:30: daily. Hospit a 07 l cholecalcif 2018-0 Yes 1000U QD Take 1,000 [facility] kiera, 2-[address] vitamin D3, 09:30: mouth Hospi ta (VITAMIN 07 daily. l D3) 1,000 unit tablet hydroxychlo 2018-0 Yes QD Take by Met hodi roquine 2-[address] (PLAQUENIL) 09:30: daily. [facility] 200 mg 07 l tablet escitalopra 2018-0 Yes 10mg QD Take 10 mg [facility] (LEXAPRO) 2-[address] 10 MG 09:30: daily. Hospita tablet 07 l tolterodine 2018-0 Yes 4mg QD Take 4 mg [facility] [place] (DETROL 2-[address] LA) 4 MG 24 09:30: daily. [facility] capsule 07 l atorvastati 2018-0 Yes 40mg QD Take 40 mg [facility] (LIPITOR) 2-[address] 40 MG 09:30: daily. Hospita tablet 07 l aspirin 2018-0 Yes 81mg QD Take 81 mg [facility] (ECOTRIN) 2-[address] 81 MG 09:30: daily. Hospita enteric 07 l coated tablet pregabalin 2018-0 Yes 50mg Q.[id number] Take 50 mg [facility] (LYRICA) 50 2-12 [id number] by mouth [facility] MG capsule 09:30: 3D (three) [facility] 07 times a l day. amLODIPine 2018-0 Yes 5mg QD Take 5 mg [facility] (NORVASC) 5 2-[address] mg tablet 09:30: daily. Hospit a 07 l clopidogrel 2018-0 Yes 75mg QD Take 75 mg [facility] (PLAVIX) 75 2-[address] mg tablet 09:30: daily. Hospit a 07 l cholecalcif 2018-0 Yes 1000U QD Take 1,000 [facility] kiera, 2-[address] vitamin D3, 09:30: mouth Hospi ta (VITAMIN 07 daily. l D3) 1,000 unit tablet hydroxychlo 2018-0 Yes QD Take by Met hodi roquine 2-[address] (PLAQUENIL) 09:30: daily. [facility] 200 mg 07 l tablet escitalopra 2018-0 Yes 10mg QD Take 10 mg [facility] (LEXAPRO) 2-[address] 10 MG 09:30: daily. Hospita tablet 07 l tolterodine 2018-0 Yes 4mg QD Take 4 mg [facility] [place] (DETROL 2-[address] LA) 4 MG 24 09:30: daily. [facility] capsule 07 l atorvastati 2018-0 Yes 40mg QD Take 40 mg [facility] (LIPITOR) 2-[address] 40 MG 09:30: daily. Hospita tablet 07 l aspirin 2018-0 Yes 81mg QD Take 81 mg [facility] (ECOTRIN) 2-[address] 81 MG 09:30: daily. Hospita enteric 07 l coated tablet pregabalin 2018-0 Yes 50mg Q.[id number] Take 50 mg [facility] (LYRICA) 50 2-12 [id number] by mouth [facility] MG capsule 09:30: 3D (three) [facility] 07 times a l day. amLODIPine 2018-0 Yes 5mg QD Take 5 mg [facility] (NORVASC) 5 2-[address] mg tablet 09:30: daily. Hospit a 07 l clopidogrel 2018-0 Yes 75mg QD Take 75 mg [facility] (PLAVIX) 75 2-[address] mg tablet 09:30: daily. Hospit a 07 l cholecalcif 2018-0 Yes 1000U QD Take 1,000 [facility] kiera, 2-[address] vitamin D3, 09:30: mouth Hospi ta (VITAMIN 07 daily. l D3) 1,000 unit tablet hydroxychlo 2018-0 Yes QD Take by Met hodi roquine 2-[address] (PLAQUENIL) 09:30: daily. [facility] 200 mg 07 l tablet escitalopra 2018-0 Yes 10mg QD Take 10 mg [facility] (LEXAPRO) 2-[address] 10 MG 09:30: daily. Hospita tablet 07 l tolterodine 2018-0 Yes 4mg QD Take 4 mg [facility] [place] (DETROL 2-[address] LA) 4 MG 24 09:30: daily. [facility] capsule 07 l atorvastati 2018-0 Yes 40mg QD Take 40 mg [facility] (LIPITOR) 2-[address] 40 MG 09:30: daily. Hospita tablet 07 l aspirin 2018-0 Yes 81mg QD Take 81 mg [facility] (ECOTRIN) 2-[address] 81 MG 09:30: daily. Hospita enteric 07 l coated tablet pregabalin 2018-0 Yes 50mg Q.[id number] Take 50 mg [facility] (LYRICA) 50 2-12 [id number] by mouth 3 [facility] MG capsule 09:30: 3D (three) [facility] 07 times a l day. amLODIPine 2018-0 Yes 5mg QD Take 5 mg [facility] (NORVASC) 5 2-[address] mg tablet 09:30: daily. Hospit a 07 l clopidogrel 2018-0 Yes 75mg QD Take 75 mg [facility] (PLAVIX) 75 2-[address] mg tablet 09:30: daily. Hospit a 07 l cholecalcif Yes 1000U QD Take 1,000 [facility] kiera, 2-[address] vitamin D3, 09:30: mouth Hospi ta (VITAMIN 07 daily. l D3) 1,000 unit tablet hydroxychlo Yes QD Take by Met hodi roquine 2-[address] (PLAQUENIL) 09:30: daily. [facility] 200 mg 07 l tablet escitalopra Yes 10mg QD Take 10 mg [facility] (LEXAPRO) 2-[address] 10 MG 09:30: daily. Hospita tablet 07 l tolterodine Yes 4mg QD Take 4 mg [facility] [place] (DETROL 2-[address] [place]) 4 MG 24 09:30: daily. [facility] capsule 07 l budesonide- 2016-04 Yes 2{puff} Q.5D Inhale 2 [facility] formoterol 1-[address] (SYMBICORT) 00:00: (two) Hospi ta 160-4.5 00 times a l mcg/actuati day. on inhaler budesonide- 2016-04 Yes 2{puff} Q.5D Inhale 2 [facility] formoterol 1-[address] (SYMBICORT) 00:00: (two) Hospi ta 160-4.5 00 times a l mcg/actuati day. on inhaler budesonide- 2016-04 Yes 2{puff} Q.5D Inhale 2 [facility] formoterol 1-[address] (SYMBICORT) 00:00: (two) Hospi ta 160-4.5 00 times a l mcg/actuati day. on inhaler budesonide- 2016-04 Yes 2{puff} Q.5D Inhale 2 [facility] formoterol 1-[address] (SYMBICORT) 00:00: (two) Hospi ta 160-4.5 00 times a l mcg/actuati day. on inhaler budesonide- 2016-04 Yes 2{puff} Inhale [address] [facility] formoterol 1-06 puffs [facility] (SYMBICORT) 00:00: mouth via M edical 160-4.5 00 inhaler as Center mcg/actuati needed . on inhaler budesonide2016-04 Yes 2{puff} Q.5D Inhale 2 [facility] formoterol 1-[address] (SYMBICORT) 00:00: (two) Hospi ta 160-4.5 00 times a l mcg/actuati day. on inhaler budesonide2016-04 Yes 2{puff} Inhale [address] [facility] [facility] formoterol 1-06 puffs by [facility] (SYMBICORT) 00:00: mouth via M edical 160-4.5 00 inhaler as Center mcg/actuati needed . on inhaler budesonide2016-04 Yes 2{puff} Inhale [address] [facility] formoterol 1-06 puffs by [facility] (SYMBICORT) 00:00: mouth via M edical 160-4.5 00 inhaler as Center mcg/actuati needed . on inhaler budesonide2016-04 Yes 2{puff} Inhale [address] formoterol 1-06 puffs by [facility] (SYMBICORT) 00:00: mouth via M edical 160-4.5 00 inhaler as Center mcg/actuati needed . on inhaler budesonide2016-04 Yes 2{puff} Inhale [address] formoterol 1-06 puffs by [facility] (SYMBICORT) 00:00: mouth via M edical 160-4.5 00 inhaler as Center mcg/actuati needed . on inhaler fluticasone 2016-04 Yes 100ug QD 2 sprays [facility] (FLONASE) 0-12 ([address] 50 00:00: total) by Hospita mcg/actuati 00 Each Nare l on nasal route spray daily. fluticasone 2016-04 Yes 100ug QD 2 sprays [facility] (FLONASE) 0-12 ([address] 50 00:00: total) by Hospita mcg/actuati 00 Each Nare l on nasal route spray daily. fluticasone 2016-04 Yes 100ug QD 2 sprays M [facility]i (FLONASE) 0-12 ([address] 50 00:00: total) by Hospita mcg/actuati 00 Each Nare l on nasal route spray daily. fluticasone 2016-04 Yes 100ug QD 2 sprays [facility] (FLONASE) 0-12 ([address] 50 00:00: total) by Hospita mcg/actuati 00 Each Nare l on nasal route spray daily. fluticasone 2016-04 Yes 100ug QD 2 sprays [facility] (FLONASE) 0-12 ([address] 50 00:00: total) by Hospita mcg/actuati 00 Each Nare l on nasal route spray daily. levothyroxi Yes TK 1 T PO M ethodi ne 9-[address] (SYNTHROID, 00:00: Hospit a LEVOXYL) 00 l 125 mcg tablet levothyroxi Yes TK 1 T PO M ethodi ne 9-[address] (SYNTHROID, 00:00: Hospit a LEVOXYL) 00 l 125 mcg tablet levothyroxi Yes TK 1 T PO M ethodi ne 9-[address] (SYNTHROID, 00:00: Hospit a LEVOXYL) 00 l 125 mcg tablet levothyroxi Yes TK 1 T PO M ethodi ne 9-[address] (SYNTHROID, 00:00: Hospit a LEVOXYL) 00 l 125 mcg tablet levothyroxi Yes TK 1 T PO M ethodi ne 9-[address] (SYNTHROID, 00:00: Hospit a LEVOXYL) 00 l 125 mcg tablet Synthroid Synthroid No Synthroid 125 MCG 125 MCG 125 MCG Diphenoxyla Diphenoxyla No Diphenoxyl te-Atropine te-Atropine ate-Atropi ne Lyrica 50 Lyrica 50 No 1{capsu BID Lyrica 50 MG MG le} MG Levocetiriz Levocetiriz No 1{table QD Levocetiri ine ine t_in_th zine Dihydrochlo Dihydrochlo e_eveni Dihydrochl ride 5 MG ride 5 MG ng} oride 5 MG Aspir-81 81 Aspir-81 81 No 1{table QD Aspir-81 MG MG t} 81 MG Plaquenil Plaquenil No Plaquenil 200 MG 200 MG 200 MG Clopidogrel Clopidogrel No Clopidogre Bisulfate Bisulfate l 75 MG 75 MG Bisulfate 75 MG Acyclovir 5 Acyclovir 5 No 6xD Acyclovir % % 5 % Losartan Losartan No Losartan Potassium Potassium Potassium 100 MG 100 MG 100 MG PriLOSEC PriLOSEC No PriLOSEC Triamcinolo Triamcinolo No BID Triamcinol ne ne one Acetonide Acetonide Acetonide 0.1 % 0.1 % 0.1 % Lipitor 40 Lipitor 40 No 1{table QD Lipitor 40 MG MG t} MG Vitamin D-3 Vitamin D-3 No Vitamin D-3 Mirtazapine Mirtazapine No Mirtazapin 15 MG 15 MG e 15 MG Plaquenil Plaquenil No 1{table QD Plaquenil 200 MG 200 MG t_with_ 200 MG food_or _milk} Montelukast Montelukast No 1{table Montelukas Sodium 10 Sodium 10 t} t Sodium MG MG 10 MG Cetirizine Cetirizine No Cetirizine HCl 10 MG HCl 10 MG HCl 10 MG ZyrTEC ZyrTEC No ZyrTEC Methotrexat Methotrexat No Methotrexa e 2.5 MG e 2.5 MG te 2.5 MG Estrace 0.1 Estrace 0.1 No Estrace MG/GM MG/GM 0.1 MG/GM Tresiba Tresiba No Tresiba FlexTouch FlexTouch FlexTouch 100 UNIT/ML 100 UNIT/ML 100 UNIT/ML Nitrofurant Nitrofurant No QD Nitrofuran oin Monohyd oin Monohyd toin Macro 100 Macro 100 Monohyd MG MG Macro 100 MG Advair Advair No BID Advair Diskus Diskus Diskus 250-50 250-50 250-50 MCG/DOSE MCG/DOSE MCG/DOSE ProAir HFA ProAir HFA No 2{puffs QID ProAir HFA 108 (90 108 (90 _as_nee 108 (90 Base) Base) ded} Base) MCG/ACT MCG/ACT MCG/ACT Carvedilol Carvedilol No 1{table BID Carvedilol 6.25 MG 6.25 MG t_with_ 6.25 MG food} Losartan Losartan No 1{table QD Losartan Potassium Potassium t} Potassium 100 MG 100 MG 100 MG Synthroid Synthroid No Synthroid 125 MCG 125 MCG 125 MCG Detrol LA 4 Detrol LA 4 No 1{capsu QD Detrol LA MG MG le} 4 MG Singulair Singulair No 1{table QD Singulair 10 MG 10 MG t_in_th 10 MG e_eveni ng} Veramyst Veramyst No 1{spray QD Veramyst 27.5 27.5 _in_eac 27.5 MCG/SPRAY MCG/SPRAY h_nostr MCG/SPRAY il} Nitrofurant Nitrofurant No 1{capsu QD Nitrofuran oin Monohyd oin Monohyd le_with toin Macro 100 Macro 100 _food} Monohyd mg mg Macro 100 mg Atorvastati Atorvastati No Atorvastat n Calcium n Calcium in Calcium 20 MG 20 MG 20 MG Singulair Singulair No 1{table QD Singulair 10 MG 10 MG t_in_th 10 MG e_eveni ng} Estradiol Estradiol No Estradiol 0.1 MG/GM 0.1 MG/GM 0.1 MG/GM Lyrica 50 Lyrica 50 No 1{capsu BID Lyrica 50 MG MG le} MG Veramyst Veramyst No 1{spray QD Veramyst 27.5 27.5 _in_eac 27.5 MCG/SPRAY MCG/SPRAY h_nostr MCG/SPRAY il} HumaLOG HumaLOG No HumaLOG KwikPen 200 KwikPen 200 KwikPen UNIT/ML UNIT/ML 200 UNIT/ML Victoza 18 Victoza 18 No Victoza 18 MG/3ML MG/3ML MG/3ML Macrobid Macrobid No 1{capsu BID Macrobid 100 MG 100 MG le_with 100 MG _food} HumaLOG 100 HumaLOG 100 No HumaLOG UNIT/ML UNIT/ML 100 UNIT/ML Synthroid Synthroid No Synthroid 125 MCG 125 MCG 125 MCG Aspir-81 81 Aspir-81 81 No 1{table QD Aspir-81 MG MG t} 81 MG Lyrica 50 Lyrica 50 No 1{capsu BID Lyrica 50 MG MG le} MG Levocetiriz Levocetiriz No 1{table QD Levocetiri ine ine t_in_th zine Dihydrochlo Dihydrochlo e_eveni Dihydrochl ride 5 MG ride 5 MG ng} oride 5 MG Plaquenil Plaquenil No Plaquenil 200 MG 200 MG 200 MG PriLOSEC PriLOSEC No PriLOSEC Acyclovir 5 Acyclovir 5 No 6xD Acyclovir % % 5 % Losartan Losartan No Losartan Potassium Potassium Potassium 100 MG 100 MG 100 MG Diphenoxyla Diphenoxyla No Diphenoxyl te-Atropine te-Atropine ate-Atropi ne Vitamin D-3 Vitamin D-3 No Vitamin D-3 Lipitor 40 Lipitor 40 No 1{table QD Lipitor 40 MG MG t} MG Clopidogrel Clopidogrel No Clopidogre Bisulfate Bisulfate l 75 MG 75 MG Bisulfate 75 MG Mirtazapine Mirtazapine No Mirtazapin 15 MG 15 MG e 15 MG Plaquenil Plaquenil No 1{table QD Plaquenil 200 MG 200 MG t_with_ 200 MG food_or _milk} Montelukast Montelukast No 1{table Montelukas Sodium 10 Sodium 10 t} t Sodium MG MG 10 MG Cetirizine Cetirizine No Cetirizine HCl 10 MG HCl 10 MG HCl 10 MG ZyrTEC ZyrTEC No ZyrTEC Methotrexat Methotrexat No Methotrexa e 2.5 MG e 2.5 MG te 2.5 MG Estrace 0.1 Estrace 0.1 No Estrace MG/GM MG/GM 0.1 MG/GM Tresiba Tresiba No Tresiba FlexTouch FlexTouch FlexTouch 100 UNIT/ML 100 UNIT/ML 100 UNIT/ML Nitrofurant Nitrofurant No QD Nitrofuran oin Monohyd oin Monohyd toin Macro 100 Macro 100 Monohyd MG MG Macro 100 MG Advair Advair No BID Advair Diskus Diskus Diskus 250-50 250-50 250-50 MCG/DOSE MCG/DOSE MCG/DOSE ProAir HFA ProAir HFA No 2{puffs QID ProAir HFA 108 (90 108 (90 _as_nee 108 (90 Base) Base) ded} Base) MCG/ACT MCG/ACT MCG/ACT Carvedilol Carvedilol No 1{table BID Carvedilol 6.25 MG 6.25 MG t_with_ 6.25 MG food} Losartan Losartan No 1{table QD Losartan Potassium Potassium t} Potassium 100 MG 100 MG 100 MG Synthroid Synthroid No Synthroid 125 MCG 125 MCG 125 MCG Detrol LA 4 Detrol LA 4 No 1{capsu QD Detrol LA MG MG le} 4 MG Singulair Singulair No 1{table QD Singulair 10 MG 10 MG t_in_th 10 MG e_eveni ng} Triamcinolo Triamcinolo No BID Triamcinol ne ne one Acetonide Acetonide Acetonide 0.1 % 0.1 % 0.1 % Nitrofurant Nitrofurant No 1{capsu QD Nitrofuran oin Monohyd oin Monohyd le_with toin Macro 100 Macro 100 _food} Monohyd mg mg Macro 100 mg Atorvastati Atorvastati No Atorvastat n Calcium n Calcium in Calcium 20 MG 20 MG 20 MG Singulair Singulair No 1{table QD Singulair 10 MG 10 MG t_in_th 10 MG e_eveni ng} Estradiol Estradiol No Estradiol 0.1 MG/GM 0.1 MG/GM 0.1 MG/GM Lyrica 50 Lyrica 50 No 1{capsu BID Lyrica 50 MG MG le} MG Veramyst Veramyst No 1{spray QD Veramyst 27.5 27.5 _in_eac 27.5 MCG/SPRAY MCG/SPRAY h_nostr MCG/SPRAY il} HumaLOG HumaLOG No HumaLOG KwikPen 200 KwikPen 200 KwikPen UNIT/ML UNIT/ML 200 UNIT/ML Victoza 18 Victoza 18 No Victoza 18 MG/3ML MG/3ML MG/3ML Macrobid Macrobid No 1{capsu BID Macrobid 100 MG 100 MG le_with 100 MG _food} HumaLOG 100 HumaLOG 100 No HumaLOG UNIT/ML UNIT/ML 100 UNIT/ML Synthroid Synthroid No Synthroid 125 MCG 125 MCG 125 MCG Aspir-81 81 Aspir-81 81 No 1{table QD Aspir-81 MG MG t} 81 MG Lyrica 50 Lyrica 50 No 1{capsu BID Lyrica 50 MG MG le} MG Levocetiriz Levocetiriz No 1{table QD Levocetiri ine ine t_in_th zine Dihydrochlo Dihydrochlo e_eveni Dihydrochl ride 5 MG ride 5 MG ng} oride 5 MG Plaquenil Plaquenil No Plaquenil 200 MG 200 MG 200 MG PriLOSEC PriLOSEC No PriLOSEC Acyclovir 5 Acyclovir 5 No 6xD Acyclovir % % 5 % Losartan Losartan No Losartan Potassium Potassium Potassium 100 MG 100 MG 100 MG Diphenoxyla Diphenoxyla No Diphenoxyl te-Atropine te-Atropine ate-Atropi ne Vitamin D-3 Vitamin D-3 No Vitamin D-3 Lipitor 40 Lipitor 40 No 1{table QD Lipitor 40 MG MG t} MG Clopidogrel Clopidogrel No Clopidogre Bisulfate Bisulfate l 75 MG 75 MG Bisulfate 75 MG Mirtazapine Mirtazapine No Mirtazapin 15 MG 15 MG e 15 MG Plaquenil Plaquenil No 1{table QD Plaquenil 200 MG 200 MG t_with_ 200 MG food_or _milk} Montelukast Montelukast No 1{table Montelukas Sodium 10 Sodium 10 t} t Sodium MG MG 10 MG Cetirizine Cetirizine No Cetirizine HCl 10 MG HCl 10 MG HCl 10 MG ZyrTEC ZyrTEC No ZyrTEC Methotrexat Methotrexat No Methotrexa e 2.5 MG e 2.5 MG te 2.5 MG Estrace 0.1 Estrace 0.1 No Estrace MG/GM MG/GM 0.1 MG/GM Tresiba Tresiba No Tresiba FlexTouch FlexTouch FlexTouch 100 UNIT/ML 100 UNIT/ML 100 UNIT/ML Nitrofurant Nitrofurant No QD Nitrofuran oin Monohyd oin Monohyd toin Macro 100 Macro 100 Monohyd MG MG Macro 100 MG Advair Advair No BID Advair Diskus Diskus Diskus 250-50 250-50 250-50 MCG/DOSE MCG/DOSE MCG/DOSE ProAir HFA ProAir HFA No 2{puffs QID ProAir HFA 108 (90 108 (90 _as_nee 108 (90 Base) Base) ded} Base) MCG/ACT MCG/ACT MCG/ACT Carvedilol Carvedilol No 1{table BID Carvedilol 6.25 MG 6.25 MG t_with_ 6.25 MG food} Losartan Losartan No 1{table QD Losartan Potassium Potassium t} Potassium 100 MG 100 MG 100 MG Synthroid Synthroid No Synthroid 125 MCG 125 MCG 125 MCG Detrol LA 4 Detrol LA 4 No 1{capsu QD Detrol LA MG MG le} 4 MG Singulair Singulair No 1{table QD Singulair 10 MG 10 MG t_in_th 10 MG e_eveni ng} Triamcinolo Triamcinolo No BID Triamcinol ne ne one Acetonide Acetonide Acetonide 0.1 % 0.1 % 0.1 % Nitrofurant Nitrofurant No 1{capsu QD Nitrofuran oin Monohyd oin Monohyd le_with toin Macro 100 Macro 100 _food} Monohyd mg mg Macro 100 mg Atorvastati Atorvastati No Atorvastat n Calcium n Calcium in Calcium 20 MG 20 MG 20 MG Aspir-81 81 Aspir-81 81 No 1{table QD Aspir-81 MG MG t} 81 MG Clopidogrel Clopidogrel No Clopidogre Bisulfate Bisulfate l 75 MG 75 MG Bisulfate 75 MG Singulair Singulair No 1{table QD Singulair 10 MG 10 MG t_in_th 10 MG e_eveni ng} Carvedilol Carvedilol No 1{table BID Carvedilol 6.25 MG 6.25 MG t_with_ 6.25 MG food} Victoza 18 Victoza 18 No Victoza 18 MG/3ML MG/3ML MG/3ML Methotrexat Methotrexat No Methotrexa e 2.5 MG e 2.5 MG te 2.5 MG Lyrica 50 Lyrica 50 No 1{capsu BID Lyrica 50 MG MG le} MG Vitamin D-3 Vitamin D-3 No Vitamin D-3 Plaquenil Plaquenil No 1{table QD Plaquenil 200 MG 200 MG t_with_ 200 MG food_or _milk} Losartan Losartan No Losartan Potassium Potassium Potassium 100 MG 100 MG 100 MG Mirtazapine Mirtazapine No 1{table QD Mirtazapin 15 MG 15 MG t_at_be e 15 MG dtime} ZyrTEC ZyrTEC No ZyrTEC Nitrofurant Nitrofurant No 1{capsu QD Nitrofuran oin Monohyd oin Monohyd le_with toin Macro 100 Macro 100 _food} Monohyd mg mg Macro 100 mg HumaLOG HumaLOG No HumaLOG KwikPen 200 KwikPen 200 KwikPen UNIT/ML UNIT/ML 200 UNIT/ML Estrace 0.1 Estrace 0.1 No Estrace MG/GM MG/GM 0.1 MG/GM Singulair Singulair No 1{table QD Singulair 10 MG 10 MG t_in_th 10 MG e_eveni ng} Synthroid Synthroid No Synthroid 125 MCG 125 MCG 125 MCG Mirtazapine Mirtazapine No Mirtazapin 15 MG 15 MG e 15 MG Veramyst Veramyst No 1{spray QD Veramyst 27.5 27.5 _in_eac 27.5 MCG/SPRAY MCG/SPRAY h_nostr MCG/SPRAY il} Atorvastati Atorvastati No Atorvastat n Calcium n Calcium in Calcium 20 MG 20 MG 20 MG Cetirizine Cetirizine No Cetirizine HCl 10 MG HCl 10 MG HCl 10 MG Detrol LA 4 Detrol LA 4 No 1{capsu QD Detrol LA MG MG le} 4 MG Carvedilol Carvedilol No 1{table BID Carvedilol 6.25 MG 6.25 MG t_with_ 6.25 MG food} Synthroid Synthroid No Synthroid 125 MCG 125 MCG 125 MCG Plaquenil Plaquenil No Plaquenil 200 MG 200 MG 200 MG Tresiba Tresiba No Tresiba FlexTouch FlexTouch FlexTouch 100 UNIT/ML 100 UNIT/ML 100 UNIT/ML Estradiol Estradiol No Estradiol 0.1 MG/GM 0.1 MG/GM 0.1 MG/GM HumaLOG 100 HumaLOG 100 No HumaLOG UNIT/ML UNIT/ML 100 UNIT/ML Nitrofurant Nitrofurant No QD Nitrofuran oin Monohyd oin Monohyd toin Macro 100 Macro 100 Monohyd MG MG Macro 100 MG PriLOSEC PriLOSEC No PriLOSEC Triamcinolo Triamcinolo No BID Triamcinol ne ne one Acetonide Acetonide Acetonide 0.1 % 0.1 % 0.1 % Losartan Losartan No 1{table QD Losartan Potassium Potassium t} Potassium 100 MG 100 MG 100 MG Acyclovir 5 Acyclovir 5 No 6xD Acyclovir % % 5 % Diphenoxyla Diphenoxyla No Diphenoxyl te-Atropine te-Atropine ate-Atropi ne Levocetiriz Levocetiriz No 1{table QD Levocetiri ine ine t_in_th zine Dihydrochlo Dihydrochlo e_eveni Dihydrochl ride 5 MG ride 5 MG ng} oride 5 MG ProAir HFA ProAir HFA No 2{puffs QID ProAir HFA 108 (90 108 (90 _as_nee 108 (90 Base) Base) ded} Base) MCG/ACT MCG/ACT MCG/ACT Advair Advair No BID Advair Diskus Diskus Diskus 250-50 250-50 250-50 MCG/DOSE MCG/DOSE MCG/DOSE Lipitor 40 Lipitor 40 No 1{table QD Lipitor 40 MG MG t} MG Montelukast Montelukast No 1{table Montelukas Sodium 10 Sodium 10 t} t Sodium MG MG 10 MG Macrobid Macrobid No 1{capsu BID Macrobid 100 MG 100 MG le_with 100 MG _food} Lyrica 50 Lyrica 50 No 1{capsu BID Lyrica 50 MG MG le} MG Tresiba Tresiba No Tresiba FlexTouch FlexTouch FlexTouch 100 UNIT/ML 100 UNIT/ML 100 UNIT/ML Clopidogrel Clopidogrel No 1{table QD Clopidogre Bisulfate Bisulfate t} l 75 MG 75 MG Bisulfate 75 MG Ipratropium Ipratropium No 2{spray TID Ipratropiu [place] s_in_ea m [place] 0.06 % 0.06 % ch_nost 0.06 % ril} Aspir-81 81 Aspir-81 81 No 1{table QD Aspir-81 MG MG t} 81 MG Montelukast Montelukast No 1{table Montelukas Sodium 10 Sodium 10 t} t Sodium MG MG 10 MG Carvedilol Carvedilol No 1{table BID Carvedilol 6.25 MG 6.25 MG t_with_ 6.25 MG food} Mirtazapine Mirtazapine No 1{table QD Mirtazapin 15 MG 15 MG t_at_be e 15 MG dtime} Veramyst Veramyst No Veramyst Plaquenil Plaquenil No 1{table Plaquenil 200 MG 200 MG t} 200 MG Macrobid Macrobid No 1{capsu BID Macrobid 100 MG 100 MG le_with 100 MG _food} HumaLOG 100 HumaLOG 100 No HumaLOG UNIT/ML UNIT/ML 100 UNIT/ML Advair Advair No BID Advair Diskus Diskus Diskus 250-50 250-50 250-50 MCG/DOSE MCG/DOSE MCG/DOSE Omeprazole Omeprazole No QD Omeprazole 20 MG 20 MG 20 MG Singulair Singulair No 1{table QD Singulair 10 MG 10 MG t_in_th 10 MG e_eveni ng} Levocetiriz Levocetiriz No 1{table QD Levocetiri ine ine t_in_th zine Dihydrochlo Dihydrochlo e_eveni Dihydrochl ride 5 MG ride 5 MG ng} oride 5 MG Losartan Losartan No 1{table QD Losartan Potassium Potassium t} Potassium 100 MG 100 MG 100 MG Cetirizine Cetirizine No 1{table QD Cetirizine HCl 10 MG HCl 10 MG t} HCl 10 MG Carvedilol Carvedilol No 1{table BID Carvedilol 6.25 MG 6.25 MG t_with_ 6.25 MG food} Acyclovir 5 Acyclovir 5 No 6xD Acyclovir % % 5 % Synthroid Synthroid No Synthroid 125 MCG 125 MCG 125 MCG Vitamin D-3 Vitamin D-3 No Vitamin D-3 Lyrica 50 Lyrica 50 No 1{capsu BID Lyrica 50 MG MG le} MG Victoza 18 Victoza 18 No Victoza 18 MG/3ML MG/3ML MG/3ML ZyrTEC ZyrTEC No ZyrTEC Atorvastati Atorvastati No 1{table QD Atorvastat n Calcium n Calcium t} in Calcium 40 MG 40 MG 40 MG Tresiba Tresiba No Tresiba FlexTouch FlexTouch FlexTouch 100 UNIT/ML 100 UNIT/ML 100 UNIT/ML Lyrica 50 Lyrica 50 No 1{capsu BID Lyrica 50 MG MG le} MG Aspir-81 81 Aspir-81 81 No 1{table QD Aspir-81 MG MG t} 81 MG HumaLOG 100 HumaLOG 100 No HumaLOG UNIT/ML UNIT/ML 100 UNIT/ML Carvedilol Carvedilol No 1{table BID Carvedilol 6.25 MG 6.25 MG t_with_ 6.25 MG food} Atorvastati Atorvastati No 1{table QD Atorvastat n Calcium n Calcium t} in Calcium 40 MG 40 MG 40 MG Cetirizine Cetirizine No 1{table QD Cetirizine HCl 10 MG HCl 10 MG t} HCl 10 MG Synthroid Synthroid No Synthroid 125 MCG 125 MCG 125 MCG Acyclovir 5 Acyclovir 5 No 6xD Acyclovir % % 5 % Montelukast Montelukast No 1{table Montelukas Sodium 10 Sodium 10 t} t Sodium MG MG 10 MG Levocetiriz Levocetiriz No 1{table QD Levocetiri ine ine t_in_th zine Dihydrochlo Dihydrochlo e_eveni Dihydrochl ride 5 MG ride 5 MG ng} oride 5 MG Losartan Losartan No 1{table QD Losartan Potassium Potassium t} Potassium 100 MG 100 MG 100 MG Advair Advair No BID Advair Diskus Diskus Diskus 250-50 250-50 250-50 MCG/DOSE MCG/DOSE MCG/DOSE Mirtazapine Mirtazapine No 1{table QD Mirtazapin 15 MG 15 MG t_at_be e 15 MG dtime} Clopidogrel Clopidogrel No Clopidogre Bisulfate Bisulfate l 75 MG 75 MG Bisulfate 75 MG Singulair Singulair No 1{table QD Singulair 10 MG 10 MG t_in_th 10 MG e_eveni ng} Plaquenil Plaquenil No 1{table Plaquenil 200 MG 200 MG t} 200 MG Ipratropium Ipratropium No 2{spray TID Ipratropiu [place] s_in_ea m [place] 0.06 % 0.06 % ch_nost 0.06 % ril} Victoza 18 Victoza 18 No Victoza 18 MG/3ML MG/3ML MG/3ML ZyrTEC ZyrTEC No ZyrTEC Carvedilol Carvedilol No 1{table BID Carvedilol 6.25 MG 6.25 MG t_with_ 6.25 MG food} Veramyst Veramyst No Veramyst Omeprazole Omeprazole No QD Omeprazole 20 MG 20 MG 20 MG Vitamin D-3 Vitamin D-3 No Vitamin D-3 Tresiba Tresiba No Tresiba FlexTouch FlexTouch FlexTouch 100 UNIT/ML 100 UNIT/ML 100 UNIT/ML Lyrica 50 Lyrica 50 No 1{capsu BID Lyrica 50 MG MG le} MG Aspir-81 81 Aspir-81 81 No 1{table QD Aspir-81 MG MG t} 81 MG HumaLOG 100 HumaLOG 100 No HumaLOG UNIT/ML UNIT/ML 100 UNIT/ML Carvedilol Carvedilol No 1{table BID Carvedilol 6.25 MG 6.25 MG t_with_ 6.25 MG food} Atorvastati Atorvastati No 1{table QD Atorvastat n Calcium n Calcium t} in Calcium 40 MG 40 MG 40 MG Cetirizine Cetirizine No 1{table QD Cetirizine HCl 10 MG HCl 10 MG t} HCl 10 MG Synthroid Synthroid No Synthroid 125 MCG 125 MCG 125 MCG Acyclovir 5 Acyclovir 5 No 6xD Acyclovir % % 5 % Montelukast Montelukast No 1{table Montelukas Sodium 10 Sodium 10 t} t Sodium MG MG 10 MG Levocetiriz Levocetiriz No 1{table QD Levocetiri ine ine t_in_th zine Dihydrochlo Dihydrochlo e_eveni Dihydrochl ride 5 MG ride 5 MG ng} oride 5 MG Losartan Losartan No 1{table QD Losartan Potassium Potassium t} Potassium 100 MG 100 MG 100 MG Advair Advair No BID Advair Diskus Diskus Diskus 250-50 250-50 250-50 MCG/DOSE MCG/DOSE MCG/DOSE Mirtazapine Mirtazapine No 1{table QD Mirtazapin 15 MG 15 MG t_at_be e 15 MG dtime} Clopidogrel Clopidogrel No Clopidogre Bisulfate Bisulfate l 75 MG 75 MG Bisulfate 75 MG Singulair Singulair No 1{table QD Singulair 10 MG 10 MG t_in_th 10 MG e_eveni ng} Plaquenil Plaquenil No 1{table Plaquenil 200 MG 200 MG t} 200 MG Ipratropium Ipratropium No 2{spray TID Ipratropiu [place] s_in_ea m [place] 0.06 % 0.06 % ch_nost 0.06 % ril} Victoza 18 Victoza 18 No Victoza 18 MG/3ML MG/3ML MG/3ML ZyrTEC ZyrTEC No ZyrTEC Carvedilol Carvedilol No 1{table BID Carvedilol 6.25 MG 6.25 MG t_with_ 6.25 MG food} Veramyst Veramyst No Veramyst Omeprazole Omeprazole No QD Omeprazole 20 MG 20 MG 20 MG Vitamin D-3 Vitamin D-3 No Vitamin D-3 Lyrica 50 Lyrica 50 No 1{capsu BID Lyrica 50 MG MG le} MG Advair Advair No BID Advair Diskus Diskus Diskus 250-50 250-50 250-50 MCG/DOSE MCG/DOSE MCG/DOSE Atorvastati Atorvastati No 1{table QD Atorvastat n Calcium n Calcium t} in Calcium 40 MG 40 MG 40 MG Losartan Losartan No 1{table QD Losartan Potassium Potassium t} Potassium 100 MG 100 MG 100 MG Montelukast Montelukast No 1{table Montelukas Sodium 10 Sodium 10 t} t Sodium MG MG 10 MG Vitamin D-3 Vitamin D-3 No Vitamin D-3 HumaLOG 100 HumaLOG 100 No QD HumaLOG UNIT/ML UNIT/ML 100 UNIT/ML Clopidogrel Clopidogrel No 1{table QD Clopidogre Bisulfate Bisulfate t} l 75 MG 75 MG Bisulfate 75 MG Carvedilol Carvedilol No 1{table BID Carvedilol 6.25 MG 6.25 MG t_with_ 6.25 MG food} Veramyst Veramyst No Veramyst Synthroid Synthroid No Synthroid 125 MCG 125 MCG 125 MCG Mirtazapine Mirtazapine No 1{table QD Mirtazapin 15 MG 15 MG t_at_be e 15 MG dtime} ZyrTEC ZyrTEC No ZyrTEC Aspir-81 81 Aspir-81 81 No 1{table QD Aspir-81 MG MG t} 81 MG Plaquenil Plaquenil No 1{table Plaquenil 200 MG 200 MG t} 200 MG Detrol LA 4 Detrol LA 4 No 1{capsu QD Detrol LA MG MG le} 4 MG Tresiba Tresiba No QD Tresiba FlexTouch FlexTouch FlexTouch 100 UNIT/ML 100 UNIT/ML 100 UNIT/ML Omeprazole Omeprazole No QD Omeprazole 20 MG 20 MG 20 MG Atorvastati Atorvastati No 1{table QD Atorvastat n Calcium n Calcium t} in Calcium 40 MG 40 MG 40 MG Carvedilol Carvedilol No 1{table BID Carvedilol 6.25 MG 6.25 MG t_with_ 6.25 MG food} Synthroid Synthroid No Synthroid 125 MCG 125 MCG 125 MCG Plaquenil Plaquenil No 1{table Plaquenil 200 MG 200 MG t} 200 MG ZyrTEC ZyrTEC No ZyrTEC Veramyst Veramyst No Veramyst Omeprazole Omeprazole No QD Omeprazole 20 MG 20 MG 20 MG Vitamin D-3 Vitamin D-3 No Vitamin D-3 Mirtazapine Mirtazapine No 1{table QD Mirtazapin 15 MG 15 MG t_at_be e 15 MG dtime} Montelukast Montelukast No 1{table Montelukas Sodium 10 Sodium 10 t} t Sodium MG MG 10 MG Advair Advair No BID Advair Diskus Diskus Diskus 250-50 250-50 250-50 MCG/DOSE MCG/DOSE MCG/DOSE Tresiba Tresiba No QD Tresiba FlexTouch FlexTouch FlexTouch 100 UNIT/ML 100 UNIT/ML 100 UNIT/ML Losartan Losartan No 1{table QD Losartan Potassium Potassium t} Potassium 100 MG 100 MG 100 MG Clopidogrel Clopidogrel No 1{table QD Clopidogre Bisulfate Bisulfate t} l 75 MG 75 MG Bisulfate 75 MG Aspir-81 81 Aspir-81 81 No 1{table QD Aspir-81 MG MG t} 81 MG HumaLOG 100 HumaLOG 100 No QD HumaLOG UNIT/ML UNIT/ML 100 UNIT/ML Detrol LA 4 Detrol LA 4 No 1{capsu QD Detrol LA MG MG le} 4 MG Omeprazole Omeprazole No QD Omeprazole 20 MG 20 MG 20 MG Detrol LA 4 Detrol LA 4 No 1{capsu QD Detrol LA MG MG le} 4 MG Veramyst Veramyst No Veramyst Plaquenil Plaquenil No 1{table Plaquenil 200 MG 200 MG t} 200 MG Clopidogrel Clopidogrel No 1{table QD Clopidogre Bisulfate Bisulfate t} l 75 MG 75 MG Bisulfate 75 MG Ipratropium Ipratropium No 2{spray TID Ipratropiu [place] s_in_ea m [place] 0.06 % 0.06 % ch_nost 0.06 % ril} Advair Advair No BID Advair Diskus Diskus Diskus 250-50 250-50 250-50 MCG/DOSE MCG/DOSE MCG/DOSE Carvedilol Carvedilol No 1{table BID Carvedilol 6.25 MG 6.25 MG t_with_ 6.25 MG food} Losartan Losartan No 1{table QD Losartan Potassium Potassium t} Potassium 100 MG 100 MG 100 MG Mirtazapine Mirtazapine No 1{table QD Mirtazapin 15 MG 15 MG t_at_be e 15 MG dtime} HumaLOG 100 HumaLOG 100 No QD HumaLOG UNIT/ML UNIT/ML 100 UNIT/ML ZyrTEC ZyrTEC No ZyrTEC Atorvastati Atorvastati No 1{table QD Atorvastat n Calcium n Calcium t} in Calcium 40 MG 40 MG 40 MG Tresiba Tresiba No QD Tresiba FlexTouch FlexTouch FlexTouch 100 UNIT/ML 100 UNIT/ML 100 UNIT/ML Vitamin D-3 Vitamin D-3 No Vitamin D-3 Montelukast Montelukast No 1{table Montelukas Sodium 10 Sodium 10 t} t Sodium MG MG 10 MG Synthroid Synthroid No Synthroid 125 MCG 125 MCG 125 MCG Aspir-81 81 Aspir-81 81 No 1{table QD Aspir-81 MG MG t} 81 MG Carvedilol Carvedilol No 1{table BID Carvedilol 6.25 MG 6.25 MG t_with_ 6.25 MG food} Advair Advair No BID Advair Diskus Diskus Diskus 250-50 250-50 250-50 MCG/DOSE MCG/DOSE MCG/DOSE Losartan Losartan No 1{table QD Losartan Potassium Potassium t} Potassium 100 MG 100 MG 100 MG Synthroid Synthroid No Synthroid 125 MCG 125 MCG 125 MCG Atorvastati Atorvastati No 1{table QD Atorvastat n Calcium n Calcium t} in Calcium 40 MG 40 MG 40 MG Furosemide Furosemide No QD Furosemide 40 MG 40 MG 40 MG Tresiba Tresiba No QD Tresiba FlexTouch FlexTouch FlexTouch 100 UNIT/ML 100 UNIT/ML 100 UNIT/ML Vitamin D-3 Vitamin D-3 No Vitamin D-3 HumaLOG 100 HumaLOG 100 No QD HumaLOG UNIT/ML UNIT/ML 100 UNIT/ML ZyrTEC ZyrTEC No ZyrTEC Veramyst Veramyst No Veramyst Mirtazapine Mirtazapine No 1{table QD Mirtazapin 15 MG 15 MG t_at_be e 15 MG dtime} Clopidogrel Clopidogrel No Clopidogre Bisulfate Bisulfate l 75 MG 75 MG Bisulfate 75 MG amLODIPine amLODIPine No 1{table QD amLODIPine Besylate 10 Besylate 10 t} Besylate MG MG 10 MG Omeprazole Omeprazole No QD Omeprazole 20 MG 20 MG 20 MG Plaquenil Plaquenil No 1{table Plaquenil 200 MG 200 MG t} 200 MG Montelukast Montelukast No 1{table Montelukas Sodium 10 Sodium 10 t} t Sodium MG MG 10 MG Aspir-81 81 Aspir-81 81 No 1{table QD Aspir-81 MG MG t} 81 MG Detrol LA 4 Detrol LA 4 No 1{capsu QD Detrol LA MG MG le} 4 MG Ipratropium Ipratropium No 2{spray TID Ipratropiu [place] s_in_ea m [place] 0.06 % 0.06 % ch_nost 0.06 % ril} Ipratropium Ipratropium No 2{spray TID Ipratropiu [place] s_in_ea m [place] 0.06 % 0.06 % ch_nost 0.06 % ril} Advair Advair No BID Advair Diskus Diskus Diskus 250-50 250-50 250-50 MCG/DOSE MCG/DOSE MCG/DOSE Losartan Losartan No 1{table QD Losartan Potassium Potassium t} Potassium 100 MG 100 MG 100 MG Furosemide Furosemide No QD Furosemide 40 MG 40 MG 40 MG amLODIPine amLODIPine No 1{table QD amLODIPine Besylate 10 Besylate 10 t} Besylate MG MG 10 MG Carvedilol Carvedilol No 1{table BID Carvedilol 6.25 MG 6.25 MG t_with_ 6.25 MG food} Tresiba Tresiba No QD Tresiba FlexTouch FlexTouch FlexTouch 100 UNIT/ML 100 UNIT/ML 100 UNIT/ML Synthroid Synthroid No Synthroid 125 MCG 125 MCG 125 MCG Vitamin D-3 Vitamin D-3 No Vitamin D-3 HumaLOG 100 HumaLOG 100 No QD HumaLOG UNIT/ML UNIT/ML 100 UNIT/ML Veramyst Veramyst No Veramyst Atorvastati Atorvastati No 1{table QD Atorvastat n Calcium n Calcium t} in Calcium 40 MG 40 MG 40 MG Montelukast Montelukast No 1{table Montelukas Sodium 10 Sodium 10 t} t Sodium MG MG 10 MG Omeprazole Omeprazole No QD Omeprazole 20 MG 20 MG 20 MG Plaquenil Plaquenil No 1{table Plaquenil 200 MG 200 MG t} 200 MG Detrol LA 4 Detrol LA 4 No 1{capsu QD Detrol LA MG MG le} 4 MG ZyrTEC ZyrTEC No ZyrTEC Clopidogrel Clopidogrel No Clopidogre Bisulfate Bisulfate l 75 MG 75 MG Bisulfate 75 MG Aspir-81 81 Aspir-81 81 No 1{table QD Aspir-81 MG MG t} 81 MG Mirtazapine Mirtazapine No 1{table QD Mirtazapin 15 MG 15 MG t_at_be e 15 MG dtime} Ipratropium Ipratropium No 2{spray TID Ipratropiu [place] s_in_ea m [place] 0.06 % 0.06 % ch_nost 0.06 % ril} Advair Advair No BID Advair Diskus Diskus Diskus 250-50 250-50 250-50 MCG/DOSE MCG/DOSE MCG/DOSE Losartan Losartan No 1{table QD Losartan Potassium Potassium t} Potassium 100 MG 100 MG 100 MG Furosemide Furosemide No QD Furosemide 40 MG 40 MG 40 MG amLODIPine amLODIPine No 1{table QD amLODIPine Besylate 10 Besylate 10 t} Besylate MG MG 10 MG Carvedilol Carvedilol No 1{table BID Carvedilol 6.25 MG 6.25 MG t_with_ 6.25 MG food} Tresiba Tresiba No QD Tresiba FlexTouch FlexTouch FlexTouch 100 UNIT/ML 100 UNIT/ML 100 UNIT/ML Synthroid Synthroid No Synthroid 125 MCG 125 MCG 125 MCG Vitamin D-3 Vitamin D-3 No Vitamin D-3 HumaLOG 100 HumaLOG 100 No QD HumaLOG UNIT/ML UNIT/ML 100 UNIT/ML Veramyst Veramyst No Veramyst Atorvastati Atorvastati No 1{table QD Atorvastat n Calcium n Calcium t} in Calcium 40 MG 40 MG 40 MG Montelukast Montelukast No 1{table Montelukas Sodium 10 Sodium 10 t} t Sodium MG MG 10 MG Omeprazole Omeprazole No QD Omeprazole 20 MG 20 MG 20 MG Plaquenil Plaquenil No 1{table Plaquenil 200 MG 200 MG t} 200 MG Detrol LA 4 Detrol LA 4 No 1{capsu QD Detrol LA MG MG le} 4 MG ZyrTEC ZyrTEC No ZyrTEC Clopidogrel Clopidogrel No Clopidogre Bisulfate Bisulfate l 75 MG 75 MG Bisulfate 75 MG Aspir-81 81 Aspir-81 81 No 1{table QD Aspir-81 MG MG t} 81 MG Mirtazapine Mirtazapine No 1{table QD Mirtazapin 15 MG 15 MG t_at_be e 15 MG dtime} Methotrexat Methotrexat Yes Na Reynoso not Common e e defined [facility] Advair Advair Yes Na Reynoso as Common Diskus Diskus directed [facility] ProAir HFA ProAir HFA Yes Na Reynoso 2 puffs as Common needed [facility] Estrace Estrace Yes Na Reynoso as Common directed [facility] Lipitor Lipitor Yes Na Reynoso 1 tablet Co mmon [facility] Aspir-81 Aspir-81 Yes Na Reynoso 1 tablet Common [facility] Veramyst Veramyst Yes Na Reynoso 1 spray in Common each Spirit nostril - [facility] Plaquenil Plaquenil Yes Na Reynoso 1 tablet Common with food Spirit or milk - [facility] Tresiba Tresiba Yes Na Reynoso as Common FlexTouch FlexTouch directed S pirit [facility] Victoza Victoza Yes Na Reynoso not Common defined [facility] Lyrica Lyrica Yes Na Reynoso 1 capsule Com mon Spirit [facility] Humalog Humalog Yes Na Reynoso 5-10 units Common KwikPen KwikPen as Spirit directed - [facility] Synthroid Synthroid Yes Na Reynoso 1 each Common once a day Spirit orally [facility] Synthroid Synthroid Yes Na Reynoso 1 each Common once a day Spirit orally - [facility] Humalog Humalog Yes Na Reynoso as Common directed [facility] Singulair Singulair Yes Na Reynoso 1 tablet Common in the Spirit evening - [facility] Detrol LA Detrol LA Yes Na Reynoso 1 capsule Common [facility] Singulair Singulair Yes Na Reynoso 1 tablet Common in the [facility] Ambien Ambien Yes Na Reynoso not Common defined [facility] Prilosec Prilosec Yes Na Reynoso not Comm on defined [facility] ZyrTEC ZyrTEC Yes Na Reynoso not Common defined [facility] Detrol LA Detrol LA Yes Na Reynoso 1 capsule Common [facility] Vitamin D-3 Vitamin D-3 Yes Na Reynoso not Common defined [facility] Macrobid Macrobid Yes Na Reynoso 1 capsule Common with food [facility] Atorvastati Atorvastati Yes Na Reynoso 1 tablet Common n Calcium n Calcium Spiri [facility] Plavix Plavix Yes Na Reynoso 1 tablet Comm on [facility] Losartan Losartan Yes Na Reynoso TAKE 1 Co mmon Potassium Potassium TABLET BY [facility] EVERY DAY [facility] Losartan Losartan Yes Na Reynoso 1 tablet Common Potassium Potassium Spiri [facility] Cetirizine Cetirizine Yes Na Reynoso TAKE 1 Common HCl HCl TABLET BY [facility] EVERY DAY [facility] Lipitor 40 Lipitor 40 No 1{table QD Lipitor 40 MG MG t} MG Mirtazapine Mirtazapine No Mirtazapin 15 MG 15 MG e 15 MG Singulair Singulair No 1{table QD Singulair 10 MG 10 MG t_in_ 10 MG e_eveni ng} Tresiba Tresiba No Tresiba FlexTouch FlexTouch FlexTouch 100 UNIT/ML 100 UNIT/ML 100 UNIT/ML Carvedilol Carvedilol No 1{table BID Carvedilol 6.25 MG 6.25 MG t_with_ 6.25 MG food} Detrol LA 4 Detrol LA 4 No 1{capsu QD Detrol LA MG MG le} 4 MG Diphenoxyla Diphenoxyla No Diphenoxyl te-Atropine te-Atropine ate-Atropi ne Detrol LA 4 Detrol LA 4 No 1{capsu QD Detrol LA MG MG le} 4 MG Estradiol Estradiol No Estradiol 0.1 MG/GM 0.1 MG/GM 0.1 MG/GM HumaLOG 100 HumaLOG 100 No HumaLOG UNIT/ML UNIT/ML 100 UNIT/ML Synthroid Synthroid No Synthroid 125 MCG 125 MCG 125 MCG Plavix 75 Plavix 75 No 1{table QD Plavix 75 MG MG t} MG Nitrofurant Nitrofurant No 1{capsu QD Nitrofuran oin Monohyd oin Monohyd le_with toin Macro 100 Macro 100 _food} Monohyd mg mg Macro 100 mg Singulair Singulair No 1{table QD Singulair 10 MG 10 MG t_in_th 10 MG e_eveni ng} Aspir-81 81 Aspir-81 81 No 1{table QD Aspir-81 MG MG t} 81 MG Atorvastati Atorvastati No 1{table QD Atorvastat n Calcium n Calcium t} in Calcium 20 MG 20 MG 20 MG Losartan Losartan No 1{table QD Losartan Potassium Potassium t} Potassium 100 MG 100 MG 100 MG Methotrexat Methotrexat No Methotrexa e 2.5 MG e 2.5 MG te 2.5 MG Plaquenil Plaquenil No Plaquenil 200 MG 200 MG 200 MG Plaquenil Plaquenil No 1{table QD Plaquenil 200 MG 200 MG t_with_ 200 MG food_or _milk} Levocetiriz Levocetiriz No 1{table QD Levocetiri ine ine t_in_th zine Dihydrochlo Dihydrochlo e_eveni Dihydrochl ride 5 MG ride 5 MG ng} oride 5 MG PriLOSEC PriLOSEC No PriLOSEC Lyrica 50 Lyrica 50 No 1{capsu BID Lyrica 50 MG MG le} MG Veramyst Veramyst No 1{spray QD Veramyst 27.5 27.5 _in_eac 27.5 MCG/SPRAY MCG/SPRAY h_nostr MCG/SPRAY il} ProAir HFA ProAir HFA No 2{puffs QID ProAir HFA 108 (90 108 (90 _as_nee 108 (90 Base) Base) ded} Base) MCG/ACT MCG/ACT MCG/ACT Nitrofurant Nitrofurant No QD Nitrofuran oin Monohyd oin Monohyd toin Macro 100 Macro 100 Monohyd MG MG Macro 100 MG ZyrTEC ZyrTEC No ZyrTEC Macrobid Macrobid No 1{capsu BID Macrobid 100 MG 100 MG le_with 100 MG _food} Victoza 18 Victoza 18 No Victoza 18 MG/3ML MG/3ML MG/3ML Synthroid Synthroid No Synthroid 125 MCG 125 MCG 125 MCG Cetirizine Cetirizine No Cetirizine HCl 10 MG HCl 10 MG HCl 10 MG Acyclovir 5 Acyclovir 5 No 6xD Acyclovir % % 5 % Vitamin D-3 Vitamin D-3 No Vitamin D-3 Losartan Losartan No Losartan Potassium Potassium Potassium 100 MG 100 MG 100 MG Advair Advair No BID Advair Diskus Diskus Diskus 250-50 250-50 250-50 MCG/DOSE MCG/DOSE MCG/DOSE Estrace 0.1 Estrace 0.1 No Estrace MG/GM MG/GM 0.1 MG/GM HumaLOG HumaLOG No HumaLOG KwikPen 200 KwikPen 200 KwikPen UNIT/ML UNIT/ML 200 UNIT/ML Lyrica 50 Lyrica 50 No 1{capsu BID Lyrica 50 MG MG le} MG Tresiba Tresiba No Tresiba FlexTouch FlexTouch FlexTouch 100 UNIT/ML 100 UNIT/ML 100 UNIT/ML Carvedilol Carvedilol No 1{table BID Carvedilol 6.25 MG 6.25 MG t_with_ 6.25 MG food} Singulair Singulair No 1{table QD Singulair 10 MG 10 MG t_in_th 10 MG e_eveni ng} Acyclovir 5 Acyclovir 5 No 6xD Acyclovir % % 5 % Victoza 18 Victoza 18 No Victoza 18 MG/3ML MG/3ML MG/3ML Detrol LA 4 Detrol LA 4 No 1{capsu QD Detrol LA MG MG le} 4 MG HumaLOG 100 HumaLOG 100 No HumaLOG UNIT/ML UNIT/ML 100 UNIT/ML Synthroid Synthroid No Synthroid 125 MCG 125 MCG 125 MCG Estradiol Estradiol No Estradiol 0.1 MG/GM 0.1 MG/GM 0.1 MG/GM Lipitor 40 Lipitor 40 No 1{table QD Lipitor 40 MG MG t} MG Mirtazapine Mirtazapine No Mirtazapin 15 MG 15 MG e 15 MG Plavix 75 Plavix 75 No 1{table QD Plavix 75 MG MG t} MG Nitrofurant Nitrofurant No 1{capsu QD Nitrofuran oin Monohyd oin Monohyd le_with toin Macro 100 Macro 100 _food} Monohyd mg mg Macro 100 mg Singulair Singulair No 1{table QD Singulair 10 MG 10 MG t_in_th 10 MG e_eveni ng} Diphenoxyla Diphenoxyla No Diphenoxyl te-Atropine te-Atropine ate-Atropi ne Detrol LA 4 Detrol LA 4 No 1{capsu QD Detrol LA MG MG le} 4 MG Losartan Losartan No 1{table QD Losartan Potassium Potassium t} Potassium 100 MG 100 MG 100 MG Methotrexat Methotrexat No Methotrexa e 2.5 MG e 2.5 MG te 2.5 MG Plaquenil Plaquenil No Plaquenil 200 MG 200 MG 200 MG Plaquenil Plaquenil No 1{table QD Plaquenil 200 MG 200 MG t_with_ 200 MG food_or _milk} PriLOSEC PriLOSEC No PriLOSEC Vitamin D-3 Vitamin D-3 No Vitamin D-3 Lyrica 50 Lyrica 50 No 1{capsu BID Lyrica 50 MG MG le} MG ZyrTEC ZyrTEC No ZyrTEC Macrobid Macrobid No 1{capsu BID Macrobid 100 MG 100 MG le_with 100 MG _food} Cetirizine Cetirizine No Cetirizine HCl 10 MG HCl 10 MG HCl 10 MG Levocetiriz Levocetiriz No 1{table QD Levocetiri ine ine t_in_th zine Dihydrochlo Dihydrochlo e_eveni Dihydrochl ride 5 MG ride 5 MG ng} oride 5 MG Aspir-81 81 Aspir-81 81 No 1{table QD Aspir-81 MG MG t} 81 MG ProAir HFA ProAir HFA No 2{puffs QID ProAir HFA 108 (90 108 (90 _as_nee 108 (90 Base) Base) ded} Base) MCG/ACT MCG/ACT MCG/ACT Synthroid Synthroid No Synthroid 125 MCG 125 MCG 125 MCG Atorvastati Atorvastati No Atorvastat n Calcium n Calcium in Calcium 20 MG 20 MG 20 MG Veramyst Veramyst No 1{spray QD Veramyst 27.5 27.5 _in_eac 27.5 MCG/SPRAY MCG/SPRAY h_nostr MCG/SPRAY il} Nitrofurant Nitrofurant No QD Nitrofuran oin Monohyd oin Monohyd toin Macro 100 Macro 100 Monohyd MG MG Macro 100 MG Losartan Losartan No Losartan Potassium Potassium Potassium 100 MG 100 MG 100 MG Advair Advair No BID Advair Diskus Diskus Diskus 250-50 250-50 250-50 MCG/DOSE MCG/DOSE MCG/DOSE Estrace 0.1 Estrace 0.1 No Estrace MG/GM MG/GM 0.1 MG/GM HumaLOG HumaLOG No HumaLOG KwikPen 200 KwikPen 200 KwikPen UNIT/ML UNIT/ML 200 UNIT/ML Lyrica 50 Lyrica 50 No 1{capsu BID Lyrica 50 MG MG le} MG Carvedilol Carvedilol No 1{table BID Carvedilol 6.25 MG 6.25 MG t_with_ 6.25 MG food} Estradiol Estradiol No Estradiol 0.1 MG/GM 0.1 MG/GM 0.1 MG/GM Mirtazapine Mirtazapine No 1{table QD Mirtazapin 15 MG 15 MG t_at_be e 15 MG dtime} Tresiba Tresiba No Tresiba FlexTouch FlexTouch FlexTouch 100 UNIT/ML 100 UNIT/ML 100 UNIT/ML Victoza 18 Victoza 18 No Victoza 18 MG/3ML MG/3ML MG/3ML Synthroid Synthroid No Synthroid 125 MCG 125 MCG 125 MCG Detrol LA 4 Detrol LA 4 No 1{capsu QD Detrol LA MG MG le} 4 MG Detrol LA 4 Detrol LA 4 No 1{capsu QD Detrol LA MG MG le} 4 MG Plaquenil Plaquenil No 1{table QD Plaquenil 200 MG 200 MG t_with_ 200 MG food_or _milk} Advair Advair No BID Advair Diskus Diskus Diskus 250-50 250-50 250-50 MCG/DOSE MCG/DOSE MCG/DOSE Aspir-81 81 Aspir-81 81 No 1{table QD Aspir-81 MG MG t} 81 MG Atorvastati Atorvastati No Atorvastat n Calcium n Calcium in Calcium 20 MG 20 MG 20 MG Plaquenil Plaquenil No Plaquenil 200 MG 200 MG 200 MG Singulair Singulair No 1{table QD Singulair 10 MG 10 MG t_in_th 10 MG e_eveni ng} Lyrica 50 Lyrica 50 No 1{capsu BID Lyrica 50 MG MG le} MG Estrace 0.1 Estrace 0.1 No Estrace MG/GM MG/GM 0.1 MG/GM ProAir HFA ProAir HFA No 2{puffs QID ProAir HFA 108 (90 108 (90 _as_nee 108 (90 Base) Base) ded} Base) MCG/ACT MCG/ACT MCG/ACT Losartan Losartan No 1{table QD Losartan Potassium Potassium t} Potassium 100 MG 100 MG 100 MG Diphenoxyla Diphenoxyla No Diphenoxyl te-Atropine te-Atropine ate-Atropi ne Synthroid Synthroid No Synthroid 125 MCG 125 MCG 125 MCG HumaLOG HumaLOG No HumaLOG KwikPen 200 KwikPen 200 KwikPen UNIT/ML UNIT/ML 200 UNIT/ML Nitrofurant Nitrofurant No 1{capsu QD Nitrofuran oin Monohyd oin Monohyd le_with toin Macro 100 Macro 100 _food} Monohyd mg mg Macro 100 mg PriLOSEC PriLOSEC No PriLOSEC Levocetiriz Levocetiriz No 1{table QD Levocetiri ine ine t_in_th zine Dihydrochlo Dihydrochlo e_eveni Dihydrochl ride 5 MG ride 5 MG ng} oride 5 MG ZyrTEC ZyrTEC No ZyrTEC Veramyst Veramyst No 1{spray QD Veramyst 27.5 27.5 _in_eac 27.5 MCG/SPRAY MCG/SPRAY h_nostr MCG/SPRAY il} Plavix 75 Plavix 75 No 1{table QD Plavix 75 MG MG t} MG Singulair Singulair No 1{table QD Singulair 10 MG 10 MG t_in_th 10 MG e_eveni ng} Montelukast Montelukast No 1{table Montelukas Sodium 10 Sodium 10 t} t Sodium MG MG 10 MG Nitrofurant Nitrofurant No QD Nitrofuran oin Monohyd oin Monohyd toin Macro 100 Macro 100 Monohyd MG MG Macro 100 MG Methotrexat Methotrexat No Methotrexa e 2.5 MG e 2.5 MG te 2.5 MG Cetirizine Cetirizine No Cetirizine HCl 10 MG HCl 10 MG HCl 10 MG HumaLOG 100 HumaLOG 100 No HumaLOG UNIT/ML UNIT/ML 100 UNIT/ML Losartan Losartan No Losartan Potassium Potassium Potassium 100 MG 100 MG 100 MG Mirtazapine Mirtazapine No Mirtazapin 15 MG 15 MG e 15 MG Acyclovir 5 Acyclovir 5 No 6xD Acyclovir % % 5 % Lyrica 50 Lyrica 50 No 1{capsu BID Lyrica 50 MG MG le} MG Vitamin D-3 Vitamin D-3 No Vitamin D-3 Triamcinolo Triamcinolo No BID Triamcinol ne ne one Acetonide Acetonide Acetonide 0.1 % 0.1 % 0.1 % Macrobid Macrobid No 1{capsu BID Macrobid 100 MG 100 MG le_with 100 MG _food} Lipitor 40 Lipitor 40 No 1{table QD Lipitor 40 MG MG t} MG Carvedilol Carvedilol No 1{table BID Carvedilol 6.25 MG 6.25 MG t_with_ 6.25 MG food} Estradiol Estradiol No Estradiol 0.1 MG/GM 0.1 MG/GM 0.1 MG/GM Mirtazapine Mirtazapine No 1{table QD Mirtazapin 15 MG 15 MG t_at_be e 15 MG dtime} Tresiba Tresiba No Tresiba FlexTouch FlexTouch FlexTouch 100 UNIT/ML 100 UNIT/ML 100 UNIT/ML Victoza 18 Victoza 18 No Victoza 18 MG/3ML MG/3ML MG/3ML Synthroid Synthroid No Synthroid 125 MCG 125 MCG 125 MCG Detrol LA 4 Detrol LA 4 No 1{capsu QD Detrol LA MG MG le} 4 MG Detrol LA 4 Detrol LA 4 No 1{capsu QD Detrol LA MG MG le} 4 MG Plaquenil Plaquenil No 1{table QD Plaquenil 200 MG 200 MG t_with_ 200 MG food_or _milk} Advair Advair No BID Advair Diskus Diskus Diskus 250-50 250-50 250-50 MCG/DOSE MCG/DOSE MCG/DOSE Aspir-81 81 Aspir-81 81 No 1{table QD Aspir-81 MG MG t} 81 MG Atorvastati Atorvastati No Atorvastat n Calcium n Calcium in Calcium 20 MG 20 MG 20 MG Plaquenil Plaquenil No Plaquenil 200 MG 200 MG 200 MG Singulair Singulair No 1{table QD Singulair 10 MG 10 MG t_in_th 10 MG e_eveni ng} Lyrica 50 Lyrica 50 No 1{capsu BID Lyrica 50 MG MG le} MG Estrace 0.1 Estrace 0.1 No Estrace MG/GM MG/GM 0.1 MG/GM ProAir HFA ProAir HFA No 2{puffs QID ProAir HFA 108 (90 108 (90 _as_nee 108 (90 Base) Base) ded} Base) MCG/ACT MCG/ACT MCG/ACT Losartan Losartan No 1{table QD Losartan Potassium Potassium t} Potassium 100 MG 100 MG 100 MG Diphenoxyla Diphenoxyla No Diphenoxyl te-Atropine te-Atropine ate-Atropi ne Synthroid Synthroid No Synthroid 125 MCG 125 MCG 125 MCG HumaLOG HumaLOG No HumaLOG KwikPen 200 KwikPen 200 KwikPen UNIT/ML UNIT/ML 200 UNIT/ML Nitrofurant Nitrofurant No 1{capsu QD Nitrofuran oin Monohyd oin Monohyd le_with toin Macro 100 Macro 100 _food} Monohyd mg mg Macro 100 mg PriLOSEC PriLOSEC No PriLOSEC Levocetiriz Levocetiriz No 1{table QD Levocetiri ine ine t_in_th zine Dihydrochlo Dihydrochlo e_eveni Dihydrochl ride 5 MG ride 5 MG ng} oride 5 MG ZyrTEC ZyrTEC No ZyrTEC Veramyst Veramyst No 1{spray QD Veramyst 27.5 27.5 _in_eac 27.5 MCG/SPRAY MCG/SPRAY h_nostr MCG/SPRAY il} Plavix 75 Plavix 75 No 1{table QD Plavix 75 MG MG t} MG Singulair Singulair No 1{table QD Singulair 10 MG 10 MG t_in_th 10 MG e_eveni ng} Montelukast Montelukast No 1{table Montelukas Sodium 10 Sodium 10 t} t Sodium MG MG 10 MG Nitrofurant Nitrofurant No QD Nitrofuran oin Monohyd oin Monohyd toin Macro 100 Macro 100 Monohyd MG MG Macro 100 MG Methotrexat Methotrexat No Methotrexa e 2.5 MG e 2.5 MG te 2.5 MG Cetirizine Cetirizine No Cetirizine HCl 10 MG HCl 10 MG HCl 10 MG HumaLOG 100 HumaLOG 100 No HumaLOG UNIT/ML UNIT/ML 100 UNIT/ML Losartan Losartan No Losartan Potassium Potassium Potassium 100 MG 100 MG 100 MG Mirtazapine Mirtazapine No Mirtazapin 15 MG 15 MG e 15 MG Acyclovir 5 Acyclovir 5 No 6xD Acyclovir % % 5 % Lyrica 50 Lyrica 50 No 1{capsu BID Lyrica 50 MG MG le} MG Vitamin D-3 Vitamin D-3 No Vitamin D-3 Triamcinolo Triamcinolo No BID Triamcinol ne ne one Acetonide Acetonide Acetonide 0.1 % 0.1 % 0.1 % Macrobid Macrobid No 1{capsu BID Macrobid 100 MG 100 MG le_with 100 MG _food} Lipitor 40 Lipitor 40 No 1{table QD Lipitor 40 MG MG t} MG Atorvastati Atorvastati No Atorvastat n Calcium n Calcium in Calcium 20 MG 20 MG 20 MG Estradiol Estradiol No Estradiol 0.1 MG/GM 0.1 MG/GM 0.1 MG/GM Mirtazapine Mirtazapine No 1{table QD Mirtazapin 15 MG 15 MG t_at_be e 15 MG dtime} Tresiba Tresiba No Tresiba FlexTouch FlexTouch FlexTouch 100 UNIT/ML 100 UNIT/ML 100 UNIT/ML Carvedilol Carvedilol No 1{table BID Carvedilol 6.25 MG 6.25 MG t_with_ 6.25 MG food} Synthroid Synthroid No Synthroid 125 MCG 125 MCG 125 MCG Detrol LA 4 Detrol LA 4 No 1{capsu QD Detrol LA MG MG le} 4 MG ProAir HFA ProAir HFA No 2{puffs QID ProAir HFA 108 (90 108 (90 _as_nee 108 (90 Base) Base) ded} Base) MCG/ACT MCG/ACT MCG/ACT Plaquenil Plaquenil No 1{table QD Plaquenil 200 MG 200 MG t_with_ 200 MG food_or _milk} Advair Advair No BID Advair Diskus Diskus Diskus 250-50 250-50 250-50 MCG/DOSE MCG/DOSE MCG/DOSE Aspir-81 81 Aspir-81 81 No 1{table QD Aspir-81 MG MG t} 81 MG Clopidogrel Clopidogrel No Clopidogre Bisulfate Bisulfate l 75 MG 75 MG Bisulfate 75 MG Plaquenil Plaquenil No Plaquenil 200 MG 200 MG 200 MG Singulair Singulair No 1{table QD Singulair 10 MG 10 MG t_in_th 10 MG e_eveni ng} Lyrica 50 Lyrica 50 No 1{capsu BID Lyrica 50 MG MG le} MG Estrace 0.1 Estrace 0.1 No Estrace MG/GM MG/GM 0.1 MG/GM Losartan Losartan No 1{table QD Losartan Potassium Potassium t} Potassium 100 MG 100 MG 100 MG Diphenoxyla Diphenoxyla No Diphenoxyl te-Atropine te-Atropine ate-Atropi ne Synthroid Synthroid No Synthroid 125 MCG 125 MCG 125 MCG HumaLOG HumaLOG No HumaLOG KwikPen 200 KwikPen 200 KwikPen UNIT/ML UNIT/ML 200 UNIT/ML Nitrofurant Nitrofurant No 1{capsu QD Nitrofuran oin Monohyd oin Monohyd le_with toin Macro 100 Macro 100 _food} Monohyd mg mg Macro 100 mg PriLOSEC PriLOSEC No PriLOSEC Levocetiriz Levocetiriz No 1{table QD Levocetiri ine ine t_in_th zine Dihydrochlo Dihydrochlo e_eveni Dihydrochl ride 5 MG ride 5 MG ng} oride 5 MG ZyrTEC ZyrTEC No ZyrTEC Veramyst Veramyst No 1{spray QD Veramyst 27.5 27.5 _in_eac 27.5 MCG/SPRAY MCG/SPRAY h_nostr MCG/SPRAY il} Mirtazapine Mirtazapine No Mirtazapin 15 MG 15 MG e 15 MG Singulair Singulair No 1{table QD Singulair 10 MG 10 MG t_in_th 10 MG e_eveni ng} Montelukast Montelukast No 1{table Montelukas Sodium 10 Sodium 10 t} t Sodium MG MG 10 MG Nitrofurant Nitrofurant No QD Nitrofuran oin Monohyd oin Monohyd toin Macro 100 Macro 100 Monohyd MG MG Macro 100 MG Methotrexat Methotrexat No Methotrexa e 2.5 MG e 2.5 MG te 2.5 MG Cetirizine Cetirizine No Cetirizine HCl 10 MG HCl 10 MG HCl 10 MG HumaLOG 100 HumaLOG 100 No HumaLOG UNIT/ML UNIT/ML 100 UNIT/ML Losartan Losartan No Losartan Potassium Potassium Potassium 100 MG 100 MG 100 MG Victoza 18 Victoza 18 No Victoza 18 MG/3ML MG/3ML MG/3ML Acyclovir 5 Acyclovir 5 No 6xD Acyclovir % % 5 % Lyrica 50 Lyrica 50 No 1{capsu BID Lyrica 50 MG MG le} MG Vitamin D-3 Vitamin D-3 No Vitamin D-3 Triamcinolo Triamcinolo No BID Triamcinol ne ne one Acetonide Acetonide Acetonide 0.1 % 0.1 % 0.1 % Macrobid Macrobid No 1{capsu BID Macrobid 100 MG 100 MG le_with 100 MG _food} Lipitor 40 Lipitor 40 No 1{table QD Lipitor 40 MG MG t} MG Carvedilol Carvedilol No 1{table BID Carvedilol 6.25 MG 6.25 MG t_with_ 6.25 MG food} Nitrofurant Nitrofurant No QD Nitrofuran oin Monohyd oin Monohyd toin Macro 100 Macro 100 Monohyd MG MG Macro 100 MG Advair Advair No BID Advair Diskus Diskus Diskus 250-50 250-50 250-50 MCG/DOSE MCG/DOSE MCG/DOSE Triamcinolo Triamcinolo No BID Triamcinol ne ne one Acetonide Acetonide Acetonide 0.1 % 0.1 % 0.1 % Cetirizine Cetirizine No Cetirizine HCl 10 MG HCl 10 MG HCl 10 MG ZyrTEC ZyrTEC No ZyrTEC Lipitor 40 Lipitor 40 No 1{table QD Lipitor 40 MG MG t} MG Singulair Singulair No 1{table QD Singulair 10 MG 10 MG t_in_th 10 MG e_eveni ng} Estradiol Estradiol No Estradiol 0.1 MG/GM 0.1 MG/GM 0.1 MG/GM Lyrica 50 Lyrica 50 No 1{capsu BID Lyrica 50 MG MG le} MG HumaLOG HumaLOG No HumaLOG KwikPen 200 KwikPen 200 KwikPen UNIT/ML UNIT/ML 200 UNIT/ML Victoza 18 Victoza 18 No Victoza 18 MG/3ML MG/3ML MG/3ML Macrobid Macrobid No 1{capsu BID Macrobid 100 MG 100 MG le_with 100 MG _food} Veramyst Veramyst No 1{spray QD Veramyst 27.5 27.5 _in_eac 27.5 MCG/SPRAY MCG/SPRAY h_nostr MCG/SPRAY il} Synthroid Synthroid No Synthroid 125 MCG 125 MCG 125 MCG Diphenoxyla Diphenoxyla No Diphenoxyl te-Atropine te-Atropine ate-Atropi ne Lyrica 50 Lyrica 50 No 1{capsu BID Lyrica 50 MG MG le} MG Levocetiriz Levocetiriz No 1{table QD Levocetiri ine ine t_in_th zine Dihydrochlo Dihydrochlo e_eveni Dihydrochl ride 5 MG ride 5 MG ng} oride 5 MG Aspir-81 81 Aspir-81 81 No 1{table QD Aspir-81 MG MG t} 81 MG Clopidogrel Clopidogrel No Clopidogre Bisulfate Bisulfate l 75 MG 75 MG Bisulfate 75 MG Losartan Losartan No Losartan Potassium Potassium Potassium 100 MG 100 MG 100 MG PriLOSEC PriLOSEC No PriLOSEC Methotrexat Methotrexat No Methotrexa e 2.5 MG e 2.5 MG te 2.5 MG Mirtazapine Mirtazapine No 1{table QD Mirtazapin 15 MG 15 MG t_at_be e 15 MG dtime} Synthroid Synthroid No Synthroid 125 MCG 125 MCG 125 MCG Plaquenil Plaquenil No 1{table QD Plaquenil 200 MG 200 MG t_with_ 200 MG food_or _milk} Acyclovir 5 Acyclovir 5 No 6xD Acyclovir % % 5 % Montelukast Montelukast No 1{table Montelukas Sodium 10 Sodium 10 t} t Sodium MG MG 10 MG Losartan Losartan No 1{table QD Losartan Potassium Potassium t} Potassium 100 MG 100 MG 100 MG HumaLOG 100 HumaLOG 100 No HumaLOG UNIT/ML UNIT/ML 100 UNIT/ML Tresiba Tresiba No Tresiba FlexTouch FlexTouch FlexTouch 100 UNIT/ML 100 UNIT/ML 100 UNIT/ML Plaquenil Plaquenil No Plaquenil 200 MG 200 MG 200 MG Estrace 0.1 Estrace 0.1 No Estrace MG/GM MG/GM 0.1 MG/GM ProAir HFA ProAir HFA No 2{puffs QID ProAir HFA 108 (90 108 (90 _as_nee 108 (90 Base) Base) ded} Base) MCG/ACT MCG/ACT MCG/ACT Singulair Singulair No 1{table QD Singulair 10 MG 10 MG t_in_th 10 MG e_eveni ng} Detrol LA 4 Detrol LA 4 No 1{capsu QD Detrol LA MG MG le} 4 MG Mirtazapine Mirtazapine No Mirtazapin 15 MG 15 MG e 15 MG Vitamin D-3 Vitamin D-3 No Vitamin D-3 Nitrofurant Nitrofurant No 1{capsu QD Nitrofuran oin Monohyd oin Monohyd le_with toin Macro 100 Macro 100 _food} Monohyd mg mg Macro 100 mg Atorvastati Atorvastati No Atorvastat n Calcium n Calcium in Calcium 20 MG 20 MG 20 MG HumaLOG HumaLOG No HumaLOG KwikPen 200 KwikPen 200 KwikPen UNIT/ML UNIT/ML 200 UNIT/ML Victoza 18 Victoza 18 No Victoza 18 MG/3ML MG/3ML MG/3ML Macrobid Macrobid No 1{capsu BID Macrobid 100 MG 100 MG le_with 100 MG _food} Veramyst Veramyst No 1{spray QD Veramyst 27.5 27.5 _in_eac 27.5 MCG/SPRAY MCG/SPRAY h_nostr MCG/SPRAY il} Carvedilol Carvedilol No 1{table BID Carvedilol 6.25 MG 6.25 MG t_with_ 6.25 MG food} Nitrofurant Nitrofurant No QD Nitrofuran oin Monohyd oin Monohyd toin Macro 100 Macro 100 Monohyd MG MG Macro 100 MG Advair Advair No BID Advair Diskus Diskus Diskus 250-50 250-50 250-50 MCG/DOSE MCG/DOSE MCG/DOSE Lyrica 50 Lyrica 50 No 1{capsu BID Lyrica 50 MG MG le} MG Levocetiriz Levocetiriz No 1{table QD Levocetiri ine ine t_in_th zine Dihydrochlo Dihydrochlo e_eveni Dihydrochl ride 5 MG ride 5 MG ng} oride 5 MG Aspir-81 81 Aspir-81 81 No 1{table QD Aspir-81 MG MG t} 81 MG Singulair Singulair No 1{table QD Singulair 10 MG 10 MG t_in_th 10 MG e_eveni ng} Estradiol Estradiol No Estradiol 0.1 MG/GM 0.1 MG/GM 0.1 MG/GM Lyrica 50 Lyrica 50 No 1{capsu BID Lyrica 50 MG MG le} MG Losartan Losartan No Losartan Potassium Potassium Potassium 100 MG 100 MG 100 MG PriLOSEC PriLOSEC No PriLOSEC HumaLOG 100 HumaLOG 100 No HumaLOG UNIT/ML UNIT/ML 100 UNIT/ML Synthroid Synthroid No Synthroid 125 MCG 125 MCG 125 MCG Diphenoxyla Diphenoxyla No Diphenoxyl te-Atropine te-Atropine ate-Atropi ne Vitamin D-3 Vitamin D-3 No Vitamin D-3 Plaquenil Plaquenil No Plaquenil 200 MG 200 MG 200 MG Clopidogrel Clopidogrel No Clopidogre Bisulfate Bisulfate l 75 MG 75 MG Bisulfate 75 MG Plaquenil Plaquenil No 1{table QD Plaquenil 200 MG 200 MG t_with_ 200 MG food_or _milk} Losartan Losartan No 1{table QD Losartan Potassium Potassium t} Potassium 100 MG 100 MG 100 MG Estrace 0.1 Estrace 0.1 No Estrace MG/GM MG/GM 0.1 MG/GM Tresiba Tresiba No Tresiba FlexTouch FlexTouch FlexTouch 100 UNIT/ML 100 UNIT/ML 100 UNIT/ML ProAir HFA ProAir HFA No 2{puffs QID ProAir HFA 108 (90 108 (90 _as_nee 108 (90 Base) Base) ded} Base) MCG/ACT MCG/ACT MCG/ACT Mirtazapine Mirtazapine No Mirtazapin 15 MG 15 MG e 15 MG Acyclovir 5 Acyclovir 5 No 6xD Acyclovir % % 5 % ZyrTEC ZyrTEC No ZyrTEC Lipitor 40 Lipitor 40 No 1{table QD Lipitor 40 MG MG t} MG Montelukast Montelukast No 1{table Montelukas Sodium 10 Sodium 10 t} t Sodium MG MG 10 MG Cetirizine Cetirizine No Cetirizine HCl 10 MG HCl 10 MG HCl 10 MG Methotrexat Methotrexat No Methotrexa e 2.5 MG e 2.5 MG te 2.5 MG Synthroid Synthroid No Synthroid 125 MCG 125 MCG 125 MCG Detrol LA 4 Detrol LA 4 No 1{capsu QD Detrol LA MG MG le} 4 MG Singulair Singulair No 1{table QD Singulair 10 MG 10 MG t_in_th 10 MG e_eveni ng} Triamcinolo Triamcinolo No BID Triamcinol ne ne one Acetonide Acetonide Acetonide 0.1 % 0.1 % 0.1 % Nitrofurant Nitrofurant No 1{capsu QD Nitrofuran oin Monohyd oin Monohyd le_with toin Macro 100 Macro 100 _food} Monohyd mg mg Macro 100 mg Atorvastati Atorvastati No Atorvastat n Calcium n Calcium in Calcium 20 MG 20 MG 20 MG Singulair Singulair No 1{table QD Singulair 10 MG 10 MG t_in_th 10 MG e_eveni ng} Estradiol Estradiol No Estradiol 0.1 MG/GM 0.1 MG/GM 0.1 MG/GM Lyrica 50 Lyrica 50 No 1{capsu BID Lyrica 50 MG MG le} MG HumaLOG HumaLOG No HumaLOG KwikPen 200 KwikPen 200 KwikPen UNIT/ML UNIT/ML 200 UNIT/ML Victoza 18 Victoza 18 No Victoza 18 MG/3ML MG/3ML MG/3ML Macrobid Macrobid No 1{capsu BID Macrobid 100 MG 100 MG le_with 100 MG _food} HumaLOG 100 HumaLOG 100 No HumaLOG UNIT/ML UNIT/ML 100 UNIT/ML Macrobid Macrobid 2021- No QD Macrobid 100 MG 100 MG 12-05 100 MG 00:00 :00 Macrobid Macrobid 2021- No QD Macrobid 100 MG 100 MG 12-05 100 MG 00:00 :00 Detrol LA 4 Detrol LA 4 2021- No 1{capsu QD Detrol LA MG MG 11-27 le} 4 MG 00:00 :00 Detrol LA 4 Detrol LA 4 2021- No 1{capsu QD Detrol LA MG MG 11-27 le} 4 MG 00:00 :00 Detrol LA 4 Detrol LA 4 2021- No 1{capsu QD Detrol LA MG MG 11-27 le} 4 MG 00:00 :00 Detrol LA 4 Detrol LA 4 2021- No 1{capsu QD Detrol LA MG MG 11-27 le} 4 MG 00:00 :00 Detrol LA 4 Detrol LA 4 2021- No 1{capsu QD Detrol LA MG MG 11-27 le} 4 MG 00:00 :00 Detrol LA 4 Detrol LA 4 2021- No 1{capsu QD Detrol LA MG MG 11-27 le} 4 MG 00:00 :00 Detrol LA 4 Detrol LA 4 2021- No 1{capsu QD Detrol LA MG MG 11-27 le} 4 MG 00:00 :00 Detrol LA 4 Detrol LA 4 2021- No 1{capsu QD Detrol LA MG MG 11-27 le} 4 MG 00:00 :00 Detrol LA 4 Detrol LA 4 2021- No 1{capsu QD Detrol LA MG MG 11-27 le} 4 MG 00:00 :00 Detrol LA 4 Detrol LA 4 2021- No 1{capsu QD Detrol LA MG MG 11-27 le} 4 MG 00:00 :00 Levocetiriz Levocetiriz 2019- No Na Reynoso 1 tablet [facility] Dihydrochlo Dihydrochlo 00:00 evening - [facility] ride ride :00 [facility] Vital Signs Vital Name Observation Time Observation Value Comments Source height 2022-03-17 13:00:00 60.00 [in_i] [facility] 2022-[facility]-17 13:00:00 187.6 [lb_av] Common [facility] temperature 2022-03-17 13:00:00 98.9 [degF] Common [facility] bmi 2022-03-17 13:00:00 36.63 kg/m2 Common [facility] oximetry 2022-03-17 13:00:00 96 % [facility] respiratory rate 2022-03-17 13:00:00 16 /min Comm on [facility] blood pressure 2022-03-17 13:00:00 130 mm[Hg] Common [facility] - systolic [facility] blood pressure 2022-03-17 13:00:00 68 mm[Hg] Common [facility] - diastolic [facility] height 2022-03-17 13:20:00 60 [in_i] Common [facility] weight 2022-03-17 13:20:00 187.6 [lb_av] [facility] temperature 2022-03-17 13:20:00 98.9 [degF] Common [facility] bmi 2022-03-17 13:20:00 36.63 kg/m2 [facility] oximetry 2022-03-17 13:20:00 96 % Common [facility] blood pressure 2022-03-17 13:20:00 130 mm[Hg] [facility] - systolic [facility] blood pressure 2022-03-17 13:20:00 68 mm[Hg] [facility] - diastolic [facility] height 2021-12-15 11:20:00 60.00 [in_i] Common [facility] weight 2021-12-15 11:20:00 184.6 [lb_av] [facility] temperature 2021-12-15 11:20:00 96.8 [degF] Common S [facility] bmi 2021-12-15 11:20:00 36.05 kg/m2 Common [facility] oximetry 2021-12-15 11:20:00 97 % Common [facility] respiratory rate 2021-12-15 11:20:00 16 /min Comm on [facility] blood pressure 2021-12-15 11:20:00 132 mm[Hg] [facility] - systolic [facility] blood pressure 2021-12-15 11:20:00 68 mm[Hg] [facility] - diastolic [facility] height 2021-12-07 08:00:00 60.00 [in_i] Common [facility] weight 2021-12-07 08:00:00 185 [lb_av] Common [facility] temperature 2021-12-07 08:00:00 98.5 [degF] Common [facility] bmi 2021-12-07 08:00:00 36.13 kg/m2 Common [facility] oximetry 2021-12-07 08:00:00 99 % Common [facility] respiratory rate 2021-12-07 08:00:00 18 /min Comm on [facility] blood pressure 2021-12-07 08:00:00 180 mm[Hg] Common [facility] - systolic [facility] blood pressure 2021-12-07 08:00:00 77 mm[Hg] [facility] - diastolic [facility] height 2021-11-14 15:50:00 60.00 [in_i] Common [facility] weight 2021-11-14 15:50:00 188 [lb_av] Common [facility] bmi 2021-11-14 15:50:00 36.71 kg/m2 [facility] 2021-11-14 15:50:00 132 mm[Hg] [facility] - systolic [facility] blood pressure 2021-11-14 15:50:00 70 mm[Hg] [facility] - diastolic [facility] height 2021-09-21 10:00:00 60.00 [in_i] [facility] weight 2021-09-21 10:00:00 188.6 [lb_av] Common [facility] temperature 2021-09-21 10:00:00 98.2 [degF] Common S [facility] bmi 2021-09-21 10:00:00 36.83 kg/m2 Common S [facility] oximetry 2021-09-21 10:00:00 99 % Common [facility] respiratory rate 2021-09-21 10:00:00 16 /min Comm on [facility] blood pressure 2021-09-21 10:00:00 148 mm[Hg] Common [facility] - systolic [facility] blood pressure 2021-09-21 10:00:00 72 mm[Hg] Common [facility] - diastolic [facility] height 2021-09-08 08:40:00 60.00 [in_i] Common [facility] weight 2021-09-08 08:40:00 185 [lb_av] [facility] temperature 2021-09-08 08:40:00 96.6 [degF] Common [facility] bmi 2021-09-08 08:40:00 36.13 kg/m2 [facility] oximetry 2021-09-08 08:40:00 98 % [facility] respiratory rate 2021-09-08 08:40:00 16 /min Comm on [facility] blood pressure 2021-09-08 08:40:00 124 mm[Hg] Common [facility] - systolic [facility] blood pressure 2021-09-08 08:40:00 60 mm[Hg] Common [facility] - diastolic [facility] height 2021-06-02 08:40:00 60.00 [in_i] Common [facility] weight 2021-06-02 08:40:00 186.8 [lb_av] Common [facility] temperature 2021-06-02 08:40:00 97.3 [degF] [facility] bmi 2021-06-02 08:40:00 36.48 kg/m2 [facility] oximetry 2021-06-02 08:40:00 95 % [facility] respiratory rate 2021-06-02 08:40:00 16 /min Comm on [facility] blood pressure 2021-06-02 08:40:00 130 mm[Hg] Common [facility] - systolic [facility] blood pressure 2021-06-02 08:40:00 60 mm[Hg] Common [facility] - diastolic [facility] height 2021-03-24 14:40:00 60.00 [in_i] Common [facility] weight 2021-03-24 14:40:00 186 [facility] temperature 2021-03-24 14:40:00 98.0 [degF] Common [facility] bmi 2021-03-24 14:40:00 36.32 kg/m2 [facility] oximetry 2021-03-24 14:40:00 90 % [facility] blood pressure 2021-03-24 14:40:00 148 mm[Hg] [facility] systolic [facility] blood pressure 2021-03-24 14:40:00 92 mm[Hg] [facility] height 2021-02-28 08:00:00 60.00 [in_i] Common [facility] weight 2021-02-28 08:00:00 186.0 [lb_av] Common [facility] temperature 2021-02-28 08:00:00 96.9 [degF] Common [facility] bmi 2021-02-28 08:00:00 36.32 kg/m2 Common S pirit - [facility] oximetry 2021-02-28 08:00:00 95 % Common [facility] respiratory rate 2021-02-28 08:00:00 18 /min Comm on [facility] - [facility] blood pressure 2021-02-28 08:00:00 130 mm[Hg] Common [facility] - systolic [facility] blood pressure 2021-02-28 08:00:00 84 mm[Hg] Common [facility] - diastolic [facility] height 2021-02-28 08:40:00 60.00 [in_i] Common [facility] weight 2021-02-28 08:40:00 186 [lb_av] [facility] temperature 2021-02-28 08:40:00 96.9 [degF] [facility] bmi 2021-02-28 08:40:00 36.32 kg/m2 [facility] oximetry 2021-02-28 08:40:00 95 % [facility] blood pressure 2021-02-28 08:40:00 130 mm[Hg] Common [facility] - systolic [facility] blood pressure 2021-02-28 08:40:00 84 mm[Hg] Common [facility] - diastolic [facility] Systolic blood 2019-06-02 21:16:00 130 mm[Hg] [facility] pressure Medicine Diastolic blood 2019-06-02 21:16:00 70 mm[Hg] [facility] pressure Medicine Heart rate 2019-06-02 21:05:00 67 /min [facility] Body height 2019-06-02 21:05:00 152.4 cm [facility] Body weight 2019-06-02 21:05:00 83.008 kg [facility] BMI 2019-06-02 21:05:00 35.74 kg/m2 [facility] Systolic blood 2019-06-02 21:16:00 130 mm[Hg] [facility] pressure Medicine Diastolic blood 2019-06-02 21:16:00 70 mm[Hg] [facility] Medicine Heart rate 2019-06-02 21:05:00 67 /min [facility] Body height 2019-06-02 21:05:00 152.4 cm [facility] Body weight 2019-06-02 21:05:00 83.008 kg [facility] BMI 2019-06-02 21:05:00 35.74 kg/m2 [facility] Procedures Procedure Date / Time Performing Clinician Source Performed ELECTROCARDIOGRAM COMPLETE 2019-06-02 22:18:25 Adilson Mcknight [facility] Plan of Care Planned Activity Planned Date Details Comments Source Future Scheduled 2022-07-19 COVID-19 VACCINE (#1) [facility] Hospital Test 05:01:26 [code = COVID-19 VACCINE (#1)] Future Scheduled 2022-07-19 SHINGLES VACCINES (1 Met [facility] Test 05:01:26 of 2) [code = SHINGLES VACCINES (1 of 2)] Future Scheduled 2022-07-19 65[facility] Test 05:01:26 VACCINE (1 - PCV) [code = 65+ PNEUMOCOCCAL VACCINE (1 - PCV)] Future Scheduled 2022-07-19 INFLUENZA VACCINE [facility] Hospital Test 05:01:26 [code = INFLUENZA VACCINE] Future Scheduled 2022-04-[address] [facility] Test 00:00:00 (12+) [code = Medical Center DEPRESSION SCREENING (12+)] Future Scheduled 2022-04-16 FALLS RISK SCREENING [facility] Test 00:00:00 [code = FALLS RISK Medical C enter SCREENING] Future Scheduled 2022-04-[address] [facility] Test 00:00:00 (12+) [code = Medical Center DEPRESSION SCREENING (12+)] Future Scheduled 2022-04-16 FALLS RISK SCREENING [facility] Test 00:00:00 [code = FALLS RISK Medical C enter SCREENING] Future Scheduled 2022-03-29 COVID-19 VACCINE (#1) [facility] Hospital Test 04:42:54 [code = COVID-19 VACCINE (#1)] Future Scheduled 2022-03-29 SHINGLES VACCINES (1 Met [facility] Hospital Test 04:42:54 of 2) [code = SHINGLES VACCINES (1 of 2)] Future Scheduled 2022-03-29 65+ [facility]OCOCCAL [facility] Test 04:42:54 VACCINE (1 - PCV) [code = 65+ PNEUMOCOCCAL VACCINE (1 - PCV)] Future Scheduled 2022-03-29 INFLUENZA VACCINE [facility] Test 04:42:54 [code = INFLUENZA VACCINE] Future Scheduled 2022-03-29 COVID-19 [facility] (#[facility] 04:42:54 [code = COVID-19 VACCINE (#1)] Future Scheduled 2022-03-29 SHINGLES [facility]ACCINES (1 [facility] Test 04:42:54 of 2) [code = SHINGLES VACCINES (1 of 2)] Future Scheduled 2022-03-29 65+ PNEUMOCOCCAL [facility] Hospital Test 04:42:54 VACCINE (1 - PCV) [code = 65+ PNEUMOCOCCAL VACCINE (1 - PCV)] Future Scheduled 2022-03-29 INFLUENZA VACCINE Method ist Hospital Test 04:42:54 [code = INFLUENZA VACCINE] Future Scheduled 2022-03-29 [facility]19 [facility] 04:42:54 [code = COVID-19 VACCINE (#1)] Future Scheduled 2022-03-29 SHINGLES VACCINES (1 Met [facility] Hospital Test 04:42:54 of 2) [code = SHINGLES VACCINES (1 of 2)] Future Scheduled 2022-03-29 65+ PNEUMOCOCCAL Method[facility] Hospital Test 04:42:54 VACCINE (1 - PCV) [code = 65+ PNEUMOCOCCAL VACCINE (1 - PCV)] Future Scheduled 2022-03-29 INFLUENZA VACCINE Method ist Hospital Test 04:42:54 [code = INFLUENZA VACCINE] Future Scheduled 2022-03-29 COVID-19 [facility] Test 04:42:54 [code = COVID-19 VACCINE (#1)] Future Scheduled 2022-03-29 SHINGLES VACCINES (1 [facility] Test 04:42:54 of 2) [code = SHINGLES VACCINES (1 of 2)] Future Scheduled 2022-03-29 65+ PNEUMOCOCCAL Method[facility] Hospital Test 04:42:54 VACCINE (1 - PCV) [code = 65+ PNEUMOCOCCAL VACCINE (1 - PCV)] Future Scheduled 2022-03-29 INFLUENZA VACCINE Method ist Hospital Test 04:42:54 [code = INFLUENZA VACCINE] Future Scheduled 2021-12-15 INFLUENZA VACCINE (#1) [facility] 00:[facility]00 [code = INFLUENZA Medical Ce nter VACCINE (#1)] Future Scheduled 2021-12-15 INFLUENZA VACCINE (#1) [facility] 00:00:00 [code = INFLUENZA Medical Ce nter VACCINE (#1)] Future Scheduled 2021-12-15 INFLUENZA VACCINE (#1) [facility] Test 00:00:00 [code = INFLUENZA Medical Ce nter VACCINE (#1)] Future Scheduled 2021-12-15 INFLUENZA VACCINE (#1) [facility] Test 00:00:00 [code = INFLUENZA Medical Ce nter VACCINE (#1)] Future Scheduled 2021-04-[address] [facility] Test 00:00:00 (12+) [code = Medical Center DEPRESSION SCREENING (12+)] Future Scheduled 2021-04-16 FALLS RISK SCREENING [facility] Test 00:00:00 [code = FALLS RISK Medical C enter SCREENING] Future Scheduled 2021-04-[address] [facility] Test 00:00:00 (12+) [code = Medical Center DEPRESSION SCREENING (12+)] Future Scheduled 2021-04-16 FALLS RISK SCREENING [facility] Test 00:00:00 [code = FALLS RISK Medical C enter SCREENING] Future Scheduled 2020-06-[address] [facility] Test 00:00:00 Counseling and Medical Cente r Screening (12+) [code = Tobacco Cessation Counseling and Screening (12+)] Future Scheduled 2020-06-[address] [facility] Test 00:00:00 Counseling and Medical Cente r Screening (12+) [code = Tobacco Cessation Counseling and Screening (12+)] Future Scheduled 2020-06-[address] [facility] Test 00:00:00 Counseling and Medical Cente r Screening (12+) [code = Tobacco Cessation Counseling and Screening (12+)] Future Scheduled 2020-06-[address] [facility] Test 00:00:00 Counseling and Medical Cente r Screening (12+) [code = Tobacco Cessation Counseling and Screening (12+)] Future Scheduled 2018-01-[address] [facility] Test 00:00:00 measurement Medical Center (procedure) [code = 34503610] Future Scheduled 2018-01-[address] [facility] Test 00:00:00 measurement Medical Center (procedure) [code = 96189944] Future Scheduled 2018-01-[address] [facility] Test 00:00:00 measurement Medical Center (procedure) [code = 95397354] Future Scheduled 2018-01-[address] [facility] Test 00:00:00 measurement Medical Center (procedure) [code = 77741569] Future Scheduled 2014-04-[address] [facility] [facility] Test 00:00:00 WELLNESS (YEAR 2 or Medical Center FIRST YEAR if no IPPE) [code = MEDICARE ANNUAL WELLNESS (YEAR 2 or FIRST YEAR if no IPPE)] Future Scheduled 2014-04-[address] [facility] Test 00:00:00 WELLNESS (YEAR 2 or Medical Center FIRST YEAR if no IPPE) [code = MEDICARE ANNUAL WELLNESS (YEAR 2 or FIRST YEAR if no IPPE)] Future Scheduled 2014-04-[address] [facility] Test 00:00:00 WELLNESS (YEAR 2 or Medical Center FIRST YEAR if no IPPE) [code = MEDICARE ANNUAL WELLNESS (YEAR 2 or FIRST YEAR if no IPPE)] Future Scheduled 2014-04-[address] [facility] Test 00:00:00 WELLNESS (YEAR 2 or Medical Center FIRST YEAR if no IPPE) [code = MEDICARE ANNUAL WELLNESS (YEAR 2 or FIRST YEAR if no IPPE)] Future Scheduled 1989-06-23 SHINGLES VACCINES ([address] [facility] Test 00:00:00 of 2) [code = SHINGLES Medic al Center VACCINES (1 of 2)] Future Scheduled 1989-06-23 SHINGLES VACCINES ([address] [facility] Test 00:00:00 of 2) [code = SHINGLES Medic al Center VACCINES (1 of 2)] Future Scheduled 1989-06-23 SHINGLES VACCINES ([address] [facility] Test 00:00:00 of 2) [code = SHINGLES Medic al Center VACCINES (1 of 2)] Future Scheduled 1989-06-23 SHINGLES VACCINES ([address] [facility] Test 00:00:00 of 2) [code = SHINGLES Medic al Center VACCINES (1 of 2)] Future Scheduled 1958-06-23 DTAP/TDAP/TD [facility]ACCINES [facility] Test 00:00:00 (1 - Tdap) [code = Medical C enter DTAP/TDAP/TD VACCINES (1 - Tdap)] Future Scheduled 1958-06-23 DTAP/TDAP/TD [facility]ACCINES [facility] Test 00:00:00 (1 - Tdap) [code = Medical C enter DTAP/TDAP/TD VACCINES (1 - Tdap)] Future Scheduled 1958-06-23 DTAP/TDAP/TD [facility]ACCINES [facility] 00:00:00 (1 - Tdap) [code = Medical C enter DTAP/TDAP/TD VACCINES (1 - Tdap)] Future Scheduled 1958-06-23 DTAP/TDAP/TD [facility]ACCINES [facility] 00:00:00 (1 - Tdap) [code = Medical C enter DTAP/TDAP/TD VACCINES (1 - Tdap)] Future Scheduled 1949-06-[address] EXAM [facility] Test 00:00:00 [code = DIABETIC EYE Medical Center EXAM] Future Scheduled 1949-06-[address] [facility] Test 00:[facility]:00 examination Medical Center (regime/therapy) [code = 855236255] Future Scheduled 1949-06-23 Urine screening for [facility] Test 00:00:00 protein (procedure) Medical Center [code = 149613513] Future Scheduled 1949-06-[address] DIAB[address] EYE EXAM [facility] Test 00:00:00 [code = DIABETIC EYE Medical Center EXAM] Future Scheduled 1949-06-[address] [facility] Test 00:00:00 examination Medical Center (regime/therapy) [code = 217457641] Future Scheduled 1949-06-23 Urine screening for [facility] Test 00:00:00 protein (procedure) Medical Center [code = 153450763] Future Scheduled 1949-06-[address] DIAB[address]YE EXAM [facility] Test 00:00:00 [code = DIABETIC EYE Medical Center EXAM] Future Scheduled 1949-06-[address] [facility] Test 00:00:00 examination Medical Center (regime/therapy) [code = 824082773] Future Scheduled 1949-06-23 Urine screening for [facility] Test 00:00:00 protein (procedure) Medical Center [code = 277539693] Future Scheduled 1949-06-[address] DIAB[address] EYE EXAM [facility] Test 00:00:00 [code = DIABETIC EYE Medical Center EXAM] Future Scheduled 1949-06-[address] [facility] Test 00:00:00 examination Medical Center (regime/therapy) [code = 160664776] Future Scheduled 1949-06-23 Urine screening for [facility] Test 00:00:00 protein (procedure) Medical Center [code = 947751189] Future Scheduled 1945-06-23 PNEUMOCOCCAL 65+ YRS [facility] Test 00:00:00 (1 - PCV) [code = Medical Ce nter PNEUMOCOCCAL 65+ YRS (1 - PCV)] Future Scheduled 1945-06-23 PNEUMOCOCCAL 65+ YRS [facility] Test 00:00:00 (1 - PCV) [code = Medical Ce nter PNEUMOCOCCAL 65+ YRS (1 - PCV)] Future Scheduled 1945-06-23 PNEUMOCOCCAL 65+ YRS [facility] Test 00:00:00 (1 - PCV) [code = Medical Ce nter PNEUMOCOCCAL 65+ YRS (1 - PCV)] Future Scheduled 1945-06-23 PNEUMOCOCCAL 65+ YRS [facility] Test 00:00:00 (1 - PCV) [code = Medical Ce nter PNEUMOCOCCAL 65+ YRS (1 - PCV)] Future Scheduled 1939 COVID-19 VACCINE (#1) [facility] 00:00:00 [code = COVID-[address] VACCINE (#1)] Future Scheduled 1939 COVID-19 VACCINE (#1) [facility] 00:00:00 [code = COVID-[address] VACCINE (#1)] Future Scheduled 1939 COVID-19 VACCINE (#1) [facility] 00:00:00 [code = COVID-[address] VACCINE (#1)] Future Scheduled 1939 COVID-19 VACCINE (#1) [facility] 00:00:00 [code = COVID-[address] VACCINE (#1)] Future Scheduled 1939 DXA SCAN [code = DXA [facility] Test 00:00:00 SCAN] Medical Center Future Scheduled 1939 DXA SCAN [code = DXA [facility] Test 00:00:00 SCAN] Medical Center Future Scheduled 1939 DXA SCAN [code = DXA [facility] Test 00:00:00 SCAN] Medical Center Future Scheduled 1939 DXA SCAN [code = DXA [facility] Test 00:00:00 SCAN] Medical Center Future Scheduled TETANUS SHOT (ADULT) [facility] of Test [code = TETANUS SHOT Medicin e (ADULT)] Future Scheduled Diabetic foot [facility] Col [facility]ge of Test examination Medicine (regime/therapy) [code = 454059756] Future Scheduled ANNUAL DIABETIC [facility] C ollege of Test RETINOPATHY SCREENING Medici ne [code = ANNUAL DIABETIC RETINOPATHY SCREENING] Future Scheduled BMI FOLLOW UP PLAN [facility] of Test [code = BMI FOLLOW UP Medici ne PLAN] Future Scheduled FALL SCREEN [code = [facility] of Test FALL SCREEN] Medicine Future Scheduled OSTEOPOROSIS SCREENING B [facility] of Test [code = OSTEOPOROSIS Medicin e SCREENING] Future Scheduled PNEUMOVAX >=65 [facility] llege of Test (PPSV23) [code = Medicine PNEUMOVAX >=65 (PPSV23)] Future Scheduled PREVNAR >= 65 (PCV13) Ba [facility] of Test [code = PREVNAR >= 65 Medici ne (PCV13)] Future Scheduled FLU VACCINE > 6 MONTHS B [facility] of Test [code = FLU VACCINE > Medici ne 6 MONTHS] Future Scheduled MEDICARE IPPE (WELCOME B [facility] of Test TO MEDICARE) [code = Medicin e MEDICARE IPPE (WELCOME TO MEDICARE)] Encounters Start End Encounter Admission Attending Care Care Encounter Source Date/Time Date/Time Type Type Clinicians Facility Department ID 2022-08-08 Outpatient Carter, STLMLC [facility] [id number] Common 08:00:00 Daisy [id number] [facility] 2022-07-24 [facility] [id number] Common 14:40:00 Daisy [id number] [facility] 2022-07-13 Outpatient [facility]LMLC [facility] [id number] Common 10:03:01 [id number] [facility] 2022-05-16 Outpatient Annamarie, STLMLC [facility] [id number] Common 12:00:01 Jessica [id number] [facility] 2022-05-10 Outpatient Carter, STLMLC [facility] [id number] Common 10:26:00 Daisy 77582 [facility] 2022-03-15 Outpatient Reynoso, Na STLMLC ST[facility] [id number] Common 13:46:01 [facility] 2021-12-13 Outpatient Reynoso, Na STLMLC ST[facility] [id number] 2 Common 09:28:00 [facility] 2021-11-17 Outpatient Reynoso, Na STLMLC ST[facility] [id number] 2 Common 15:13:00 [facility] 2021-09-06 Outpatient Reynoso, Na STLMLC ST[facility] [id number] 2 Common 07:47:00 [facility] 2021-05-31 Outpatient Reynoso, Na STLMLC ST[facility]C [id number] 2 Common 08:13:00 [id number] [facility] 2021-05-11 Outpatient Reynoso, Na STLMLC ST[facility]C [id number] Common 14:24:18 [id number] [facility] 2021-05-11 Outpatient Reynoso, Na STLMLC STL[facility]C [id number] 2 Common 13:10:53 [id number] [facility] 2021-05-11 Outpatient Reynoso, Na STLMLC ST[facility]C [id number] 2 Common 13:05:24 [id number] [facility] 2021-05-11 Outpatient Reynoso, Na STLMLC ST[facility]MLC [id number] 2 Common 12:59:21 [id number] [facility] 2021-05-11 Outpatient Reynoso, Na STLMLC STLMLC [id number] 2 Common 12:54:52 12041 [facility] 2021-05-11 Outpatient Reynoso, Na STLMLC ST[facility]MLC [id number] Common 12:39:46 [id number] [facility] 2021-05-11 Outpatient Reynoso, Na STLMLC STL[facility]C [id number] 2 Common 12:31:17 06254 [facility] 2021-05-11 Outpatient Reynoso, Na STLMLC ST[facility]C [id number] 2 Common 12:29:47 40540 [facility] 2021-05-11 Outpatient Reynoso, Na STLMLC ST[facility]C [id number] 2 Common 12:07:53 [id number] [facility] 2021-05-11 Outpatient Reynoso, Na STLMLC STL[facility]C [id number] Common 12:06:17 [id number] [facility] 2021-05-11 Outpatient Reynoso, Na STLMLC STLMLC [id number] 2 Common 11:38:53 [id number] [facility] 2021-05-11 Outpatient Reynoso, Na STLMLC STLMLC [id number] 2 Common 11:19:55 40333 [facility] 2021-05-11 Outpatient Reynoso, Na STLMLC STLMLC [id number] 2 Common 11:18:49 [id number] [facility] 2022-05-16 2022-05-16 (TEL) STLMLC STLMLC [id number] Co mmon 00:00:00 00:00:00 [facility] 2022-05-08 2022-05-08 Outpatient MAINE LONGO [id number] [place] 08:00:00 08:00:00 JAYME larson 2022-03-17 2022-03-17 SUB ANNUAL STLMLC STLMLC [id number] Common 00:00:00 00:00:00 MCR [facility] WELLNESS - CHI VISIT [facility] 2022-03-17 2022-03-17 OFFICE STLMLC STLMLC [id number] Co mmon 00:00:00 00:00:00 VISIT EST Spir it PT LEVEL 3 - CHI [facility] 2021-12-15 2021-12-15 OFFICE STLMLC STLMLC [id number] Co mmon 00:00:00 00:00:00 VISIT Spirit ESTAB PT - CHI LEVEL 4 [facility] 2021-12-07 2021-12-07 OFFICE STLMLC STLMLC [id number] Co mmon 00:00:00 00:00:00 VISIT Spirit ESTAB PT - CHI LEVEL 2 [facility] 2021-11-14 2021-11-14 OFFICE STLMLC STLMLC [id number] Co mmon 00:00:00 00:00:00 VISIT Spirit ESTAB PT - CHI LEVEL 2 [facility] 2021-10-25 2021-10-25 (TEL) STLMLC STLMLC [id number] Co mmon 00:00:00 00:00:00 [facility] 2021-09-21 2021-09-21 OFFICE STLMLC STLMLC [id number] Co mmon 00:00:00 00:00:00 VISIT Spirit ESTAB PT - CHI LEVEL 4 [facility] 2021-09-08 2021-09-08 OFFICE STLMLC STLMLC [id number] Co mmon 00:00:00 00:00:00 VISIT Spirit ESTAB PT - CHI LEVEL 4 [facility] 2021-06-02 2021-06-02 OFFICE STLMLC STLMLC [id number] Co mmon 00:00:00 00:00:00 VISIT Spirit ESTAB PT - [facility]I LEVEL 4 [facility] 2021-05-16 2021-05-16 (TEL) STLMLC STLMLC [id number] Co mmon 00:00:00 00:00:00 [facility] 2021-04-06 2021-04-06 (TEL) STLMLC STLMLC [id number] Co mmon 00:00:00 00:00:00 [facility] 2021-04-06 2021-04-06 (TEL) STLMLC STLMLC [id number] Co mmon 00:00:00 00:00:00 [facility] 2021-03-28 2021-03-28 (TEL) STLMLC STLMLC [id number] Co mmon 00:00:00 00:00:00 [facility] 2021-03-24 2021-03-24 OFFICE STLMLC STLMLC [id number] Co mmon 00:00:00 00:00:00 VISIT EST Spir it PT LEVEL 3 [facility] 2021-03-17 2021-03-17 (TEL) STLMLC STLMLC [id number] Co mmon 00:00:00 00:00:00 [facility] 2021-02-28 2021-02-28 SUB ANNUAL STLMLC STLMLC [id number] Common 00:00:00 00:00:00 MCR [facility] VISIT [facility] 2021-02-28 2021-02-28 OFFICE STLMLC STLMLC [id number] Co mmon 00:00:00 00:00:00 VISIT EST Spir it PT LEVEL 3 [facility] 2021-01-21 2021-01-21 (TEL) STLMLC STLMLC [id number] Co mmon 00:00:00 00:00:00 [facility] 2021-01-03 2021-01-03 (TEL) STLMLC STLMLC [id number] Co mmon 00:00:00 00:00:00 [facility] 2020-11-29 2020-11-29 Outpatient STLMLC STL[facility]C [id number] Common 00:00:00 00:00:00 [facility] 2020-11-22 2020-11-22 Outpatient STLMLC ST[facility]C [id number] Common 00:00:00 00:00:00 [facility] 2020-10-07 2020-10-07 Outpatient STLMLC STLMLC [id number] Common 00:00:00 00:00:00 [facility] 2020-09-14 2020-09-14 Outpatient STLMLC STLMLC [id number] Common 00:00:00 00:00:00 [facility] 2020-08-20 2020-08-20 Outpatient STLMLC STLMLC [id number] Common 00:00:00 00:00:00 [facility] 2020-08-17 2020-08-17 Outpatient STLMLC STLMLC [id number] Common 00:00:00 00:00:00 [facility] 2020-06-28 2020-06-28 Outpatient STLMLC STLMLC [id number] Common 00:00:00 00:00:00 [facility] 2020-05-26 2020-05-26 Outpatient STLMLC STLMLC [id number] Common 00:00:00 00:00:00 [facility] 2020-03-05 2020-03-05 Outpatient STLMLC STLMLC [id number] Common 00:00:00 00:00:00 [facility] 2019-12-05 2019-12-05 [facility] [id number] Common 08:40:00 08:40:[address] [facility] 2019-11-24 2019-11-24 [facility] [id number] Common 10:00:00 10:00:00 t Specialty/U Sp ligia Specialty rology - [facility] /Urology Clinic [facility] 2019-09-05 2019-09-05 [facility] [id number] Common 11:20:00 11:20:[address] [facility] 2019-08-25 2019-08-25 [facility] [id number] Common 10:30:00 10:30:00 t Specialty/U Sp ligia Specialty rology - [facility] /[facility] 2019-08-14 2019-08-14 [facility] [id number] Common 15:20:00 15:20:00 [facility] it Road [facility] 2019-08-05 2019-08-05 [facility] [id number] Common 16:20:00 16:20:[address] [facility] 2019-06-02 2019-06-02 Office NELLIE Mcknight [id number] [facility] 14:24:37 15:44:01 Visit Adilson Chakraborty AMBULATOR [id number] College Y [id number] of [id number] Medi kiki 300 e 2019-06-02 2019-06-02 Office NELLIE Mcknight [id number] 14:24:37 15:44:01 Visit Adilson Chakraborty AMBULATOR [id number] Y [id number] 2019-04-22 2019-04-22 [facility] [id number] Common 08:00:00 08:00:[address] [facility] 2019-03-18 2019-03-18 [facility] [id number] Common 13:00:00 13:00:[address] [facility] 2019-03-04 2019-03-04 [facility] [id number] Common 14:00:00 14:00:[address] [facility] 2019-02-26 2019-02-26 Out[facility] [id number] Common 08:40:00 08:40:[address] [facility] 2019-02-24 2019-02-24 [facility] [id number] Common 10:00:00 10:00:00 t Specialty/U Sp ligia Specialty rology - [facility] /[facility] Clinic [facility] 2019-02-21 2019-02-21 [facility] [id number] Common 09:20:00 09:20:[address] [facility] 2019-01-22 2019-01-22 [facility] [id number] Common 15:25:00 15:25:[address] [facility] 2019-01-20 2019-01-20 Out[facility] [id number] Common 09:40:00 09:40:[address] [facility] 2018-11-28 2018-11-28 Out[facility] [id number] Common 13:00:00 13:00:[address] [facility] 2018-11-07 2018-11-07 Out[facility] [id number] Common 09:19:00 09:19:00 t Urgent Urgent Care [facility] - [facility] 2018-11-04 2018-11-04 [facility] [id number] Common 09:30:00 09:30:00 t Urgent Urgent Care S pirit [facility] - [facility] 2018-10-21 2018-10-21 [facility] [id number] Common 16:20:00 16:20:[address] [facility] 2018-09-16 2018-09-16 [facility] [id number] Common 09:20:00 09:20:[address] [facility] 2018-08-26 2018-08-26 [facility] 24 [id number] Common 10:00:00 10:00:00 t Specialty/U Sp ligia Specialty rology - [facility] 2018-07-25 2018-07-25 [facility] [id number] Common 09:30:00 09:30:00 t Urgent Urgent [facility] 2018-07-19 2018-07-19 [facility] [id number] Common 14:41:00 14:41:[address] [facility] 2018 2018 [facility] 24 [id number] Common 16:39:00 16:39:[address] [facility] 2018-06-17 2018-06-17 [facility] 24 [id number] Common 11:09:00 11:09:[address] [facility] 2018-06-11 2018-06-11 [facility] [id number] Common 09:00:00 09:00:[address] [facility] 2018-05-20 2018-05-20 [facility] [id number] Common 10:00:00 10:00:00 t Specialty/U Sp ligia Specialty rology - [facility] 2018-04-24 2018-04-24 [facility] [id number] Common 09:00:00 09:00:[address] [facility] 2018-03-11 2018-03-11 [facility] [id number] Common 10:30:00 10:30:[address] [facility] 2018-01-14 2018-01-14 [facility] [id number] Common 08:30:00 08:30:[address] [facility] 2017-12-13 2017-12-13 [facility] 15 [id number] Common 09:30:00 09:30:[address] [facility] 2017-11-21 2017-11-21 [facility] [id number] Common 09:00:00 09:00:00 t Specialty/U Sp ligia Specialty rology - [facility] 2017-10-08 2017-10-08 [facility] 14 [id number] Common 14:00:00 14:00:[address] [facility] 2017-10-01 2017-10-01 [facility] 14 [id number] Common 14:00:00 14:00:00 t Specialty/U Sp ligia Specialty rology - [facility] 2017-09-14 2017-09-14 [facility] 14 [id number] Common 11:11:00 11:11:[address] [facility] 2017-09-13 2017-09-13 [facility] 14 [id number] Common 14:45:00 14:45:[address] [facility] 2017-08-28 2017-08-28 Outpatient [facility] [id number] SLE 00:00:00 00:00:00 2017-07-26 2017-07-26 [facility] [id number] Common 14:45:00 14:45:00 t NE[facility]OT[facility] it [facility] Results Test Description Test Time Test Comments Results Result Comments Source POCT-ACT 2019-06-04 18:11:00 Test Item Value Reference Range Interpretation Comme nts ACTIVATED CLOTTING TIME (BEAKER) 329 sec : 74-137 seconds, Baseline: TESTED AT (test code = 441) [facility] [address] [place], [address]: Prefitter/Techni edith ID = [id number] for CHARANJIT GUARDADO POCT-GLUCOSE [id number] 07:40:00 Test Item Value Reference Range Interpretation Comments POC-GLUCOSE METER 160 mg/dL 70-110 H : TESTED A T [facility] [address] (BEAKER) (test [place], [address]: code = 1538) Prefitter/Techni edith ID = [id number] for ÁNGEL TREVINO IN BASIC METABOLIC [id number] 06:45:00 Test Item Value Reference Range Interpretation Comments SODIUM (BEAKER) 141 meq/L 136-145 (test code = 381) POTASSIUM (BEAKER) 4.0 meq/L 3.5-5.1 (test code = 379) CHLORIDE (BEAKER) 111 meq/L 98-107 H (test code = 382) CO2 (BEAKER) (test 23 meq/L 22-29 code = 355) BLOOD UREA NITROGEN 9 mg/dL 7-21 (BEAKER) (test code = 354) CREATININE (BEAKER) 0.71 mg/dL 0.57-1.25 (test code = 358) GLUCOSE RANDOM 136 mg/dL 70-105 H (BEAKER) (test code = 652) CALCIUM (BEAKER) 8.8 mg/dL 8.4-10.2 (test code = 697) EGFR (BEAKER) (test 79 mL/min/1.73 ESTIMA ELIZABETH GFR IS code = 1092) sq m NOT ACCURATE CREATININE CLEARANCE IN PREDICTING GLOMERULAR FILTRATION RATE . ESTIMATED GFR I S NOT APPLICABLE FOR DIALYSIS PATIEN TS. Prefitter ID - [id number] (HEMOGRAM ONLY)2019-06-04 05:04:00 Test Item Value Reference Range Interpretation Comments WHITE BLOOD CELL COUNT (BEAKER) 9.4 K/ L 3.5-10.5 (test code = 775) RED BLOOD CELL COUNT (BEAKER) 4.23 M/ L 3.93-5.22 (test code = 761) HEMOGLOBIN (BEAKER) (test code = 12.5 GM/DL 11.2-15.7 410) HEMATOCRIT (BEAKER) (test code = 38.5 % 34.1-44.9 411) MEAN CORPUSCULAR VOLUME (BEAKER) 91.0 fL 79.4-94.8 (test code = 753) MEAN CORPUSCULAR HEMOGLOBIN 29.6 pg 25.6-32.2 (BEAKER) (test code = 751) MEAN CORPUSCULAR HEMOGLOBIN CONC 32.5 GM/DL 32.2-35.5 (BEAKER) (test code = 752) RED CELL DISTRIBUTION WIDTH 13.7 % 11.7-14.4 (BEAKER) (test code = 412) PLATELET COUNT (BEAKER) (test 248 K/CU MM 150-450 code = 756) MEAN PLATELET VOLUME (BEAKER) 11.7 fL 9.4-12.3 (test code = 754) NUCLEATED RED BLOOD CELLS 0 /100 WBC 0-0 (BEAKER) (test code = 413) POCT-GLUCOSE [id number] 21:50:00 Test Item Value Reference Range Interpretation Comments POC-GLUCOSE METER 114 mg/dL 70-110 H : TESTED A T [facility] 6720 (BEAKER) (test code = [place], 1538) [address]: Prefitter/Techni edith ID = [id number] for TAMERA BLANCO PLATELET AGGREGATION: FUNCTION [id number] 19:54:00 Test Item Value Reference Range Interpretation Comments [id number] Dre Justice M.D. (BEAKER) (test code = (electonic signature) 3072) PLATELET COUNT AGG 221 K/CU MM 150-450 (BEAKER) (test code = 2316) PLATELET RICH 201 k/cu mm 200-300 PLASMA(BEAKER) (test code = 2134) PLATELET FUNCTION SCREEN Decreased aggregation INTERPRETATION (BEAKER) with ADP which (test code = 3395) indicates platelet dysfunction that may be due to medication effect, uremia, or other platelet function disorders. Clinical correlation is required. Platelet Function Screen results may be falsely low with platelet counts<75,000/cu mm.Prefitter ID- [id number] 17:56:00 Test Item Value Reference Range Interpretation Comments ACTIVATED CLOTTING TIME 147 sec : 74 -137 seconds, (BEAKER) (test code = Sneha ne: TESTED AT 441) [facility] [address] [facility], [address]: Prefitter/Techni edith ID = [id number] for RYAN CHAPA POCT-GLUCOSE [id number] 15:54:00 Test Item Value Reference Range Interpretation Comments POC-GLUCOSE METER 146 mg/dL 70-110 H : TESTED A T [facility] 67 (BEAKER) (test [facility], [address]: code = 1538) Prefitter/Techni edith ID = [id number] for MEGAN XIE ÁNGEL IN [id number] 12:23:00 Test Item Value Reference Range Interpretation Comments ACTIVATED CLOTTING TIME 329 sec Refe rence Range: 74-137 (BEAKER) (test code = second s, 441) Baseline/TESTED AT [facility] [address] [facility] [address] ELECTROCARDIOGRAM [id number] 22:18:25Result approved by Adilson Mcknight MD on 06/02/19LIPID [id number] 15:06:00 Test Item Value Reference Range Interpretation Comments TRIGLYCERIDES (BEAKER) (test code = 145 mg/dL 540) CHOLESTEROL (BEAKER) (test code = 180 mg/dL 631) HDL CHOLESTEROL (BEAKER) (test code 53 mg/dL = 976) LDL CHOLESTEROL CALCULATED (BEAKER) 98 mg/dL (test code = 633) Triglyceride Reference Range: Low Risk <150 Borderline 150-199 High Risk 200- 499 Very High Risk >=500Cholesterol Reference Range: Low Risk <200 Borderline 200-239 High Risk >240HDL Cholesterol Reference Range: Low Risk >=60 High Risk <40LDL Cholesterol Reference Range: Optimal <100 Near Optimal 100-129 Borderline 130-159 High 160-189 Very High >=190 Prefitter ID - BSBASI METABOLIC [id number] 15:06:00 Test Item Value Reference Range Interpretation Comments SODIUM (BEAKER) 137 meq/L 136-145 (test code = 381) POTASSIUM (BEAKER) 4.3 meq/L 3.5-5.1 (test code = 379) CHLORIDE (BEAKER) 103 meq/L 98-107 (test code = 382) CO2 (BEAKER) (test 25 meq/L 22-29 code = 355) BLOOD UREA NITROGEN 16 mg/dL 7-21 (BEAKER) (test code = 354) CREATININE (BEAKER) 0.88 mg/dL 0.57-1.25 (test code = 358) GLUCOSE RANDOM 299 mg/dL 70-105 H (BEAKER) (test code = 652) CALCIUM (BEAKER) 9.5 mg/dL 8.4-10.2 (test code = 697) EGFR (BEAKER) (test 62 mL/min/1.73 ESTIMA ELIZABETH GFR IS code = 1092) sq m NOT ACCURATE CREATININE CLEARANCE IN PREDICTING GLOMERULAR FILTRATION RATE . ESTIMATED GFR I S NOT APPLICABLE FOR DIALYSIS PATIEN TS. Prefitter ID - BSCBC W/PLT COUNT & AUTO [id number] 14:28:00 Test Item Value Reference Range Interpretation Comments WHITE BLOOD CELL COUNT (BEAKER) 9.7 K/ L 3.5-10.5 (test code = 775) RED BLOOD CELL COUNT (BEAKER) 4.72 M/ L 3.93-5.22 (test code = 761) HEMOGLOBIN (BEAKER) (test code = 13.7 GM/DL 11.2-15.7 410) HEMATOCRIT (BEAKER) (test code = 42.1 % 34.1-44.9 411) MEAN CORPUSCULAR VOLUME (BEAKER) 89.2 fL 79.4-94.8 (test code = 753) MEAN CORPUSCULAR HEMOGLOBIN 29.0 pg 25.6-32.2 (BEAKER) (test code = 751) MEAN CORPUSCULAR HEMOGLOBIN CONC 32.5 GM/DL 32.2-35.5 (BEAKER) (test code = 752) RED CELL DISTRIBUTION WIDTH 13.2 % 11.7-14.4 (BEAKER) (test code = 412) PLATELET COUNT (BEAKER) (test 238 K/CU MM 150-450 code = 756) MEAN PLATELET VOLUME (BEAKER) 11.2 fL 9.4-12.3 (test code = 754) NUCLEATED RED BLOOD CELLS 0 /100 WBC 0-0 (BEAKER) (test code = 413) NEUTROPHILS RELATIVE PERCENT 55 % (BEAKER) (test code = 429) LYMPHOCYTES RELATIVE PERCENT 35 % (BEAKER) (test code = 430) MONOCYTES RELATIVE PERCENT 7 % (BEAKER) (test code = 431) EOSINOPHILS RELATIVE PERCENT 3 % (BEAKER) (test code = 432) BASOPHILS RELATIVE PERCENT 1 % (BEAKER) (test code = 437) NEUTROPHILS ABSOLUTE COUNT 5.30 K/ L 1.56-6.13 (BEAKER) (test code = 670) LYMPHOCYTES ABSOLUTE COUNT 3.41 K/ L 1.18-3.74 (BEAKER) (test code = 414) MONOCYTES ABSOLUTE COUNT (BEAKER) 0.66 K/ L 0.24-0.36 H (test code = 415) EOSINOPHILS ABSOLUTE COUNT 0.26 K/ L 0.04-0.36 (BEAKER) (test code = 416) BASOPHILS ABSOLUTE COUNT (BEAKER) 0.06 K/ L 0.01-0.08 (test code = 417) IMMATURE GRANULOCYTES-RELATIVE 0 % 0-1 PERCENT (BEAKER) (test code = 2801) POCT-GLUCOSE [id number] 10:02:00 Test Item Value Reference Range Interpretation Comments POC-GLUCOSE METER 66 mg/dL 70-110 L TESTED AT [facility] 6720 (BEAKER) (test code = [place] [facility] [address] 1538) BASIC METABOLIC [id number] 04:00:00 Test Item Value Reference Range Interpretation Comments SODIUM (BEAKER) 141 meq/L 136-145 (test code = 381) POTASSIUM (BEAKER) 3.9 meq/L 3.5-5.1 (test code = 379) CHLORIDE (BEAKER) 112 meq/L 98-107 H (test code = 382) CO2 (BEAKER) (test 20 meq/L 22-29 L code = 355) BLOOD UREA NITROGEN 16 mg/dL 7-21 (BEAKER) (test code = 354) CREATININE (BEAKER) 0.69 mg/dL 0.57-1.25 (test code = 358) GLUCOSE RANDOM 90 mg/dL 70-105 (BEAKER) (test code = 652) CALCIUM (BEAKER) 9.2 mg/dL 8.4-10.2 (test code = 697) EGFR (BEAKER) (test 82 mL/min/1.73 ESTIMA ELIZABETH GFR IS code = 1092) sq m NOT ACCURATE CREATININE CLEARANCE IN PREDICTING GLOMERULAR FILTRATION RATE . ESTIMATED GFR I S NOT APPLICABLE FOR DIALYSIS PATIEN TS. CBC (HEMOGRAM ONLY)2017-12-19 03:43:00 Test Item Value Reference Range Interpretation Comments WHITE BLOOD CELL COUNT (BEAKER) 8.3 K/ L 3.5-10.5 (test code = 775) RED BLOOD CELL COUNT (BEAKER) 3.50 M/ L 3.93-5.22 L (test code = 761) HEMOGLOBIN (BEAKER) (test code = 9.6 GM/DL 11.2-15.7 L 410) HEMATOCRIT (BEAKER) (test code = 31.4 % 34.1-44.9 L 411) MEAN CORPUSCULAR VOLUME (BEAKER) 89.7 fL 79.4-94.8 (test code = 753) MEAN CORPUSCULAR HEMOGLOBIN 27.4 pg 25.6-32.2 (BEAKER) (test code = 751) MEAN CORPUSCULAR HEMOGLOBIN CONC 30.6 GM/DL 32.2-35.5 L (BEAKER) (test code = 752) RED CELL DISTRIBUTION WIDTH 15.3 % 11.7-14.4 H (BEAKER) (test code = 412) PLATELET COUNT (BEAKER) (test 187 K/CU MM 150-450 code = 756) MEAN PLATELET VOLUME (BEAKER) 11.5 fL 9.4-12.3 (test code = 754) NUCLEATED RED BLOOD CELLS 0 /100 WBC 0-0 (BEAKER) (test code = 413) POCT-GLUCOSE [id number] 21:29:00 Test Item Value Reference Range Interpretation Comments POC-GLUCOSE METER 232 mg/dL 70-110 H TESTED AT [place] [address] ([facility]) (test code = [place] 1538) [address] POCT-GLUCOSE [id number] 10:45:00 Test Item Value Reference Range Interpretation Comments POC-GLUCOSE METER 110 mg/dL 70-110 TESTED AT [facility] 6720 ([facility]) (test code = [place] 1538) [address] [id number] 08:06:00 Test Item Value Reference Range Interpretation Comments ACTIVATED CLOTTING TIME 290 sec TEST ED AT [place] [address] ([facility]) (test code = [place] 441) [address] CBC (HEMOGRAM ONLY)2017-12-11 14:17:00 Test Item Value Reference Range Interpretation Comments WHITE BLOOD CELL COUNT (BEAKER) 11.4 K/ L 3.5-10.5 H (test code = 775) RED BLOOD CELL COUNT (BEAKER) 3.93 M/ L 3.93-5.22 (test code = 761) HEMOGLOBIN (BEAKER) (test code = 10.9 GM/DL 11.2-15.7 L 410) HEMATOCRIT (BEAKER) (test code = 34.8 % 34.1-44.9 411) MEAN CORPUSCULAR VOLUME (BEAKER) 88.5 fL 79.4-94.8 (test code = 753) MEAN CORPUSCULAR HEMOGLOBIN 27.7 pg 25.6-32.2 (BEAKER) (test code = 751) MEAN CORPUSCULAR HEMOGLOBIN CONC 31.3 GM/DL 32.2-35.5 L (BEAKER) (test code = 752) RED CELL DISTRIBUTION WIDTH 15.4 % 11.7-14.4 H (BEAKER) (test code = 412) PLATELET COUNT (BEAKER) (test 204 K/CU MM 150-450 code = 756) MEAN PLATELET VOLUME (BEAKER) 11.1 fL 9.4-12.3 (test code = 754) NUCLEATED RED BLOOD CELLS 0 /100 WBC 0-0 (BEAKER) (test code = 413) POCT-GLUCOSE [id number] 14:11:00 Test Item Value Reference Range Interpretation Comments POC-GLUCOSE METER 191 mg/dL 70-110 H TESTED AT [place] [address] ([facility]) (test code = [place] 1538) [address] PLATELET AGGREGATION: FUNCTION [id number] 11:37:00 Test Item Value Reference Range Interpretation Comments WEAK ADP 14 % 60-91 L RESULT(AKER) (test code = 2135) PLATELET FUNCTION 0-39% indicates marked SCREEN INTERP platelet dysfunction ([facility]) (test code = 2173) [id number] Idania Donovan MD ([facility]) (test code = (electronic signature) 6448) PLATELET COUNT AGG 230 K/CU MM 150-450 ([facility]) (test code = 2656) POCT-GLUCOSE [id number] 10:23:00 Test Item Value Reference Range Interpretation Comments POC-GLUCOSE METER 100 mg/dL 70-110 TESTED AT [facility] 6720 ([facility]) (test code = [place] [facility] 1538) [address] LIPID [id number] 06:28:00 Test Item Value Reference Range Interpretation Comments TRIGLYCERIDES ([facility]) (test code = 87 mg/dL 540) CHOLESTEROL ([facility]) (test code = 133 mg/dL 631) HDL CHOLESTEROL ([facility]) (test code 47 mg/dL = 976) LDL CHOLESTEROL CALCULATED ([facility]) 69 mg/dL (test code = 633) Triglyceride Reference Range: Low Risk <150 Borderline 150-199 High Risk 200- 499 Very High Risk >=500Cholesterol Reference Range: Low Risk <200 Borderline 200-239 High Risk >240HDL Cholesterol Reference Range: Low Risk >=60 High Risk <40LDL Cholesterol Reference Range: Optimal <100 Near Optimal 100-129 Borderline 130-159 High 160-189 Very High >=190POCT-GLUCOSE [id number] 11:03:00 Test Item Value Reference Range Interpretation Comments POC-GLUCOSE METER 103 mg/dL 70-110 TESTED AT [facility] 6720 ([facility]) (test code = [place] [facility] 1538) [address] HEMOGLOBIN AND [id number] 10:07:00 Test Item Value Reference Range Interpretation Comments HEMOGLOBIN ([facility]) (test code = 11.5 GM/DL 11.2-15.7 410) HEMATOCRIT ([facility]) (test code = 37.2 % 34.1-44.9 411) FUNGUS CULTURE + [id number] 08:13:00 Test Item Value Reference Range Interpretation Comments CULTURE ([facility]) A 1+ Colleen albicans (test code = 1095) FUNGUS SMEAR No fungi seen ([facility]) (test code = 1406) ANAEROBIC [id number] 05:42:00 Test Item Value Reference Range Interpretation Comments CULTURE ([facility]) (test No anaerobes isolated code = 1095) WOUND CULTURE + GRAM [id number] 08:07:00 Test Item Value Reference Range Interpretation Comments CULTURE (BEAKER) COAGULASE NEGATIVE A 1+ Co agulase (test code = STAPHYLOCOCCUS negative 1095) Staphylococcus Minocycline Susceptible >=19 S (test code = 35) , Resistant <19 CULTURE (BEAKER) A <1+ Colleen (test code = albicans 1095) GRAM STAIN 1+ WBCs RESULT (BEAKER) (test code = 1123) GRAM STAIN <1+ gram positive RESULT (BEAKER) cocci in pairs (test code = 622851) WOUND CULTURE + GRAM [id number] 20:05:00 Test Item Value Reference Range Interpretation Comments CULTURE (BEAKER) COAGULASE NEGATIVE A 3+ Co agulase (test code = STAPHYLOCOCCUS negative 1095) Staphylococcus Minocycline Susceptible >=19 S (test code = 35) , Resistant <19 CULTURE (BEAKER) A 1+ Colleen albicans (test code = 1095) GRAM STAIN 1+ WBCs RESULT (BEAKER) (test code = 1123) GRAM STAIN No organisms seen RESULT (BEAKER) (test code = 548698) POCT-GLUCOSE [id number] 12:00:00 Test Item Value Reference Range Interpretation Comments POC-GLUCOSE METER 238 mg/dL 70-110 H TESTED AT [facility] 6720 (BEAKER) (test code = [place] [facility] 1538) [address] POCT-GLUCOSE [id number] 08:03:00 Test Item Value Reference Range Interpretation Comments POC-GLUCOSE METER 308 mg/dL 70-110 H Will Repea t Test/TESTED (BEAKER) (test code = AT [facility] 67[address] [place] 1538) [facility] [address] [id number] 04:31:00 Test Item Value Reference Range Interpretation Comments MAGNESIUM (BEAKER) (test code = 1.9 mg/dL 1.6-2.6 627) BASIC METABOLIC [id number] 04:31:00 Test Item Value Reference Range Interpretation Comments SODIUM (BEAKER) 134 meq/L 136-145 L (test code = 381) POTASSIUM (BEAKER) 4.3 meq/L 3.5-5.1 (test code = 379) CHLORIDE (BEAKER) 100 meq/L 98-107 (test code = 382) CO2 (BEAKER) (test 24 meq/L 22-29 code = 355) BLOOD UREA NITROGEN 12 mg/dL 7-21 (BEAKER) (test code = 354) CREATININE (BEAKER) 0.77 mg/dL 0.57-1.25 (test code = 358) GLUCOSE RANDOM 272 mg/dL 70-105 H (BEAKER) (test code = 652) CALCIUM (BEAKER) 8.6 mg/dL 8.4-10.2 (test code = 697) EGFR (BEAKER) (test 72 mL/min/1.73 ESTIMA ELIZABETH GFR IS code = 1092) sq m NOT ACCURATE CREATININE CLEARANCE IN PREDICTING GLOMERULAR FILTRATION RATE . ESTIMATED GFR I S NOT APPLICABLE FOR DIALYSIS PATIEN TS. POCT-GLUCOSE [id number] 21:16:00 Test Item Value Reference Range Interpretation Comments POC-GLUCOSE METER 207 mg/dL 70-110 H TESTED AT [facility] 67 [facility] (test code = [facility] 1538) [address] POCT-GLUCOSE [id number] 20:45:00 Test Item Value Reference Range Interpretation Comments POC-GLUCOSE METER 266 mg/dL 70-110 H TESTED AT [place] [address] ([facility]) (test code = [facility] 1538) [address] [id number] 05:25:00 Test Item Value Reference Range Interpretation Comments MAGNESIUM (BEAKER) (test code = 1.9 mg/dL 1.6-2.6 627) BASIC METABOLIC [id number] 05:25:00 Test Item Value Reference Range Interpretation Comments SODIUM (BEAKER) 136 meq/L 136-145 (test code = 381) POTASSIUM (BEAKER) 3.7 meq/L 3.5-5.1 (test code = 379) CHLORIDE (BEAKER) 102 meq/L 98-107 (test code = 382) CO2 (BEAKER) (test 24 meq/L 22-29 code = 355) BLOOD UREA NITROGEN 14 mg/dL 7-21 (BEAKER) (test code = 354) CREATININE (BEAKER) 0.73 mg/dL 0.57-1.25 (test code = 358) GLUCOSE RANDOM 136 mg/dL 70-105 H (BEAKER) (test code = 652) CALCIUM (BEAKER) 8.8 mg/dL 8.4-10.2 (test code = 697) EGFR (BEAKER) (test 77 mL/min/1.73 ESTIMA ELIZABETH GFR IS code = 1092) sq m NOT ACCURATE CREATININE CLEARANCE IN PREDICTING GLOMERULAR FILTRATION RATE . ESTIMATED GFR I S NOT APPLICABLE FOR DIALYSIS PATIEN TS. CBC (HEMOGRAM ONLY)2017-07-18 05:07:00 Test Item Value Reference Range Interpretation Comments WHITE BLOOD CELL COUNT (BEAKER) 9.1 K/ L 3.5-10.5 (test code = 775) RED BLOOD CELL COUNT (BEAKER) 2.92 M/ L 3.93-5.22 L (test code = 761) HEMOGLOBIN (BEAKER) (test code = 8.3 GM/DL 11.2-15.7 L 410) HEMATOCRIT (BEAKER) (test code = 26.4 % 34.1-44.9 L 411) MEAN CORPUSCULAR VOLUME (BEAKER) 90.4 fL 79.4-94.8 (test code = 753) MEAN CORPUSCULAR HEMOGLOBIN 28.4 pg 25.6-32.2 (BEAKER) (test code = 751) MEAN CORPUSCULAR HEMOGLOBIN CONC 31.4 GM/DL 32.2-35.5 L (BEAKER) (test code = 752) RED CELL DISTRIBUTION WIDTH 14.1 % 11.7-14.4 (BEAKER) (test code = 412) PLATELET COUNT (BEAKER) (test 369 K/CU MM 150-450 code = 756) MEAN PLATELET VOLUME (BEAKER) 10.7 fL 9.4-12.3 (test code = 754) NUCLEATED RED BLOOD CELLS 0 /100 WBC 0-0 (BEAKER) (test code = 413) POCT-GLUCOSE [id number] 21:22:00 Test Item Value Reference Range Interpretation Comments POC-GLUCOSE METER 241 mg/dL 70-110 H TESTED AT [facility] [address] ([facility]) (test code = [place] 1538) [id number] POCT-GLUCOSE [id number] 15:18:00 Test Item Value Reference Range Interpretation Comments POC-GLUCOSE METER 123 mg/dL 70-110 H TESTED AT [facility] [address] ([facility]) (test code = [place] 1538) [id number] URINE [id number] 09:25:00 Test Item Value Reference Range Interpretation Comments CULTURE (BEAKER) (test CITROBACTER A >100, 000 col/mL code = 1095) SPECIES Citrobacter species Amikacin (test code = S 1) Aztreonam (test code = S 32) Cefepime (test code = S 51) Cefoxitin (test code = R 68) Ceftazidime (test code S = 27) Ceftriaxone (test code S = 52) Ertapenem (test code = S 38) Gentamicin (test code S = 18) Levofloxacin (test S code = 22) Meropenem (test code = S 34) Nitrofurantoin (test S code = 23) Piperacillin + S Tazobactam (test code = 29) Tetracycline (test S code = 2) Tobramycin (test code S = 25) Trimethoprim + S Sulfamethoxazole (test code = 47) POCT-GLUCOSE [id number] 08:17:00 Test Item Value Reference Range Interpretation Comments POC-GLUCOSE METER 94 mg/dL 70-110 TESTED AT [facility] [address] ([facility]) (test code = [place] [address]) [id number] 04:56:00 Test Item Value Reference Range Interpretation Comments MAGNESIUM (BEAKER) (test code = 1.9 mg/dL 1.6-2.6 627) BASIC METABOLIC [id number] 04:56:00 Test Item Value Reference Range Interpretation Comments SODIUM (BEAKER) 134 meq/L 136-145 L (test code = 381) POTASSIUM (BEAKER) 4.0 meq/L 3.5-5.1 (test code = 379) CHLORIDE (BEAKER) 99 meq/L 98-107 (test code = 382) CO2 (BEAKER) (test 25 meq/L 22-29 code = 355) BLOOD UREA NITROGEN 18 mg/dL 7-21 (BEAKER) (test code = 354) CREATININE (BEAKER) 0.82 mg/dL 0.57-1.25 (test code = 358) GLUCOSE RANDOM 111 mg/dL 70-105 H (BEAKER) (test code = 652) CALCIUM (BEAKER) 8.5 mg/dL 8.4-10.2 (test code = 697) EGFR (BEAKER) (test 67 mL/min/1.73 ESTIMA ELIZABETH GFR IS code = 1092) sq m NOT ACCURATE CREATININE CLEARANCE IN PREDICTING GLOMERULAR FILTRATION RATE . ESTIMATED GFR I S NOT APPLICABLE FOR DIALYSIS PATIEN TS. CBC (HEMOGRAM ONLY)2017-07-17 04:34:00 Test Item Value Reference Range Interpretation Comments WHITE BLOOD CELL COUNT (BEAKER) 10.6 K/ L 3.5-10.5 H (test code = 775) RED BLOOD CELL COUNT (BEAKER) 2.88 M/ L 3.93-5.22 L (test code = 761) HEMOGLOBIN (BEAKER) (test code = 8.3 GM/DL 11.2-15.7 L 410) HEMATOCRIT (BEAKER) (test code = 26.0 % 34.1-44.9 L 411) MEAN CORPUSCULAR VOLUME (BEAKER) 90.3 fL 79.4-94.8 (test code = 753) MEAN CORPUSCULAR HEMOGLOBIN 28.8 pg 25.6-32.2 (BEAKER) (test code = 751) MEAN CORPUSCULAR HEMOGLOBIN CONC 31.9 GM/DL 32.2-35.5 L (BEAKER) (test code = 752) RED CELL DISTRIBUTION WIDTH 14.1 % 11.7-14.4 (BEAKER) (test code = 412) PLATELET COUNT (BEAKER) (test 335 K/CU MM 150-450 code = 756) MEAN PLATELET VOLUME (BEAKER) 10.5 fL 9.4-12.3 (test code = 754) NUCLEATED RED BLOOD CELLS 0 /100 WBC 0-0 (BEAKER) (test code = 413) POCT-GLUCOSE [id number] 20:24:00 Test Item Value Reference Range Interpretation Comments POC-GLUCOSE METER 205 mg/dL 70-110 H TESTED AT [place] [address] ([facility]) (test code = [facility] [place] [facility] 1538) [id number] POCT-GLUCOSE [id number] 17:11:00 Test Item Value Reference Range Interpretation Comments POC-GLUCOSE METER 162 mg/dL 70-110 H TESTED AT [place] [address] ([facility]) (test code = [facility] 1538) [id number] POCT-GLUCOSE [id number] 12:21:00 Test Item Value Reference Range Interpretation Comments POC-GLUCOSE METER 188 mg/dL 70-110 H TESTED AT [place] [address] ([facility]) (test code = [facility] [place] [facility] 1538) [address] POCT-GLUCOSE [id number] 08:23:00 Test Item Value Reference Range Interpretation Comments POC-GLUCOSE METER 97 mg/dL 70-110 TESTED AT [facility] 6720 (BEAKER) (test code = [place] [address] 1538) [id number] 05:54:00 Test Item Value Reference Range Interpretation Comments MAGNESIUM (BEAKER) (test code = 1.7 mg/dL 1.6-2.6 627) BASIC METABOLIC [id number] 05:54:00 Test Item Value Reference Range Interpretation Comments SODIUM (BEAKER) 133 meq/L 136-145 L (test code = 381) POTASSIUM (BEAKER) 3.4 meq/L 3.5-5.1 L (test code = 379) CHLORIDE (BEAKER) 97 meq/L 98-107 L (test code = 382) CO2 (BEAKER) (test 26 meq/L 22-29 code = 355) BLOOD UREA NITROGEN 16 mg/dL 7-21 (BEAKER) (test code = 354) CREATININE (BEAKER) 0.72 mg/dL 0.57-1.25 (test code = 358) GLUCOSE RANDOM 97 mg/dL 70-105 (BEAKER) (test code = 652) CALCIUM (BEAKER) 8.6 mg/dL 8.4-10.2 (test code = 697) EGFR (BEAKER) (test 78 mL/min/1.73 ESTIMA ELIZABETH GFR IS code = 1092) sq m NOT ACCURATE CREATININE CLEARANCE IN PREDICTING GLOMERULAR FILTRATION RATE . ESTIMATED GFR I S NOT APPLICABLE FOR DIALYSIS PATIEN TS. CBC (HEMOGRAM ONLY)2017-07-16 05:31:00 Test Item Value Reference Range Interpretation Comments WHITE BLOOD CELL COUNT (BEAKER) 12.5 K/ L 3.5-10.5 H (test code = 775) RED BLOOD CELL COUNT (BEAKER) 3.14 M/ L 3.93-5.22 L (test code = 761) HEMOGLOBIN (BEAKER) (test code = 8.9 GM/DL 11.2-15.7 L 410) HEMATOCRIT (BEAKER) (test code = 28.7 % 34.1-44.9 L 411) MEAN CORPUSCULAR VOLUME (BEAKER) 91.4 fL 79.4-94.8 (test code = 753) MEAN CORPUSCULAR HEMOGLOBIN 28.3 pg 25.6-32.2 (BEAKER) (test code = 751) MEAN CORPUSCULAR HEMOGLOBIN CONC 31.0 GM/DL 32.2-35.5 L (BEAKER) (test code = 752) RED CELL DISTRIBUTION WIDTH 14.2 % 11.7-14.4 (BEAKER) (test code = 412) PLATELET COUNT (BEAKER) (test 331 K/CU MM 150-450 code = 756) MEAN PLATELET VOLUME (BEAKER) 10.8 fL 9.4-12.3 (test code = 754) NUCLEATED RED BLOOD CELLS 0 /100 WBC 0-0 (BEAKER) (test code = 413) POCT-GLUCOSE [id number] 21:04:00 Test Item Value Reference Range Interpretation Comments POC-GLUCOSE METER 198 mg/dL 70-110 H TESTED AT [place] [address] [facility] [place] [facility] 1538) [id number] POCT-GLUCOSE [id number] 17:40:00 Test Item Value Reference Range Interpretation Comments POC-GLUCOSE METER 189 mg/dL 70-110 H TESTED AT [place] [address] ([facility] (test code = [facility] 1538) [id number] URINALYSIS W/ [id number] 15:48:00 Test Item Value Reference Range Interpretation Comments COLOR (BEAKER) (test code Yellow = 470) CLARITY (BEAKER) (test Hazy code = 469) SPECIFIC GRAVITY UA 1.011 1.001-1.035 (BEAKER) (test code = 468) PH UA (BEAKER) (test code 5.5 5.0-8.0 = 467) PROTEIN UA (BEAKER) (test Negative Negative code = 464) GLUCOSE UA (BEAKER) (test Negative Negative code = 365) KETONES UA (BEAKER) (test Negative Negative code = 371) BILIRUBIN UA (BEAKER) Negative Negative (test code = 462) BLOOD UA (BEAKER) (test Small Negative A code = 461) NITRITE UA (BEAKER) (test Negative Negative code = 465) LEUKOCYTE ESTERASE UA Large Negative A (BEAKER) (test code = 466) UROBILINOGEN UA (BEAKER) 0.2 mg/dL 0.2-1.0 (test code = 463) RBC UA (BEAKER) (test code 11 /HPF = 519) WBC UA (BEAKER) (test code 219 /HPF = 520) BACTERIA (BEAKER) (test Many code = 517) MUCUS (BEAKER) (test code Rare = 1574) SQUAMOUS EPITHELIAL 4 /HPF (BEAKER) (test code = 516) HYALINE CASTS (BEAKER) 10 /LPF (test code = 514) SOURCE(BEAKER) (test code Urine, Clean Catch = 2795) POCT-GLUCOSE [id number] 13:23:00 Test Item Value Reference Range Interpretation Comments POC-GLUCOSE METER 224 mg/dL 70-110 H TESTED AT [facility] 6720 (BEAKER) (test code = [place] [facility] 1538) [address] RAD, CHEST, 1 VIEW, NON [id number] 12:49:00Reason for exam:->feverShould this be performed at the bedside?->YesFINAL REPORT Chest One view: Reason for exam: Fever Comparison Study: Chest x-ray, 07/11/2017 Discussion: Some subsegmental atelectasis is identified in the left lung base, improved. The right lung is clear. There is no pleural effusion or pneumothorax. The heart size and pulmonaryvascularity are within normal limits. The bones are unremarkable. Sternal wires are present. Surgical clips are also identified in the left hilum. Impression: Left lung base atelectasis, improved Signed: Gary Snell MDReport Verified Date/Time: 07/15/2017 12:49:51 Reading Location: [facility] [id number] Ortho Consult Reading Room POCT-GLUCOSE [id number] 08:38:00 Test Item Value Reference Range Interpretation Comments POC-GLUCOSE METER 118 mg/dL 70-110 H TESTED AT [facility] 6720 (BEAKER) (test code = [place] 1538) [address] [id number] 06:02:00 Test Item Value Reference Range Interpretation Comments MAGNESIUM (BEAKER) (test code = 1.9 mg/dL 1.6-2.6 627) BASIC METABOLIC [id number] 06:02:00 Test Item Value Reference Range Interpretation Comments SODIUM (BEAKER) 137 meq/L 136-145 (test code = 381) POTASSIUM (BEAKER) 3.8 meq/L 3.5-5.1 (test code = 379) CHLORIDE (BEAKER) 102 meq/L 98-107 (test code = 382) CO2 (BEAKER) (test 24 meq/L 22-29 code = 355) BLOOD UREA NITROGEN 14 mg/dL 7-21 (BEAKER) (test code = 354) CREATININE (BEAKER) 0.69 mg/dL 0.57-1.25 (test code = 358) GLUCOSE RANDOM 114 mg/dL 70-105 H (BEAKER) (test code = 652) CALCIUM (BEAKER) 9.1 mg/dL 8.4-10.2 (test code = 697) EGFR (BEAKER) (test 82 mL/min/1.73 ESTIMA ELIZABETH GFR IS code = 1092) sq m NOT ACCURATE CREATININE CLEARANCE IN PREDICTING GLOMERULAR FILTRATION RATE . ESTIMATED GFR I S NOT APPLICABLE FOR DIALYSIS PATIEN TS. CBC (HEMOGRAM ONLY)2017-07-15 05:40:00 Test Item Value Reference Range Interpretation Comments WHITE BLOOD CELL COUNT (BEAKER) 14.4 K/ L 3.5-10.5 H (test code = 775) RED BLOOD CELL COUNT (BEAKER) 3.51 M/ L 3.93-5.22 L (test code = 761) HEMOGLOBIN (BEAKER) (test code = 10.2 GM/DL 11.2-15.7 L 410) HEMATOCRIT (BEAKER) (test code = 31.3 % 34.1-44.9 L 411) MEAN CORPUSCULAR VOLUME (BEAKER) 89.2 fL 79.4-94.8 (test code = 753) MEAN CORPUSCULAR HEMOGLOBIN 29.1 pg 25.6-32.2 (BEAKER) (test code = 751) MEAN CORPUSCULAR HEMOGLOBIN CONC 32.6 GM/DL 32.2-35.5 (BEAKER) (test code = 752) RED CELL DISTRIBUTION WIDTH 13.8 % 11.7-14.4 (BEAKER) (test code = 412) PLATELET COUNT (BEAKER) (test 338 K/CU MM 150-450 code = 756) MEAN PLATELET VOLUME (BEAKER) 11.2 fL 9.4-12.3 (test code = 754) NUCLEATED RED BLOOD CELLS 0 /100 WBC 0-0 (BEAKER) (test code = 413) POCT-GLUCOSE [id number] 21:20:00 Test Item Value Reference Range Interpretation Comments POC-GLUCOSE METER 178 mg/dL 70-110 H TESTED AT [facility] 6720 (BEAKER) (test code = [facility] 1538) [address] POCT-GLUCOSE [id number] 17:17:00 Test Item Value Reference Range Interpretation Comments POC-GLUCOSE METER 259 mg/dL 70-110 H TESTED AT [facility] 67 (BEAKER) (test code = [facility] 1538) [address] POCT-GLUCOSE [id number] 13:07:00 Test Item Value Reference Range Interpretation Comments POC-GLUCOSE METER 195 mg/dL 70-110 H TESTED AT [place] [address] ([facility] (test code = [facility] 1538) [address] POCT-GLUCOSE [id number] 08:07:00 Test Item Value Reference Range Interpretation Comments POC-GLUCOSE METER 152 mg/dL 70-110 H TESTED AT [facility] 6720 (BEAKER) (test code = [facility] 1538) [address] [id number] 05:23:00 Test Item Value Reference Range Interpretation Comments MAGNESIUM (BEAKER) (test code = 1.9 mg/dL 1.6-2.6 627) BASIC METABOLIC [id number] 05:23:00 Test Item Value Reference Range Interpretation Comments SODIUM (BEAKER) 135 meq/L 136-145 L (test code = 381) POTASSIUM (BEAKER) 3.8 meq/L 3.5-5.1 (test code = 379) CHLORIDE (BEAKER) 104 meq/L 98-107 (test code = 382) CO2 (BEAKER) (test 23 meq/L 22-29 code = 355) BLOOD UREA NITROGEN 17 mg/dL 7-21 (BEAKER) (test code = 354) CREATININE (BEAKER) 0.68 mg/dL 0.57-1.25 (test code = 358) GLUCOSE RANDOM 158 mg/dL 70-105 H (BEAKER) (test code = 652) CALCIUM (BEAKER) 8.4 mg/dL 8.4-10.2 (test code = 697) EGFR (BEAKER) (test 84 mL/min/1.73 ESTIMA ELIZABETH GFR IS code = 1092) sq m NOT ACCURATE CREATININE CLEARANCE IN PREDICTING GLOMERULAR FILTRATION RATE . ESTIMATED GFR I S NOT APPLICABLE FOR DIALYSIS PATIEN TS. CBC (HEMOGRAM ONLY)2017-07-14 04:55:00 Test Item Value Reference Range Interpretation Comments WHITE BLOOD CELL COUNT (BEAKER) 11.1 K/ L 3.5-10.5 H (test code = 775) RED BLOOD CELL COUNT (BEAKER) 2.77 M/ L 3.93-5.22 L (test code = 761) HEMOGLOBIN (BEAKER) (test code = 8.1 GM/DL 11.2-15.7 L 410) HEMATOCRIT (BEAKER) (test code = 25.3 % 34.1-44.9 L 411) MEAN CORPUSCULAR VOLUME (BEAKER) 91.3 fL 79.4-94.8 (test code = 753) MEAN CORPUSCULAR HEMOGLOBIN 29.2 pg 25.6-32.2 (BEAKER) (test code = 751) MEAN CORPUSCULAR HEMOGLOBIN CONC 32.0 GM/DL 32.2-35.5 L (BEAKER) (test code = 752) RED CELL DISTRIBUTION WIDTH 13.9 % 11.7-14.4 (BEAKER) (test code = 412) PLATELET COUNT (BEAKER) (test 262 K/CU MM 150-450 code = 756) MEAN PLATELET VOLUME (BEAKER) 11.1 fL 9.4-12.3 (test code = 754) NUCLEATED RED BLOOD CELLS 0 /100 WBC 0-0 (BEAKER) (test code = 413) POCT-GLUCOSE [id number] 21:13:00 Test Item Value Reference Range Interpretation Comments POC-GLUCOSE METER 244 mg/dL 70-110 H TESTED AT [facility] 6720 ([facility]) (test code = [place] 1538) [address] POCT-GLUCOSE [id number] 17:17:00 Test Item Value Reference Range Interpretation Comments POC-GLUCOSE METER 214 mg/dL 70-110 H TESTED AT [facility] 6720 ([facility]) (test code = [place] 1538) [address] POCT-GLUCOSE [id number] 11:53:00 Test Item Value Reference Range Interpretation Comments POC-GLUCOSE METER 252 mg/dL 70-110 H TESTED AT [facility] 6720 (BEAKER) (test code = [place] 1538) [address] POCT-GLUCOSE [id number] 08:27:00 Test Item Value Reference Range Interpretation Comments POC-GLUCOSE METER 241 mg/dL 70-110 H TESTED AT [facility] 6720 (BEAKER) (test code = [place] 1538) [address] [id number] 06:49:00 Test Item Value Reference Range Interpretation Comments MAGNESIUM (BEAKER) 2.0 mg/dL 1.6-2.6 Specimen slightly (test code = 627) hemolyzed BASIC METABOLIC [id number] 06:49:00 Test Item Value Reference Range Interpretation Comments SODIUM (BEAKER) 134 meq/L 136-145 L (test code = 381) POTASSIUM (BEAKER) 4.3 meq/L 3.5-5.1 Specimen slightly (test code = 379) hemolyzed CHLORIDE (BEAKER) 106 meq/L 98-107 (test code = 382) CO2 (BEAKER) (test 18 meq/L 22-29 L code = 355) BLOOD UREA NITROGEN 15 mg/dL 7-21 (BEAKER) (test code = 354) CREATININE (BEAKER) 0.68 mg/dL 0.57-1.25 Specimen slightly (test code = 358) hemolyzed GLUCOSE RANDOM 234 mg/dL 70-105 H (BEAKER) (test code = 652) CALCIUM (BEAKER) 8.3 mg/dL 8.4-10.2 L (test code = 697) EGFR (BEAKER) (test 84 mL/min/1.73 ESTIMA ELIZABETH GFR IS code = 1092) sq m NOT ACCURATE CREATININE CLEARANCE IN PREDICTING GLOMERULAR FILTRATION RATE . ESTIMATED GFR I S NOT APPLICABLE FOR DIALYSIS PATIEN TS. CBC (HEMOGRAM ONLY)2017-07-13 06:19:00 Test Item Value Reference Range Interpretation Comments WHITE BLOOD CELL COUNT 10.4 K/ L 3.5-10.5 (BEAKER) (test code = 775) RED BLOOD CELL COUNT 2.94 M/ L 3.93-5.22 L (BEAKER) (test code = 761) HEMOGLOBIN (BEAKER) 8.6 GM/DL 11.2-15.7 L (test code = 410) HEMATOCRIT (AKER) 28.8 % 34.1-44.9 L (test code = 411) MEAN CORPUSCULAR 98.0 fL 79.4-94.8 H Discordant MCV VOLUME (AKER) (test result s compared to code = 753) previous result s; clinical correl ation required. MEAN CORPUSCULAR 29.3 pg 25.6-32.2 HEMOGLOBIN (BEAKER) (test code = 751) MEAN CORPUSCULAR 29.9 GM/DL 32.2-35.5 L HEMOGLOBIN CONC (AKER) (test code = 752) RED CELL DISTRIBUTION 14.0 % 11.7-14.4 WIDTH (AKER) (test code = 412) PLATELET COUNT 202 K/CU MM 150-450 ([facility]) (test code = 756) MEAN PLATELET VOLUME 11.8 fL 9.4-12.3 ([facility]) (test code = 754) NUCLEATED RED BLOOD 0 /100 WBC 0-0 CELLS ([facility]) (test code = 413) POCT-GLUCOSE [id number] 21:02:00 Test Item Value Reference Range Interpretation Comments POC-GLUCOSE METER 316 mg/dL 70-110 H Will Repea t Test/TESTED ([facility]) (test code = AT [address] [address] POCT-GLUCOSE [id number] 17:36:00 Test Item Value Reference Range Interpretation Comments POC-GLUCOSE METER 227 mg/dL 70-110 H TESTED AT [place] [address] ([facility]) (test code = [place] [address]998) [address] POCT-GLUCOSE [id number] 17:02:00 Test Item Value Reference Range Interpretation Comments POC-GLUCOSE METER 204 mg/dL 70-110 H TESTED AT [place] [address] ([facility]) (test code = [place] [facility] 1538) [address] POCT-GLUCOSE [id number] 11:50:00 Test Item Value Reference Range Interpretation Comments POC-GLUCOSE METER 247 mg/dL 70-110 H TESTED AT [place] [address] ([facility]) (test code = [place] [facility] 1538) [address] POCT-GLUCOSE [id number] 10:36:00 Test Item Value Reference Range Interpretation Comments POC-GLUCOSE METER 277 mg/dL 70-110 H TESTED AT [facility] 6720 (BEAKER) (test code = [place] 1538) [address] POCT-GLUCOSE [id number] 08:27:00 Test Item Value Reference Range Interpretation Comments POC-GLUCOSE METER 132 mg/dL 70-110 H TESTED AT [facility] 6720 (BEAKER) (test code = [place] 1538) [address] CBC W/PLT COUNT & AUTO [id number] 06:46:00 Test Item Value Reference Range Interpretation Comments WHITE BLOOD CELL COUNT (BEAKER) 12.5 K/ L 3.5-10.5 H (test code = 775) RED BLOOD CELL COUNT (BEAKER) 2.99 M/ L 3.93-5.22 L (test code = 761) HEMOGLOBIN (BEAKER) (test code = 8.6 GM/DL 11.2-15.7 L 410) HEMATOCRIT (BEAKER) (test code = 27.2 % 34.1-44.9 L 411) MEAN CORPUSCULAR VOLUME (BEAKER) 91.0 fL 79.4-94.8 (test code = 753) MEAN CORPUSCULAR HEMOGLOBIN 28.8 pg 25.6-32.2 (BEAKER) (test code = 751) MEAN CORPUSCULAR HEMOGLOBIN CONC 31.6 GM/DL 32.2-35.5 L (BEAKER) (test code = 752) RED CELL DISTRIBUTION WIDTH 14.0 % 11.7-14.4 (BEAKER) (test code = 412) PLATELET COUNT (BEAKER) (test 198 K/CU MM 150-450 code = 756) MEAN PLATELET VOLUME (BEAKER) 12.0 fL 9.4-12.3 (test code = 754) NUCLEATED RED BLOOD CELLS 0 /100 WBC 0-0 (BEAKER) (test code = 413) NEUTROPHILS RELATIVE PERCENT 68 % (BEAKER) (test code = 429) LYMPHOCYTES RELATIVE PERCENT 21 % (BEAKER) (test code = 430) MONOCYTES RELATIVE PERCENT 7 % (BEAKER) (test code = 431) EOSINOPHILS RELATIVE PERCENT 4 % (BEAKER) (test code = 432) BASOPHILS RELATIVE PERCENT 1 % (BEAKER) (test code = 437) NEUTROPHILS ABSOLUTE COUNT 8.49 K/ L 1.56-6.13 H (BEAKER) (test code = 670) LYMPHOCYTES ABSOLUTE COUNT 2.60 K/ L 1.18-3.74 (BEAKER) (test code = 414) MONOCYTES ABSOLUTE COUNT (BEAKER) 0.88 K/ L 0.24-0.36 H (test code = 415) EOSINOPHILS ABSOLUTE COUNT 0.45 K/ L 0.04-0.36 H (BEAKER) (test code = 416) BASOPHILS ABSOLUTE COUNT (BEAKER) 0.07 K/ L 0.01-0.08 (test code = 417) IMMATURE GRANULOCYTES-RELATIVE 0 % 0-1 PERCENT (BEAKER) (test code = 2801) [id number] 06:35:00 Test Item Value Reference Range Interpretation Comments MAGNESIUM (BEAKER) (test code = 1.9 mg/dL 1.6-2.6 627) BASIC METABOLIC [id number] 06:35:00 Test Item Value Reference Range Interpretation Comments SODIUM (BEAKER) 139 meq/L 136-145 (test code = 381) POTASSIUM (BEAKER) 3.5 meq/L 3.5-5.1 (test code = 379) CHLORIDE (BEAKER) 107 meq/L 98-107 (test code = 382) CO2 (BEAKER) (test 23 meq/L 22-29 code = 355) BLOOD UREA NITROGEN 10 mg/dL 7-21 (BEAKER) (test code = 354) CREATININE (BEAKER) 0.60 mg/dL 0.57-1.25 (test code = 358) GLUCOSE RANDOM 109 mg/dL 70-105 H (BEAKER) (test code = 652) CALCIUM (BEAKER) 8.4 mg/dL 8.4-10.2 (test code = 697) EGFR (BEAKER) (test 97 mL/min/1.73 ESTIMA ELIZABETH GFR IS code = 1092) sq m NOT ACCURATE CREATININE CLEARANCE IN PREDICTING GLOMERULAR FILTRATION RATE . ESTIMATED GFR I S NOT APPLICABLE FOR DIALYSIS PATIEN TS. POCT-GLUCOSE [id number] 21:22:00 Test Item Value Reference Range Interpretation Comments POC-GLUCOSE METER 139 mg/dL 70-110 H TESTED AT [facility] 6720 (BEAKER) (test code = [place] 1538) [address] POCT-GLUCOSE [id number] 17:15:00 Test Item Value Reference Range Interpretation Comments POC-GLUCOSE METER 232 mg/dL 70-110 H TESTED AT [facility] 6720 [facility] (test code = [place] 1538) [address] PLATELET AGGREGATION: FUNCTION [id number] 16:33:00 Test Item Value Reference Range Interpretation Comments WEAK ADP 21 % 60-91 L RESULT(BEAKER) (test code = 2135) PLATELET FUNCTION 0-39% indicates marked SCREEN INTERP platelet dysfunction (BEAKER) (test code = 2173) [id number] Magen Willingham MD (BEAKER) (test code = (electronic signature) 0240) PLATELET COUNT AGG 238 K/CU MM 150-450 (BEAKER) (test code = 2656) POCT-GLUCOSE [id number] 13:59:00 Test Item Value Reference Range Interpretation Comments POC-GLUCOSE METER 227 mg/dL 70-110 H TESTED AT [facility] 6720 (BEAKER) (test code = [place] 1538) [address] [id number] 05:56:00 Test Item Value Reference Range Interpretation Comments MAGNESIUM (BEAKER) (test code = 2.0 mg/dL 1.6-2.6 627) BASIC METABOLIC [id number] 05:56:00 Test Item Value Reference Range Interpretation Comments SODIUM (BEAKER) 138 meq/L 136-145 (test code = 381) POTASSIUM (BEAKER) 3.7 meq/L 3.5-5.1 (test code = 379) CHLORIDE (BEAKER) 107 meq/L 98-107 (test code = 382) CO2 (BEAKER) (test 23 meq/L 22-29 code = 355) BLOOD UREA NITROGEN 11 mg/dL 7-21 (BEAKER) (test code = 354) CREATININE (BEAKER) 0.61 mg/dL 0.57-1.25 (test code = 358) GLUCOSE RANDOM 211 mg/dL 70-105 H (BEAKER) (test code = 652) CALCIUM (BEAKER) 8.5 mg/dL 8.4-10.2 (test code = 697) EGFR (BEAKER) (test 95 mL/min/1.73 ESTIMA ELIZABETH GFR IS code = 1092) sq m NOT ACCURATE CREATININE CLEARANCE IN PREDICTING GLOMERULAR FILTRATION RATE . ESTIMATED GFR I S NOT APPLICABLE FOR DIALYSIS PATIEN TS. RAD, CHEST, 1 VIEW, NON [id number] 04:54:00Reason for exam:->pl effusionShould this be performed at the bedside?->YesFINAL REPORT RAD, CHEST, 1 VIEW, NON DEPT INDICATION: pl effusion COMPARISON: Prior day's exam FINDINGS: Portable frontal view of the chest. IMPRESSION: Support Lines: Thoracostomytubes have been removed. Right IJ central venous catheter is stable.Lungs and pleura: Underinflated with basilar subsegmental atelectasis on the left. Trace bilateral effusions. No pneumothorax.Heart and mediastinum: Stable contours. Stable surgical changes.Additional findings: None. Signed: JR Jerez Robert MDReport Verified Date/Time: 07/11/2017 04:54:28 Reading Location: [address] Body Reading Room CBC W/PLT COUNT & AUTO [id number] 04:48:00 Test Item Value Reference Range Interpretation Comments WHITE BLOOD CELL COUNT (BEAKER) 13.6 K/ L 3.5-10.5 H (test code = 775) RED BLOOD CELL COUNT (BEAKER) 3.02 M/ L 3.93-5.22 L (test code = 761) HEMOGLOBIN (BEAKER) (test code = 8.7 GM/DL 11.2-15.7 L 410) HEMATOCRIT (BEAKER) (test code = 27.1 % 34.1-44.9 L 411) MEAN CORPUSCULAR VOLUME (BEAKER) 89.7 fL 79.4-94.8 (test code = 753) MEAN CORPUSCULAR HEMOGLOBIN 28.8 pg 25.6-32.2 (BEAKER) (test code = 751) MEAN CORPUSCULAR HEMOGLOBIN CONC 32.1 GM/DL 32.2-35.5 L (BEAKER) (test code = 752) RED CELL DISTRIBUTION WIDTH 13.9 % 11.7-14.4 (BEAKER) (test code = 412) PLATELET COUNT (BEAKER) (test 162 K/CU MM 150-450 code = 756) MEAN PLATELET VOLUME (BEAKER) 12.2 fL 9.4-12.3 (test code = 754) NUCLEATED RED BLOOD CELLS 0 /100 WBC 0-0 (BEAKER) (test code = 413) NEUTROPHILS RELATIVE PERCENT 79 % (BEAKER) (test code = 429) LYMPHOCYTES RELATIVE PERCENT 11 % (BEAKER) (test code = 430) MONOCYTES RELATIVE PERCENT 8 % (BEAKER) (test code = 431) EOSINOPHILS RELATIVE PERCENT 1 % (BEAKER) (test code = 432) BASOPHILS RELATIVE PERCENT 1 % (BEAKER) (test code = 437) NEUTROPHILS ABSOLUTE COUNT 10.71 K/ L 1.56-6.13 H (BEAKER) (test code = 670) LYMPHOCYTES ABSOLUTE COUNT 1.52 K/ L 1.18-3.74 (BEAKER) (test code = 414) MONOCYTES ABSOLUTE COUNT (BEAKER) 1.08 K/ L 0.24-0.36 H (test code = 415) EOSINOPHILS ABSOLUTE COUNT 0.14 K/ L 0.04-0.36 (BEAKER) (test code = 416) BASOPHILS ABSOLUTE COUNT (BEAKER) 0.08 K/ L 0.01-0.08 (test code = 417) IMMATURE GRANULOCYTES-RELATIVE 1 % 0-1 PERCENT (BEAKER) (test code = 2801) POCT-GLUCOSE [id number] 02:47:00 Test Item Value Reference Range Interpretation Comments POC-GLUCOSE METER 192 mg/dL 70-110 H TESTED AT [place] [address] ([facility]) ([facility]) [id number] POCT-GLUCOSE [id number] 02:47:00 Test Item Value Reference Range Interpretation Comments POC-GLUCOSE METER 190 mg/dL 70-110 H TESTED AT [place] [address] ([facility]) (test code = [facility] 1538) [id number] 17:47:00 Test Item Value Reference Range Interpretation Comments [facility] (test code = 3.9 meq/L 3.5-5.1 379) PRN - repeat glucose levels every 1 hour or as specified by insulin titration orders until glucose level is less than 450 mg/dLCheck Serum Potassium level 2 hours after oral potassium replacement completed or 30 min after intravenous potassium replacement.[id number] 17:47:00 Test Item Value Reference Range Interpretation Comments [facility]COSE RANDOM ([facility] (test code 183 mg/dL 70-105 H = 652) PRN - repeat glucose levels every 1 hour or as specified by insulin titration orders until glucose level is less than 450 mg/dLCheck Serum Potassium level 2 hours after oral potassium replacement completed or 30 min after intravenous potassium replacement.POCT-GLUCOSE [id number] 14:28:00 Test Item Value Reference Range Interpretation Comments POC-GLUCOSE METER 211 mg/dL 70-110 H TESTED AT [place] [address] ([facility]) (test code = DOMINGO [place] 1538) [address] POCT-GLUCOSE [id number] 14:28:00 Test Item Value Reference Range Interpretation Comments POC-GLUCOSE METER 136 mg/dL 70-110 H TESTED AT [place] [address] ([facility]) (test code = [facility] [place]ian [facility] 1538) [id number] POCT-GLUCOSE [id number] 06:21:00 Test Item Value Reference Range Interpretation Comments POC-GLUCOSE METER 194 mg/dL 70-110 H TESTED AT [place] [address] ([facility]) (test code = [facility] 1538) [address] CBC W/PLT COUNT & AUTO [id number] 05:11:00 Test Item Value Reference Range Interpretation Comments WHITE BLOOD CELL COUNT (AKER) 14.6 K/ L 3.5-10.5 H (test code = 775) RED BLOOD CELL COUNT ([facility]) 3.17 M/ L 3.93-5.22 L (test code = 761) HEMOGLOBIN (BEAKER) (test code = 9.3 GM/DL 11.2-15.7 L 410) HEMATOCRIT (AKER) (test code = 28.3 % 34.1-44.9 L 411) MEAN CORPUSCULAR VOLUME (AKER) 89.3 fL 79.4-94.8 (test code = 753) MEAN CORPUSCULAR HEMOGLOBIN 29.3 pg 25.6-32.2 (BEAKER) (test code = 751) MEAN CORPUSCULAR HEMOGLOBIN CONC 32.9 GM/DL 32.2-35.5 (AKER) (test code = 752) RED CELL DISTRIBUTION WIDTH 13.4 % 11.7-14.4 (AKER) (test code = 412) PLATELET COUNT (BEAKER) (test 179 K/CU MM 150-450 code = 756) MEAN PLATELET VOLUME (BEAKER) 11.2 fL 9.4-12.3 (test code = 754) NUCLEATED RED BLOOD CELLS 0 /100 WBC 0-0 (BEAKER) (test code = 413) NEUTROPHILS RELATIVE PERCENT 81 % (BEAKER) (test code = 429) LYMPHOCYTES RELATIVE PERCENT 11 % (BEAKER) (test code = 430) MONOCYTES RELATIVE PERCENT 8 % (BEAKER) (test code = 431) EOSINOPHILS RELATIVE PERCENT 0 % (BEAKER) (test code = 432) BASOPHILS RELATIVE PERCENT 0 % (BEAKER) (test code = 437) NEUTROPHILS ABSOLUTE COUNT 11.76 K/ L 1.56-6.13 H (BEAKER) (test code = 670) LYMPHOCYTES ABSOLUTE COUNT 1.56 K/ L 1.18-3.74 (BEAKER) (test code = 414) MONOCYTES ABSOLUTE COUNT (BEAKER) 1.17 K/ L 0.24-0.36 H (test code = 415) EOSINOPHILS ABSOLUTE COUNT 0.00 K/ L 0.04-0.36 L (BEAKER) (test code = 416) BASOPHILS ABSOLUTE COUNT (BEAKER) 0.04 K/ L 0.01-0.08 (test code = 417) IMMATURE GRANULOCYTES-RELATIVE 1 % 0-1 PERCENT (BEAKER) (test code = 2801) [id number] 04:27:00 Test Item Value Reference Range Interpretation Comments PHOSPHORUS (BEAKER) (test code = 2.8 mg/dL 2.3-4.7 604) [id number] 04:27:00 Test Item Value Reference Range Interpretation Comments MAGNESIUM (BEAKER) (test code = 2.2 mg/dL 1.6-2.6 627) BASIC METABOLIC [id number] 04:27:00 Test Item Value Reference Range Interpretation Comments SODIUM (BEAKER) 140 meq/L 136-145 (test code = 381) POTASSIUM (BEAKER) 4.1 meq/L 3.5-5.1 (test code = 379) CHLORIDE (BEAKER) 110 meq/L 98-107 H (test code = 382) CO2 (BEAKER) (test 22 meq/L 22-29 code = 355) BLOOD UREA NITROGEN 11 mg/dL 7-21 (BEAKER) (test code = 354) CREATININE (BEAKER) 0.62 mg/dL 0.57-1.25 (test code = 358) GLUCOSE RANDOM 144 mg/dL 70-105 H (BEAKER) (test code = 652) CALCIUM (BEAKER) 8.5 mg/dL 8.4-10.2 (test code = 697) EGFR (BEAKER) (test 93 mL/min/1.73 ESTIMA ELIZABETH GFR IS code = 1092) sq m NOT ACCURATE CREATININE CLEARANCE IN PREDICTING GLOMERULAR FILTRATION RATE . ESTIMATED GFR I S NOT APPLICABLE FOR DIALYSIS PATIEN TS. RAD, CHEST, 1 VIEW, NON [id number] 04:18:00while patient is intubated or has chest tubes.Reason for exam:->S/p OHSShould this be performed at the bedside?->YesFINAL REPORT RAD, CHEST, 1 VIEW, NON DEPT INDICATION: S/p OHS COMPARISON: Priorday's exam FINDINGS: Portable frontal view of the chest. IMPRESSION: Support Lines: Endotracheal andenteric tubes have been removed. Remaining support hardware is stable. Lungs and pleura: Low lung vol umes without focal consolidation or effusion. Mild central congestive changes. No pneumothorax.Heartand mediastinum: Stable contours. Stable surgical changes.Additional findings: None. Signed: JR Jerez Robert MDReport Verified Date/Time: 07/10/2017 04:18:51 Reading Location: [facility] C013Y CT Body Reading Room [id number] 00:26:00 Test Item Value Reference Range Interpretation Comments POTASSIUM (BEAKER) (test code = 4.3 meq/L 3.5-5.1 379) [id number] 00:26:00 Test Item Value Reference Range Interpretation Comments MAGNESIUM (BEAKER) (test code = 2.4 mg/dL 1.6-2.6 627) POCT-GLUCOSE [id number] 23:30:00 Test Item Value Reference Range Interpretation Comments POC-GLUCOSE METER 189 mg/dL 70-110 H TESTED AT [facility] 6720 (MANUEL) (test code = DOMINGO [place]ILL[place] 1538) [address] POCT-GLUCOSE [id number] 23:30:00 Test Item Value Reference Range Interpretation Comments POC-GLUCOSE METER 196 mg/dL 70-110 H TESTED AT [place] [address] (BEAKER) [facility] [address] POCT-GLUCOSE [id number] 20:47:00 Test Item Value Reference Range Interpretation Comments POC-GLUCOSE METER 207 mg/dL 70-110 H TESTED AT [place] [address] (BEAKER) (test code = [facility] 1538) [address] BLOOD GAS, [id number] 17:33:00 Test Item Value Reference Range Interpretation Comments PH ARTERIAL (BEAKER) (test code = 7.47 7.35-7.45 H 383) PCO2 ARTERIAL (BEAKER) (test code 31 mmHg 35-45 L = 384) PO2 ARTERIAL (BEAKER) (test code 102 mmHg 80-90 H = 385) O2 SATURATION ARTERIAL (BEAKER) 98.1 % 96.0-97.0 H (test code = 386) HCO3 ARTERIAL (BEAKER) (test code 22 mmol/L 21-29 = 388) BASE EXCESS ARTERIAL (BEAKER) -0.8 mmol/L -2.0-3.0 (test code = 387) PATIENT TEMPERATURE (BEAKER) 36.7 C (test code = 1818) FIO2 (BEAKER) (test code = 1819) 40.0 % POCT-GLUCOSE [id number] 15:34:00 Test Item Value Reference Range Interpretation Comments POC-GLUCOSE METER 251 mg/dL 70-110 H TESTED AT [place] [address] (BEAKER) (test code = [facility] 1538) [id number] BLOOD GAS, [id number] 13:40:00 Test Item Value Reference Range Interpretation Comments PH ARTERIAL (BEAKER) (test code = 7.42 7.35-7.45 383) PCO2 ARTERIAL (BEAKER) (test code 32 mmHg 35-45 L = 384) PO2 ARTERIAL (BEAKER) (test code 178 mmHg 80-90 H = 385) O2 SATURATION ARTERIAL (BEAKER) 99.3 % 96.0-97.0 H (test code = 386) HCO3 ARTERIAL (BEAKER) (test code 21 mmol/L 21-29 = 388) BASE EXCESS ARTERIAL (BEAKER) -3.7 mmol/L -2.0-3.0 L (test code = 387) PATIENT TEMPERATURE (BEAKER) 36.1 C (test code = 1818) FIO2 (BEAKER) (test code = 1819) 60.0 % CBC W/PLT COUNT & AUTO [id number] 13:35:00 Test Item Value Reference Range Interpretation Comments WHITE BLOOD CELL COUNT (BEAKER) 24.5 K/ L 3.5-10.5 H (test code = 775) RED BLOOD CELL COUNT (BEAKER) 3.22 M/ L 3.93-5.22 L (test code = 761) HEMOGLOBIN (BEAKER) (test code = 9.4 GM/DL 11.2-15.7 L 410) HEMATOCRIT (BEAKER) (test code = 29.2 % 34.1-44.9 L 411) MEAN CORPUSCULAR VOLUME (BEAKER) 90.7 fL 79.4-94.8 (test code = 753) MEAN CORPUSCULAR HEMOGLOBIN 29.2 pg 25.6-32.2 (BEAKER) (test code = 751) MEAN CORPUSCULAR HEMOGLOBIN CONC 32.2 GM/DL 32.2-35.5 (BEAKER) (test code = 752) RED CELL DISTRIBUTION WIDTH 13.3 % 11.7-14.4 (BEAKER) (test code = 412) PLATELET COUNT (BEAKER) (test 200 K/CU MM 150-450 code = 756) MEAN PLATELET VOLUME (BEAKER) 11.6 fL 9.4-12.3 (test code = 754) NUCLEATED RED BLOOD CELLS 0 /100 WBC 0-0 (BEAKER) (test code = 413) NEUTROPHILS RELATIVE PERCENT 70 % (BEAKER) (test code = 429) LYMPHOCYTES RELATIVE PERCENT 24 % (BEAKER) (test code = 430) MONOCYTES RELATIVE PERCENT 5 % (BEAKER) (test code = 431) EOSINOPHILS RELATIVE PERCENT 1 % (BEAKER) (test code = 432) BASOPHILS RELATIVE PERCENT 0 % (BEAKER) (test code = 437) NEUTROPHILS ABSOLUTE COUNT 17.12 K/ L 1.56-6.13 H (BEAKER) (test code = 670) LYMPHOCYTES ABSOLUTE COUNT 5.80 K/ L 1.18-3.74 H (BEAKER) (test code = 414) MONOCYTES ABSOLUTE COUNT (BEAKER) 1.15 K/ L 0.24-0.36 H (test code = 415) EOSINOPHILS ABSOLUTE COUNT 0.22 K/ L 0.04-0.36 (BEAKER) (test code = 416) BASOPHILS ABSOLUTE COUNT (BEAKER) 0.08 K/ L 0.01-0.08 (test code = 417) IMMATURE GRANULOCYTES-RELATIVE 1 % 0-1 PERCENT (BEAKER) (test code = 2801) (MANUAL DIFFERENTIAL)2017-07-09 13:35:00 Test Item Value Reference Range Interpretation Comments TOTAL COUNTED (BEAKER) (test code = 1351) WBC MORPHOLOGY (BEAKER) (test code = Normal 487) PLT MORPHOLOGY (BEAKER) (test code = Normal 486) RBC MORPHOLOGY (BEAKER) (test code = Normal 762) [id number] 12:47:00 Test Item Value Reference Range Interpretation Comments MAGNESIUM (BEAKER) 3.1 mg/dL 1.6-2.6 H Specimen slightly (test code = 627) hemolyzed BASIC METABOLIC [id number] 12:47:00 Test Item Value Reference Range Interpretation Comments SODIUM (BEAKER) 139 meq/L 136-145 (test code = 381) POTASSIUM (BEAKER) 3.6 meq/L 3.5-5.1 Specimen slightly (test code = 379) hemolyzed CHLORIDE (BEAKER) 109 meq/L 98-107 H (test code = 382) CO2 (BEAKER) (test 18 meq/L 22-29 L code = 355) BLOOD UREA NITROGEN 17 mg/dL 7-21 (BEAKER) (test code = 354) CREATININE (BEAKER) 0.75 mg/dL 0.57-1.25 Specimen slightly (test code = 358) hemolyzed GLUCOSE RANDOM 280 mg/dL 70-105 H (BEAKER) (test code = 652) CALCIUM (BEAKER) 8.7 mg/dL 8.4-10.2 (test code = 697) EGFR (BEAKER) (test 75 mL/min/1.73 ESTIMA ELIZABETH GFR IS code = 1092) sq m NOT ACCURATE CREATININE CLEARANCE IN PREDICTING GLOMERULAR FILTRATION RATE . ESTIMATED GFR I S NOT APPLICABLE FOR DIALYSIS PATIEN TS. LACTIC ACID, ARTERIAL, WHOLE [id number] 12:38:00 Test Item Value Reference Range Interpretation Comments LACTATE BLOOD 4.5 mmol/L 0.5-2.2 H Specimen sligh tly ARTERIAL (2) (BEAKER) hemoly zed (test code = 2874) Effective 08/18/2015: Units/Reference Range ChangeNew: 0.5-2.2 mmol/L Previous: 5- 20 mg/dLRAD, CHEST, 1 VIEW, NON [id number] 12:30:00Post-intubationReason for exam:->intubationShould this be performed at the bedside?->YesFINAL REPORT Chest one view INDICATION: Intubation COMPARISON: 07/04/2017 IMPRESSION: Status post median sternotomy with mediastinal and left chest tubes in place. ET tube terminates 1.5 cm above the caesar. NG tube extends below the diaphragm with tip off image. Right jugular lineextends to the upper right atrium. Advise retraction 1-2 cm. Cardiac silhouette size and mediastinal prominence are exaggerated by obliquity and hypoinflation. There are low lung volumes with pulmonaryvascular congestion and perihilar and basilar opacities suggesting atelectasis and mild edema. No pneumothorax is seen. Signed: Sidney Ortiz MDReport Verified Date/Time: 07/09/2017 12:30:43 Reading Location: [facility] Reading Room [id number] 12:24:00 Test Item Value Reference Range Interpretation Comments PROTIME (BEAKER) (test code = 17.7 seconds 11.7-14.7 H 759) INR (BEAKER) (test code = 370) 1.5 <=5.9 PARTIAL THROMBOPLASTIN TIME 28.1 seconds 22.5-36.0 (BEAKER) (test code = 760) RECOMMENDED COUMADIN/WARFARIN INR THERAPY RANGESSTANDARD DOSE: 2.0 - 3.0 Includes: PROPHYLAXIS for venous thrombosis, systemic embolization; TREATMENT for venous thrombosis and/or pulmonary embolus.HIGH RISK: Target INR is 2.5-3.5 for patients with mechanical heart valves.BLOOD GAS, [id number] 12:10:00 Test Item Value Reference Range Interpretation Comments PH ARTERIAL (BEAKER) (test code = 7.35 7.35-7.45 383) PCO2 ARTERIAL (BEAKER) (test code 36 mmHg 35-45 = 384) PO2 ARTERIAL (BEAKER) (test code 91 mmHg 80-90 H = 385) O2 SATURATION ARTERIAL (BEAKER) 96.9 % 96.0-97.0 (test code = 386) HCO3 ARTERIAL (BEAKER) (test code 20 mmol/L 21-29 L = 388) BASE EXCESS ARTERIAL (BEAKER) -5.6 mmol/L -2.0-3.0 L (test code = 387) PATIENT TEMPERATURE (BEAKER) 36.1 C (test code = 1818) FIO2 (BEAKER) (test code = 1819) 60.0 % GLUCOSE-STAT [id number] 12:10:00 Test Item Value Reference Range Interpretation Comments GLUCOSE RANDOM (BEAKER) (test code 264 mg/dL 70-110 H = 652) HGB/HCT (H&H) - STAT [id number] 12:10:00 Test Item Value Reference Range Interpretation Comments HEMOGLOBIN (BEAKER) (test code = 13.6 g/dL 12.0-15.0 410) HEMATOCRIT (BEAKER) (test code = 40.0 % 36.0-45.0 411) SODIUM NA-STAT [id number] 12:09:00 Test Item Value Reference Range Interpretation Comments SODIUM (BEAKER) (test code = 381) 138 meq/L 135-148 POTASSIUM-STAT [id number] 12:09:00 Test Item Value Reference Range Interpretation Comments POTASSIUM (BEAKER) (test code = 3.6 meq/L 3.6-5.5 379) CALCIUM, [id number] 12:09:00 Test Item Value Reference Range Interpretation Comments CALCIUM IONIZED (BEAKER) (test 1.22 mmol/L 1.12-1.27 code = 698) PH, BLOOD (BEAKER) (test code = 7.33 1810) OXYGEN SATURATION, [id number] 12:09:00 Test Item Value Reference Range Interpretation Comments O2 SATURATION (MEASURED) (BEAKER) 78.2 % (test code = 1455) [id number] 11:26:00 Test Item Value Reference Range Interpretation Comments ACTIVATED CLOTTING TIME 97 sec TEST ED AT [facility] 6720 (BEAKER) (test code = DOM[place] 441) [address] [id number] 11:26:00 Test Item Value Reference Range Interpretation Comments ACTIVATED CLOTTING TIME 549 sec TEST ED AT [place] [address] ([facility]) (test code = DOMINGO [place] [address]) [address] [id number] 11:26:00 Test Item Value Reference Range Interpretation Comments ACTIVATED CLOTTING TIME 659 sec TEST ED AT [place] [address] ([facility]) (test code = DOMINGO [place] [address]) [address] [id number] 11:26:00 Test Item Value Reference Range Interpretation Comments ACTIVATED CLOTTING TIME 703 sec TEST ED AT [place] [address] ([facility]) (test code = DOMINGO [place] [address]) [address] [id number] 10:43:00 Test Item Value Reference Range Interpretation Comments FIBRINOGEN LEVEL ([facility]) (test 276 mg/dl 225-434 code = 658) [id number] 10:43:00 Test Item Value Reference Range Interpretation Comments PARTIAL THROMBOPLASTIN TIME 30.5 seconds 22.5-36.0 ([facility]) (test code = 760) PROTHROMBIN [id number] 10:42:00 Test Item Value Reference Range Interpretation Comments PROTIME ([facility]) (test code = 18.4 seconds 11.7-14.7 H 759) INR ([facility]) (test code = 370) 1.5 <=5.9 RECOMMENDED COUMADIN/WARFARIN INR THERAPY RANGESSTANDARD DOSE: 2.0 - 3.0 Includes: PROPHYLAXIS for venous thrombosis, systemic embolization; TREATMENT for venous thrombosis and/or pulmonary embolus.HIGH RISK: Target INR is 2.5-3.5 for patients with mechanical heart valves.PLATELET [id number] 10:38:00 Test Item Value Reference Range Interpretation Comments PLATELET COUNT ([facility]) (test 191 K/CU MM 150-450 code = 756) POTASSIUM-STAT [id number] 10:29:00 Test Item Value Reference Range Interpretation Comments POTASSIUM (BEAKER) (test code = 4.2 meq/L 3.6-5.5 379) CALCIUM, [id number] 10:29:00 Test Item Value Reference Range Interpretation Comments CALCIUM IONIZED (BEAKER) (test 1.27 mmol/L 1.12-1.27 code = 698) PH, BLOOD (BEAKER) (test code = 7.37 1810) BLOOD GAS, [id number] 10:29:00 Test Item Value Reference Range Interpretation Comments PH ARTERIAL (BEAKER) (test code = 7.38 7.35-7.45 383) PCO2 ARTERIAL (BEAKER) (test code 39 mmHg 35-45 = 384) PO2 ARTERIAL (BEAKER) (test code 324 mmHg 80-90 H = 385) O2 SATURATION ARTERIAL (BEAKER) 99.7 % 96.0-97.0 H (test code = 386) HCO3 ARTERIAL (BEAKER) (test code 23 mmol/L 21-29 = 388) BASE EXCESS ARTERIAL (BEAKER) -2.3 mmol/L -2.0-3.0 L (test code = 387) PATIENT TEMPERATURE (BEAKER) 36.0 C (test code = 1818) FIO2 (BEAKER) (test code = 1819) 92.1 % GLUCOSE-STAT [id number] 10:29:00 Test Item Value Reference Range Interpretation Comments GLUCOSE RANDOM (BEAKER) (test code 230 mg/dL 70-110 H = 652) SODIUM NA-STAT [id number] 10:29:00 Test Item Value Reference Range Interpretation Comments SODIUM (BEAKER) (test code = 381) 134 meq/L 135-148 L HGB/HCT (H&H) - STAT [id number] 10:29:00 Test Item Value Reference Range Interpretation Comments HEMOGLOBIN (BEAKER) (test code = 9.3 g/dL 12.0-15.0 L 410) HEMATOCRIT (BEAKER) (test code = 27.0 % 36.0-45.0 L 411) POTASSIUM-STAT [id number] 09:55:00 Test Item Value Reference Range Interpretation Comments POTASSIUM (BEAKER) (test code = 5.1 meq/L 3.6-5.5 379) BLOOD GAS, [id number] 09:55:00 Test Item Value Reference Range Interpretation Comments PH ARTERIAL (BEAKER) (test code = 7.41 7.35-7.45 383) PCO2 ARTERIAL (BEAKER) (test code 38 mmHg 35-45 = 384) PO2 ARTERIAL (BEAKER) (test code 176 mmHg 80-90 H = 385) O2 SATURATION ARTERIAL (BEAKER) 99.3 % 96.0-97.0 H (test code = 386) HCO3 ARTERIAL (BEAKER) (test code 24 mmol/L 21-29 = 388) BASE EXCESS ARTERIAL (BEAKER) -1.1 mmol/L -2.0-3.0 (test code = 387) PATIENT TEMPERATURE (BEAKER) 35.0 C (test code = 1818) FIO2 (BEAKER) (test code = 1819) 70.0 % SODIUM NA-STAT [id number] 09:55:00 Test Item Value Reference Range Interpretation Comments SODIUM (BEAKER) (test code = 381) 132 meq/L 135-148 L GLUCOSE-STAT [id number] 09:55:00 Test Item Value Reference Range Interpretation Comments GLUCOSE RANDOM (BEAKER) (test code 215 mg/dL 70-110 H = 652) HGB/HCT (H&H) - STAT [id number] 09:55:00 Test Item Value Reference Range Interpretation Comments HEMOGLOBIN (BEAKER) (test code = 8.2 g/dL 12.0-15.0 L 410) HEMATOCRIT (BEAKER) (test code = 24.0 % 36.0-45.0 L 411) BLOOD GAS, [id number] 09:44:00 Test Item Value Reference Range Interpretation Comments PH ARTERIAL (BEAKER) (test code = 7.37 7.35-7.45 383) PCO2 ARTERIAL (BEAKER) (test code 41 mmHg 35-45 = 384) PO2 ARTERIAL (BEAKER) (test code 252 mmHg 80-90 H = 385) O2 SATURATION ARTERIAL (BEAKER) 99.6 % 96.0-97.0 H (test code = 386) HCO3 ARTERIAL (BEAKER) (test code 24 mmol/L 21-29 = 388) BASE EXCESS ARTERIAL (BEAKER) -2.1 mmol/L -2.0-3.0 L (test code = 387) PATIENT TEMPERATURE (BEAKER) 33.9 C (test code = 1818) FIO2 (BEAKER) (test code = 1819) 60.0 % SODIUM NA-STAT [id number] 09:44:00 Test Item Value Reference Range Interpretation Comments SODIUM (BEAKER) (test code = 381) 132 meq/L 135-148 L GLUCOSE-STAT [id number] 09:44:00 Test Item Value Reference Range Interpretation Comments GLUCOSE RANDOM (BEAKER) (test code 224 mg/dL 70-110 H = 652) HGB/HCT (H&H) - STAT [id number] 09:44:00 Test Item Value Reference Range Interpretation Comments HEMOGLOBIN (BEAKER) (test code = 8.2 g/dL 12.0-15.0 L 410) HEMATOCRIT (BEAKER) (test code = 24.0 % 36.0-45.0 L 411) POTASSIUM-STAT [id number] 09:39:00 Test Item Value Reference Range Interpretation Comments POTASSIUM (BEAKER) (test code = 5.2 meq/L 3.6-5.5 379) POTASSIUM-STAT [id number] 08:23:00 Test Item Value Reference Range Interpretation Comments POTASSIUM (BEAKER) (test code = 4.4 meq/L 3.6-5.5 379) BLOOD GAS, [id number] 08:23:00 Test Item Value Reference Range Interpretation Comments PH ARTERIAL (BEAKER) (test code = 7.47 7.35-7.45 H 383) PCO2 ARTERIAL (BEAKER) (test code 34 mmHg 35-45 L = 384) PO2 ARTERIAL (BEAKER) (test code = 341 mmHg 80-90 H 385) O2 SATURATION ARTERIAL (BEAKER) 99.8 % 96.0-97.0 H (test code = 386) HCO3 ARTERIAL (BEAKER) (test code 24 mmol/L 21-29 = 388) BASE EXCESS ARTERIAL (BEAKER) 0.7 mmol/L -2.0-3.0 (test code = 387) PATIENT TEMPERATURE (BEAKER) (test 36.0 C code = 1818) FIO2 (BEAKER) (test code = 1819) 100.0 % GLUCOSE-STAT [id number] 08:23:00 Test Item Value Reference Range Interpretation Comments GLUCOSE RANDOM (BEAKER) (test code 251 mg/dL 70-110 H = 652) HGB/HCT (H&H) - STAT [id number] 08:23:00 Test Item Value Reference Range Interpretation Comments HEMOGLOBIN (BEAKER) (test code = 12.0 g/dL 12.0-15.0 410) HEMATOCRIT (BEAKER) (test code = 35.0 % 36.0-45.0 L 411) SODIUM NA-STAT [id number] 08:23:00 Test Item Value Reference Range Interpretation Comments SODIUM (BEAKER) (test code = 381) 134 meq/L 135-148 L BASIC METABOLIC [id number] 06:33:00 Test Item Value Reference Range Interpretation Comments SODIUM (BEAKER) 138 meq/L 136-145 (test code = 381) POTASSIUM (BEAKER) 4.5 meq/L 3.5-5.1 (test code = 379) CHLORIDE (BEAKER) 104 meq/L 98-107 (test code = 382) CO2 (BEAKER) (test 22 meq/L 22-29 code = 355) BLOOD UREA NITROGEN 22 mg/dL 7-21 H (BEAKER) (test code = 354) CREATININE (BEAKER) 0.79 mg/dL 0.57-1.25 (test code = 358) GLUCOSE RANDOM 196 mg/dL 70-105 H (BEAKER) (test code = 652) CALCIUM (BEAKER) 9.6 mg/dL 8.4-10.2 (test code = 697) EGFR (BEAKER) (test 70 mL/min/1.73 ESTIMA ELIZABETH GFR IS code = 1092) sq m NOT ACCURATE CREATININE CLEARANCE IN PREDICTING GLOMERULAR FILTRATION RATE . ESTIMATED GFR I S NOT APPLICABLE FOR DIALYSIS PATIEN TS. [id number] 05:41:00 Test Item Value Reference Range Interpretation Comments COL/EPI CLOSURE TIME (BEAKER) > Seconds 78-191 H (test code = 1801) COL/ADP CLOSURE TIME (BEAKER) 99 Seconds 43-122 (test code = 1802) PLATELET COUNT AGG (BEAKER) (test 245 K/CU MM 150-450 code = 2716) CBC W/PLT COUNT & AUTO [id number] 05:06:00 Test Item Value Reference Range Interpretation Comments WHITE BLOOD CELL COUNT (BEAKER) 10.6 K/ L 3.5-10.5 H (test code = 775) RED BLOOD CELL COUNT (BEAKER) 4.35 M/ L 3.93-5.22 (test code = 761) HEMOGLOBIN (BEAKER) (test code = 12.7 GM/DL 11.2-15.7 410) HEMATOCRIT (BEAKER) (test code = 39.0 % 34.1-44.9 411) MEAN CORPUSCULAR VOLUME (BEAKER) 89.7 fL 79.4-94.8 (test code = 753) MEAN CORPUSCULAR HEMOGLOBIN 29.2 pg 25.6-32.2 (BEAKER) (test code = 751) MEAN CORPUSCULAR HEMOGLOBIN CONC 32.6 GM/DL 32.2-35.5 (BEAKER) (test code = 752) RED CELL DISTRIBUTION WIDTH 13.3 % 11.7-14.4 (BEAKER) (test code = 412) PLATELET COUNT (BEAKER) (test 233 K/CU MM 150-450 code = 756) MEAN PLATELET VOLUME (BEAKER) 11.7 fL 9.4-12.3 (test code = 754) NUCLEATED RED BLOOD CELLS 0 /100 WBC 0-0 (BEAKER) (test code = 413) NEUTROPHILS RELATIVE PERCENT 57 % (BEAKER) (test code = 429) LYMPHOCYTES RELATIVE PERCENT 33 % (BEAKER) (test code = 430) MONOCYTES RELATIVE PERCENT 6 % (BEAKER) (test code = 431) EOSINOPHILS RELATIVE PERCENT 4 % (BEAKER) (test code = 432) BASOPHILS RELATIVE PERCENT 1 % (BEAKER) (test code = 437) NEUTROPHILS ABSOLUTE COUNT 6.00 K/ L 1.56-6.13 (BEAKER) (test code = 670) LYMPHOCYTES ABSOLUTE COUNT 3.44 K/ L 1.18-3.74 (BEAKER) (test code = 414) MONOCYTES ABSOLUTE COUNT (BEAKER) 0.66 K/ L 0.24-0.36 H (test code = 415) EOSINOPHILS ABSOLUTE COUNT 0.38 K/ L 0.04-0.36 H (BEAKER) (test code = 416) BASOPHILS ABSOLUTE COUNT (BEAKER) 0.07 K/ L 0.01-0.08 (test code = 417) IMMATURE GRANULOCYTES-RELATIVE 0 % 0-1 PERCENT (BEAKER) (test code = 2801) POCT-GLUCOSE [id number] 22:04:00 Test Item Value Reference Range Interpretation Comments POC-GLUCOSE METER 124 mg/dL 70-110 H TESTED AT [facility] 6720 (BEAKER) (test code = [place] 1538) [address] POCT-GLUCOSE [id number] 21:09:00 Test Item Value Reference Range Interpretation Comments POC-GLUCOSE METER 58 mg/dL 70-110 L Notified Wilian Frank MD/TESTED AT ([facility]) (test code = [place] [address] [address] 1538) [facility] 7703 0 POCT-GLUCOSE [id number] 16:36:00 Test Item Value Reference Range Interpretation Comments POC-GLUCOSE METER 187 mg/dL 70-110 H TESTED AT [place] [address] ([facility]) (test code = [place] [facility] 1538) [id number] POCT-GLUCOSE [id number] 11:53:00 Test Item Value Reference Range Interpretation Comments POC-GLUCOSE METER 192 mg/dL 70-110 H TESTED AT [place] [address] ([facility]) (test code = [place] [facility] 1538) [id number] BASIC METABOLIC [id number] 10:44:00 Test Item Value Reference Range Interpretation Comments SODIUM (BEAKER) 138 meq/L 136-145 (test code = 381) POTASSIUM (BEAKER) 4.5 meq/L 3.5-5.1 (test code = 379) CHLORIDE (BEAKER) 105 meq/L 98-107 (test code = 382) CO2 (BEAKER) (test 22 meq/L 22-29 code = 355) BLOOD UREA NITROGEN 23 mg/dL 7-21 H ([facility] (test code = 354) CREATININE (BEAKER) 0.81 mg/dL 0.57-1.25 (test code = 358) GLUCOSE RANDOM 237 mg/dL 70-105 H ([facility]) (test code = 652) CALCIUM (BEAKER) 9.5 mg/dL 8.4-10.2 (test code = 697) EGFR ([facility] (test 68 mL/min/1.73 ESTIMA ELIZABETH GFR IS code = 1092) sq m NOT ACCURATE CREATININE CLEARANCE IN PREDICTING GLOMERULAR FILTRATION RATE . ESTIMATED GFR I S NOT APPLICABLE FOR DIALYSIS PATIEN TS. POCT-GLUCOSE [id number] 07:46:00 Test Item Value Reference Range Interpretation Comments POC-GLUCOSE METER 283 mg/dL 70-110 H TESTED AT [place] [address] ([facility]) (test code = [place] [facility] 1538) [id number] CBC (HEMOGRAM ONLY)2017-07-08 06:55:00 Test Item Value Reference Range Interpretation Comments WHITE BLOOD CELL COUNT (BEAKER) 9.1 K/ L 3.5-10.5 (test code = 775) RED BLOOD CELL COUNT (BEAKER) 4.37 M/ L 3.93-5.22 (test code = 761) HEMOGLOBIN (BEAKER) (test code = 12.6 GM/DL 11.2-15.7 410) HEMATOCRIT (BEAKER) (test code = 39.3 % 34.1-44.9 411) MEAN CORPUSCULAR VOLUME (BEAKER) 89.9 fL 79.4-94.8 (test code = 753) MEAN CORPUSCULAR HEMOGLOBIN 28.8 pg 25.6-32.2 (BEAKER) (test code = 751) MEAN CORPUSCULAR HEMOGLOBIN CONC 32.1 GM/DL 32.2-35.5 L (BEAKER) (test code = 752) RED CELL DISTRIBUTION WIDTH 13.6 % 11.7-14.4 (BEAKER) (test code = 412) PLATELET COUNT (BEAKER) (test 223 K/CU MM 150-450 code = 756) MEAN PLATELET VOLUME (BEAKER) 11.6 fL 9.4-12.3 (test code = 754) NUCLEATED RED BLOOD CELLS 0 /100 WBC 0-0 (BEAKER) (test code = 413) POCT-GLUCOSE [id number] 21:35:00 Test Item Value Reference Range Interpretation Comments POC-GLUCOSE METER 261 mg/dL 70-110 H TESTED AT [place] [address] ([facility]) (test code = [place] [facility] 1538) [id number] POCT-GLUCOSE [id number] 17:05:00 Test Item Value Reference Range Interpretation Comments POC-GLUCOSE METER 127 mg/dL 70-110 H TESTED AT [place] [address] ([facility]) (test code = [place] [facility] 1538) [id number] POCT-GLUCOSE [id number] 11:34:00 Test Item Value Reference Range Interpretation Comments POC-GLUCOSE METER 268 mg/dL 70-110 H TESTED AT [place] [address] ([facility]) (test code = [place] [facility] 1538) [id number] POCT-GLUCOSE [id number] 07:35:00 Test Item Value Reference Range Interpretation Comments POC-GLUCOSE METER 211 mg/dL 70-110 H TESTED AT [facility] 6720 (BEAKER) (test code = [place] 1538) [address] BASIC METABOLIC [id number] 07:05:00 Test Item Value Reference Range Interpretation Comments SODIUM (BEAKER) 139 meq/L 136-145 (test code = 381) POTASSIUM (BEAKER) 4.3 meq/L 3.5-5.1 (test code = 379) CHLORIDE (BEAKER) 105 meq/L 98-107 (test code = 382) CO2 (BEAKER) (test 21 meq/L 22-29 L code = 355) BLOOD UREA NITROGEN 23 mg/dL 7-21 H (BEAKER) (test code = 354) CREATININE (BEAKER) 0.79 mg/dL 0.57-1.25 (test code = 358) GLUCOSE RANDOM 187 mg/dL 70-105 H (BEAKER) (test code = 652) CALCIUM (BEAKER) 9.8 mg/dL 8.4-10.2 (test code = 697) EGFR (BEAKER) (test 70 mL/min/1.73 ESTIMA ELIZABETH GFR IS code = 1092) sq m NOT ACCURATE CREATININE CLEARANCE IN PREDICTING GLOMERULAR FILTRATION RATE . ESTIMATED GFR I S NOT APPLICABLE FOR DIALYSIS PATIEN TS. CBC (HEMOGRAM ONLY)2017-07-07 05:44:00 Test Item Value Reference Range Interpretation Comments WHITE BLOOD CELL COUNT (BEAKER) 11.3 K/ L 3.5-10.5 H (test code = 775) RED BLOOD CELL COUNT (BEAKER) 4.54 M/ L 3.93-5.22 (test code = 761) HEMOGLOBIN (BEAKER) (test code = 13.1 GM/DL 11.2-15.7 410) HEMATOCRIT (BEAKER) (test code = 40.8 % 34.1-44.9 411) MEAN CORPUSCULAR VOLUME (BEAKER) 89.9 fL 79.4-94.8 (test code = 753) MEAN CORPUSCULAR HEMOGLOBIN 28.9 pg 25.6-32.2 (BEAKER) (test code = 751) MEAN CORPUSCULAR HEMOGLOBIN CONC 32.1 GM/DL 32.2-35.5 L (BEAKER) (test code = 752) RED CELL DISTRIBUTION WIDTH 13.6 % 11.7-14.4 (BEAKER) (test code = 412) PLATELET COUNT ([facility]) (test 234 K/CU MM 150-450 code = 756) MEAN PLATELET VOLUME ([facility]) 12.0 fL 9.4-12.3 (test code = 754) NUCLEATED RED BLOOD CELLS 0 /100 WBC 0-0 ([facility]) (test code = 413) POCT-GLUCOSE [id number] 21:36:00 Test Item Value Reference Range Interpretation Comments POC-GLUCOSE METER 108 mg/dL 70-110 TESTED AT [place] [address] ([facility]) (test code = [facility] 1538) [id number] POCT-GLUCOSE [id number] 17:11:00 Test Item Value Reference Range Interpretation Comments POC-GLUCOSE METER 103 mg/dL 70-110 TESTED AT [place] [address] ([facility]) (test code = [facility] 1538) [id number] POCT-GLUCOSE [id number] 12:17:00 Test Item Value Reference Range Interpretation Comments POC-GLUCOSE METER 145 mg/dL 70-110 H TESTED AT [place] [address] ([facility]) (test code = [facility] 1538) [id number] HEMOGLOBIN [id number] 10:07:00 Test Item Value Reference Range Interpretation Comments HEMOGLOBIN A1C ([facility]) (test code = 7.7 % 4.3-6.1 H 368) POCT-GLUCOSE [id number] 08:28:00 Test Item Value Reference Range Interpretation Comments POC-GLUCOSE METER 224 mg/dL 70-110 H TESTED AT [place] [address] ([facility]) (test code = [facility] 1538) [id number] TSH/FREE T4 IF [id number] 07:06:00 Test Item Value Reference Range Interpretation Comments THYROID STIMULATING HORMONE 1.00 uIU/mL 0.35-4.94 ([facility]) (test code = 772) POCT-GLUCOSE [id number] 20:40:00 Test Item Value Reference Range Interpretation Comments POC-GLUCOSE METER 332 mg/dL 70-110 H TESTED AT [place] [address] ([facility]) (test code = [facility] 1538) [id number] POCT-GLUCOSE [id number] 16:26:00 Test Item Value Reference Range Interpretation Comments POC-GLUCOSE METER 265 mg/dL 70-110 H TESTED AT [facility] 6720 ([facility]) (test code = [place] [facility] 1538) [id number] POCT-GLUCOSE [id number] 16:22:00 Test Item Value Reference Range Interpretation Comments POC-GLUCOSE METER 290 mg/dL 70-110 H TESTED AT [facility] 6720 ([facility]) (test code = [place] [facility] 1538) [id number] PLATELET AGGREGATION: FUNCTION [id number] 09:31:00 Test Item Value Reference Range Interpretation Comments WEAK ADP 65 % 60-91 RESULT(BEAKER) (test code = 2135) PLATELET FUNCTION 60-100% indicates SCREEN INTERP ([facility]) normal platelet (test code = 2173) function [id number] Haley Macdonald MD ([facility]) (test code = (electronic signature) 6100) PLATELET COUNT AGG 225 K/CU MM 150-450 (BEAKER) (test code = 2656) for patients on clopidogrel in past two weeksPOCT-GLUCOSE [id number] 08:35:00 Test Item Value Reference Range Interpretation Comments POC-GLUCOSE METER 378 mg/dL 70-110 H Notified R Monika HENDRIX/TESTED ([facility]) (test code = AT [facility] 6720 [facility] 1538) [facility] [address] BASIC METABOLIC [id number] 07:33:00 Test Item Value Reference Range Interpretation Comments SODIUM (BEAKER) 137 meq/L 136-145 (test code = 381) POTASSIUM (BEAKER) 4.3 meq/L 3.5-5.1 (test code = 379) CHLORIDE (BEAKER) 105 meq/L 98-107 (test code = 382) CO2 (BEAKER) (test 22 meq/L 22-29 code = 355) BLOOD UREA NITROGEN 27 mg/dL 7-21 H (BEAKER) (test code = 354) CREATININE (BEAKER) 0.99 mg/dL 0.57-1.25 (test code = 358) GLUCOSE RANDOM 338 mg/dL 70-105 H (BEAKER) (test code = 652) CALCIUM (BEAKER) 9.0 mg/dL 8.4-10.2 (test code = 697) EGFR (BEAKER) (test 54 mL/min/1.73 ESTIMA ELIZABETH GFR IS code = 1092) sq m NOT ACCURATE CREATININE CLEARANCE IN PREDICTING GLOMERULAR FILTRATION RATE . ESTIMATED GFR I S NOT APPLICABLE FOR DIALYSIS PATIEN TS. [id number] 06:32:00 Test Item Value Reference Range Interpretation Comments PARTIAL THROMBOPLASTIN TIME 27.4 seconds 22.5-36.0 (BEAKER) (test code = 760) PROTHROMBIN TIME/[id number] 06:31:00 Test Item Value Reference Range Interpretation Comments PROTIME (BEAKER) (test code = 14.1 seconds 11.7-14.7 759) INR (BEAKER) (test code = 370) 1.1 <=5.9 RECOMMENDED COUMADIN/WARFARIN INR THERAPY RANGESSTANDARD DOSE: 2.0 - 3.0 Includes: PROPHYLAXIS for venous thrombosis, systemic embolization; TREATMENT for venous thrombosis and/or pulmonary embolus.HIGH RISK: Target INR is 2.5-3.5 for patients with mechanical heart valves.CBC W/PLT COUNT & AUTO [id number] 06:22:00 Test Item Value Reference Range Interpretation Comments WHITE BLOOD CELL COUNT (BEAKER) 9.5 K/ L 3.5-10.5 (test code = 775) RED BLOOD CELL COUNT (BEAKER) 4.05 M/ L 3.93-5.22 (test code = 761) HEMOGLOBIN (BEAKER) (test code = 11.8 GM/DL 11.2-15.7 410) HEMATOCRIT (BEAKER) (test code = 36.6 % 34.1-44.9 411) MEAN CORPUSCULAR VOLUME (BEAKER) 90.4 fL 79.4-94.8 (test code = 753) MEAN CORPUSCULAR HEMOGLOBIN 29.1 pg 25.6-32.2 (BEAKER) (test code = 751) MEAN CORPUSCULAR HEMOGLOBIN CONC 32.2 GM/DL 32.2-35.5 (BEAKER) (test code = 752) RED CELL DISTRIBUTION WIDTH 13.8 % 11.7-14.4 (BEAKER) (test code = 412) PLATELET COUNT (BEAKER) (test 227 K/CU MM 150-450 code = 756) MEAN PLATELET VOLUME (BEAKER) 11.6 fL 9.4-12.3 (test code = 754) NUCLEATED RED BLOOD CELLS 0 /100 WBC 0-0 (BEAKER) (test code = 413) NEUTROPHILS RELATIVE PERCENT 58 % (BEAKER) (test code = 429) LYMPHOCYTES RELATIVE PERCENT 30 % (BEAKER) (test code = 430) MONOCYTES RELATIVE PERCENT 7 % (BEAKER) (test code = 431) EOSINOPHILS RELATIVE PERCENT 5 % (BEAKER) (test code = 432) BASOPHILS RELATIVE PERCENT 1 % (BEAKER) (test code = 437) NEUTROPHILS ABSOLUTE COUNT 5.46 K/ L 1.56-6.13 (BEAKER) (test code = 670) LYMPHOCYTES ABSOLUTE COUNT 2.82 K/ L 1.18-3.74 (BEAKER) (test code = 414) MONOCYTES ABSOLUTE COUNT (BEAKER) 0.66 K/ L 0.24-0.36 H (test code = 415) EOSINOPHILS ABSOLUTE COUNT 0.44 K/ L 0.04-0.36 H (BEAKER) (test code = 416) BASOPHILS ABSOLUTE COUNT (BEAKER) 0.07 K/ L 0.01-0.08 (test code = 417) IMMATURE GRANULOCYTES-RELATIVE 0 % 0-1 PERCENT (BEAKER) (test code = 2801) RAD, CHEST, 1 VIEW, NON [id number] 22:37:00Reason for exam:->preopShould this be performed at the bedside?->YesFINAL REPORT INDICATION: preop COMPARISON: None TECHNIQUE: Single frontal view of the chest. FINDINGS: Lungs and pleura: Clear lungs. No effusion.Heart and mediastinum: Normal heart size. Unremarkable mediastinal contours.Osseous structures: No acute abnormality.Other: None. IMPRESSION: No acute intrathoracic abnormality. Signed: JR Jerez Robert MDReport Verified Date/Time: 07/04/2017 22:37:39 Reading Location: [facility] C013Y CT Body Reading Room POCT-GLUCOSE METER 2017-07-04 21:24:00 Test Item Value Reference Range Interpretation Comments POC-GLUCOSE METER 274 mg/dL 70-110 H TESTED AT [facility] 6720 ([facility]) (test code = [place] 1538) [id number] POCT-GLUCOSE [id number] 16:41:00 Test Item Value Reference Range Interpretation Comments POC-GLUCOSE METER 145 mg/dL 70-110 H TESTED AT [facility] 8470 (MANUEL) (test code = [place] 1538) [id number]
--- NOTE | 2022-08-09 09:01 | RAD REPORT ---
EXAM DESCRIPTION: RAD - Foot Right 3 View - 08/09/2022 8:35 am CLINICAL HISTORY: Right foot pain status post injury FINDINGS: Bony densities lie adjacent the distal calcaneus/cuboid equivocal for avulsion fracture. C linical correlation is needed see patient has point tenderness in this region to confirm this No dislocation
--- NOTE | 2022-08-09 09:01 | RAD REPORT ---
EXAM DESCRIPTION: RAD - Knee Right 3 View - 08/09/2022 8:35 am CLINICAL HISTORY: Right knee pain status post injury FINDINGS: Bony/calcific densities lie lateral to the lateral femoral condyle. The calcification is c hronic. The bony densities could be acute or chronic. However given the chronic calcification this is more likely to be chronic as well. If the patient has clinical symptoms to suggest acuity then MRI would be recommended No dislocation
--- NOTE | 2022-08-09 10:19 | ER ---
Nurse's Notes [facility] Name: Ashley Goins Age: 82 yrs Sex: Female : 1940 Arrival Date: 08/09/2022 Time: 08:00 Bed 18 Private MD: Diagnosis: Fall on same level from slipping, tripping and stumbling without subsequent striking against object;Pain in right foot;Pain in right knee Presentation: 08/09 08:11 Chief complaint: Patient states: R knee and foot pain that began last night after ss falling from standing position. Coronavirus screen: Client denies travel out of the [place] in the last 14 days. Ebola Screen: Patient denies exposure to infectious person. Patient denies travel to an Ebola-affected area in the 21 days before illness onset. Initial Sepsis Screen: Does the patient meet any 2 criteria? No. Patient's initial sepsis screen is negative. Does the patient have a suspected source of infection? No. Patient's initial sepsis screen is negative. Risk Assessment: Do you want to hurt yourself or someone else? Patient reports no desire to harm self or others. Onset of symptoms was August 08, 2022. 08:11 Method Of Arrival: Wheelchair ss 08:11 Acuity: AUBRIE 3 ss Historical: - Allergies: 08:07 Codeine; ll1 08:07 Latex, Natural Rubber; ll1 08:07 PENICILLINS; ll1 08:07 Sulfa (Sulfonamide Antibiotics); ll1 - PMHx: 08:07 carotid stenosis; Hypertension; Diabetes - NIDDM; Hypothyroidism; Asthma; Rheumatoid ll1 Arthritis; - Immunization history:: Adult Immunizations up to date. - Social history:: Smoking status: Patient denies any tobacco usage or history of. Screenin:18 [facility] ED Fall Risk Assessment (Adult) History of falling in the last 3 months, ll1 including since admission Yes- single mechanical fall (1 pt) Impaired Gait Yes (1 pt) Mobility Assist Device Used Yes (1 pt) Score/Fall Risk Level 3 or more points = High Risk Oriented to surroundings, Maintained a safe environment, Educated pt \T\ family on fall prevention, incl call for assistance when getting out of bed, Used ambulatory aids as needed (educated on \T\ assisted with). Abuse screen: Denies threats or abuse. Nutritional screening: No deficits noted. Tuberculosis screening: No symptoms or risk factors identified. Assessment: 08:18 General: Appears in no apparent distress. Behavior is calm, cooperative, appropriate ll1 for age. Musculoskeletal: Circulation, motion, and sensation intact. Capillary refill < 3 seconds, Reports pain in right foot and R knee. 08:44 Reassessment: No changes from previously documented assessment. Patient and/or family ll1 updated on plan of care and expected duration. Pain level reassessed. Patient is alert, oriented x 3, equal unlabored respirations, skin warm/dry/pink. 09:56 Reassessment: No changes from previously documented assessment. Patient and/or family ll1 updated on plan of care and expected duration. Pain level reassessed. Patient is alert, oriented x 3, equal unlabored respirations, skin warm/dry/pink. 10:42 Reassessment: No changes from previously documented assessment. Patient and/or family ll1 updated on plan of care and expected duration. Pain level reassessed. Patient is alert, oriented x 3, equal unlabored respirations, skin warm/dry/pink. Musculoskeletal: Circulation, motion, and sensation intact. Capillary refill < 3 seconds. Vital Signs: 08:11 Pulse 63; Resp 16; Pulse Ox 100% ; Weight 83.46 kg; Height 5 ft. 0 in. ; Pain 8/10; ss 08:18 BP 163 / 49; ll1 09:54 BP 135 / 47; Pulse 60; Resp 17; ll1 10:42 BP 153 / 53; Pulse 60; Resp 17; ll1 08:11 Body Mass Index 35.93 (83.46 kg, 152.4 cm) ss 08:11 Pain Scale: Adult ss ED Course: 08:02 Patient arrived in ED. ts1 08:03 Mel[facility] Mendes [facility]-C [facility] kb 08:03 Flaco Curry MD is Attending Physician. kb 08:07 Cielo Don, TREY is Primary Nurse. ll1 08:07 Arm band placed on Patient placed in an exam room, on a stretcher. ll1 08:12 Triage completed. ss 08:19 Patient has correct armband on for positive identification. Bed in low position. Call ll1 light in reach. Cardiac monitoring not applicable on this patient. 08:37 Knee Right 3 View XRAY In Process Unspecified. EDMS 08:37 Foot Right 3 View XRAY In Process Unspecified. EDMS 10:35 Ortho shoe applied to right foot. tolerated well. ll1 10:43 No provider procedures requiring assistance completed. Patient did not have IV access ll1 during this emergency room visit. Administered Medications: No medications were administered Medication: 08:19 VIS not applicable for this client. ll1 Outcome: 10:19 Discharge ordered by . kb 10:43 Discharged to home via wheelchair. ll1 10:43 Condition: stable 10:43 Discharge instructions given to patient, family, Instructed on discharge instructions, follow up and referral plans. Demonstrated understanding of instructions, follow-up care. 10:43 Patient left the ED. ll1 Signatures: Dispatcher [employer] EDMS Melanie Mendes, STEEL ENGRAVER-C STEEL ENGRAVER-Lenora Silvestre, Cielo Vargas RN, RN RN ll1 Rose Vick, PAS PAS ts1
--- NOTE | 2022-08-09 10:19 | EDPHYS ---
Physician Documentation [facility] Name: Ashley Goins Age: 82 yrs Sex: Female : 1940 Arrival Date: 08/09/2022 Time: 08:00 Bed 18 Private MD: ED Physician Flaco Curry HPI: 08/09 08:28 This 82 yrs old Female presents to ER via Wheelchair with complaints of Fall Injury. kb 08:28 Details of fall: The patient fell from an upright position, while standing. Onset: The kb symptoms/episode began/occurred yesterday, at 18:00. Associated injuries: The patient sustained dorsum of right foot and right knee, abrasion, ecchymosis, painful injury. Severity of symptoms: At their worst the symptoms were moderate, in the emergency department the symptoms are unchanged. The patient has not experienced similar symptoms in the past. The patient has not recently seen a physician. Historical: - Allergies: 08:07 Codeine; ll1 08:07 Latex, Natural Rubber; ll1 08:07 PENICILLINS; ll1 08:07 Sulfa (Sulfonamide Antibiotics); ll1 - PMHx: 08:07 carotid stenosis; Hypertension; Diabetes - NIDDM; Hypothyroidism; Asthma; Rheumatoid ll1 Arthritis; - Immunization history:: Adult Immunizations up to date. - Social history:: Smoking status: Patient denies any tobacco usage or history of. ROS: 08:27 Constitutional: Negative for fever, chills, and weight loss. kb 08:27 MS/extremity: Positive for pain, of the right knee and dorsum of right foot. 08:27 All other systems are negative. Exam: 08:27 Constitutional: This is a well developed, well nourished patient who is awake, alert, kb and in no acute distress. Head/Face: Normocephalic, atraumatic. ENT: Moist Mucous membranes Cardiovascular: Regular rate and rhythm with a normal S1 and S2. No gallops, murmurs, or rubs. No pulse deficits. Respiratory: Respirations even and unlabored. No increased work of breathing. Talking in full sentences Abdomen/GI: Soft, non-tender. No distention Neuro: Awake and alert, GCS 15, oriented to person, place, time, and situation. Moves all extremities. Normal gait. 08:27 Musculoskeletal/extremity: Extremities: grossly normal except: noted in the right knee: abrasion, pain, noted in the dorsum of right foot: ecchymosis, pain, ROM: intact in all extremities, Circulation is intact in all extremities. Sensation intact. Weight bearing: able to fully bear weight. Vital Signs: 08:11 Pulse 63; Resp 16; Pulse Ox 100% ; Weight 83.46 kg; Height 5 ft. 0 in. ; Pain 8/10; ss 08:18 BP 163 / 49; ll1 09:54 BP 135 / 47; Pulse 60; Resp 17; ll1 10:42 BP 153 / 53; Pulse 60; Resp 17; ll1 08:11 Body Mass Index 35.93 (83.46 kg, 152.4 cm) ss 08:11 Pain Scale: Adult ss MDM: 08:03 Patient medically screened. kb 08:28 Differential diagnosis: abrasion, contusion, fracture, sprain, strain. Data reviewed: kb vital signs, nurses notes. 10:18 Counseling: I had a detailed discussion with the patient and/or guardian regarding: the kb historical points, exam findings, and any diagnostic results supporting the discharge/admit diagnosis, radiology results, the need for outpatient follow up, a orthopedic surgeon, to return to the emergency department if symptoms worsen or persist or if there are any questions or concerns that arise at home. 08/09 08:12 Order name: Knee Right 3 View XRAY; Complete Time: 09:02 kb 08/09 08:12 Order name: Foot Right 3 View XRAY; Complete Time: 09:03 kb 08/09 10:20 Order name: Walking boot; Complete Time: 10:20 kb Administered Medications: No medications were administered Disposition: 17:16 Co-signature as Attending Physician, Flaco Curry MD I reviewed the patient's care rn provided by the Advanced Practice Provider and agree with the diagnosis and treatment plan. Disposition Summary: 08/09/22 10:19 Discharge Ordered Location: Home kb Condition: Stable kb Diagnosis - Fall on same level from slipping, tripping and stumbling without subsequent kb striking against object - Pain in right foot kb - Pain in right knee kb Followup: kb - With: Emergency Department - When: As needed - Reason: Worsening of condition Followup: kb - With: Private Physician - When: 2 - 3 days - Reason: Recheck today's complaints, Continuance of care, Re-evaluation by your physician Discharge Instructions: - Discharge Summary Sheet kb - Musculoskeletal Pain kb Forms: - Medication Reconciliation Form kb - Thank You Letter kb - Antibiotic Education kb - Prescription Opioid Use kb Signatures: Dispatcher [employer] Melanie Plaza, STEFANIE-C STEFANIE-Flaco Dowell MD MD rn Smirch, Shelby, RN RN ss Cielo Don RN RN ll1
[2022-08-09 11:42] VITALS: BP 153/53
== END 2022-08-09 10:43 | disposition home or self-care (01) ==
LOC: ER 08:00
DX: M79.671 Pain in right foot (principal); M25.561 Pain in right knee; W01.0XXA Fall on same level from slipping, tripping and stumbling without subsequent striking against object, initial encounter; Z88.0 Allergy status to penicillin; Z88.2 Allergy status to sulfonamides; Z88.5 Allergy status to narcotic agent; Z91.040 Latex allergy status; Z91.048 Other nonmedicinal substance allergy status
CPT/HCPCS: 99283